=== PATIENT | female | born 1965 | race Caucasian/White ===

== ENCOUNTER 2020-06-08 14:53 | Inpatient (IN) | payer OTHER, SELFPAY ==
[2020-06-08 15:34] VITALS: PULSE 112; RESP 20; TEMP 36.3; O2SAT 99; BMI 19.3
--- NOTE | 2020-06-08 17:48 | ED_ITS ---
HPI - General Adult General Chief complaint: General Medical Stated complaint: fluid build up stomach Time Seen by Provider: 06/08/20 17:30 Source: patient Mode of arrival: ambulatory Limitations: no limitations History of Present Illness HPI narrative: Patient comes to the emergency room complaining of increased ab dominal size. Patient states earlier today she went to [facility], she was sent here for further evaluation and treatment. Patient states over the last week her abdomen has been growing. Patient states she drinks beer every day, started more than 20 years ago. Patient states she has never been told that she has cirrhosis , she is aware that her platelets are low from drinking. Otherwise she has never had any alcohol related issues. Patient denies fever chills. Patient states she has mild right upper quadrant pain, no vomiting or diarrhea. MD complaint: Abdominal distension Related Data Home Medications Medication Instructions Recorded Confirmed No Known Home Meds 06/08/20 06/08/20 Allergies Allergy/AdvReac Type Severity Reaction Status Date / Time Penicillins [PENICILLINS] Allergy Mild YEAST Verified 06/09/20 01:34 INFECTION penicillin V AdvReac Unknown yeast Verified 06/09/20 01:34 infection Review of Systems Review of Systems: Constitutional : No Weight loss, No Fever, No Chills, No Night Sweats, No Fatigue, No Malaise ENT/Mouth : No Hearing loss, No Ear Pain, No Nasal Congestion, No Sinus Pain, No Hoarseness, No sore throat, No Rhinorrhea, No Swallowing Difficulty Eyes: No Eye Pain, No Swelling, No Redness, No Foreign Body, No Discharge, No V ision Changes Cardiovascular : No Chest Pain, No SOB, No Dyspnea on Exertion, No Orthopnea, No Edema, No Palpitations Respiratory : No Cough, No Sputum, No Wheezing, No Smoke Exposure, No Dyspnea Gastrointestinal : No Nausea, No Vomiting, No Diarrhea, No Constipation, complaining of mild right upper quadrant pain and increased abdominal distention for the last week. No Hematochezia, No Melena Genitourinary : no irregular bleeding, No Dysuria, No Urinary Frequency, No Hematuria, No Urinary Incontinence, No Urgency, No Flank Pain, No Urinary Flow Changes, No Hesitancy Musculoskeletal : No joint pain, No Myalgias, No Joint Swelling Skin : No Skin Lesions, No rash Neuro : No Weakness, No Numbness, No Paresthesias, No Loss of Consciousness, No Dizziness, No Headache Psych : No Anxiety/Panic, No Depression, No SI/HI/AH/VH, No Social Issues, Heme/Lymph: No Bruising, No Bleeding,No Lymphadenopathy Endocrine : No Polyuria, No Polydipsia, No Temperature Intolerance [facility] Past Medical History Medical History (Updated 06/08/20 @ 23:02 by Aaliyah Sheikh MD) Alcohol abuse No known health problems Social History Social History Alcohol intake: current Alcohol intake frequency: 0-2 drinks per day Smoking Status: Current every day smoker Use of substances other than those prescribed or required for medical reasons: No Advance Directives: No Advance Directives Information Provided: No Physical Exam Vital Signs: Vital Signs: Last Vital Signs Temp 98.5 F 06/09/20 02:00 Pulse 120 H 06/09/20 02:00 Resp 19 06/09/20 02:00 BP 124/59 L 06/09/20 02:00 Pulse Ox 97 06/09/20 02:00 Body Mass Index 19.3 Appearance: Alert. Oriented X3. No acute distress. Eyes: Pupils equal, round and reactive to light. Icteric sclera ENT: Pharynx normal. Neck: Normal inspection. Neck supple. No lymph nodes noted. No crepitus CVS: Normal heart rate and rhythm. Pulses normal. Normal S1 and S2 Respiratory: No respiratory distress. Breath sounds normal. No Wheezing. No rales Abdomen: Soft and nontender. Grossly distended, bedside ultrasound shows bilateral lower quadrant fluid pockets, more pronounced in the left lower quadrant Skin: Skin warm and dry. Normal skin color. Normal skin turgor. Extremities: No lower extremity edema. No lower extremity edema. No Lacerations. No Rash Neuro: Oriented X 3. No motor deficit. No sensory deficit. Moving all extermities. No slurred speech. Course Course Course Narrative: Patient had a paracentesis done in the emergency room, 4300 mL were drained. I discussed the labs with the patient, this is the 1st time that patient is aware that she has any kind of liver or kidney injury. 2:20am: I was informed by the patient's nurse that the patient has epistaxis, intranasal Afrin was tried, patient continued having nasal bleed, topical intranasal TXA was attempted, seems that the bleeding stopped. Patient is already admitted. sign out given to Dr. Gonsalez, aware of the above mentioned, patient boarding Procedures Paracentesis Time Out Performed: Yes Local Anesthetic: lidocaine 2% Amount of anesthesia used (mL): 10 Fluid: clear and sent to lab for analysis Post Procedure Exam: awake, alert, normal BP, normal HR and normal SpO2 Patient Tolerated Procedure: well and no complications Complications: none Medical Decision Making Lab Data Result diagrams: 06/08/20 18:04 06/08/20 18:04 Labs: Lab Results 06/08/20 06/08/20 06/08/20 Range/Units 18:04 18:04 18:04 WBC 9.8 (4.8-10.8) X10*3/uL RBC 2.46 L (4.20-5.50) X10*6/uL Hgb 8.8 L (12.0-16.0) g/dl Hct 25.3 L (37-47) % MCV 102.8 H (80-98) fL MCH 35.8 H (27.0-33.0) pg MCHC 34.8 (31.0-35.0) g/dl RDW 18.8 H (11.0-16.0) % Plt Count 68 L (160-400) X10*3/uL MPV 11.8 (9.4-12.3) fL Immature Gran % (Auto) 0.5 H (0.0-0.4) % Neut % (Auto) 77.4 H (45-73) % Lymph % (Auto) 9.3 L (20-40) % Merrick % (Auto) 12.6 H (2-11) % Eos % (Auto) 0.0 (0-4) % Baso % (Auto) 0.2 (0-2) % Lymph # (Auto) 0.9 L (1.2-4.9) X10*3/uL Merrick # (Auto) 1.2 (0.1-1.2) X10*3/uL Eos # (Auto) 0.0 (0.0-0.4) X10*3/uL Baso # (Auto) 0.0 (0.0-0.2) X10*3/uL Abs Immat Gran (auto) 0.05 H (0.00-0.03) X10*3/uL Absolute Neuts (auto) 7.5 (2.0-8.3) X10*3/uL Absolute Nucleated RBC 0.000 (0.0-0.012) X10*3/uL Nucleated RBC % (auto) 0.0 (0.0-0.2) /100WBC PT 31.4 H (10.8-13.0) SEC INR 2.6 H (0.9-1.1) Sodium 131 L (135-145) mmol/L Potassium 3.9 (3.3-5.1) mmol/l Chloride 99 (96-108) mmol/L Carbon Dioxide 13 L (22-29) mmol/L Anion Gap 23 H (12-20) BUN 10 (9-16) mg/dL Creatinine 1.75 H (0.5-1.4) mg/dL Estim Creat Clear Calc 30.8 Estimated GFR 30 POC Glucose (60-115) mg/dL Random Glucose 57 L* (60-115) mg/dL Calcium 7.0 L (8.4-10.2) mg/dL Total Bilirubin 6.9 H (0.0-1.0) mg/dL Direct Bilirubin 4.6 H (0.0-0.5) mg/dL AST 284 H (5-31) U/L ALT 59 H (0-31) U/L Alkaline Phosphatase 102 (39-117) U/L Ammonia (13-55) umol/L Total Protein 7.9 (6.5-8.0) g/dL Albumin 1.9 L (3.5-5.0) g/dL Amylase (28-100) U/L Lipase (8-78) U/L Peritoneal WBC X10*3/uL Peritoneal RBC X10*6/uL Periton Neutrophils % Periton Lymphocytes % Peritoneal Monocytes % Peritoneal Eosinophils % Peritoneal Basophils % Peritoneal Other Cells % Ethyl Alcohol mg/dL COVID-19 ([facility]) (Negative) COVID-19 Clin Com Blood Type Antibody Screen 06/08/20 06/08/20 06/08/20 Range/Units 18:04 18:04 22:39 WBC (4.8-10.8) X10*3/uL RBC (4.20-5.50) X10*6/uL Hgb (12.0-16.0) g/dl Hct (37-47) % MCV (80-98) fL MCH (27.0-33.0) pg MCHC (31.0-35.0) g/dl RDW (11.0-16.0) % Plt Count (160-400) X10*3/uL MPV (9.4-12.3) fL Immature Gran % (Auto) (0.0-0.4) % Neut % (Auto) (45-73) % Lymph % (Auto) (20-40) % Merrick % (Auto) (2-11) % Eos % (Auto) (0-4) % Baso % (Auto) (0-2) % Lymph # (Auto) (1.2-4.9) X10*3/uL Merrick # (Auto) (0.1-1.2) X10*3/uL Eos # (Auto) (0.0-0.4) X10*3/uL Baso # (Auto) (0.0-0.2) X10*3/uL Abs Immat Gran (auto) (0.00-0.03) X10*3/uL Absolute Neuts (auto) (2.0-8.3) X10*3/uL Absolute Nucleated RBC (0.0-0.012) X10*3/uL Nucleated RBC % (auto) (0.0-0.2) /100WBC PT (10.8-13.0) SEC INR (0.9-1.1) Sodium (135-145) mmol/L Potassium (3.3-5.1) mmol/l Chloride (96-108) mmol/L Carbon Dioxide (22-29) mmol/L Anion Gap (12-20) BUN (9-16) mg/dL Creatinine (0.5-1.4) mg/dL Estim Creat Clear Calc Estimated GFR POC Glucose (60-115) mg/dL Random Glucose (60-115) mg/dL Calcium (8.4-10.2) mg/dL Total Bilirubin (0.0-1.0) mg/dL Direct Bilirubin (0.0-0.5) mg/dL AST (5-31) U/L ALT (0-31) U/L Alkaline Phosphatase (39-117) U/L Ammonia 56 H (13-55) umol/L Total Protein (6.5-8.0) g/dL Albumin (3.5-5.0) g/dL Amylase (28-100) U/L Lipase 42 (8-78) U/L Peritoneal WBC X10*3/uL Peritoneal RBC X10*6/uL Periton Neutrophils % Periton Lymphocytes % Peritoneal Monocytes % Peritoneal Eosinophils % Peritoneal Basophils % Peritoneal Other Cells % Ethyl Alcohol 101 mg/dL COVID-19 ([facility]) (Negative) COVID-19 Clin Com Blood Type Antibody Screen 06/08/20 06/08/20 06/08/20 Range/Units 22:39 22:39 22:46 WBC (4.8-10.8) X10*3/uL RBC (4.20-5.50) X10*6/uL Hgb (12.0-16.0) g/dl Hct (37-47) % MCV (80-98) fL MCH (27.0-33.0) pg MCHC (31.0-35.0) g/dl RDW (11.0-16.0) % Plt Count (160-400) X10*3/uL MPV (9.4-12.3) fL Immature Gran % (Auto) (0.0-0.4) % Neut % (Auto) (45-73) % Lymph % (Auto) (20-40) % Merrick % (Auto) (2-11) % Eos % (Auto) (0-4) % Baso % (Auto) (0-2) % Lymph # (Auto) (1.2-4.9) X10*3/uL Merrick # (Auto) (0.1-1.2) X10*3/uL Eos # (Auto) (0.0-0.4) X10*3/uL Baso # (Auto) (0.0-0.2) X10*3/uL Abs Immat Gran (auto) (0.00-0.03) X10*3/uL Absolute Neuts (auto) (2.0-8.3) X10*3/uL Absolute Nucleated RBC (0.0-0.012) X10*3/uL Nucleated RBC % (auto) (0.0-0.2) /100WBC PT (10.8-13.0) SEC INR (0.9-1.1) Sodium (135-145) mmol/L Potassium (3.3-5.1) mmol/l Chloride (96-108) mmol/L Carbon Dioxide (22-29) mmol/L Anion Gap (12-20) BUN (9-16) mg/dL Creatinine (0.5-1.4) mg/dL Estim Creat Clear Calc Estimated GFR POC Glucose (60-115) mg/dL Random Glucose (60-115) mg/dL Calcium (8.4-10.2) mg/dL Total Bilirubin (0.0-1.0) mg/dL Direct Bilirubin (0.0-0.5) mg/dL AST (5-31) U/L ALT (0-31) U/L Alkaline Phosphatase (39-117) U/L Ammonia (13-55) umol/L Total Protein (6.5-8.0) g/dL Albumin (3.5-5.0) g/dL Amylase 143 H (28-100) U/L Lipase 40 (8-78) U/L Peritoneal WBC 2.123 X10*3/uL Peritoneal RBC < 0.002 X10*6/uL Periton Neutrophils 47 % Periton Lymphocytes 2 % Peritoneal Monocytes 49 % Peritoneal Eosinophils 0 % Peritoneal Basophils 0 % Peritoneal Other Cells 2 % Ethyl Alcohol mg/dL COVID-19 ([facility]) (Negative) COVID-19 Clin Com Blood Type O Positive Antibody Screen NEGATIVE 06/08/20 06/09/20 Range/Units 22:48 01:41 WBC (4.8-10.8) X10*3/uL RBC (4.20-5.50) X10*6/uL Hgb (12.0-16.0) g/dl Hct (37-47) % MCV (80-98) fL MCH (27.0-33.0) pg MCHC (31.0-35.0) g/dl RDW (11.0-16.0) % Plt Count (160-400) X10*3/uL MPV (9.4-12.3) fL Immature Gran % (Auto) (0.0-0.4) % Neut % (Auto) (45-73) % Lymph % (Auto) (20-40) % Merrick % (Auto) (2-11) % Eos % (Auto) (0-4) % Baso % (Auto) (0-2) % Lymph # (Auto) (1.2-4.9) X10*3/uL Merrick # (Auto) (0.1-1.2) X10*3/uL Eos # (Auto) (0.0-0.4) X10*3/uL Baso # (Auto) (0.0-0.2) X10*3/uL Abs Immat Gran (auto) (0.00-0.03) X10*3/uL Absolute Neuts (auto) (2.0-8.3) X10*3/uL Absolute Nucleated RBC (0.0-0.012) X10*3/uL Nucleated RBC % (auto) (0.0-0.2) /100WBC PT (10.8-13.0) SEC INR (0.9-1.1) Sodium (135-145) mmol/L Potassium (3.3-5.1) mmol/l Chloride (96-108) mmol/L Carbon Dioxide (22-29) mmol/L Anion Gap (12-20) BUN (9-16) mg/dL Creatinine (0.5-1.4) mg/dL Estim Creat Clear Calc Estimated GFR POC Glucose 54 L* (60-115) mg/dL Random Glucose (60-115) mg/dL Calcium (8.4-10.2) mg/dL Total Bilirubin (0.0-1.0) mg/dL Direct Bilirubin (0.0-0.5) mg/dL AST (5-31) U/L ALT (0-31) U/L Alkaline Phosphatase (39-117) U/L Ammonia (13-55) umol/L Total Protein (6.5-8.0) g/dL Albumin (3.5-5.0) g/dL Amylase (28-100) U/L Lipase (8-78) U/L Peritoneal WBC X10*3/uL Peritoneal RBC X10*6/uL Periton Neutrophils % Periton Lymphocytes % Peritoneal Monocytes % Peritoneal Eosinophils % Peritoneal Basophils % Peritoneal Other Cells % Ethyl Alcohol mg/dL COVID-19 ([facility]) Negative (Negative) COVID-19 Clin Com See Note Blood Type Antibody Screen Imaging Data CT scan - abdomen: Radiologist's impression: LUNG BASES: Moderate volume left pleural effusion with compressive atelectasis at left lung base. Small volume right pleural effusion. LIVER, GALLBLADDER, AND BILIARY TREE: Liver parenchyma is low in density. No focal liver lesion or intrahepatic bile duct dilatation. Right lobe of liver measures 14 cm superior inferior. The gallbladder is distended. No calcified gallstone. No dilatation of the CBD which measures about 5 mm. PANCREAS: Unremarkable. SPLEEN: Unremarkable. Spleen measures 11 cm superior inferior. Small splenule at the inferior splenic margin ADRENAL GLANDS: Unremarkable. KIDNEYS AND URETERS: The kidneys are normal in size, shape, and attenuation. No hydronephrosis, hydroureter, or calculi seen. No perinephric stranding. BLADDER: Unremarkable. GASTROINTESTINAL TRACT: There is mild diffuse thickening of the left colon and sigmoid bowel wall there is also diffuse thickening of the bowel wall of the cecum and ascending colon. This finding however is of uncertain significance in the presence of the abdominal ascites. There are a few diverticula of the left colon. Small volume of scattered stool in colon. There is no bowel obstruction. No abnormally dilated bowel loop. MESENTERY: There is a large volume of abdominal ascites. There is no free air. There is no mesenteric mass. ABDOMINAL WALL: No significant hernia is appreciated. LYMPH NODES: Normal. VASCULAR: Scattered vascular calcifications of the wall of aorta. There is no aneurysm. PELVIC VISCERA: Unremarkable. OSSEOUS STRUCTURES: Unremarkable. CT/CT abdomen pelvis wo con IMPRESSION: 1. Large volume of abdominal ascites. 2. Low-attenuation of liver parenchyma consistent with nonspecific hepatobiliary disease. 3. Nonspecific colonic bowel wall thickening in the sigmoid and descending colon and the cecum and ascending colon. No abnormal bowel dilatation. 4. Bilateral pleural effusions. Left is larger in volume than the right. Discharge Plan Discharge Clinical Impression: Elevated LFTs, Acute kidney injury Ascites Qualifiers: Ascites type: due to alcoholic cirrhosis Qualified Code(s): K70.31 - Alcoholic cirrhosis of liver with ascites Patient Disposition: Admitted As Inpatient
[2020-06-08 18:14] LABS: Basophils Percent Auto 0.2 % (0-2); Hematocrit 25.3 % (37-47); Hemoglobin 8.8 g/dl (12.0-16.0); Imm Gran Abs Auto 0.05 X10*3/uL (0.00-0.03); Imm Gran Pct Auto 0.5 % (0.0-0.4); Lymphocytes Absolute Auto 0.9 X10*3/uL (1.2-4.9); Lymphocytes Percent Auto 9.3 % (20-40); MANUAL DIFF FLAG NO; Mean Corpuscular HGB Conc 34.8 g/dl (31.0-35.0); Mean Corpuscular Hemoglobin 35.8 pg (27.0-33.0); Mean Corpuscular Volume 102.8 fL (80-98); Mean Platelet Volume 11.8 fL (9.4-12.3); Monocytes Absolute Auto 1.2 X10*3/uL (0.1-1.2); Monocytes Percent Auto 12.6 % (2-11); Neutrophils Absolute Auto 7.5 X10*3/uL (2.0-8.3); Neutrophils Percent Auto 77.4 % (45-73); Red Blood Count 2.46 X10*6/uL (4.20-5.50); Red Cell Distribution Width 18.8 % (11.0-16.0); White Blood Count 9.8 X10*3/uL (4.8-10.8)
[2020-06-08 18:15] VITALS: PULSE 105; RESP 18; TEMP 36.8; O2SAT 97
[2020-06-08 18:15] LABS: Platelet Count 68 X10*3/uL (160-400)
[2020-06-08 18:23] LABS: INTERNATIONAL NORM RATIO 2.6 (0.9-1.1); Prothrombin Time 31.4 SEC (10.8-13.0)
[2020-06-08 18:33] LABS: Ethanol 101 mg/dL
[2020-06-08 18:35] LABS: Lipase 42 U/L (8-78)
[2020-06-08 18:44] LABS: Alanine Aminotransferase 59 U/L (0-31); Albumin Level 1.9 g/dL (3.5-5.0); Alkaline Phosphatase 102 U/L (39-117); Anion Gap 23 (12-20); Aspartate Amino Transferase 284 U/L (5-31); Bilirubin Direct 4.6 mg/dL (0.0-0.5); Bilirubin Total 6.9 mg/dL (0.0-1.0); Blood Urea Nitrogen 10 mg/dL (9-16); Carbon Dioxide 13 mmol/L (22-29); Chloride 99 mmol/L (96-108); Creatinine Clr Calc Pharmacy 30.8; Estimated Glomerular Filt Rate 30; Glucose Random 57 mg/dL (60-115); Potassium 3.9 mmol/l (3.3-5.1); Sodium 131 mmol/L (135-145); Total Protein 7.9 g/dL (6.5-8.0)
--- NOTE | 2020-06-08 19:55 | CT_ITS ---
EXAMINATION: CT ABDOMEN AND PELVIS WITHOUT CONTRAST CLINICAL INFORMATION: Left upper quadrant pain. Ascites. COMPARISON: Ultrasound of abdomen 07/31/2018 TECHNIQUE: Multidetector volumetric imaging was performed from the superior aspect of the liver through the pubic symphysis. Sagittal and coronal reformatted images were obtained on the technologist's workstation. This CT examination was performed using dose optimization techniques as appropriate, variously including the following: *Automated exposure control *Adjustment of mA and/or kV according to patient size (this includes techniques or standardized protocols for targeted exams where dose is matched to indication/reason for exam; i.e. extremities or head) *Use of iterative reconstruction technique DLP: 481 mGy-cm FINDINGS: LUNG BASES: Moderate volume left pleural effusion with compressive atelectasis at left lung base. Small volume right pleural effusion. LIVER, GALLBLADDER, AND BILIARY TREE: Liver parenchyma is low in density. No focal liver lesion or intrahepatic bile duct dilatation. Right lobe of liver measures 14 cm superior inferior. The gallbladder is distended. No calcified gallstone. No dilatation of the CBD which measures about 5 mm. PANCREAS: Unremarkable. SPLEEN: Unremarkable. Spleen measures 11 cm superior inferior. Small splenule at the inferior splenic margin ADRENAL GLANDS: Unremarkable. KIDNEYS AND URETERS: The kidneys are normal in size, shape, and attenuation. No hydronephrosis, hydroureter, or calculi seen. No perinephric stranding. BLADDER: Unremarkable. GASTROINTESTINAL TRACT: There is mild diffuse thickening of the left colon and sigmoid bowel wall there is also diffuse thickening of the bowel wall of the cecum and ascending colon. This finding however is of uncertain significance in the presence of the abdominal ascites. There are a few diverticula of the left colon. Small volume of scattered stool in colon. There is no bowel obstruction. No abnormally dilated bowel loop. MESENTERY: There is a large volume of abdominal ascites. There is no free air. There is no mesenteric mass. ABDOMINAL WALL: No significant hernia is appreciated. LYMPH NODES: Normal. VASCULAR: Scattered vascular calcifications of the wall of aorta. There is no aneurysm. PELVIC VISCERA: Unremarkable. OSSEOUS STRUCTURES: Unremarkable. CT/CT abdomen pelvis wo con IMPRESSION: 1. Large volume of abdominal ascites. 2. Low-attenuation of liver parenchyma consistent with nonspecific hepatobiliary disease. 3. Nonspecific colonic bowel wall thickening in the sigmoid and descending colon and the cecum and ascending colon. No abnormal bowel dilatation. 4. Bilateral pleural effusions. Left is larger in volume than the right.
[2020-06-08 22:00] VITALS: PULSE 102; RESP 20; O2SAT 100
[2020-06-08] MEDS: Lidocaine HCl 2 % MPF 5 ML VIAL 10 ML INFILTRATI (22:34)
--- NOTE | 2020-06-08 22:44 | P.HPHOSP_ITS ---
History of Present Illness Date of Service: 06/08/20 Chief Complaint: Abdominal distension 54-year-old female with no significant past medical history who presents to hospital with complaints of abdominal distension x1 week. Patient reports that she started noticing her abdominal swelling about a week ago contributed to constipation has some pain specially when she is trying to get up or have a lot of movement, has low appetite but drinks sufficient water, denies having any nausea or vomiting PI denies noticing any changes in the color of her skin or eyes, denies having any right quadrant abdominal pain, denies using any IV drug use or history of hepatitis, she is a alcohol drinker drinks 1 beer daily for a very long time per patient, she uses Tylenol regularly for hip, denies using any type of NSAIDs. Patient also noticed swelling in her legs. She otherwise denies having any headache, change in vision, no chest pain, no shortness of breath, no urinary symptoms. No weakness numbness or tingling. On arrival to the ED hemodynamically stable with a heart rate of 112, respiratory rate of 20, satting 99% on room air, blood pressure 1 7/54. Temperature of 97.3? Labs are significant for 9.8, hemoglobin of 8.8 (13 on 12/13/2018) hematocrit 25.3, MCV of 102, RDW of 18.8, [place] [address], PT of 31.4 INR of 2.6 (patient not on any anticoagulation), sodium of 131, potassium of 3.9, BUN of 1 0, creatinine of 1.75 baseline around 0.69 from 12/13/2018, hypoglycemic with a glucose of 57, 6.9, direct bili of 4.6, AST of 284, ALT of 59, ammonia 56, albumin of 1.9, amylase of 143, lipase of 40, Patient is undergoing diagnostic and therapeutic paracentesis COVID-19 negative, hepatitis panel negative Abdominal CT demonstrating large volume of abdominal ascites, low attenuation of liver parenchyma consistent with nonspecific hepatic biliary disease, nonspecific colonic bowel wall thickening in the sigmoid and descending colon and the cecum and ascending colon. Bilateral pleural effusion left as large in volume than the right Review of Systems Review of Systems: Yes all other systems are reviewed and are negative [facility] Medical History Alcohol abuse No known health problems Social History Alcohol intake: current Alcohol intake frequency: 0-2 drinks per day Smoking Status: Current every day smoker Use of substances other than those prescribed or required for medical reasons: No Advance Directives: No Advance Directives Information Provided: No Meds Allergies Allergy/AdvReac Type Severity Reaction Status Date / Time Penicillins [PENICILLINS] Allergy Mild YEAST Verified 06/09/20 01:34 INFECTION penicillin V AdvReac Unknown yeast Verified 06/09/20 01:34 infection Home Medications Medication Instructions Recorded Confirmed Type No Known Home Meds 06/08/20 06/08/20 History Physical Exam Vital Signs and Narrative: Vital Signs: Last Vital Signs Temp 97.3 F 06/08/20 15:34 Pulse 112 H 06/08/20 15:34 Resp 20 06/08/20 15:34 Pulse Ox 99 06/08/20 15:34 Body Mass Index 19.3 Const: General: cooperative and no acute distress Orientation/conscio usness: patient oriented x3 Eyes: General: appearance normal, both eyes and all related structures Sclerae: scleral abnormal (Sclera icterus) bilateral Resp: Effort & Inspection: normal respiratory effort, able to speak in complete sentences and abnormal respiratory pattern Auscultation: clear to auscultation bilaterally Cardio: Rate: regular rate Rhythm: regular rhythm GI: Other: Abdominal distension, no rebound no guarding, tender to deep palpation Palpation (GI): Soft to palpation Auscultation: normal bowel sounds Skin: General skin exam: no rashes or lesions noted Neuro: General: patient oriented x3 Cognition (Neuro): normal cognition Extrem: Other: 1+ pedal edema General: Yes normal to inspection Results Labs CBC and Chem 7: 06/08/20 18:04 06/08/20 18:04 Labs: Laboratory Results - last 24 hr 06/08/20 06/08/20 06/08/20 18:04 18:04 18:04 MCV 102.8 H MCH 35.8 H MCHC 34.8 RDW 18.8 H Plt Count 68 L MPV 11.8 Immature Gran % (Auto) 0.5 H Neut % (Auto) 77.4 H Lymph % (Auto) 9.3 L Dare % (Auto) 12.6 H Eos % (Auto) 0.0 Baso % (Auto) 0.2 Lymph # (Auto) 0.9 L Dare # (Auto) 1.2 Eos # (Auto) 0.0 Baso # (Auto) 0.0 Abs Immat Gran (auto) 0.05 H Absolute Neuts (auto) 7.5 Absolute Nucleated RBC 0.000 Nucleated RBC % (auto) 0.0 PT 31.4 H INR 2.6 H Anion Gap 23 H Estim Creat Clear Calc 30.8 Estimated GFR 30 Random Glucose 57 L* Calcium 7.0 L Total Bilirubin 6.9 H Direct Bilirubin 4.6 H AST 284 H ALT 59 H Alkaline Phosphatase 102 Total Protein 7.9 Albumin 1.9 L Lipase Ethyl Alcohol 06/08/20 06/08/20 18:04 18:04 MCV MCH MCHC RDW Plt Count MPV Immature Gran % (Auto) Neut % (Auto) Lymph % (Auto) Dare % (Auto) Eos % (Auto) Baso % (Auto) Lymph # (Auto) Dare # (Auto) Eos # (Auto) Baso # (Auto) Abs Immat Gran (auto) Absolute Neuts (auto) Absolute Nucleated RBC Nucleated RBC % (auto) PT INR Anion Gap Estim Creat Clear Calc Estimated GFR Random Glucose Calcium Total Bilirubin Direct Bilirubin AST ALT Alkaline Phosphatase Total Protein Albumin Lipase 42 Ethyl Alcohol 101 Imaging Radiologist's Impressions: Impressions Abdomen/Pelvis CT 06/08/20 19:55 IMPRESSION: 1. Large volume of abdominal ascites. 2. Low-attenuation of liver parenchyma consistent with nonspecific hepatobiliary disease. 3. Nonspecific colonic bowel wall thickening in the sigmoid and descending colon and the cecum and ascending colon. No abnormal bowel dilatation. 4. Bilateral pleural effusions. Left is larger in volume than the right. Assessment and Plan (1) Liver failure: Qualifiers: Liver failure chronicity: acute Hepatic coma status: without hepatic coma Qualified Code(s): K72.00 - Acute and subacute hepatic failure without com a Status: Acute (2) Elevated INR: Status: Acute (3) Elevated LFTs: Status: Acute (4) Acute kidney injury: Status: Acute (5) Ascites: Qualifiers: Ascites type: due to alcoholic cirrhosis Qualified Code(s): K70.31 - A lcoholic cirrhosis of liver with ascites Status: Acute (6) Hyperammonemia: Status: Acute (7) Hypoglycemia: Status: Acute This is a 54-year-old female with past medical history of alcohol abuse who presents to the hospital with ascites of the abdomen # acute liver failure - most likely secondary to alcohol abuse, hepatitis panel negative - reports using Tylenol but not in excessive doses, and LFTs are not indicative of toxicity secondary to Tylenol use - has scleral icterus, ammonia elevated, LFT is indicative of alcohol use, total bili of 6.9, albumin of 1.9, and has coagulopathy - MELD score of 32 placing her at a 52.6 % estimated 3 month mortality - CILD HUTCHISON class C - underwent diagnostic as well as therapeutic paracentesis in the ED, lipase normal, amylase slightly elevated Plan: - will obtain ROBBY, anti smooth muscle antibody, liver kidney microsomal antibodies - GI consult - given her pleural effusions on the CT scan, as well as lower extremity edema, will give her 1 dose of Lasix 40 mg - start lactulose - Tylenol level - discussed extensively the importance of discontinuing alcohol, patient demonstrates understanding # coagulopathy - secondary to liver failure - has elevated INR, as well as thrombocytopenia Plan: - monitor for bleed - use SCDs for DVT prophylaxis # hyperammonemia - no acute hepatic coma and no encephalopathy at this time - will start her on lactulose t.i.d. with a goal of 3-4 BMs daily # AUGUSTINA - prerenal versus hepatorenal - will hold off on starting IV fluids given the significant volume overload - may need to start steroids - consult Nephrology - follow BMP # Hypoglycemia - possibly due to low oral intake as well as liver failure - will give D50 and follow glucose q.2 hours DVT prophylaxis: SCDs
[2020-06-08 22:55] LABS: MN% 48.2 %; PMN% 51.8 %; WBC Peritoneal Fluid 2.123 X10*3/uL
[2020-06-08 22:57] LABS: RBC Peritoneal Fluid < 0.002 X10*6/uL
--- NOTE | 2020-06-08 23:05 | PC.NURSE ---
output of 4300ml from pericentisis
[2020-06-08 23:24] LABS: COVID-19 Test Negative (Negative); IDNOW Serial# 9DD0AD1C
[2020-06-08 23:40] LABS: BF Shift QC OK YES; Basophils Peritoneal Fl 0 %; Eosinophils Peritoneal Fl 0 %; Lymphocyte Peritoneal Fl 2 %; Man Diluent Bkgrd OK YES; Monocytes Peritoneal Fl 49 %; Neutrophils Peritoneal Fluid 47 %; Other Peritioneal Fl 2 %
[2020-06-09] VITALS (14 sets, daily range): BP systolic 107–159; BP diastolic 54–84; PULSE 81–120; RESP 16–20; TEMP 36.7–37.6; O2SAT 94–98
[2020-06-09 00:04] LABS: Ammonia 56 umol/L (13-55)
[2020-06-09 00:28] LABS: Amylase 143 U/L (28-100); Lipase 40 U/L (8-78)
--- NOTE | 2020-06-09 00:49 | PC.NURSE ---
Patient care notes: 1814: pt arrived ambuatory from waiting room. Pt reports abd pain and distention x 1 week. Pt reports chronic etoh use, patient skin appears to be jaundice. vss. HR 100, rr 18, Lung sounds clear. patient potitioned for comfort. Pt denies needs. 2030: pt awaiting results of ct. daughter bryant called. patient gave permission for communication to occur. [phone]. Pt reports that she is tolerating discomfort. patient calm and compliant with treatment. hr 102 rr20 spo2 97. 2200: Pericentisis equipment brought to bedside. patient had no questions regarding procedure. MD and ERTs at bedside to monitor. VSS remain stable.
[2020-06-09] MEDS: 0.9 % Sodium Chloride 1,000 ML 999 ML IVCONT (01:35)
[2020-06-09] MEDS: Oxymetazoline HCl 0.05 % Nasal 15 ML SPRAY 2 SPRAY NOSTRIL-B (01:35)
[2020-06-09 01:47] LABS: Glucose, Whole Blood 54 mg/dL (60-115)
[2020-06-09] MEDS: Tranexamic Acid 1,000 MG in 0.9 % Sodium Chloride 50 ML 360 MG IV (02:24)
--- NOTE | 2020-06-09 02:25 | PC.NURSE ---
TXA ADMINISTERED BY MD BY ATOMIZER IN LEFT NOSTRIL.
--- NOTE | 2020-06-09 02:30 | PC.NURSE ---
PT GIVEN JELLO, PUDDING AND NAIMA PRIMITIVO FOR HER POC OF 54. PT AWAKE AND ALERT, NO CONFUSION. PT ARRIVED TO ER WITH POC OF 56.
--- NOTE | 2020-06-09 03:06 | PC.NURSE ---
PT HAS SLIGHT BILATERAL HAND TREMOR, ASKED WHEN HER LAST ALCOHOLIC DRINK WAS. PT RESPONDED NEW YEARS DAY. ETOH BLOOD LEVEL CAME BACK 101. ASKED PT IF SHE HAS EVER HAD A WITHDRAWL SEIZURE, PT RESPONDED NO.
[2020-06-09 04:15] LABS: HBc Num1 0.41 S/CO (0.00-0.79); Hepatitis B Core Antibody Nonreactive (Nonreactive); ~HepC Num1 0.31 S/CO (0.00-0.79); ~Hepatitis B Surface Antibody NONREACTIVE (Nonreactive); ~Hepatitis C Antibody Nonreactive (Nonreactive)
[2020-06-09 04:21] LABS: Vitamin B12 1905 pg/mL (200-900)
[2020-06-09 04:27] LABS: HBsAGNum1 0.27 S/CO (0.00-0.99); Hepatitis A Antibody IgM 0.19 Index (0-0.79); Hepatitis B Surface Antigen Negative (Negative); ~Hepatitis A Antibody IgM Nonreactive (Nonreactive)
--- NOTE | 2020-06-09 05:43 | PC.NURSE ---
PT HAS BEEN SLEEPING FOR PAST FEW HOURS, NOSE BLEED HAS STOPPED.
[2020-06-09 05:49] LABS: Glucose, Whole Blood 147 mg/dL (60-115)
--- NOTE | 2020-06-09 05:57 | PC.NURSE ---
PT HAS NOT VOIDED SINCE BEFORE ARRIVAL AT THE ER. PT HAS SLIGHT URGE TO GO, WILL TRY AND OBTAIN URINE SAMPLE.
[2020-06-09] MEDS: Furosemide 40 MG/4 ML VIAL IVPUSH (06:00)
[2020-06-09 06:07] LABS: Acetaminophen LAB 12 mcg/mL (<30)
[2020-06-09 06:55] LABS: Glucose Urine UA NEG (NEG); Leukocyte Esterase Urine NEG (NEG); PH 5.5 (5.0-8.0); Specific Gravity - Urine >= 1.030 (1.005-1.025); Urine Blood NEG (NEG); Urine Protein TRACE MG/DL (NEG-TRACE)
[2020-06-09 07:12] LABS: Appearance Urine HAZY; Color Urine ORANGE
[2020-06-09 07:13] LABS: Hyaline Casts Urine 0-2 /LPF; RBC Urine 0-2 /HPF (0); Squamous Epithelial Cell Urine 4+ /LPF; WBC Urine 0 /HPF (0-4)
--- NOTE | 2020-06-09 08:00 | PC.NURSE ---
pt is sitting in bed she is jaundice petite body structure with a distended abd. she has a paracentesis last shift for 4300ml she has mild confusion and is having difficulty with some tasks. she was able to ambulate to the bathroom with supervision for gait safety
[2020-06-09] MEDS: Albumin Human 25 % 100 ML IV ×3 (08:30→12:23)
[2020-06-09 08:46] LABS: Glucose, Whole Blood 168 mg/dL (60-115)
[2020-06-09 09:06] LABS: Albumin Peritoneal Fluid 0.2; Amylase Peritoneal Fluid 24; Glucose Peritoneal Fluid 61; LDH Peritoneal Fluid 113; Total Protein Peritoneal Fluid 0.7
[2020-06-09 09:08] LABS: pH Peritoneal Fluid 7.46
[2020-06-09 09:16] LABS: Glucose, Whole Blood 168 mg/dL (60-115)
[2020-06-09] MEDS: cefTRIAXone sodium 1 GM in 0.9 % Sodium Chloride 50 ML IV (10:13)
[2020-06-09] MEDS: Thiamine HCL 100 MG TABLET PO (10:14)
[2020-06-09] MEDS: Lactulose 20 GM/30 ML SOLUTION 30 GM PO ×3 (10:14→20:47)
[2020-06-09] MEDS: Folic Acid 1 MG TABLET PO (10:14)
--- NOTE | 2020-06-09 10:18 | MHC.CM.PN ---
PATIENT LIVES WITH HER DAUGHTER/NEW HCP COPY IN CHART SHE HAS A CANE AND WALKER, BUT RARELY USES THEM. DAUGHTER HELPS WITH TRANSPORT AND SOME ADLS WHERE NEEDED. PLAN IS FOR PATIENT TO REMAIN AT LEAST THREE DAYS, ACCORDING TO HOSPITALIST CONVERSATION WITH PATIENT. CASE MANAGEMENT FOLLOWING FOR ANY DISCHARGE NEEDS.
[2020-06-09 10:37] LABS: MANUAL DIFF FLAG NO
[2020-06-09 10:51] LABS: Basophils Percent Auto 0.4 % (0-2); Eosinophils Percent Auto 0.3 % (0-4); Hematocrit 22.2 % (37-47); Hemoglobin 7.7 g/dl (12.0-16.0); Imm Gran Abs Auto 0.03 X10*3/uL (0.00-0.03); Imm Gran Pct Auto 0.4 % (0.0-0.4); Lymphocytes Absolute Auto 1.6 X10*3/uL (1.2-4.9); Lymphocytes Percent Auto 20.4 % (20-40); Mean Corpuscular HGB Conc 34.7 g/dl (31.0-35.0); Mean Corpuscular Hemoglobin 35.5 pg (27.0-33.0); Mean Corpuscular Volume 102.3 fL (80-98); Mean Platelet Volume 12.3 fL (9.4-12.3); Monocytes Absolute Auto 1.3 X10*3/uL (0.1-1.2); Monocytes Percent Auto 17.1 % (2-11); Neutrophils Absolute Auto 4.8 X10*3/uL (2.0-8.3); Neutrophils Percent Auto 61.4 % (45-73); Red Blood Count 2.17 X10*6/uL (4.20-5.50); Red Cell Distribution Width 18.7 % (11.0-16.0); White Blood Count 7.8 X10*3/uL (4.8-10.8)
[2020-06-09 11:04] LABS: Platelet Count 63 X10*3/uL (160-400)
[2020-06-09 11:12] LABS: Anion Gap 15 (12-20); Blood Urea Nitrogen 14 mg/dL (9-16); Carbon Dioxide 19 mmol/L (22-29); Chloride 101 mmol/L (96-108); Creatinine Clr Calc Pharmacy 31.9; Estimated Glomerular Filt Rate 31; Glucose Random 148 mg/dL (60-115); Potassium 3.4 mmol/l (3.3-5.1); Sodium 132 mmol/L (135-145)
--- NOTE | 2020-06-09 15:06 | P.PNIM_ITS ---
Subjective Subjective Date of Service: 06/09/20 Interval History: drinks EtOH daily denies abd pain/melena/hematochezia no signs of withdrawal Physical Exam Vital Signs: Vital Signs: Last Vital Signs Temp 98.9 F 06/09/20 12:00 Pulse 101 H 06/09/20 12:00 Resp 16 06/09/20 12:00 BP 135/76 06/09/20 12:00 Pulse Ox 97 06/09/20 12:00 Body Mass Index 19.3 Gen: chronically ill-appearing HEENT: sclera icteric, moist mucus membranes Neck: supple Lungs: clear to auscultation bilaterally Heart: regular rate and rhythm, no murmurs Abd: distended, non-tender, bulging flanks, no bleeding from paracentesis site Ext: no edema Skin: jaundiced Neuro: alert and oriented x3, no focal findings, no asterixis Psych: appropriate affect Objective Data Current Medications Generic Name Dose Route Start Last Admin Trade Name Freq PRN Reason Stop Dose Admin Docusate Sodium 100 mg 06/09/20 09:48 Docusate Sodium 100 Mg Capsule PO DAILY PRN Constipation Folic Acid 1 mg 06/09/20 09:00 06/09/20 10:14 Folic Acid 1 Mg Tablet PO 1 mg DAILY RANDOLPH Administration Ceftriaxone Sodium 1 gm/ 50 mls @ 100 mls/hr 06/09/20 09:00 06/09/20 10:45 Sodium Chloride IV Infused Q24H RANDOLPH Infusion Sodium Chloride 1,000 mls @ 100 mls/hr 06/09/20 09:48 06/09/20 10:45 Ns IVCONT Not Given .Q10H RANDOLPH Lactulose 30 gm 06/09/20 09:00 06/09/20 10:14 Lactulose 20 Gm/30 Ml Solution PO 30 gm TID RANDOLPH Administration Ondansetron HCl 4 mg 06/09/20 09:48 Ondansetron Hcl 4 Mg/2 Ml Vial IVPUSH Q8H PRN Nausea and Vomiting Sodium Chloride 3 ml 06/09/20 09:48 06/09/20 10:45 0.9 % Sodium Chloride Flush 3 Ml Syringe IVFLUSH Not Given QSHIFT RANDOLPH Thiamine HCl 100 mg 06/09/20 09:00 06/09/20 10:14 Thiamine Hcl 100 Mg Tablet PO 100 mg DAILY RANDOLPH Administration Labs CBC & Chem 7: 06/09/20 10:31 06/09/20 10:31 Labs: Laboratory Results - last 24 hr 06/08/20 06/08/20 06/08/20 18:04 18:04 18:04 WBC 9.8 RBC 2.46 L Hgb 8.8 L Hct 25.3 L MCV 102.8 H MCH 35.8 H MCHC 34.8 RDW 18.8 H Plt Count 68 L MPV 11.8 Immature Gran % (Auto) 0.5 H Neut % (Auto) 77.4 H Lymph % (Auto) 9.3 L [place] % (Auto) 12.6 H Eos % (Auto) 0.0 Baso % (Auto) 0.2 Lymph # (Auto) 0.9 L [place] # (Auto) 1.2 Eos # (Auto) 0.0 Baso # (Auto) 0.0 Abs Immat Gran (auto) 0.05 H Absolute Neuts (auto) 7.5 Absolute Nucleated RBC 0.000 Nucleated RBC % (auto) 0.0 PT 31.4 H INR 2.6 H Sodium 131 L Potassium 3.9 Chloride 99 Carbon Dioxide 13 L Anion Gap 23 H BUN 10 Creatinine 1.75 H Estim Creat Clear Calc 30.8 Estimated GFR 30 POC Glucose Random Glucose 57 L* Calcium 7.0 L Total Bilirubin 6.9 H Direct Bilirubin 4.6 H AST 284 H ALT 59 H Alkaline Phosphatase 102 Ammonia Total Protein 7.9 Albumin 1.9 L Amylase Lipase Vitamin B12 Folate Urine Color Urine Appearance Urine pH Ur Specific Gerald Urine Protein Urine Glucose (UA) Urine Ketones Urine Blood Urine Nitrite Ur Leukocyte Esterase Urine RBC Urine WBC Ur Squamous Epith Cells Urine Bacteria Hyaline Casts Peritoneal pH Peritoneal WBC Peritoneal RBC Periton Neutrophils Periton Lymphocytes Peritoneal Monocytes Peritoneal Eosinophils Peritoneal Basophils Peritoneal Other Cells Peritoneal Tot Protein Peritoneal Albumin Peritoneal LDH Peritoneal Glucose Peritoneal Amylase Acetaminophen Ethyl Alcohol COVID-19 (CLAUDY) COVID-19 Clin Com Hepatitis A IgM Ab Hep Bs Antigen Hep Bs Antibody Hep B Core Total Ab Hepatitis C Ab (EIA) Blood Type Antibody Screen 06/08/20 06/08/20 06/08/20 18:04 18:04 22:39 WBC RBC Hgb Hct MCV MCH MCHC RDW Plt Count MPV Immature Gran % (Auto) Neut % (Auto) Lymph % (Auto) [place] % (Auto) Eos % (Auto) Baso % (Auto) Lymph # (Auto) [place] # (Auto) Eos # (Auto) Baso # (Auto) Abs Immat Gran (auto) Absolute Neuts (auto) Absolute Nucleated RBC Nucleated RBC % (auto) PT INR Sodium Potassium Chloride Carbon Dioxide Anion Gap BUN Creatinine Estim Creat Clear Calc Estimated GFR POC Glucose Random Glucose Calcium Total Bilirubin Direct Bilirubin AST ALT Alkaline Phosphatase Ammonia 56 H Total Protein Albumin Amylase Lipase 42 Vitamin B12 Folate Urine Color Urine Appearance Urine pH Ur Specific Gerald Urine Protein Urine Glucose (UA) Urine Ketones Urine Blood Urine Nitrite Ur Leukocyte Esterase Urine RBC Urine WBC Ur Squamous Epith Cells Urine Bacteria Hyaline Casts Peritoneal pH Peritoneal WBC Peritoneal RBC Periton Neutrophils Periton Lymphocytes Peritoneal Monocytes Peritoneal Eosinophils Peritoneal Basophils Peritoneal Other Cells Peritoneal Tot Protein Peritoneal Albumin Peritoneal LDH Peritoneal Glucose Peritoneal Amylase Acetaminophen Ethyl Alcohol 101 COVID-19 (CLAUDY) COVID-19 Clin Com Hepatitis A IgM Ab Hep Bs Antigen Hep Bs Antibody Hep B Core Total Ab Hepatitis C Ab (EIA) Blood Type Antibody Screen 06/08/20 06/08/20 06/08/20 22:39 22:39 22:39 WBC RBC Hgb Hct MCV MCH MCHC RDW Plt Count MPV Immature Gran % (Auto) Neut % (Auto) Lymph % (Auto) [place] % (Auto) Eos % (Auto) Baso % (Auto) Lymph # (Auto) [place] # (Auto) Eos # (Auto) Baso # (Auto) Abs Immat Gran (auto) Absolute Neuts (auto) Absolute Nucleated RBC Nucleated RBC % (auto) PT INR Sodium Potassium Chloride Carbon Dioxide Anion Gap BUN Creatinine Estim Creat Clear Calc Estimated GFR POC Glucose Random Glucose Calcium Total Bilirubin Direct Bilirubin AST ALT Alkaline Phosphatase Ammonia Total Protein Albumin Amylase 143 H Lipase 40 Vitamin B12 1905 H Folate 6.0 Urine Color Urine Appearance Urine pH Ur Specific Gerald Urine Protein Urine Glucose (UA) Urine Ketones Urine Blood Urine Nitrite Ur Leukocyte Esterase Urine RBC Urine WBC Ur Squamous Epith Cells Urine Bacteria Hyaline Casts Peritoneal pH Peritoneal WBC 2.123 Peritoneal RBC < 0.002 Periton Neutrophils 47 Periton Lymphocytes 2 Peritoneal Monocytes 49 Peritoneal Eosinophils 0 Peritoneal Basophils 0 Peritoneal Other Cells 2 Peritoneal Tot Protein Peritoneal Albumin Peritoneal LDH Peritoneal Glucose Peritoneal Amylase Acetaminophen Ethyl Alcohol COVID-19 (CLAUDY) COVID-19 Clin Com Hepatitis A IgM Ab Hep Bs Antigen Hep Bs Antibody Hep B Core Total Ab Hepatitis C Ab (EIA) Blood Type Antibody Screen 06/08/20 06/08/20 06/08/20 22:39 22:39 22:39 WBC RBC Hgb Hct MCV MCH MCHC RDW Plt Count MPV Immature Gran % (Auto) Neut % (Auto) Lymph % (Auto) [place] % (Auto) Eos % (Auto) Baso % (Auto) Lymph # (Auto) [place] # (Auto) Eos # (Auto) Baso # (Auto) Abs Immat Gran (auto) Absolute Neuts (auto) Absolute Nucleated RBC Nucleated RBC % (auto) PT INR Sodium Potassium Chloride Carbon Dioxide Anion Gap BUN Creatinine Estim Creat Clear Calc Estimated GFR POC Glucose Random Glucose Calcium Total Bilirubin Direct Bilirubin AST ALT Alkaline Phosphatase Ammonia Total Protein Albumin Amylase Lipase Vitamin B12 Folate Urine Color Urine Appearance Urine pH Ur Specific Gerald Urine Protein Urine Glucose (UA) Urine Ketones Urine Blood Urine Nitrite Ur Leukocyte Esterase Urine RBC Urine WBC Ur Squamous Epith Cells Urine Bacteria Hyaline Casts Peritoneal pH 7.46 Peritoneal WBC Peritoneal RBC Periton Neutrophils Periton Lymphocytes Peritoneal Monocytes Peritoneal Eosinophils Peritoneal Basophils Peritoneal Other Cells Peritoneal Tot Protein 0.7 Peritoneal Albumin 0.2 Peritoneal LDH 113 Peritoneal Glucose 61 Peritoneal Amylase 24 Acetaminophen Ethyl Alcohol COVID-19 (CLAUDY) COVID-19 Clin Com Hepatitis A IgM Ab Cancelled Hep Bs Antigen Cancelled Hep Bs Antibody Cancelled Hep B Core Total Ab Cancelled Hepatitis C Ab (EIA) Cancelled Blood Type Antibody Screen 06/08/20 06/08/20 06/08/20 22:39 22:46 22:48 WBC RBC Hgb Hct MCV MCH MCHC RDW Plt Count MPV Immature Gran % (Auto) Neut % (Auto) Lymph % (Auto) [place] % (Auto) Eos % (Auto) Baso % (Auto) Lymph # (Auto) [place] # (Auto) Eos # (Auto) Baso # (Auto) Abs Immat Gran (auto) Absolute Neuts (auto) Absolute Nucleated RBC Nucleated RBC % (auto) PT INR Sodium Potassium Chloride Carbon Dioxide Anion Gap BUN Creatinine Estim Creat Clear Calc Estimated GFR POC Glucose Random Glucose Calcium Total Bilirubin Direct Bilirubin AST ALT Alkaline Phosphatase Ammonia Total Protein Albumin Amylase Lipase Vitamin B12 Folate Urine Color Urine Appearance Urine pH Ur Specific Gerald Urine Protein Urine Glucose (UA) Urine Ketones Urine Blood Urine Nitrite Ur Leukocyte Esterase Urine RBC Urine WBC Ur Squamous Epith Cells Urine Bacteria Hyaline Casts Peritoneal pH Peritoneal WBC Peritoneal RBC Periton Neutrophils Periton Lymphocytes Peritoneal Monocytes Peritoneal Eosinophils Peritoneal Basophils Peritoneal Other Cells Peritoneal Tot Protein Peritoneal Albumin Peritoneal LDH Peritoneal Glucose Peritoneal Amylase Acetaminophen 12 Ethyl Alcohol COVID-19 (CLAUDY) Negative COVID-19 Clin Com See Note Hepatitis A IgM Ab Hep Bs Antigen Hep Bs Antibody Hep B Core Total Ab Hepatitis C Ab (EIA) Blood Type O Positive Antibody Screen NEGATIVE 06/08/20 06/09/20 06/09/20 23:31 01:41 05:43 WBC RBC Hgb Hct MCV MCH MCHC RDW Plt Count MPV Immature Gran % (Auto) Neut % (Auto) Lymph % (Auto) [place] % (Auto) Eos % (Auto) Baso % (Auto) Lymph # (Auto) [place] # (Auto) Eos # (Auto) Baso # (Auto) Abs Immat Gran (auto) Absolute Neuts (auto) Absolute Nucleated RBC Nucleated RBC % (auto) PT INR Sodium Potassium Chloride Carbon Dioxide Anion Gap BUN Creatinine Estim Creat Clear Calc Estimated GFR POC Glucose 54 L* 147 H Random Glucose Calcium Total Bilirubin Direct Bilirubin AST ALT Alkaline Phosphatase Ammonia Total Protein Albumin Amylase Lipase Vitamin B12 Folate Urine Color Urine Appearance Urine pH Ur Specific Gerald Urine Protein Urine Glucose (UA) Urine Ketones Urine Blood Urine Nitrite Ur Leukocyte Esterase Urine RBC Urine WBC Ur Squamous Epith Cells Urine Bacteria Hyaline Casts Peritoneal pH Peritoneal WBC Peritoneal RBC Periton Neutrophils Periton Lymphocytes Peritoneal Monocytes Peritoneal Eosinophils Peritoneal Basophils Peritoneal Other Cells Peritoneal Tot Protein Peritoneal Albumin Peritoneal LDH Peritoneal Glucose Peritoneal Amylase Acetaminophen Ethyl Alcohol COVID-19 (CLAUDY) COVID-19 Clin Com Hepatitis A IgM Ab Nonreactive Hep Bs Antigen Negative Hep Bs Antibody NONREACTIVE Hep B Core Total Ab Nonreactive Hepatitis C Ab (EIA) Nonreactive Blood Type Antibody Screen 06/09/20 06/09/20 06/09/20 06:44 08:42 09:09 WBC RBC Hgb Hct MCV MCH MCHC RDW Plt Count MPV Immature Gran % (Auto) Neut % (Auto) Lymph % (Auto) [place] % (Auto) Eos % (Auto) Baso % (Auto) Lymph # (Auto) [place] # (Auto) Eos # (Auto) Baso # (Auto) Abs Immat Gran (auto) Absolute Neuts (auto) Absolute Nucleated RBC Nucleated RBC % (auto) PT INR Sodium Potassium Chloride Carbon Dioxide Anion Gap BUN Creatinine Estim Creat Clear Calc Estimated GFR POC Glucose 168 H 168 H Random Glucose Calcium Total Bilirubin Direct Bilirubin AST ALT Alkaline Phosphatase Ammonia Total Protein Albumin Amylase Lipase Vitamin B12 Folate Urine Color ORANGE Urine Appearance HAZY Urine pH 5.5 Ur Specific Gerald >= 1.030 H Urine Protein TRACE Urine Glucose (UA) NEG Urine Ketones SEE NOTE Urine Blood NEG Urine Nitrite SEE NOTE Ur Leukocyte Esterase NEG Urine RBC 0-2 Urine WBC 0 Ur Squamous Epith Cells 4+ Urine Bacteria NONE Hyaline Casts 0-2 Peritoneal pH Peritoneal WBC Peritoneal RBC Periton Neutrophils Periton Lymphocytes Peritoneal Monocytes Peritoneal Eosinophils Peritoneal Basophils Peritoneal Other Cells Peritoneal Tot Protein Peritoneal Albumin Peritoneal LDH Peritoneal Glucose Peritoneal Amylase Acetaminophen Ethyl Alcohol COVID-19 (CLAUDY) COVID-19 Clin Com Hepatitis A IgM Ab Hep Bs Antigen Hep Bs Antibody Hep B Core Total Ab Hepatitis C Ab (EIA) Blood Type Antibody Screen 06/09/20 06/09/20 10:31 10:31 WBC 7.8 RBC 2.17 L Hgb 7.7 L Hct 22.2 L MCV 102.3 H MCH 35.5 H MCHC 34.7 RDW 18.7 H Plt Count 63 L MPV 12.3 Immature Gran % (Auto) 0.4 Neut % (Auto) 61.4 Lymph % (Auto) 20.4 [place] % (Auto) 17.1 H Eos % (Auto) 0.3 Baso % (Auto) 0.4 Lymph # (Auto) 1.6 [place] # (Auto) 1.3 H Eos # (Auto) 0.0 Baso # (Auto) 0.0 Abs Immat Gran (auto) 0.03 Absolute Neuts (auto) 4.8 Absolute Nucleated RBC 0.000 Nucleated RBC % (auto) 0.0 PT INR Sodium 132 L Potassium 3.4 Chloride 101 Carbon Dioxide 19 L Anion Gap 15 BUN 14 Creatinine 1.69 H Estim Creat Clear Calc 31.9 Estimated GFR 31 POC Glucose Random Glucose 148 H D Calcium 7.0 L Total Bilirubin Direct Bilirubin AST ALT Alkaline Phosphatase Ammonia Total Protein Albumin Amylase Lipase Vitamin B12 Folate Urine Color Urine Appearance Urine pH Ur Specific Gerald Urine Protein Urine Glucose (UA) Urine Ketones Urine Blood Urine Nitrite Ur Leukocyte Esterase Urine RBC Urine WBC Ur Squamous Epith Cells Urine Bacteria Hyaline Casts Peritoneal pH Peritoneal WBC Peritoneal RBC Periton Neutrophils Periton Lymphocytes Peritoneal Monocytes Peritoneal Eosinophils Peritoneal Basophils Peritoneal Other Cells Peritoneal Tot Protein Peritoneal Albumin Peritoneal LDH Peritoneal Glucose Peritoneal Amylase Acetaminophen Ethyl Alcohol COVID-19 (CLAUDY) COVID-19 Clin Com Hepatitis A IgM Ab Hep Bs Antigen Hep Bs Antibody Hep B Core Total Ab Hepatitis C Ab (EIA) Blood Type Antibody Screen Microbiology Microbiology Results: Microbiology 06/08/20 22:39 Abdomen Routine Culture - Preliminary No growth to date. 06/08/20 22:39 Abdomen Anaerobic Culture - Preliminary Culture in progress. Assessment and Plan (1) Alcoholic hepatitis: Status: Acute (2) Cirrhosis: Status: Acute Assessment and Plan: hospital d#2 54yo F with hx EtOH abuse presenting with new-onset cirrhosis with ascites # SBP - s/p paracentesis 06/08/20 in ED - ascites PMN count >250, will start ceftriaxone d#1, and give albumin 1.5 g/kg today and 1 g/kg on d#3, follow ascites Cx # AUGUSTINA - concern for hepatorenal. giving albumin. to consider octreotide and midodrine? Nephrology consult. # cirrhosis # EtOH hepatitis # hyperammonemia - GI consult. MELD 32, Maddrey discriminant function 91. - started on lactulose - viral workup negative, ROBBY + ASMA and LKM pending # macrocytic anemia # thrombocytopenia # coagulopathy - avoid heparin, monitor for bleeding # pleural effusions - likely due to ascites/hepatic hydrothorax. not hypoxic. got 1-time dose of furosemide in ED. # EtOH abuse - thiamine - monitor for withdrawals - sobriety counseled # hyperammonemia - no acute hepatic coma and no encephalopathy at this time - will start her on lactulose t.i.d. with a goal of 3-4 BMs daily # hypoglycemia - resolved, likely due to liver failure # VTE ppx - SCDs
[2020-06-09] MEDS: 0.9 % Sodium Chloride Flush 3 ML SYRINGE IVFLUSH ×2 (15:25→20:48)
[2020-06-09 16:31] LABS: Glucose, Whole Blood 124 mg/dL (60-115)
[2020-06-09 18:30] LABS: OBS Int Ctl Valid YES; OBS1 POS (NEG)
[2020-06-09] MEDS: Phytonadione (Vit K1) 10 MG in 0.9 % Sodium Chloride 50 ML 51 MG IV (19:02)
--- NOTE | 2020-06-09 20:45 | CONS_ITS ---
DATE OF SERVICE: 06/09/2020 REFERRING PHYSICIAN: Freddie Jackman REASON FOR CONSULTATION: Alcoholic hepatitis with ascites HISTORY OF PRESENT ILLNESS: The patient is a 54-year-old woman with a history of alcohol abuse who was admitted to the hospital after presenting to the emergency room yesterday with complaints of abdominal distention. Symptoms have been present for about a week and over the past 2 days prior to admission, she noticed lower extremity edema. She has a history of alcohol abuse, but states she only drinks 1 drink daily and states her last drink was New Year's Marcela. She denied currently drinking even after was pointed out to her that her blood alcohol level on admission at 4 p.m. yesterday was 101. She was evaluated in the emergency department and noted to have elevated liver function tests in a pattern consistent with alcohol. INR was also elevated at 2.6 in the absence of any use of anticoagulants. She has in the past been told she has had low platelet counts due to alcohol use. Imaging studies were obtained including CT scanning of the abdomen and pelvis which was reviewed. This is interpreted as showing a large volume of abdominal ascites with low attenuation of the liver parenchyma and nonspecific bowel wall thickening in the sigmoid and descending colon. She underwent paracentesis of 4.3 L of ascites fluid, and cell count on the fluid showed white blood cell count of 2123 with 47% neutrophils consistent with spontaneous bacterial peritonitis. She was started on ceftriaxone. Serum to ascites albumin gradient was 1.7, consistent with portal hypertension. The patient denies any prior history of ascites. She has not had any variceal bleeding and denies jaundice. PAST MEDICAL HISTORY: 1. Alcohol abuse. 2. Thrombocytopenia. CURRENT MEDICATIONS: Her current medication list is reviewed in the chart. ALLERGIES: PENICILLIN. FAMILY HISTORY: This is reviewed with the patient. It is noncontributory. SOCIAL HISTORY: She denies tobacco use, alcohol use is as noted above. REVIEW OF SYSTEMS: SKIN: No pruritus. HEENT: Negative. CARDIOPULMONARY: She denies shortness of breath or chest pain. She has had some early satiety from the ascites fluid and notes a poor appetite over the past several weeks. GENITOURINARY: Negative. NEUROPSYCHIATRIC: Negative. PHYSICAL EXAMINATION: GENERAL: Shows a cachectic female in no acute distress. VITAL SIGNS: Reviewed in the electronic medical record and are stable. SKIN: Icteric. HEENT: Shows scleral icterus. NECK: Without lymphadenopathy or thyromegaly. LUNGS: Clear. Chest wall shows spider angiomata. HEART: Shows regular rate and rhythm. S1, S2. No murmur. ABDOMEN: Soft without focal masses or tenderness. Bowel sounds are present. There does appear to be recurrence of her ascites. There is some distention. EXTREMITIES: Show mild edema. LABORATORY DATA: Reviewed. IMPRESSION: Alcoholic hepatitis with ascites. We discussed the need for complete cessation of alcohol today. She appears to understand this, but is obviously denying the amount she drinks. She is being seen in consultation by Nephrology because of her elevated BUN and creatinine and may benefit from diuretics if her renal function allows this. I agree with treating her with antibiotics for spontaneous bacterial peritonitis. I would give her supplementation with IV vitamin K because she likely has some nutritional deficit as she has had been eating rather poorly lately. Her elevated INR and elevated total bilirubin suggest a possible benefit from steroids, although I would hold off on these now given that she has SBP. Thanks for asking me to see her. I will follow her in the hospital with you. MD ZAIN Montoya/GEOVANNA / [id number] MTDD
[2020-06-10 03:28] VITALS: BP 121/70; PULSE 99; RESP 19; TEMP 36.4; O2SAT 92
--- NOTE | 2020-06-10 05:52 | PC.NURSE ---
Nurse attempted to have patient urinate in a specimen cup 3x. Each time the pt had diarrhea, which made the sample uncollectable. Nurse asked for an order to straight cath. Received order. Straight cath was done. No urine was produced. Patient was taken to bathroom by W[employer] CONTROL TECHNICIAN minutes before.
[2020-06-10 06:44] LABS: MANUAL DIFF FLAG NO
[2020-06-10 06:56] LABS: Basophils Percent Auto 0.3 % (0-2); Eosinophils Absolute Auto 0.1 X10*3/uL (0.0-0.4); Hematocrit 22.5 % (37-47); Imm Gran Abs Auto 0.04 X10*3/uL (0.00-0.03); Imm Gran Pct Auto 0.6 % (0.0-0.4); Lymphocytes Absolute Auto 1.5 X10*3/uL (1.2-4.9); Lymphocytes Percent Auto 24.2 % (20-40); Mean Corpuscular HGB Conc 35.6 g/dl (31.0-35.0); Mean Corpuscular Hemoglobin 36.2 pg (27.0-33.0); Mean Corpuscular Volume 101.8 fL (80-98); Mean Platelet Volume 12.3 fL (9.4-12.3); Monocytes Percent Auto 16.9 % (2-11); Neutrophils Absolute Auto 3.5 X10*3/uL (2.0-8.3); Red Blood Count 2.21 X10*6/uL (4.20-5.50); Red Cell Distribution Width 18.7 % (11.0-16.0); White Blood Count 6.2 X10*3/uL (4.8-10.8)
[2020-06-10 06:59] LABS: INTERNATIONAL NORM RATIO 2.6 (0.9-1.1); Prothrombin Time 31.5 SEC (10.8-13.0)
[2020-06-10 07:16] LABS: Platelet Count 57 X10*3/uL (160-400)
[2020-06-10 07:40] LABS: Alanine Aminotransferase 39 U/L (0-31); Albumin Level 2.3 g/dL (3.5-5.0); Alkaline Phosphatase 79 U/L (39-117); Anion Gap 13 (12-20); Aspartate Amino Transferase 167 U/L (5-31); Bilirubin Total 7.5 mg/dL (0.0-1.0); Blood Urea Nitrogen 15 mg/dL (9-16); Calcium 7.1 mg/dL (8.4-10.2); Carbon Dioxide 20 mmol/L (22-29); Chloride 104 mmol/L (96-108); Creatinine Clr Calc Pharmacy 41.1; Estimated Glomerular Filt Rate 42; Glucose Random 87 mg/dL (60-115); Magnesium 1.6 mg/dL (1.6-2.6); Potassium 3.1 mmol/l (3.3-5.1); Sodium 134 mmol/L (135-145); Total Protein 6.9 g/dL (6.5-8.0)
[2020-06-10] MEDS: Folic Acid 1 MG TABLET PO (07:57)
[2020-06-10] MEDS: Thiamine HCL 100 MG TABLET PO (07:57)
[2020-06-10] MEDS: Lactulose 20 GM/30 ML SOLUTION 30 GM PO (07:57)
[2020-06-10 08:00] VITALS: BP 148/75; PULSE 91; RESP 20; TEMP 37.1; O2SAT 97
[2020-06-10] MEDS: cefTRIAXone sodium 1 GM in 0.9 % Sodium Chloride 50 ML IV (08:00)
[2020-06-10 08:22] LABS: Creatinine Urine 268.39 mg/dL; Sodium Urine Random < 20.0 mmol/L
[2020-06-10 09:37] LABS: INTERNATIONAL NORM RATIO 2.6 (0.9-1.1); Prothrombin Time 31.3 SEC (10.8-13.0)
[2020-06-10] MEDS: Potassium Chloride ER 20 MEQ TAB.ER.PRT PO (09:52)
--- NOTE | 2020-06-10 10:25 | P.CDIC_ITS ---
[facility] Concurrent Query Service Date: 06/10/20 Documentation Clarification: Please clarify if you are treating a proba ble/suspected/likely or confirmed: Malnutrition, mild, moderate or severe Please specify if known or other Provider Response: Malnutrition PLEASE DO NOT DELETE/MODIFY EXISTING CONTENT Additional information is needed in order to code to the highest accuracy and appropriate Severity of Illness (SOI). Please clarify the information noted below in your progress notes and discharge summary. Risk Factors/Clinical Indicators/Treatments BMI 19.4 Albumin 2.3 L GI note - supplementation with IV vitamin K likely has nutritional deficit. Alcoholic hepatitis w ascites. SBP CDS: Saundra Slater CCS, [facility] Contact Number: [phone] Please Review the information above and exercise your independent professional judgment in responding to the query. If you concur, pleas document in the PROGRESS NOTES and DISCHARGE SUMMARY. If you do not agree with the query, please document in the query above. THIS QUERY IS PART OF THE PERMANENT MEDICAL RECORD
--- NOTE | 2020-06-10 11:09 | P.CONNP_ITS ---
History of Present Illness Reason for Consult Consult date: 06/10/20 Reason for consult: AUGUSTINA Chief Complaint Chief complaint: Liver failure AUGUSTINA Anemia History of Present Illness Narrative: 54-year-old female with no significant past medical history who presents to hospital with complaints of abdominal distension x1 week. Patient reports that she started noticing her abdominal swelling about a week ago contributed to constipation has some pain specially when she is trying to get up or have a lot of movement, has low appetite but drinks sufficient water, denies having any nausea or vomiting. She denies using any IV drug use or history of hepatitis. she is a alcohol drinker drinks 1 beer daily for a very long time per patient. Patient also noticed swelling in her legs. At presentation, labs are significant for 9.8, hemoglobin of 8.8 (13 on 12/13/2018) hematocrit 25.3, MCV of 102, RDW of 18.8, [place] [address], PT of 31.4 INR of 2.6 (patient not on any anticoagulation), sodium of 131, potassium of 3.9, BUN of 10, creatinine of 1.75 baseline around 0.69 from 12/13/2018, hypoglycemic with a glucose of 57, 6.9, direct bili of 4.6, AST of 284, ALT of 59, ammonia 56, albumin of 1.9, amylase of 143, lipase of 40, Patient is undergoing diagnostic and therapeutic paracentesis COVID-19 negative, hepatitis panel negative Abdominal CT demonstrating large volume of abdominal ascites, low attenuation of liver parenchyma consistent with nonspecific hepatic biliary disease, nonspecific colonic bowel wall thickening in the sigmoid and descending colon and the cecum and ascending colon. Bilateral pleural effusion left as large in volume than the right Nephrology was consulted to assist in her clinical care during her current hospital stay Review of Systems Review of Systems Yes all other systems are reviewed and are negative PMFSH Past Medical History Medical History Alcohol abuse No known health problems Social History Social History Household Members: Children Housing: Apartment Do you presently have visiting nurse or other home services: No Alcohol intake: current Alcohol intake frequency: 0-2 drinks per day Smoking Status: Former smoker Smoked in Last 30 Days: No Patient Interested in Nicotine Replacement: No Use of substances other than those prescribed or required for medical reasons: No Currently Displaying Signs/Symptoms of Drug Intoxication Withdrawal: No Have you been hit, kicked, punched, or otherwise hurt by someone within the past year? If so, by whom?: No Do you feel safe in your current relationship?: No Current Relationship Is there a partner from a previous relationship who is making you feel unsafe now?: No Are you made to feel afraid or neglected: No Advance Directives: No Advance Directives Information Provided: No Do you have thoughts of harming others: None Do you have a plan to hurt others: No Plan Recently lost weight without trying: Unsure service: No Current occupational status: unemployed Meds Allergies Allergy/AdvReac Type Severity Reaction Status Date / Time Penicillins [PENICILLINS] Allergy Mild YEAST Verified 06/09/20 01:34 INFECTION penicillin V AdvReac Unknown yeast Verified 06/09/20 01:34 infection Home Medications Medication Instructions Recorded Confirmed Type No Known Home Meds 06/08/20 06/08/20 History Physical Exam Vital Signs: Last Vital Signs Temp 98.8 F 06/10/20 08:00 Pulse 91 06/10/20 08:00 Resp 20 06/10/20 08:00 BP 148/75 H 06/10/20 08:00 Pulse Ox 97 06/10/20 08:00 Body Mass Index 19.3 Const General: alert and awake Orientation/consciousness: patient oriented x3 Neck Neck: Yes supple Resp Auscultation: diminished lung sounds Cardio Heart sounds: no rubs GI Inspection: Yes distended Palpation (GI): Soft to palpation Auscultation: normal bowel sounds Neuro General: patient oriented x3 and moves all extremities Results Lab Results Result Diagrams: 06/10/20 06:27 06/10/20 06:27 Lab results: Chemistry 06/08/20 06/09/20 06/10/20 18:04 10:31 06:27 Sodium 131 L 132 L 134 L Potassium 3.9 3.4 3.1 L Carbon Dioxide 13 L 19 L 20 L BUN 10 14 15 Creatinine 1.75 H 1.69 H 1.31 Calcium 7.0 L 7.0 L 7.1 L Hematology 06/08/20 06/09/20 06/10/20 18:04 10:31 06:27 WBC 9.8 7.8 6.2 Hgb 8.8 L 7.7 L 8.0 L Plt Count 68 L 63 L 57 L Urinalysis 06/09/20 06:44 Urine Color ORANGE Urine Appearance HAZY Urine pH 5.5 Ur Specific [place] >= 1.030 H Urine Protein TRACE Urine Glucose (UA) NEG Urine Ketones SEE NOTE Urine Blood NEG Urine Nitrite SEE NOTE Ur Leukocyte Esterase NEG Urine RBC 0-2 Urine WBC 0 Ur Squamous Epith Cells 4+ Hyaline Casts 0-2 Urine Studies 06/10/20 07:31 Urine Creatinine 268.39 Assessment and Plan (1) Acute kidney injury: Problem details: AUGUSTINA due to compromise in renal perfusion Urine sodium < 20; Renal functions improving with IV Albumin Will hold off on Midodrine/Octreotide; Could reduce lactulose Should be able to start low dose Spironolactone tomorrow Lab AM; Shall follow along closely Status: Acute
[2020-06-10 11:21] VITALS: BP 131/70; PULSE 95; RESP 20; TEMP 36.4; O2SAT 98
[2020-06-10 14:07] LABS: Anti Nuclear Antibody Screen NEGATIVE (NEGATIVE)
[2020-06-10] MEDS: 0.9 % Sodium Chloride Flush 3 ML SYRINGE IVFLUSH ×2 (15:55→23:22)
[2020-06-10 16:00] VITALS: BP 118/79; PULSE 97; RESP 16; TEMP 36.6; O2SAT 97
--- NOTE | 2020-06-10 16:33 | P.PNIM_ITS ---
Subjective Subjective Date of Service: 06/10/20 Interval History: abd still quite distended denies melena or hematochezia endorses excess diarrhea Physical Exam Vital Signs: Vital Signs: Last Vital Signs Temp 97.8 F 06/10/20 16:00 Pulse 97 06/10/20 16:00 Resp 16 06/10/20 16:00 BP 118/79 06/10/20 16:00 Pulse Ox 97 06/10/20 16:00 Body Mass Index 19.3 Gen: chronically ill-appearing HEENT: sclera icteric, moist mucus membranes Neck: supple Lungs: clear to auscultation bilaterally Heart: regular rate and rhythm, no murmurs Abd: distended, non-tender, bulging flanks, no bleeding from paracentesis site Ext: no edema Skin: jaundiced Neuro: alert and oriented x3, no focal findings, no asterixis Psych: appropriate affect Objective Data Current Medications Generic Name Dose Route Start Last Admin Trade Name Freq PRN Reason Stop Dose Admin Docusate Sodium 100 mg 06/09/20 09:48 Docusate Sodium 100 Mg Capsule PO DAILY PRN Constipation Folic Acid 1 mg 06/09/20 09:00 06/10/20 07:57 Folic Acid 1 Mg Tablet PO 1 mg DAILY COUNT INCLUDES THE [facility] Administration Ceftriaxone Sodium 1 gm/ 50 mls @ 100 mls/hr 06/09/20 09:00 06/10/20 08:45 Sodium Chloride IV Infused Q24H COUNT INCLUDES THE [facility] Infusion Albumin Human 100 mls @ 100 mls/hr 06/11/20 09:00 Kedbumin 25 % IV 06/11/20 10:59 Q1H COUNT INCLUDES THE [facility] Lactulose 30 gm 06/09/20 09:00 06/10/20 12:36 Lactulose 20 Gm/30 Ml Solution PO Not Given TID COUNT INCLUDES THE [facility] Ondansetron HCl 4 mg 06/09/20 09:48 Ondansetron Hcl 4 Mg/2 Ml Vial IVPUSH Q8H PRN Nausea and Vomiting Sodium Chloride 3 ml 06/09/20 09:48 06/10/20 15:55 0.9 % Sodium Chloride Flush 3 Ml Syringe IVFLUSH 3 ml QSHIFT COUNT INCLUDES THE [facility] Administration Spironolactone 25 mg 06/10/20 16:30 Spironolactone 25 Mg Tablet PO DAILY COUNT INCLUDES THE [facility] Protocol Thiamine HCl 100 mg 06/09/20 09:00 06/10/20 07:57 Thiamine Hcl 100 Mg Tablet PO 100 mg DAILY RANDOLPH Administration Labs CBC & Chem 7: 06/10/20 06:27 06/10/20 06:27 Labs: Laboratory Results - last 24 hr 06/08/20 06/09/20 06/10/20 22:39 18:00 06:27 WBC 6.2 RBC 2.21 L Hgb 8.0 L Hct 22.5 L MCV 101.8 H MCH 36.2 H MCHC 35.6 H RDW 18.7 H Plt Count 57 L MPV 12.3 Immature Gran % (Auto) 0.6 H Neut % (Auto) 57.0 Lymph % (Auto) 24.2 [place] % (Auto) 16.9 H Eos % (Auto) 1.0 Baso % (Auto) 0.3 Lymph # (Auto) 1.5 [place] # (Auto) 1.0 Eos # (Auto) 0.1 Baso # (Auto) 0.0 Abs Immat Gran (auto) 0.04 H Absolute Neuts (auto) 3.5 Absolute Nucleated RBC 0.000 Nucleated RBC % (auto) 0.0 PT INR Sodium Potassium Chloride Carbon Dioxide Anion Gap BUN Creatinine Estim Creat Clear Calc Estimated GFR Random Glucose Calcium Magnesium Total Bilirubin AST ALT Alkaline Phosphatase Total Protein Albumin Ur Random Sodium Urine Creatinine Stool Occult Blood POS ROBBY Screen NEGATIVE ROBBY Titer TNP ROBBY Titer 2 TNP ROBBY Titer 3 TNP ROBBY Pattern TNP ROBBY Pattern 2 TNP ROBBY Pattern 3 TNP 06/10/20 06/10/20 06/10/20 06:27 06:27 07:31 WBC RBC Hgb Hct MCV MCH MCHC RDW Plt Count MPV Immature Gran % (Auto) Neut % (Auto) Lymph % (Auto) [place] % (Auto) Eos % (Auto) Baso % (Auto) Lymph # (Auto) [place] # (Auto) Eos # (Auto) Baso # (Auto) Abs Immat Gran (auto) Absolute Neuts (auto) Absolute Nucleated RBC Nucleated RBC % (auto) PT 31.5 H INR 2.6 H Sodium 134 L Potassium 3.1 L Chloride 104 Carbon Dioxide 20 L Anion Gap 13 BUN 15 Creatinine 1.31 Estim Creat Clear Calc 41.1 Estimated GFR 42 Random Glucose 87 D Calcium 7.1 L Magnesium 1.6 Total Bilirubin 7.5 H AST 167 H ALT 39 H Alkaline Phosphatase 79 D Total Protein 6.9 Albumin 2.3 L D Ur Random Sodium < 20.0 Urine Creatinine 268.39 Stool Occult Blood ROBBY Screen ROBBY Titer ROBBY Titer 2 ROBBY Titer 3 ROBBY Pattern ROBBY Pattern 2 ROBBY Pattern 3 06/10/20 09:14 WBC RBC Hgb Hct MCV MCH MCHC RDW Plt Count MPV Immature Gran % (Auto) Neut % (Auto) Lymph % (Auto) [place] % (Auto) Eos % (Auto) Baso % (Auto) Lymph # (Auto) [place] # (Auto) Eos # (Auto) Baso # (Auto) Abs Immat Gran (auto) Absolute Neuts (auto) Absolute Nucleated RBC Nucleated RBC % (auto) PT 31.3 H INR 2.6 H Sodium Potassium Chloride Carbon Dioxide Anion Gap BUN Creatinine Estim Creat Clear Calc Estimated GFR Random Glucose Calcium Magnesium Total Bilirubin AST ALT Alkaline Phosphatase Total Protein Albumin Ur Random Sodium Urine Creatinine Stool Occult Blood ROBBY Screen ROBBY Titer ROBBY Titer 2 ROBBY Titer 3 ROBBY Pattern ROBBY Pattern 2 ROBBY Pattern 3 Microbiology Microbiology Results: Microbiology 06/08/20 22:39 Abdomen Gram Stain - Final 06/08/20 22:39 Abdomen Routine Culture - Preliminary No growth to date. 06/08/20 22:39 Abdomen Anaerobic Culture - Preliminary Culture in progress. Assessment and Plan (1) Alcoholic hepatitis: Status: Acute (2) Cirrhosis: Status: Acute Assessment and Plan: hospital d#3 54yo F with hx EtOH abuse presenting with new-onset cirrhosis with ascites # SBP - s/p paracentesis 06/08/20 in ED and PMN count >250, on ceftriaxone d#2, gave albumin 1.5 g/kg on d#1 and will give 1 g/kg on d#3, follow ascites Cx # AUGUSTINA - responding to colloid replacement. Nephrology following. trend Cr. # ascites - per Nephrology start spironolactone. sodium restriction. # cirrhosis # EtOH hepatitis - GI consult. MELD 32, Maddrey discriminant function 91. no steroids given SBP. - viral workup negative, ROBBY negative - EtOH cessation # macrocytic anemia # thrombocytopenia # coagulopathy - avoid heparin, monitor for bleeding - vit K given, monitor INR # pleural effusions - likely due to ascites/hepatic hydrothorax. not hypoxic. got 1-time dose of furosemide in ED. spironolactone started. # EtOH abuse - thiamine - monitor for withdrawals - sobriety counseled # hypoglycemia - resolved, likely due to liver failure # VTE ppx - SCDs. heparin contraindciated # dispo - PT eval
[2020-06-10] MEDS: Spironolactone 25 MG TABLET PO (16:51)
[2020-06-10 19:28] VITALS: BP 146/79; PULSE 98; RESP 18; TEMP 37; O2SAT 99
[2020-06-11] VITALS (8 sets, daily range): BP systolic 124–141; BP diastolic 69–77; PULSE 76–110; RESP 16–18; TEMP 35.9–37.3; O2SAT 94–98
[2020-06-11 06:56] LABS: Basophils Percent Auto 0.5 % (0-2); Eosinophils Absolute Auto 0.1 X10*3/uL (0.0-0.4); Eosinophils Percent Auto 1.6 % (0-4); Hematocrit 22.3 % (37-47); Hemoglobin 7.7 g/dl (12.0-16.0); Imm Gran Abs Auto 0.02 X10*3/uL (0.00-0.03); Imm Gran Pct Auto 0.4 % (0.0-0.4); Lymphocytes Absolute Auto 1.7 X10*3/uL (1.2-4.9); Lymphocytes Percent Auto 29.9 % (20-40); MANUAL DIFF FLAG SCAN; Mean Corpuscular HGB Conc 34.5 g/dl (31.0-35.0); Mean Corpuscular Hemoglobin 35.3 pg (27.0-33.0); Mean Corpuscular Volume 102.3 fL (80-98); Mean Platelet Volume 12.3 fL (9.4-12.3); Monocytes Absolute Auto 1.1 X10*3/uL (0.1-1.2); Monocytes Percent Auto 20.7 % (2-11); Neutrophils Absolute Auto 2.6 X10*3/uL (2.0-8.3); Neutrophils Percent Auto 46.9 % (45-73); Red Blood Count 2.18 X10*6/uL (4.20-5.50); Red Cell Distribution Width 18.4 % (11.0-16.0); SCAN SMEAR FLAG 1; White Blood Count 5.5 X10*3/uL (4.8-10.8)
[2020-06-11 06:59] LABS: INTERNATIONAL NORM RATIO 2.7 (0.9-1.1); Prothrombin Time 32.5 SEC (10.8-13.0)
[2020-06-11 07:07] LABS: Alanine Aminotransferase 32 U/L (0-31); Alkaline Phosphatase 82 U/L (39-117); Anion Gap 13 (12-20); Aspartate Amino Transferase 127 U/L (5-31); Bilirubin Total 6.3 mg/dL (0.0-1.0); Blood Urea Nitrogen 14 mg/dL (9-16); Carbon Dioxide 19 mmol/L (22-29); Chloride 104 mmol/L (96-108); Creatinine Clr Calc Pharmacy 51.9; Estimated Glomerular Filt Rate 55; Glucose Random 79 mg/dL (60-115); Magnesium 1.5 mg/dL (1.6-2.6); Potassium 3.1 mmol/l (3.3-5.1); Sodium 133 mmol/L (135-145); Total Protein 6.5 g/dL (6.5-8.0)
[2020-06-11 07:28] LABS: Calcium 6.5 mg/dL (8.4-10.2)
[2020-06-11 07:46] LABS: Platelet Count 53 X10*3/uL (160-400)
[2020-06-11 07:48] LABS: SLIDE REVIEW VERIFIED
[2020-06-11] MEDS: Magnesium Sulfate/H2O 2 GM/50 ML PIGGYBACK IV (08:22)
[2020-06-11] MEDS: 0.9 % Sodium Chloride Flush 3 ML SYRINGE IVFLUSH ×3 (08:23→21:12)
--- NOTE | 2020-06-11 10:53 | MHC.RECOVRN ---
54 year old Serbian speaking female presented to [facility] [place] [place] ED as a walk in sent from [facility] on 06/08/19 due abdominal swelling x 1 week and alcohol use. Pt admitted to [place] [id number] due to liver failure, AUGUSTINA, and anemia. T/w, along with Recovery District Manager In Training, met with pt to discuss alcohol use. Pt currently denies any cravings or withdrawal symptoms. Pt states drinking beer ?every day? x ?years, since I was in my teens.? Pt denies ever seeking treatment for alcohol use. Pt did report attending AA for a short time without improvement in AUD. Pt reports living with daughter who drinks socially. Medication for AUD were discussed with patient. Pt expressed interest ?if it is going to help with cravings.? Pt is interested in receiving Vivitrol, pt educated regarding naltrexone. Patient referred for medication consult with Stacey Paredes. In addition, patient was provided with resources for therapy and AA. Case discussed with patients RN and Stacey Paredes. T/w available as needed.
[2020-06-11] MEDS: Phytonadione (Vit K1) 10 MG in 0.9 % Sodium Chloride 50 ML 51 MG IV (11:06)
[2020-06-11] MEDS: cefTRIAXone sodium 1 GM in 0.9 % Sodium Chloride 50 ML IV (11:23)
[2020-06-11] MEDS: Thiamine HCL 100 MG TABLET PO (11:32)
[2020-06-11] MEDS: Spironolactone 25 MG TABLET PO (11:32)
[2020-06-11] MEDS: Folic Acid 1 MG TABLET PO (11:33)
[2020-06-11] MEDS: Albumin Human 25 % 100 ML IV ×2 (12:42→14:10)
[2020-06-11] MEDS: Potassium Chloride/H20 10 MEQ/100 ML PIGGYBACK 100 MEQ IV ×2 (12:45→14:59)
--- NOTE | 2020-06-11 13:48 | PM.PNNEP ---
Subjective Subjective Date of Service: 06/11/20 Interval history: Events noted; All recent data reviewed. D/W Hospitalist Physical Exam Vital Signs: Vital Signs: Last Vital Signs Temp 96.6 F L 06/11/20 11:01 Pulse 94 06/11/20 12:14 Resp 18 06/11/20 11:01 BP 134/77 06/11/20 12:14 Pulse Ox 98 06/11/20 12:14 Body Mass Index 19.3 Const: General: no acute distress Neck: Neck: Yes supple Resp: Auscultation: diminished lung sounds Cardio: Rate: regular rate GI: Inspection: Yes distended Palpation (GI): Soft to palpation Neuro: General: moves all extremities Objective Data Labs CBC & Chem 7: 06/11/20 06:20 06/11/20 06:20 Labs: Laboratory Results - last 24 hr 06/08/20 06/11/20 06/11/20 22:39 06:20 06:20 WBC 5.5 RBC 2.18 L Hgb 7.7 L Hct 22.3 L MCV 102.3 H MCH 35.3 H MCHC 34.5 RDW 18.4 H Plt Count 53 L MPV 12.3 Immature Gran % (Auto) 0.4 Neut % (Auto) 46.9 Lymph % (Auto) 29.9 [place] % (Auto) 20.7 H Eos % (Auto) 1.6 Baso % (Auto) 0.5 Lymph # (Auto) 1.7 [place] # (Auto) 1.1 Eos # (Auto) 0.1 Baso # (Auto) 0.0 Abs Immat Gran (auto) 0.02 Absolute Neuts (auto) 2.6 Absolute Nucleated RBC 0.000 Nucleated RBC % (auto) 0.0 Smear Tech's Comments VERIFIED PT 32.5 H INR 2.7 H Sodium Potassium Chloride Carbon Dioxide Anion Gap BUN Creatinine Estim Creat Clear Calc Estimated GFR Random Glucose Calcium Magnesium Total Bilirubin AST ALT Alkaline Phosphatase Total Protein Albumin ROBBY Screen NEGATIVE ROBBY Titer TNP ROBBY Titer 2 TNP ROBBY Titer 3 TNP ROBBY Pattern TNP ROBBY Pattern 2 TNP ROBBY Pattern 3 TNP 06/11/20 06:20 WBC RBC Hgb Hct MCV MCH MCHC RDW Plt Count MPV Immature Gran % (Auto) Neut % (Auto) Lymph % (Auto) [place] % (Auto) Eos % (Auto) Baso % (Auto) Lymph # (Auto) [place] # (Auto) Eos # (Auto) Baso # (Auto) Abs Immat Gran (auto) Absolute Neuts (auto) Absolute Nucleated RBC Nucleated RBC % (auto) Smear Tech's Comments PT INR Sodium 133 L Potassium 3.1 L Chloride 104 Carbon Dioxide 19 L Anion Gap 13 BUN 14 Creatinine 1.04 Estim Creat Clear Calc 51.9 Estimated GFR 55 Random Glucose 79 Calcium 6.5 L D Magnesium 1.5 L Total Bilirubin 6.3 H AST 127 H ALT 32 H Alkaline Phosphatase 82 Total Protein 6.5 Albumin 2.0 L ROBBY Screen ROBBY Titer ROBBY Titer 2 ROBBY Titer 3 ROBBY Pattern ROBBY Pattern 2 ROBBY Pattern 3 Microbiology Microbiology Results: Microbiology 06/08/20 22:39 Abdomen Gram Stain - Final 06/08/20 22:39 Abdomen Routine Culture - Final No growth after 2 days 06/08/20 22:39 Abdomen Anaerobic Culture - Preliminary No growth to date. Assessment & Plan Assessment and plan (1) Acute kidney injury: Problem details: AUGUSTINA due to compromise in renal perfusion Urine sodium < 20; Renal functions improved with IV Albumin Will hold off on Midodrine/Octreotide started low dose Spironolactone ; Dose could be increased to 50 mg daily Lab AM; Shall follow along closely Status: Acute Time Spent With Patient Time: Total time spent is greater than 50% in coordination of care (as documented) at patient's floor/unit and/or counseling patient:
--- NOTE | 2020-06-11 14:28 | P.PNIM_ITS ---
Subjective Subjective Date of Service: 06/11/20 Interval History: denies GI bleeding still c/o abd distension no fever Physical Exam Vital Signs: Vital Signs: Last Vital Signs Temp 96.6 F L 06/11/20 11:01 Pulse 94 06/11/20 12:14 Resp 18 06/11/20 11:01 BP 134/77 06/11/20 12:14 Pulse Ox 98 06/11/20 12:14 Body Mass Index 19.3 Gen: chronically ill-appearing HEENT: sclera icteric, moist mucus membranes Neck: supple Lungs: clear to auscultation bilaterally Heart: regular rate and rhythm, no murmurs Abd: distended, non-tender, bulging flanks, no bleeding from paracentesis site Ext: no edema Skin: jaundiced Neuro: alert and oriented x3, no focal findings, no asterixis Psych: appropriate affect Objective Data Current Medications Generic Name Dose Route Start Last Admin Trade Name Freq PRN Reason Stop Dose Admin Docusate Sodium 100 mg 06/09/20 09:48 Docusate Sodium 100 Mg Capsule PO DAILY PRN Constipation Folic Acid 1 mg 06/09/20 09:00 06/11/20 11:33 Folic Acid 1 Mg Tablet PO 1 mg DAILY RANDOLPH Administration Ceftriaxone Sodium 1 gm/ 50 mls @ 100 mls/hr 06/09/20 09:00 06/11/20 12:32 Sodium Chloride IV Infused Q24H RANDOLPH Infusion Ondansetron HCl 4 mg 06/09/20 09:48 Ondansetron Hcl 4 Mg/2 Ml Vial IVPUSH Q8H PRN Nausea and Vomiting Sodium Chloride 3 ml 06/09/20 09:48 06/11/20 08:23 0.9 % Sodium Chloride Flush 3 Ml Syringe IVFLUSH 3 ml QSHIFT RANDOLPH Administration Spironolactone 25 mg 06/10/20 16:30 06/11/20 11:32 Spironolactone 25 Mg Tablet PO 25 mg DAILY RANDOLPH Administration Protocol Thiamine HCl 100 mg 06/09/20 09:00 06/11/20 11:32 Thiamine Hcl 100 Mg Tablet PO 100 mg DAILY RANDOLPH Administration Labs CBC & Chem 7: 06/11/20 06:20 06/11/20 06:20 Labs: Laboratory Results - last 24 hr 06/11/20 06/11/20 06/11/20 06:20 06:20 06:20 WBC 5.5 RBC 2.18 L Hgb 7.7 L Hct 22.3 L MCV 102.3 H MCH 35.3 H MCHC 34.5 RDW 18.4 H Plt Count 53 L MPV 12.3 Immature Gran % (Auto) 0.4 Neut % (Auto) 46.9 Lymph % (Auto) 29.9 [place] % (Auto) 20.7 H Eos % (Auto) 1.6 Baso % (Auto) 0.5 Lymph # (Auto) 1.7 [place] # (Auto) 1.1 Eos # (Auto) 0.1 Baso # (Auto) 0.0 Abs Immat Gran (auto) 0.02 Absolute Neuts (auto) 2.6 Absolute Nucleated RBC 0.000 Nucleated RBC % (auto) 0.0 Smear Tech's Comments VERIFIED PT 32.5 H INR 2.7 H Sodium 133 L Potassium 3.1 L Chloride 104 Carbon Dioxide 19 L Anion Gap 13 BUN 14 Creatinine 1.04 Estim Creat Clear Calc 51.9 Estimated GFR 55 Random Glucose 79 Calcium 6.5 L D Magnesium 1.5 L Total Bilirubin 6.3 H AST 127 H ALT 32 H Alkaline Phosphatase 82 Total Protein 6.5 Albumin 2.0 L Microbiology Microbiology Results: Microbiology 06/08/20 22:39 Abdomen Gram Stain - Final 06/08/20 22:39 Abdomen Routine Culture - Final No growth after 2 days 06/08/20 22:39 Abdomen Anaerobic Culture - Preliminary No growth to date. Assessment and Plan (1) Alcoholic hepatitis: Status: Acute (2) Cirrhosis: Status: Acute Assessment and Plan: hospital d#4 54yo F with hx EtOH abuse presenting with new-onset cirrhosis with ascites # SBP vs. CNNA - on d#3/5 of ceftriaxone, aerobic Cx neg, anaerobic Cx + AFB Cx pending, will request cytology, got albumin 1.5 g/kg on d#1 and 1 g/kg on d#3 # AUGUSTINA - responding to colloid replacement. Nephrology following. trend Cr. # ascites - per Nephrology started spironolactone. sodium restriction. t/c furosemide after further renal recovery # cirrhosis # EtOH hepatitis - GI consult. MELD 32, Maddrey discriminant function 91. no steroids given SBP. - viral workup negative, ROBBY negative, ASMA + LKM pending - EtOH cessation counseled # macrocytic anemia # thrombocytopenia # coagulopathy - avoid heparin, monitor for bleeding. will need outpt EGD (FOBT+) - vit K given- will give another dose- monitor INR # pleural effusions - likely due to ascites/hepatic hydrothorax. not hypoxic. got 1-time dose of furosemide in ED. spironolactone started. # EtOH abuse - thiamine - monitor for withdrawals - sobriety counseled # hypoglycemia - resolved, likely due to liver failure # VTE ppx - SCDs. heparin contraindciated # dispo - home after 5d of IV ceftriaxone
--- NOTE | 2020-06-11 18:08 | P.EN_ITS ---
Event Note Date of Service: 06/11/20 Event Note: Addiction consult: Patient seen briefly by this promotion writer to discuss medications for alcohol use disorder Patient reporting drinking 1 beer daily though later acknowledges drinking up to 6 beers daily Reports she has never been on medications for her alcohol use and is interested in something for the alcohol cravings. Discussed options including naltrexone and Campral, though neither are appropriate start at this time based on her current labs. As patient is scheduled to possibly discharge over the weekend encouraged to present to the [facility] to potentially start MA T for alcohol use disorder and connect to additional recovery resources.
[2020-06-12] MEDS: ondansetron HCL 4 MG/2 ML VIAL IVPUSH (03:57)
[2020-06-12 06:58] LABS: Basophils Percent Auto 0.5 % (0-2); Eosinophils Absolute Auto 0.1 X10*3/uL (0.0-0.4); Eosinophils Percent Auto 1.3 % (0-4); Hematocrit 21.3 % (37-47); Hemoglobin 7.4 g/dl (12.0-16.0); Imm Gran Abs Auto 0.02 X10*3/uL (0.00-0.03); Imm Gran Pct Auto 0.3 % (0.0-0.4); Lymphocytes Absolute Auto 1.4 X10*3/uL (1.2-4.9); Lymphocytes Percent Auto 23.6 % (20-40); MANUAL DIFF FLAG SCAN; Mean Corpuscular HGB Conc 34.7 g/dl (31.0-35.0); Mean Corpuscular Hemoglobin 35.9 pg (27.0-33.0); Mean Corpuscular Volume 103.4 fL (80-98); Mean Platelet Volume 12.4 fL (9.4-12.3); Monocytes Absolute Auto 1.5 X10*3/uL (0.1-1.2); Monocytes Percent Auto 25.2 % (2-11); Neutrophils Percent Auto 49.1 % (45-73); Red Blood Count 2.06 X10*6/uL (4.20-5.50); Red Cell Distribution Width 18.8 % (11.0-16.0); SCAN SMEAR FLAG 1; White Blood Count 6.1 X10*3/uL (4.8-10.8)
[2020-06-12 07:18] LABS: INTERNATIONAL NORM RATIO 2.4 (0.9-1.1); Prothrombin Time 28.9 SEC (10.8-13.0)
[2020-06-12 07:23] LABS: Platelet Count 53 X10*3/uL (160-400)
[2020-06-12 07:31] LABS: Alanine Aminotransferase 26 U/L (0-31); Albumin Level 2.6 g/dL (3.5-5.0); Alkaline Phosphatase 82 U/L (39-117); Anion Gap 13 (12-20); Aspartate Amino Transferase 97 U/L (5-31); Bilirubin Total 5.9 mg/dL (0.0-1.0); Blood Urea Nitrogen 13 mg/dL (9-16); Calcium 7.1 mg/dL (8.4-10.2); Carbon Dioxide 22 mmol/L (22-29); Chloride 103 mmol/L (96-108); Creatinine Clr Calc Pharmacy 60.6; Estimated Glomerular Filt Rate > 60; Glucose Random 115 mg/dL (60-115); Potassium 3.3 mmol/l (3.3-5.1); Sodium 135 mmol/L (135-145); Total Protein 6.7 g/dL (6.5-8.0)
[2020-06-12 07:56] VITALS: BP 140/81; PULSE 96; RESP 16; TEMP 37.1; O2SAT 96
[2020-06-12 08:46] VITALS: BP 140/81; PULSE 96
[2020-06-12] MEDS: 0.9 % Sodium Chloride Flush 3 ML SYRINGE IVFLUSH ×2 (08:46→15:29)
[2020-06-12] MEDS: cefTRIAXone sodium 1 GM in 0.9 % Sodium Chloride 50 ML IV (08:46)
[2020-06-12] MEDS: Thiamine HCL 100 MG TABLET PO (08:46)
[2020-06-12] MEDS: Folic Acid 1 MG TABLET PO (08:46)
[2020-06-12] MEDS: Spironolactone 25 MG TABLET PO (08:46)
[2020-06-12 08:50] LABS: SLIDE REVIEW VERIFIED
[2020-06-12] MEDS: Furosemide 40 MG TABLET PO (09:35)
[2020-06-12] MEDS: Omeprazole 20 MG CAPSULE.DR PO (09:36)
--- NOTE | 2020-06-12 09:40 | MHC.CM.PN ---
PER CONVERSATION WITH PATIENT, SHE WILL BE DISCHARGING HOME Sunday06/13/20. DAUGHTER WILL PROVIDE TRANSPORT. CASE MANAGEMENT FOLLOWING.
[2020-06-12 11:26] VITALS: BP 130/74; PULSE 91; RESP 16; TEMP 36.7; O2SAT 99
[2020-06-12 16:00] VITALS: BP 143/79; PULSE 90; RESP 19; TEMP 37.3; O2SAT 96
--- NOTE | 2020-06-12 16:14 | HO.PM.IMPN ---
Subjective Subjective Date of Service: 06/12/20 Interval History: abd distended diarrhea resolved no fever Physical Exam Vital Signs: Vital Signs: Last Vital Signs Temp 98.0 F 06/12/20 11:26 Pulse 91 06/12/20 11:26 Resp 16 06/12/20 11:26 BP 130/74 06/12/20 11:26 Pulse Ox 99 06/12/20 11:26 Body Mass Index 19.3 Gen: chronically ill-appearing HEENT: sclera icteric, moist mucus membranes Neck: supple Lungs: clear to auscultation bilaterally Heart: regular rate and rhythm, no murmurs Abd: distended, non-tender, bulging flanks, no bleeding from paracentesis site Ext: no edema Skin: jaundiced Neuro: alert and oriented x3, no focal findings, no asterixis Psych: appropriate affect Objective Data Current Medications Generic Name Dose Route Start Last Admin Trade Name Freq PRN Reason Stop Dose Admin Docusate Sodium 100 mg 06/09/20 09:48 Docusate Sodium 100 Mg Capsule PO DAILY PRN Constipation Folic Acid 1 mg 06/09/20 09:00 06/12/20 08:46 Folic Acid 1 Mg Tablet PO 1 mg DAILY RANDOLPH Administration Furosemide 40 mg 06/12/20 09:00 06/12/20 09:35 Furosemide 40 Mg Tablet PO 40 mg DAILY RANDOLPH Administration Protocol Ceftriaxone Sodium 1 gm/ 50 mls @ 100 mls/hr 06/09/20 09:00 06/12/20 10:25 Sodium Chloride IV Infused Q24H RANDOLPH Infusion Omeprazole 20 mg 06/12/20 09:00 06/12/20 09:36 Omeprazole 20 Mg Capsule.Dr PO 20 mg DAILY@0630 RANDOLPH Administration Ondansetron HCl 4 mg 06/09/20 09:48 06/12/20 03:57 Ondansetron Hcl 4 Mg/2 Ml Vial IVPUSH 4 mg Q8H PRN Administration Nausea and Vomiting Sodium Chloride 3 ml 06/09/20 09:48 06/12/20 15:29 0.9 % Sodium Chloride Flush 3 Ml Syringe IVFLUSH 3 ml QSHIFT RANDOLPH Administration Spironolactone 25 mg 06/10/20 16:30 06/12/20 08:46 Spironolactone 25 Mg Tablet PO 25 mg DAILY RANDOLPH Administration Protocol Thiamine HCl 100 mg 06/09/20 09:00 06/12/20 08:46 Thiamine Hcl 100 Mg Tablet PO 100 mg DAILY RANDOLPH Administration Labs CBC & Chem 7: 06/12/20 06:25 06/12/20 06:25 Labs: Laboratory Results - last 24 hr 06/12/20 06/12/20 06/12/20 06:25 06:25 06:25 WBC 6.1 RBC 2.06 L Hgb 7.4 L Hct 21.3 L MCV 103.4 H MCH 35.9 H MCHC 34.7 RDW 18.8 H Plt Count 53 L MPV 12.4 H Immature Gran % (Auto) 0.3 Neut % (Auto) 49.1 Lymph % (Auto) 23.6 [place] % (Auto) 25.2 H Eos % (Auto) 1.3 Baso % (Auto) 0.5 Lymph # (Auto) 1.4 [place] # (Auto) 1.5 H Eos # (Auto) 0.1 Baso # (Auto) 0.0 Abs Immat Gran (auto) 0.02 Absolute Neuts (auto) 3.0 Absolute Nucleated RBC 0.000 Nucleated RBC % (auto) 0.0 Smear Tech's Comments VERIFIED PT 28.9 H INR 2.4 H Sodium 135 Potassium 3.3 Chloride 103 Carbon Dioxide 22 Anion Gap 13 BUN 13 Creatinine 0.89 Estim Creat Clear Calc 60.6 Estimated GFR > 60 Random Glucose 115 D Calcium 7.1 L D Magnesium 2.0 Total Bilirubin 5.9 H AST 97 H ALT 26 Alkaline Phosphatase 82 Total Protein 6.7 Albumin 2.6 L D Microbiology Microbiology Results: Microbiology 06/08/20 22:39 Abdomen Gram Stain - Final 06/08/20 22:39 Abdomen Routine Culture - Final No growth after 2 days 06/08/20 22:39 Abdomen Anaerobic Culture - Preliminary No growth to date. Assessment and Plan (1) Alcoholic hepatitis: Status: Acute (2) Cirrhosis: Status: Acute Assessment and Plan: hospital d#4 54yo F with hx EtOH abuse presenting with new-onset cirrhosis with ascites # SBP vs. CNNA - on d#4/5 of ceftriaxone, aerobic Cx neg, anaerobic Cx + AFB Cx + cytology, got albumin 1.5 g/kg on d#1 and 1 g/kg on d#3 # AUGUSTINA - resolved p colloid replacement # ascites - add furosemide to spironolactone. sodium restriction. may need repeat therapeutic paracentesis for comfort. # cirrhosis # EtOH hepatitis - GI consult. MELD 32, Maddrey discriminant function 91. no steroids given SBP. - viral workup negative, ROBBY negative, ASMA + LKM pending - EtOH cessation counseled # macrocytic anemia # thrombocytopenia # coagulopathy - avoid heparin, monitor for bleeding. will need outpt EGD (FOBT+), f/u with GI. continue to monitor Hb, T+S, transfuse if Hb <7 - vit K given x 2 doses- monitor INR # pleural effusions - likely due to ascites/hepatic hydrothorax. not hypoxic. got 1-time dose of furosemide in ED. diuretic started # EtOH abuse - thiamine - monitor for withdrawals - sobriety counseled - f/u with [facility] after discharge # hypoglycemia - resolved, likely due to liver failure # moderate protein/calorie malnutrition - supplements # VTE ppx - SCDs. heparin contraindicated # dispo - home after 5d of IV ceftriaxone
--- NOTE | 2020-06-12 16:24 | W.MHC.F2F ---
Service Date Service Date: 06/12/20 Encounter Date of encounter: 06/12/20 Reasons for Services Reason for retirement: monitoring of PT/INR, medication management, medication treatment and teach disease management Reason for physical therapy: home safety and mobility, therapeutic exercises, gait/transfer training, assess need for DME, ADL training and energy conservation Overseeing Care: Zeinab Hess Homebound: Leaving the home is medically contraindicated at this time without the asist of a device and/or another person due th the listed conditions above and below. Reason homebound: immunosuppression / infection risk and weakness related to hospital stay Homebound supporting statement: the patient [place] [facility] [place] for newly diagnosed cirrhosis with ascites and acute kidney injury she will be started on diuretics and will need periodic laboratory monitoring as well as home PT Certification: Based on the above findings, I certify that this patient is confined to the home and needs intermittent retirement care, physical therapy and/or speech therapy, or continues to need occupational therapy. The patient is under my care, and I have initiated the establishment of the plan of care. The patient will be followed by a physician who will periodically review the plan of care.
[2020-06-12 20:00] VITALS: BP 139/70; PULSE 78; RESP 19; TEMP 36.6; O2SAT 96
[2020-06-13] VITALS (8 sets, daily range): BP systolic 108–140; BP diastolic 57–76; PULSE 87–97; RESP 14–20; TEMP 36.5–37.5; O2SAT 94–98
--- NOTE | 2020-06-13 | XR_ITS ---
EXAMINATION: XR CHEST CLINICAL INFORMATION: Cough COMPARISON: June 17, 2015 TECHNIQUE: 2 views of the chest were obtained. FINDINGS: Patient has developed a moderate to large left pleural effusion. No pneumothorax. Heart normal size. No evidence of pulmonary edema. XR/XR chest 2V IMPRESSION: Moderate to large left pleural effusion.
[2020-06-13] MEDS: 0.9 % Sodium Chloride Flush 3 ML SYRINGE IVFLUSH ×4 (00:15→23:43)
[2020-06-13] MEDS: Omeprazole 20 MG CAPSULE.DR PO (05:03)
[2020-06-13 07:13] LABS: Basophils Percent Auto 0.4 % (0-2); Eosinophils Absolute Auto 0.2 X10*3/uL (0.0-0.4); Eosinophils Percent Auto 2.1 % (0-4); Hematocrit 21.6 % (37-47); Hemoglobin 7.5 g/dl (12.0-16.0); Imm Gran Abs Auto 0.05 X10*3/uL (0.00-0.03); Imm Gran Pct Auto 0.7 % (0.0-0.4); Lymphocytes Percent Auto 27.7 % (20-40); MANUAL DIFF FLAG SCAN; Mean Corpuscular HGB Conc 34.7 g/dl (31.0-35.0); Mean Corpuscular Hemoglobin 36.2 pg (27.0-33.0); Mean Corpuscular Volume 104.3 fL (80-98); Monocytes Absolute Auto 1.5 X10*3/uL (0.1-1.2); Monocytes Percent Auto 20.2 % (2-11); Neutrophils Absolute Auto 3.5 X10*3/uL (2.0-8.3); Neutrophils Percent Auto 48.9 % (45-73); Red Blood Count 2.07 X10*6/uL (4.20-5.50); Red Cell Distribution Width 19.3 % (11.0-16.0); SCAN SMEAR FLAG 1; White Blood Count 7.2 X10*3/uL (4.8-10.8)
[2020-06-13 07:21] LABS: INTERNATIONAL NORM RATIO 2.2 (0.9-1.1); Prothrombin Time 26.8 SEC (10.8-13.0)
[2020-06-13 07:25] LABS: Platelet Count 52 X10*3/uL (160-400)
[2020-06-13 07:46] LABS: Alanine Aminotransferase 25 U/L (0-31); Albumin Level 2.4 g/dL (3.5-5.0); Alkaline Phosphatase 70 U/L (39-117); Anion Gap 12 (12-20); Aspartate Amino Transferase 89 U/L (5-31); Bilirubin Total 5.7 mg/dL (0.0-1.0); Blood Urea Nitrogen 13 mg/dL (9-16); Calcium 7.2 mg/dL (8.4-10.2); Carbon Dioxide 22 mmol/L (22-29); Chloride 104 mmol/L (96-108); Creatinine Clr Calc Pharmacy 57.4; Estimated Glomerular Filt Rate > 60; Glucose Random 80 mg/dL (60-115); Magnesium 1.8 mg/dL (1.6-2.6); Potassium 3.3 mmol/l (3.3-5.1); Sodium 135 mmol/L (135-145); Total Protein 6.6 g/dL (6.5-8.0)
[2020-06-13 08:56] LABS: SLIDE REVIEW VERIFIED
[2020-06-13] MEDS: Thiamine HCL 100 MG TABLET PO (09:44)
[2020-06-13] MEDS: Folic Acid 1 MG TABLET PO (09:44)
[2020-06-13] MEDS: Spironolactone 25 MG TABLET PO (09:44)
[2020-06-13] MEDS: Furosemide 40 MG TABLET PO (09:44)
[2020-06-13] MEDS: cefTRIAXone sodium 1 GM in 0.9 % Sodium Chloride 50 ML IV (09:45)
[2020-06-13 10:27] LABS: COVID-19 Test Negative (Negative)
[2020-06-13 11:53] LABS: Liver Kidney Microsomal Ab <=20.0 U (<=20.0)
--- NOTE | 2020-06-13 15:01 | P.PNIM_ITS ---
Subjective Subjective Date of Service: 06/13/20 Interval History: c/o abd distension no fever no hematochezia or melena does note a cough for the past 2 days CXR shows large L pleural effusion, likely hepatic hydrothorax Physical Exam Vital Signs: Vital Signs: Last Vital Signs Temp 98.6 F 06/13/20 11:58 Pulse 87 06/13/20 11:58 Resp 18 06/13/20 11:58 BP 120/63 06/13/20 11:58 Pulse Ox 98 06/13/20 11:58 Body Mass Index 19.3 Gen: chronically ill-appearing HEENT: sclera icteric, moist mucus membranes Neck: supple Lungs: decreased air entry at the L base Heart: regular rate and rhythm, no murmurs Abd: distended, non-tender, bulging flanks, no bleeding from paracentesis site Ext: no edema Skin: jaundiced Neuro: alert and oriented x3, no focal findings, no asterixis Psych: appropriate affect Objective Data Current Medications Generic Name Dose Route Start Last Admin Trade Name Freq PRN Reason Stop Dose Admin Docusate Sodium 100 mg 06/09/20 09:48 Docusate Sodium 100 Mg Capsule PO DAILY PRN Constipation Folic Acid 1 mg 06/09/20 09:00 06/13/20 09:44 Folic Acid 1 Mg Tablet PO 1 mg DAILY RANDOLPH Administration Furosemide 40 mg 06/12/20 09:00 06/13/20 09:44 Furosemide 40 Mg Tablet PO 40 mg DAILY RANDOLPH Administration Protocol Ceftriaxone Sodium 1 gm/ 50 mls @ 100 mls/hr 06/09/20 09:00 06/13/20 10:29 Sodium Chloride IV Infused Q24H RANDOLPH Infusion Omeprazole 20 mg 06/12/20 09:00 06/13/20 05:03 Omeprazole 20 Mg Capsule. PO 20 mg DAILY@0630 RANDOLPH Administration Ondansetron HCl 4 mg 06/09/20 09:48 06/12/20 03:57 Ondansetron Hcl 4 Mg/2 Ml Vial IVPUSH 4 mg Q8H PRN Administration Nausea and Vomiting Sodium Chloride 3 ml 06/09/20 09:48 06/13/20 09:44 0.9 % Sodium Chloride Flush 3 Ml Syringe IVFLUSH 3 ml QSHIFT RANDOLPH Administration Spironolactone 25 mg 06/10/20 16:30 06/13/20 09:44 Spironolactone 25 Mg Tablet PO 25 mg DAILY RANDOLPH Administration Protocol Thiamine HCl 100 mg 06/09/20 09:00 06/13/20 09:44 Thiamine Hcl 100 Mg Tablet PO 100 mg DAILY RANDOLPH Administration Labs CBC & Chem 7: 06/13/20 06:29 06/13/20 06:29 Labs: Laboratory Results - last 24 hr 06/08/20 06/13/20 06/13/20 22:39 06:29 06:29 WBC 7.2 RBC 2.07 L Hgb 7.5 L Hct 21.6 L MCV 104.3 H MCH 36.2 H MCHC 34.7 RDW 19.3 H Plt Count 52 L MPV 12.0 Immature Gran % (Auto) 0.7 H Neut % (Auto) 48.9 Lymph % (Auto) 27.7 [place] % (Auto) 20.2 H Eos % (Auto) 2.1 Baso % (Auto) 0.4 Lymph # (Auto) 2.0 [place] # (Auto) 1.5 H Eos # (Auto) 0.2 Baso # (Auto) 0.0 Abs Immat Gran (auto) 0.05 H Absolute Neuts (auto) 3.5 Absolute Nucleated RBC 0.000 Nucleated RBC % (auto) 0.0 Smear Tech's Comments VERIFIED PT INR Sodium Potassium Chloride Carbon Dioxide Anion Gap BUN Creatinine Estim Creat Clear Calc Estimated GFR Random Glucose Calcium Magnesium Total Bilirubin AST ALT Alkaline Phosphatase Total Protein Albumin Janna/Kid Microsom Ab Int <=20.0 COVID-19 (CLAUDY) COVID-19 Clin Com Blood Type O Positive Antibody Screen NEGATIVE 06/13/20 06/13/20 06/13/20 06:29 06:29 09:52 WBC RBC Hgb Hct MCV MCH MCHC RDW Plt Count MPV Immature Gran % (Auto) Neut % (Auto) Lymph % (Auto) [place] % (Auto) Eos % (Auto) Baso % (Auto) Lymph # (Auto) [place] # (Auto) Eos # (Auto) Baso # (Auto) Abs Immat Gran (auto) Absolute Neuts (auto) Absolute Nucleated RBC Nucleated RBC % (auto) Smear Tech's Comments PT 26.8 H INR 2.2 H Sodium 135 Potassium 3.3 Chloride 104 Carbon Dioxide 22 Anion Gap 12 BUN 13 Creatinine 0.94 Estim Creat Clear Calc 57.4 Estimated GFR > 60 Random Glucose 80 Calcium 7.2 L Magnesium 1.8 Total Bilirubin 5.7 H AST 89 H ALT 25 Alkaline Phosphatase 70 Total Protein 6.6 Albumin 2.4 L Janna/Kid Microsom Ab Int COVID-19 (CLAUDY) Negative COVID-19 Clin Com See Note Blood Type Antibody Screen Microbiology Microbiology Results: Microbiology 06/08/20 22:39 Abdomen Gram Stain - Final 06/08/20 22:39 Abdomen Routine Culture - Final No growth after 2 days 06/08/20 22:39 Abdomen Anaerobic Culture - Final NO GROWTH AFTER 5 DAYS Assessment and Plan (1) Alcoholic hepatitis: Status: Acute (2) Cirrhosis: Status: Acute Assessment and Plan: hospital d#5 54yo F with hx EtOH abuse presenting with new-onset cirrhosis with ascites + hepatic hydrothorax # culture-negative neutrocytic ascites - treated with 5d of ceftriaxone; aerobic + anaerobic Cx ended up negative; AFB Cx pending - got albumin 1.5 g/kg on d#1 and 1 g/kg on d#3 - pt still markedly distended; will order therapeutic paracentesis for tomorrow but also send fluid for cytology [not done with original paracentesis on 06/08/20]- will give another dose of albumin with it # AUGUSTINA - resolved p colloid replacement # ascites # hepatic hydrothorax - added furosemide to spironolactone- will try increasing doses. sodium restriction. # cirrhosis # EtOH hepatitis - GI consult. MELD 32, Maddrey discriminant function 91. no steroids given SBP. - viral workup negative, ROBBY negative, ASMA + LKM pending - EtOH cessation counseled # macrocytic anemia # thrombocytopenia # coagulopathy - avoid heparin, monitor for bleeding. will need outpt EGD (FOBT+), f/u with GI. continue to monitor Hb, T+S, transfuse if Hb <7 - vit K given x 2 doses- monitor INR # EtOH abuse - thiamine - monitor for withdrawal - sobriety counseled - f/u with [facility] after discharge per [employer] Stacey Paredes # hypoglycemia - resolved, likely due to liver failure # moderate protein/calorie malnutrition - supplements # VTE ppx - SCDs. heparin contraindicated # dispo - home with [facility] after paracentesis
--- NOTE | 2020-06-14 | US_ITS ---
EXAMINATION: ULTRASOUND PARACENTESIS CLINICAL INFORMATION: Ascites COMPARISON: Ultrasound abdomen 07/31/2018 TECHNIQUE: Following explaining ultrasound-guided paracentesis procedure, benefits and risk, a written consent was obtained. Patient was placed supine on ultrasound stretcher and in the ultrasound imaging was obtained through the abdomen. An optimal site was selected on the right lower quadrant and marked. The marked site was cleaned and draped in usual sterile manner. 1% lidocaine was injected puncture site. Through a small skin incision a 5 [facility] [employer] catheter was advanced into the peritoneal space. After observing fluid return, stylet was withdrawn and catheter connected to vacuum bottle via connecting cannula. After obtaining all fluid and observing no more fluid return, catheter was withdrawn and complete hemostasis achieved. Sterile dressing applied postprocedure. Patient tolerated procedure extremely well. FINDINGS: On preliminary ultrasound imaging there is moderate fluid seen in the abdomen. Approximately 3.1 L of clear yellowish fluid was taken from the right lower quadrant for diagnostic and therapeutic purposes. Fluid collected was sent to lab as requested by the referring physician. US/US paracentesis abd w/image IMPRESSION: Successful ultrasound guided diagnostic and therapeutic paracentesis performed without immediate complications.
[2020-06-14 03:31] VITALS: BP 127/63; PULSE 88; RESP 18; TEMP 37.3; O2SAT 96
[2020-06-14] MEDS: Omeprazole 20 MG CAPSULE.DR PO (06:15)
[2020-06-14 07:53] VITALS: BP 122/70; PULSE 90; RESP 18; TEMP 36.4; O2SAT 94
[2020-06-14] MEDS: Albumin Human 25 % 100 ML IV ×2 (08:15→09:43)
[2020-06-14] MEDS: Folic Acid 1 MG TABLET PO (08:16)
[2020-06-14] MEDS: Furosemide 40 MG TABLET PO (08:16)
[2020-06-14] MEDS: Thiamine HCL 100 MG TABLET PO (08:16)
[2020-06-14] MEDS: Spironolactone 25 MG TABLET 50 MG PO (08:16)
[2020-06-14] MEDS: 0.9 % Sodium Chloride Flush 3 ML SYRINGE IVFLUSH ×2 (08:17→16:12)
[2020-06-14] MEDS: Lidocaine HCl 1 % MPF 5 ML VIAL SUBCUT (11:11)
[2020-06-14 11:30] VITALS: BP 134/72; PULSE 91
[2020-06-14 11:55] VITALS: BP 142/74; PULSE 86; RESP 18; TEMP 36.5; O2SAT 98
[2020-06-14 12:28] LABS: Smooth Muscle Antibody <20 U (<20)
[2020-06-14 12:51] LABS: Alpha Fetoprotein 4.6 ng/mL
[2020-06-14 13:25] VITALS: BP 140/72; PULSE 97; RESP 18; TEMP 36.4; O2SAT 96
--- NOTE | 2020-06-14 14:02 | MHC.CM.PN ---
CASE MANAGEMENT FOLLOWING FOR ANY DISCHARGE NEEDS. PATIENT WILL HAVE A NEW VISITING NURSING REFERRAL TO [facility] PER REQUEST.
--- NOTE | 2020-06-14 15:23 | MHC.CM.PN ---
PATIENT IS DISCHARGED HOME WITH [facility]. SHE HAS A 06/17/2020 APPT WITH [facility]. INSTRUCTIONS WRITTEN ON DISCHARGE PAPERS. THIS COMMUNITY MARKETING COORDINATOR ALSO DISCUSSED WITH PATIENT, WHO VERBALIZES COMPREHENSION. RN AWARE OF PLAN.
[2020-06-14 15:54] VITALS: BP 123/68; PULSE 93; RESP 20; TEMP 36.8; O2SAT 98
--- NOTE | 2020-06-14 15:57 | P.DS_ITS ---
DS: Providers Provider Date of Service: 06/14/20 Date of admission: 06/08/20 22:34 Primary care physician: Zeinab Hess MD Consults: 06/08/20 22:34 Consult to Gastroenterology Routine Consulting Provider: Ad Cheema Reason for consultation: Liver failure Has provider been notified: No 06/09/20 05:49 Consult to Nephrology Routine Consulting Provider: [facility] Reason for consultation: [place] in the setting of acute liver failure Has provider been notified: No 06/10/20 16:37 Consult to Care Team Routine Comment: Reason for consultation: EtOh cirrhosis DS: Diagnosis Discharge Diagnosis (1) Alcoholic hepatitis: Status: Acute (2) SBP (spontaneous bacterial peritonitis): Status: Acute (3) Acute kidney injury: Status: Acute (4) Cirrhosis: Status: Acute (5) Ascites: Status: Acute (6) Moderate protein-calorie malnutrition: Status: Acute (7) Hypoglycemia: Status: Acute DS: Medications Discharge Medications Home Medications: Previous Rx's Medication Instructions Recorded furosemide 40 mg PO DAILY #30 tab 06/14/20 spironolactone 50 mg PO DAILY #30 tab 06/14/20 DS: Summary Hospital Course Hospital Course: HPI: 54-year-old female with no significant past medical history who presents to hospital with complaints of abdominal distension x1 week. Patient reports that she started noticing her abdominal swelling about a week ago contributed to constipation has some pain specially when she is trying to get up or have a lot of movement, has low appetite but drinks sufficient water, denies having any nausea or vomiting PI denies noticing any changes in the color of her skin or ey es, denies having any right quadrant abdominal pain, denies using any IV drug use or history of hepatitis, she is a alcohol drinker drinks 1 beer daily for a very long time per patient, she uses Tylenol regularly for hip, denies using any type of NSAIDs. Patient also noticed swelling in her legs. She otherwise denies having any headache, change in vision, no chest pain, no shortness of breath, no urinary symptoms. No weakness numbness or tingling. On arrival to the ED hemodynamically stable with a heart rate of 112, respiratory rate of 20, satting 99% on room air, blood pressure 1 7/54. Te mperature of 97.3? Labs are significant for 9.8, hemoglobin of 8.8 (13 on 12/13/2018) hematocrit 25.3, MCV of 102, RDW [place] 18[place], [place] [address], PT of 31.4 INR of 2.6 (patient not on any anticoagulation), sodium of 131, potassium of 3.9, BUN of 10, creatinine of 1.75 baseline around 0.69 from 12/13/2018, hypoglycemic with a glucose of 57, 6.9, direct bili of 4.6, AST of 284, ALT of 59, ammonia 56, albumin of 1.9, amylase of 143, lipase of 40, Patient is undergoing diagnostic and therapeutic paracentesis COVID-19 negative, hepatitis panel negative Abdominal CT demonstrating large volume of abdominal ascites, low attenuation of liver parenchyma consistent with nonspecific hepatic biliary disease, nonspecific colonic bowel wall thickening in the sigmoid and descending colon and the cecum and ascending colon. Bilateral pleural effusion left as large in volume than the right Hospital Course: Patient was admitted for a multitude of problems relating to her chronic alcohol abuse and dependence. She had clear ascites which was tapped twice. Her cultures from the initial fluid analysis were negative, however she was treated as culture negative SBP with a course of IV ceftriaxone which she has completed in the hospital. Repeat paracentesis was done for therapeutic purposes, however since a cytology was not sent during the 06 04 it was during this. She was also initiated on Aldactone and Lasix in the hospital. These can be up titrated slowly as her renal function and blood pressure allows. She was evaluated by both Nephrology and Gastroenterology and should follow up with the each. She was also evaluated by Addiction Medicine for medication assessment treatment for her chronic alcoholism and will be following up with them in the outpatient setting. She will have [facility] services for both disease management as well as disease Education. She can have repeat blood work completed about 1 week from discharge. Time Spent with Patient Time attestation: Total time spent providing and/or coordinating discharge services: Discharge coordination time: Greater than 30 minutes Physical Exam Vital Signs: Vital Signs: Last Vital Signs Temp 98.3 F 06/14/20 15:54 Pulse 93 06/14/20 15:54 Resp 20 06/14/20 15:54 BP 123/68 06/14/20 15:54 Pulse Ox 98 06/14/20 15:54 Body Mass Index 19.3 Const: Other: General - no acute distress, appears comfortable Cardiovascular - regular rate and rhythm, S1-S2 Lungs - normal respiratory effort, clear to auscultation bilaterally, no wheezing Abdomen - mildly distneded abdomen without rebound or guarding Extremities - no edema bilaterally Neuro - awake and alert, no focal deficits DS: Data Data Completed and Pending Pending studies at discharge: Pending at discharge 06/11/20 14:33 Cytology [PTH] Urgent 06/14/20 10:35 Cytology [PTH] Routine Labs on day of discharge: Laboratory Tests 06/08/20 06/08/20 06/08/20 18:04 18:04 18:04 WBC 9.8 RBC 2.46 L Hgb 8.8 L Hct 25.3 L MCV 102.8 H MCH 35.8 H MCHC 34.8 RDW 18.8 H Plt Count 68 L MPV 11.8 Immature Gran % (Auto) 0.5 H Neut % (Auto) 77.4 H Lymph % (Auto) 9.3 L [place] % (Auto) 12.6 H Eos % (Auto) 0.0 Baso % (Auto) 0.2 Lymph # (Auto) 0.9 L [place] # (Auto) 1.2 Eos # (Auto) 0.0 Baso # (Auto) 0.0 Abs Immat Gran (auto) 0.05 H Absolute Neuts (auto) 7.5 Absolute Nucleated RBC 0.000 Nucleated RBC % (auto) 0.0 Smear Tech's Comments PT 31.4 H INR 2.6 H Sodium 131 L Potassium 3.9 Chloride 99 Carbon Dioxide 13 L Anion Gap 23 H BUN 10 Creatinine 1.75 H Estim Creat Clear Calc 30.8 Estimated GFR 30 POC Glucose Random Glucose 57 L* Calcium 7.0 L Magnesium Total Bilirubin 6.9 H Direct Bilirubin 4.6 H AST 284 H ALT 59 H Alkaline Phosphatase 102 Ammonia Total Protein 7.9 Albumin 1.9 L Amylase Lipase Alpha Fetoprotein Vitamin B12 Folate Urine Color Urine Appearance Urine pH Ur Specific [place] Urine Protein Urine Glucose (UA) Urine Ketones Urine Blood Urine Nitrite Ur Leukocyte Esterase Urine RBC Urine WBC Ur Squamous Epith Cells Urine Bacteria Hyaline Casts Ur Random Sodium Urine Creatinine Peritoneal pH Peritoneal WBC Peritoneal RBC Periton Neutrophils Periton Lymphocytes Peritoneal Monocytes Peritoneal Eosinophils Peritoneal Basophils Peritoneal Other Cells Peritoneal Tot Protein Peritoneal Albumin Peritoneal LDH Peritoneal Glucose Peritoneal Amylase Stool Occult Blood Acetaminophen Ethyl Alcohol ROBBY Screen ROBBY Titer ROBBY Titer 2 ROBBY Titer 3 ROBBY Pattern ROBBY Pattern 2 ROBBY Pattern 3 Anti-Smooth Muscle Ab Janna/Kid Microsom Ab Int COVID-19 (CLAUDY) COVID-19 Clin Com Hepatitis A IgM Ab Hep Bs Antigen Hep Bs Antibody Hep B Core Total Ab Hepatitis C Ab (EIA) Blood Type Antibody Screen 06/08/20 06/08/20 06/08/20 18:04 18:04 22:39 WBC RBC Hgb Hct MCV MCH MCHC RDW Plt Count MPV Immature Gran % (Auto) Neut % (Auto) Lymph % (Auto) [place] % (Auto) Eos % (Auto) Baso % (Auto) Lymph # (Auto) [place] # (Auto) Eos # (Auto) Baso # (Auto) Abs Immat Gran (auto) Absolute Neuts (auto) Absolute Nucleated RBC Nucleated RBC % (auto) Smear Tech's Comments PT INR Sodium Potassium Chloride Carbon Dioxide Anion Gap BUN Creatinine Estim Creat Clear Calc Estimated GFR POC Glucose Random Glucose Calcium Magnesium Total Bilirubin Direct Bilirubin AST ALT Alkaline Phosphatase Ammonia 56 H Total Protein Albumin Amylase Lipase 42 Alpha Fetoprotein Vitamin B12 Folate Urine Color Urine Appearance Urine pH Ur Specific [place] Urine Protein Urine Glucose (UA) Urine Ketones Urine Blood Urine Nitrite Ur Leukocyte Esterase Urine RBC Urine WBC Ur Squamous Epith Cells Urine Bacteria Hyaline Casts Ur Random Sodium Urine Creatinine Peritoneal pH Peritoneal WBC Peritoneal RBC Periton Neutrophils Periton Lymphocytes Peritoneal Monocytes Peritoneal Eosinophils Peritoneal Basophils Peritoneal Other Cells Peritoneal Tot Protein Peritoneal Albumin Peritoneal LDH Peritoneal Glucose Peritoneal Amylase Stool Occult Blood Acetaminophen Ethyl Alcohol 101 ROBBY Screen ROBBY Titer ROBBY Titer 2 ROBBY Titer 3 ROBBY Pattern ROBBY Pattern 2 ROBBY Pattern 3 Anti-Smooth Muscle Ab Janna/Kid Microsom Ab Int COVID-19 (CLAUDY) COVID-19 Clin Com Hepatitis A IgM Ab Hep Bs Antigen Hep Bs Antibody Hep B Core Total Ab Hepatitis C Ab (EIA) Blood Type Antibody Screen 06/08/20 06/08/20 06/08/20 22:39 22:39 22:39 WBC RBC Hgb Hct MCV MCH MCHC RDW Plt Count MPV Immature Gran % (Auto) Neut % (Auto) Lymph % (Auto) [place] % (Auto) Eos % (Auto) Baso % (Auto) Lymph # (Auto) [place] # (Auto) Eos # (Auto) Baso # (Auto) Abs Immat Gran (auto) Absolute Neuts (auto) Absolute Nucleated RBC Nucleated RBC % (auto) Smear Tech's Comments PT INR Sodium Potassium Chloride Carbon Dioxide Anion Gap BUN Creatinine Estim Creat Clear Calc Estimated GFR POC Glucose Random Glucose Calcium Magnesium Total Bilirubin Direct Bilirubin AST ALT Alkaline Phosphatase Ammonia Total Protein Albumin Amylase 143 H Lipase 40 Alpha Fetoprotein Vitamin B12 1905 H Folate 6.0 Urine Color Urine Appearance Urine pH Ur Specific [place] Urine Protein Urine Glucose (UA) Urine Ketones Urine Blood Urine Nitrite Ur Leukocyte Esterase Urine RBC Urine WBC Ur Squamous Epith Cells Urine Bacteria Hyaline Casts Ur Random Sodium Urine Creatinine Peritoneal pH Peritoneal WBC Peritoneal RBC Periton Neutrophils Periton Lymphocytes Peritoneal Monocytes Peritoneal Eosinophils Peritoneal Basophils Peritoneal Other Cells Peritoneal Tot Protein Peritoneal Albumin Peritoneal LDH Peritoneal Glucose Peritoneal Amylase Stool Occult Blood Acetaminophen Ethyl Alcohol ROBBY Screen NEGATIVE ROBBY Titer TNP ROBBY Titer 2 TNP ROBBY Titer 3 TNP ROBBY Pattern TNP ROBBY Pattern 2 TNP ROBBY Pattern 3 TNP Anti-Smooth Muscle Ab Janna/Kid Microsom Ab Int COVID-19 (CLAUDY) COVID-19 Clin Com Hepatitis A IgM Ab Hep Bs Antigen Hep Bs Antibody Hep B Core Total Ab Hepatitis C Ab (EIA) Blood Type Antibody Screen 06/08/20 06/08/20 06/08/20 22:39 22:39 22:39 WBC RBC Hgb Hct MCV MCH MCHC RDW Plt Count MPV Immature Gran % (Auto) Neut % (Auto) Lymph % (Auto) [place] % (Auto) Eos % (Auto) Baso % (Auto) Lymph # (Auto) [place] # (Auto) Eos # (Auto) Baso # (Auto) Abs Immat Gran (auto) Absolute Neuts (auto) Absolute Nucleated RBC Nucleated RBC % (auto) Smear Tech's Comments PT INR Sodium Potassium Chloride Carbon Dioxide Anion Gap BUN Creatinine Estim Creat Clear Calc Estimated GFR POC Glucose Random Glucose Calcium Magnesium Total Bilirubin Direct Bilirubin AST ALT Alkaline Phosphatase Ammonia Total Protein Albumin Amylase Lipase Alpha Fetoprotein Vitamin B12 Folate Urine Color Urine Appearance Urine pH Ur Specific [place] Urine Protein Urine Glucose (UA) Urine Ketones Urine Blood Urine Nitrite Ur Leukocyte Esterase Urine RBC Urine WBC Ur Squamous Epith Cells Urine Bacteria Hyaline Casts Ur Random Sodium Urine Creatinine Peritoneal pH Peritoneal WBC 2.123 Peritoneal RBC < 0.002 Periton Neutrophils 47 Periton Lymphocytes 2 Peritoneal Monocytes 49 Peritoneal Eosinophils 0 Peritoneal Basophils 0 Peritoneal Other Cells 2 Peritoneal Tot Protein 0.7 Peritoneal Albumin 0.2 Peritoneal LDH 113 Peritoneal Glucose 61 Peritoneal Amylase 24 Stool Occult Blood Acetaminophen Ethyl Alcohol ROBBY Screen ROBBY Titer ROBBY Titer 2 ROBBY Titer 3 ROBBY Pattern ROBBY Pattern 2 ROBBY Pattern 3 Anti-Smooth Muscle Ab <20 Janna/Kid Microsom Ab Int <=20.0 COVID-19 (CLAUDY) COVID-19 Clin Com Hepatitis A IgM Ab Hep Bs Antigen Hep Bs Antibody Hep B Core Total Ab Hepatitis C Ab (EIA) Blood Type Antibody Screen 06/08/20 06/08/20 06/08/20 22:39 22:39 22:39 WBC RBC Hgb Hct MCV MCH MCHC RDW Plt Count MPV Immature Gran % (Auto) Neut % (Auto) Lymph % (Auto) [place] % (Auto) Eos % (Auto) Baso % (Auto) Lymph # (Auto) [place] # (Auto) Eos # (Auto) Baso # (Auto) Abs Immat Gran (auto) Absolute Neuts (auto) Absolute Nucleated RBC Nucleated RBC % (auto) Smear Tech's Comments PT INR Sodium Potassium Chloride Carbon Dioxide Anion Gap BUN Creatinine Estim Creat Clear Calc Estimated GFR POC Glucose Random Glucose Calcium Magnesium Total Bilirubin Direct Bilirubin AST ALT Alkaline Phosphatase Ammonia Total Protein Albumin Amylase Lipase Alpha Fetoprotein Vitamin B12 Folate Urine Color Urine Appearance Urine pH Ur Specific [place] Urine Protein Urine Glucose (UA) Urine Ketones Urine Blood Urine Nitrite Ur Leukocyte Esterase Urine RBC Urine WBC Ur Squamous Epith Cells Urine Bacteria Hyaline Casts Ur Random Sodium Urine Creatinine Peritoneal pH 7.46 Peritoneal WBC Peritoneal RBC Periton Neutrophils Periton Lymphocytes Peritoneal Monocytes Peritoneal Eosinophils Peritoneal Basophils Peritoneal Other Cells Peritoneal Tot Protein Peritoneal Albumin Peritoneal LDH Peritoneal Glucose Peritoneal Amylase Stool Occult Blood Acetaminophen 12 Ethyl Alcohol ROBBY Screen ROBBY Titer ROBBY Titer 2 ROBBY Titer 3 ROBBY Pattern ROBBY Pattern 2 ROBBY Pattern 3 Anti-Smooth Muscle Ab Janna/Kid Microsom Ab Int COVID-19 (CLAUDY) COVID-19 Clin Com Hepatitis A IgM Ab Cancelled Hep Bs Antigen Cancelled Hep Bs Antibody Cancelled Hep B Core Total Ab Cancelled Hepatitis C Ab (EIA) Cancelled Blood Type Antibody Screen 06/08/20 06/08/20 06/08/20 22:46 22:48 23:31 WBC RBC Hgb Hct MCV MCH MCHC RDW Plt Count MPV Immature Gran % (Auto) Neut % (Auto) Lymph % (Auto) [place] % (Auto) Eos % (Auto) Baso % (Auto) Lymph # (Auto) [place] # (Auto) Eos # (Auto) Baso # (Auto) Abs Immat Gran (auto) Absolute Neuts (auto) Absolute Nucleated RBC Nucleated RBC % (auto) Smear Tech's Comments PT INR Sodium Potassium Chloride Carbon Dioxide Anion Gap BUN Creatinine Estim Creat Clear Calc Estimated GFR POC Glucose Random Glucose Calcium Magnesium Total Bilirubin Direct Bilirubin AST ALT Alkaline Phosphatase Ammonia Total Protein Albumin Amylase Lipase Alpha Fetoprotein Vitamin B12 Folate Urine Color Urine Appearance Urine pH Ur Specific [place] Urine Protein Urine Glucose (UA) Urine Ketones Urine Blood Urine Nitrite Ur Leukocyte Esterase Urine RBC Urine WBC Ur Squamous Epith Cells Urine Bacteria Hyaline Casts Ur Random Sodium Urine Creatinine Peritoneal pH Peritoneal WBC Peritoneal RBC Periton Neutrophils Periton Lymphocytes Peritoneal Monocytes Peritoneal Eosinophils Peritoneal Basophils Peritoneal Other Cells Peritoneal Tot Protein Peritoneal Albumin Peritoneal LDH Peritoneal Glucose Peritoneal Amylase Stool Occult Blood Acetaminophen Ethyl Alcohol ROBBY Screen ROBBY Titer ROBBY Titer 2 ROBBY Titer 3 ROBBY Pattern ROBBY Pattern 2 ROBBY Pattern 3 Anti-Smooth Muscle Ab Janna/Kid Microsom Ab Int COVID-19 (CLAUDY) Negative COVID-19 Clin Com See Note Hepatitis A IgM Ab Nonreactive Hep Bs Antigen Negative Hep Bs Antibody NONREACTIVE Hep B Core Total Ab Nonreactive Hepatitis C Ab (EIA) Nonreactive Blood Type O Positive Antibody Screen NEGATIVE 06/09/20 06/09/20 06/09/20 01:41 05:43 06:44 WBC RBC Hgb Hct MCV MCH MCHC RDW Plt Count MPV Immature Gran % (Auto) Neut % (Auto) Lymph % (Auto) [place] % (Auto) Eos % (Auto) Baso % (Auto) Lymph # (Auto) [place] # (Auto) Eos # (Auto) Baso # (Auto) Abs Immat Gran (auto) Absolute Neuts (auto) Absolute Nucleated RBC Nucleated RBC % (auto) Smear Tech's Comments PT INR Sodium Potassium Chloride Carbon Dioxide Anion Gap BUN Creatinine Estim Creat Clear Calc Estimated GFR POC Glucose 54 L* 147 H Random Glucose Calcium Magnesium Total Bilirubin Direct Bilirubin AST ALT Alkaline Phosphatase Ammonia Total Protein Albumin Amylase Lipase Alpha Fetoprotein Vitamin B12 Folate Urine Color ORANGE Urine Appearance HAZY Urine pH 5.5 Ur Specific [place] >= 1.030 H Urine Protein TRACE Urine Glucose (UA) NEG Urine Ketones SEE NOTE Urine Blood NEG Urine Nitrite SEE NOTE Ur Leukocyte Esterase NEG Urine RBC 0-2 Urine WBC 0 Ur Squamous Epith Cells 4+ Urine Bacteria NONE Hyaline Casts 0-2 Ur Random Sodium Urine Creatinine Peritoneal pH Peritoneal WBC Peritoneal RBC Periton Neutrophils Periton Lymphocytes Peritoneal Monocytes Peritoneal Eosinophils Peritoneal Basophils Peritoneal Other Cells Peritoneal Tot Protein Peritoneal Albumin Peritoneal LDH Peritoneal Glucose Peritoneal Amylase Stool Occult Blood Acetaminophen Ethyl Alcohol ROBBY Screen ROBBY Titer ROBBY Titer 2 ROBBY Titer 3 ROBBY Pattern ROBBY Pattern 2 ROBBY Pattern 3 Anti-Smooth Muscle Ab Janna/Kid Microsom Ab Int COVID-19 (CLAUDY) COVID-19 Clin Com Hepatitis A IgM Ab Hep Bs Antigen Hep Bs Antibody Hep B Core Total Ab Hepatitis C Ab (EIA) Blood Type Antibody Screen 06/09/20 06/09/20 06/09/20 08:42 09:09 10:31 WBC 7.8 RBC 2.17 L Hgb 7.7 L Hct 22.2 L MCV 102.3 H MCH 35.5 H MCHC 34.7 RDW 18.7 H Plt Count 63 L MPV 12.3 Immature Gran % (Auto) 0.4 Neut % (Auto) 61.4 Lymph % (Auto) 20.4 [place] % (Auto) 17.1 H Eos % (Auto) 0.3 Baso % (Auto) 0.4 Lymph # (Auto) 1.6 [place] # (Auto) 1.3 H Eos # (Auto) 0.0 Baso # (Auto) 0.0 Abs Immat Gran (auto) 0.03 Absolute Neuts (auto) 4.8 Absolute Nucleated RBC 0.000 Nucleated RBC % (auto) 0.0 Smear Tech's Comments PT INR Sodium Potassium Chloride Carbon Dioxide Anion Gap BUN Creatinine Estim Creat Clear Calc Estimated GFR POC Glucose 168 H 168 H Random Glucose Calcium Magnesium Total Bilirubin Direct Bilirubin AST ALT Alkaline Phosphatase Ammonia Total Protein Albumin Amylase Lipase Alpha Fetoprotein Vitamin B12 Folate Urine Color Urine Appearance Urine pH Ur Specific [place] Urine Protein Urine Glucose (UA) Urine Ketones Urine Blood Urine Nitrite Ur Leukocyte Esterase Urine RBC Urine WBC Ur Squamous Epith Cells Urine Bacteria Hyaline Casts Ur Random Sodium Urine Creatinine Peritoneal pH Peritoneal WBC Peritoneal RBC Periton Neutrophils Periton Lymphocytes Peritoneal Monocytes Peritoneal Eosinophils Peritoneal Basophils Peritoneal Other Cells Peritoneal Tot Protein Peritoneal Albumin Peritoneal LDH Peritoneal Glucose Peritoneal Amylase Stool Occult Blood Acetaminophen Ethyl Alcohol ROBBY Screen ROBBY Titer ROBBY Titer 2 ROBBY Titer 3 ROBBY Pattern ROBBY Pattern 2 ROBBY Pattern 3 Anti-Smooth Muscle Ab Janna/Kid Microsom Ab Int COVID-19 (CLAUDY) COVID-19 Clin Com Hepatitis A IgM Ab Hep Bs Antigen Hep Bs Antibody Hep B Core Total Ab Hepatitis C Ab (EIA) Blood Type Antibody Screen 06/09/20 06/09/20 06/09/20 10:31 16:26 18:00 WBC RBC Hgb Hct MCV MCH MCHC RDW Plt Count MPV Immature Gran % (Auto) Neut % (Auto) Lymph % (Auto) [place] % (Auto) Eos % (Auto) Baso % (Auto) Lymph # (Auto) [place] # (Auto) Eos # (Auto) Baso # (Auto) Abs Immat Gran (auto) Absolute Neuts (auto) Absolute Nucleated RBC Nucleated RBC % (auto) Smear Tech's Comments PT INR Sodium 132 L Potassium 3.4 Chloride 101 Carbon Dioxide 19 L Anion Gap 15 BUN 14 Creatinine 1.69 H Estim Creat Clear Calc 31.9 Estimated GFR 31 POC Glucose 124 H Random Glucose 148 H D Calcium 7.0 L Magnesium Total Bilirubin Direct Bilirubin AST ALT Alkaline Phosphatase Ammonia Total Protein Albumin Amylase Lipase Alpha Fetoprotein Vitamin B12 Folate Urine Color Urine Appearance Urine pH Ur Specific [place] Urine Protein Urine Glucose (UA) Urine Ketones Urine Blood Urine Nitrite Ur Leukocyte Esterase Urine RBC Urine WBC Ur Squamous Epith Cells Urine Bacteria Hyaline Casts Ur Random Sodium Urine Creatinine Peritoneal pH Peritoneal WBC Peritoneal RBC Periton Neutrophils Periton Lymphocytes Peritoneal Monocytes Peritoneal Eosinophils Peritoneal Basophils Peritoneal Other Cells Peritoneal Tot Protein Peritoneal Albumin Peritoneal LDH Peritoneal Glucose Peritoneal Amylase Stool Occult Blood POS Acetaminophen Ethyl Alcohol ROBBY Screen ROBBY Titer ROBBY Titer 2 ROBBY Titer 3 ROBBY Pattern ROBBY Pattern 2 ROBBY Pattern 3 Anti-Smooth Muscle Ab Janna/Kid Microsom Ab Int COVID-19 (CLAUDY) COVID-19 Clin Com Hepatitis A IgM Ab Hep Bs Antigen Hep Bs Antibody Hep B Core Total Ab Hepatitis C Ab (EIA) Blood Type Antibody Screen 06/10/20 06/10/20 06/10/20 06:27 06:27 06:27 WBC 6.2 RBC 2.21 L Hgb 8.0 L Hct 22.5 L MCV 101.8 H MCH 36.2 H MCHC 35.6 H RDW 18.7 H Plt Count 57 L MPV 12.3 Immature Gran % (Auto) 0.6 H Neut % (Auto) 57.0 Lymph % (Auto) 24.2 [place] % (Auto) 16.9 H Eos % (Auto) 1.0 Baso % (Auto) 0.3 Lymph # (Auto) 1.5 [place] # (Auto) 1.0 Eos # (Auto) 0.1 Baso # (Auto) 0.0 Abs Immat Gran (auto) 0.04 H Absolute Neuts (auto) 3.5 Absolute Nucleated RBC 0.000 Nucleated RBC % (auto) 0.0 Smear Tech's Comments PT 31.5 H INR 2.6 H Sodium 134 L Potassium 3.1 L Chloride 104 Carbon Dioxide 20 L Anion Gap 13 BUN 15 Creatinine 1.31 Estim Creat Clear Calc 41.1 Estimated GFR 42 POC Glucose Random Glucose 87 D Calcium 7.1 L Magnesium 1.6 Total Bilirubin 7.5 H Direct Bilirubin AST 167 H ALT 39 H Alkaline Phosphatase 79 D Ammonia Total Protein 6.9 Albumin 2.3 L D Amylase Lipase Alpha Fetoprotein Vitamin B12 Folate Urine Color Urine Appearance Urine pH Ur Specific [place] Urine Protein Urine Glucose (UA) Urine Ketones Urine Blood Urine Nitrite Ur Leukocyte Esterase Urine RBC Urine WBC Ur Squamous Epith Cells Urine Bacteria Hyaline Casts Ur Random Sodium Urine Creatinine Peritoneal pH Peritoneal WBC Peritoneal RBC Periton Neutrophils Periton Lymphocytes Peritoneal Monocytes Peritoneal Eosinophils Peritoneal Basophils Peritoneal Other Cells Peritoneal Tot Protein Peritoneal Albumin Peritoneal LDH Peritoneal Glucose Peritoneal Amylase Stool Occult Blood Acetaminophen Ethyl Alcohol ROBBY Screen ROBBY Titer ROBBY Titer 2 ROBBY Titer 3 ROBBY Pattern ROBBY Pattern 2 ROBBY Pattern 3 Anti-Smooth Muscle Ab Janna/Kid Microsom Ab Int COVID-19 (CLAUDY) COVID-19 Clin Com Hepatitis A IgM Ab Hep Bs Antigen Hep Bs Antibody Hep B Core Total Ab Hepatitis C Ab (EIA) Blood Type Antibody Screen 06/10/20 06/10/20 06/11/20 07:31 09:14 06:20 WBC 5.5 RBC 2.18 L Hgb 7.7 L Hct 22.3 L MCV 102.3 H MCH 35.3 H MCHC 34.5 RDW 18.4 H Plt Count 53 L MPV 12.3 Immature Gran % (Auto) 0.4 Neut % (Auto) 46.9 Lymph % (Auto) 29.9 [place] % (Auto) 20.7 H Eos % (Auto) 1.6 Baso % (Auto) 0.5 Lymph # (Auto) 1.7 [place] # (Auto) 1.1 Eos # (Auto) 0.1 Baso # (Auto) 0.0 Abs Immat Gran (auto) 0.02 Absolute Neuts (auto) 2.6 Absolute Nucleated RBC 0.000 Nucleated RBC % (auto) 0.0 Smear Tech's Comments VERIFIED PT 31.3 H INR 2.6 H Sodium Potassium Chloride Carbon Dioxide Anion Gap BUN Creatinine Estim Creat Clear Calc Estimated GFR POC Glucose Random Glucose Calcium Magnesium Total Bilirubin Direct Bilirubin AST ALT Alkaline Phosphatase Ammonia Total Protein Albumin Amylase Lipase Alpha Fetoprotein Vitamin B12 Folate Urine Color Urine Appearance Urine pH Ur Specific [place] Urine Protein Urine Glucose (UA) Urine Ketones Urine Blood Urine Nitrite Ur Leukocyte Esterase Urine RBC Urine WBC Ur Squamous Epith Cells Urine Bacteria Hyaline Casts Ur Random Sodium < 20.0 Urine Creatinine 268.39 Peritoneal pH Peritoneal WBC Peritoneal RBC Periton Neutrophils Periton Lymphocytes Peritoneal Monocytes Peritoneal Eosinophils Peritoneal Basophils Peritoneal Other Cells Peritoneal Tot Protein Peritoneal Albumin Peritoneal LDH Peritoneal Glucose Peritoneal Amylase Stool Occult Blood Acetaminophen Ethyl Alcohol ROBBY Screen ROBBY Titer ROBBY Titer 2 ROBBY Titer 3 ROBBY Pattern ROBBY Pattern 2 ROBBY Pattern 3 Anti-Smooth Muscle Ab Janna/Kid Microsom Ab Int COVID-19 (CLAUDY) COVID-19 Clin Com Hepatitis A IgM Ab Hep Bs Antigen Hep Bs Antibody Hep B Core Total Ab Hepatitis C Ab (EIA) Blood Type Antibody Screen 06/11/20 06/11/20 06/12/20 06:20 06:20 06:25 WBC RBC Hgb Hct MCV MCH MCHC RDW Plt Count MPV Immature Gran % (Auto) Neut % (Auto) Lymph % (Auto) [place] % (Auto) Eos % (Auto) Baso % (Auto) Lymph # (Auto) [place] # (Auto) Eos # (Auto) Baso # (Auto) Abs Immat Gran (auto) Absolute Neuts (auto) Absolute Nucleated RBC Nucleated RBC % (auto) Smear Tech's Comments PT 32.5 H INR 2.7 H Sodium 133 L Potassium 3.1 L Chloride 104 Carbon Dioxide 19 L Anion Gap 13 BUN 14 Creatinine 1.04 Estim Creat Clear Calc 51.9 Estimated GFR 55 POC Glucose Random Glucose 79 Calcium 6.5 L D Magnesium 1.5 L Total Bilirubin 6.3 H Direct Bilirubin AST 127 H ALT 32 H Alkaline Phosphatase 82 Ammonia Total Protein 6.5 Albumin 2.0 L Amylase Lipase Alpha Fetoprotein 4.6 Vitamin B12 Folate Urine Color Urine Appearance Urine pH Ur Specific [place] Urine Protein Urine Glucose (UA) Urine Ketones Urine Blood Urine Nitrite Ur Leukocyte Esterase Urine RBC Urine WBC Ur Squamous Epith Cells Urine Bacteria Hyaline Casts Ur Random Sodium Urine Creatinine Peritoneal pH Peritoneal WBC Peritoneal RBC Periton Neutrophils Periton Lymphocytes Peritoneal Monocytes Peritoneal Eosinophils Peritoneal Basophils Peritoneal Other Cells Peritoneal Tot Protein Peritoneal Albumin Peritoneal LDH Peritoneal Glucose Peritoneal Amylase Stool Occult Blood Acetaminophen Ethyl Alcohol ROBBY Screen ROBBY Titer ROBBY Titer 2 ROBBY Titer 3 RBOBY Pattern ROBBY Pattern 2 ROBBY Pattern 3 Anti-Smooth Muscle Ab Janna/Kid Microsom Ab Int COVID-19 (CLAUDY) COVID-19 Clin Com Hepatitis A IgM Ab Hep Bs Antigen Hep Bs Antibody Hep B Core Total Ab Hepatitis C Ab (EIA) Blood Type Antibody Screen 06/12/20 06/12/20 06/12/20 06:25 06:25 06:25 WBC 6.1 RBC 2.06 L Hgb 7.4 L Hct 21.3 L MCV 103.4 H MCH 35.9 H MCHC 34.7 RDW 18.8 H Plt Count 53 L MPV 12.4 H Immature Gran % (Auto) 0.3 Neut % (Auto) 49.1 Lymph % (Auto) 23.6 [place] % (Auto) 25.2 H Eos % (Auto) 1.3 Baso % (Auto) 0.5 Lymph # (Auto) 1.4 [place] # (Auto) 1.5 H Eos # (Auto) 0.1 Baso # (Auto) 0.0 Abs Immat Gran (auto) 0.02 Absolute Neuts (auto) 3.0 Absolute Nucleated RBC 0.000 Nucleated RBC % (auto) 0.0 Smear Tech's Comments VERIFIED PT 28.9 H INR 2.4 H Sodium 135 Potassium 3.3 Chloride 103 Carbon Dioxide 22 Anion Gap 13 BUN 13 Creatinine 0.89 Estim Creat Clear Calc 60.6 Estimated GFR > 60 POC Glucose Random Glucose 115 D Calcium 7.1 L D Magnesium 2.0 Total Bilirubin 5.9 H Direct Bilirubin AST 97 H ALT 26 Alkaline Phosphatase 82 Ammonia Total Protein 6.7 Albumin 2.6 L D Amylase Lipase Alpha Fetoprotein Vitamin B12 Folate Urine Color Urine Appearance Urine pH Ur Specific [place] Urine Protein Urine Glucose (UA) Urine Ketones Urine Blood Urine Nitrite Ur Leukocyte Esterase Urine RBC Urine WBC Ur Squamous Epith Cells Urine Bacteria Hyaline Casts Ur Random Sodium Urine Creatinine Peritoneal pH Peritoneal WBC Peritoneal RBC Periton Neutrophils Periton Lymphocytes Peritoneal Monocytes Peritoneal Eosinophils Peritoneal Basophils Peritoneal Other Cells Peritoneal Tot Protein Peritoneal Albumin Peritoneal LDH Peritoneal Glucose Peritoneal Amylase Stool Occult Blood Acetaminophen Ethyl Alcohol ROBBY Screen ROBBY Titer ROBBY Titer 2 ROBBY Titer 3 ROBBY Pattern ROBBY Pattern 2 ROBBY Pattern 3 Anti-Smooth Muscle Ab Janna/Kid Microsom Ab Int COVID-19 (CLAUDY) COVID-19 Clin Com Hepatitis A IgM Ab Hep Bs Antigen Hep Bs Antibody Hep B Core Total Ab Hepatitis C Ab (EIA) Blood Type Antibody Screen 06/13/20 06/13/20 06/13/20 06:29 06:29 06:29 WBC 7.2 RBC 2.07 L Hgb 7.5 L Hct 21.6 L MCV 104.3 H MCH 36.2 H MCHC 34.7 RDW 19.3 H Plt Count 52 L MPV 12.0 Immature Gran % (Auto) 0.7 H Neut % (Auto) 48.9 Lymph % (Auto) 27.7 [place] % (Auto) 20.2 H Eos % (Auto) 2.1 Baso % (Auto) 0.4 Lymph # (Auto) 2.0 [place] # (Auto) 1.5 H Eos # (Auto) 0.2 Baso # (Auto) 0.0 Abs Immat Gran (auto) 0.05 H Absolute Neuts (auto) 3.5 Absolute Nucleated RBC 0.000 Nucleated RBC % (auto) 0.0 Smear Tech's Comments VERIFIED PT 26.8 H INR 2.2 H Sodium Potassium Chloride Carbon Dioxide Anion Gap BUN Creatinine Estim Creat Clear Calc Estimated GFR POC Glucose Random Glucose Calcium Magnesium Total Bilirubin Direct Bilirubin AST ALT Alkaline Phosphatase Ammonia Total Protein Albumin Amylase Lipase Alpha Fetoprotein Vitamin B12 Folate Urine Color Urine Appearance Urine pH Ur Specific [place] Urine Protein Urine Glucose (UA) Urine Ketones Urine Blood Urine Nitrite Ur Leukocyte Esterase Urine RBC Urine WBC Ur Squamous Epith Cells Urine Bacteria Hyaline Casts Ur Random Sodium Urine Creatinine Peritoneal pH Peritoneal WBC Peritoneal RBC Periton Neutrophils Periton Lymphocytes Peritoneal Monocytes Peritoneal Eosinophils Peritoneal Basophils Peritoneal Other Cells Peritoneal Tot Protein Peritoneal Albumin Peritoneal LDH Peritoneal Glucose Peritoneal Amylase Stool Occult Blood Acetaminophen Ethyl Alcohol ROBBY Screen ROBBY Titer ROBBY Titer 2 ROBBY Titer 3 ROBBY Pattern ROBBY Pattern 2 ROBBY Pattern 3 Anti-Smooth Muscle Ab Janna/Kid Microsom Ab Int COVID-19 (CLAUDY) COVID-19 Clin Com Hepatitis A IgM Ab Hep Bs Antigen Hep Bs Antibody Hep B Core Total Ab Hepatitis C Ab (EIA) Blood Type O Positive Antibody Screen NEGATIVE 06/13/20 06/13/20 06/13/20 06:29 09:52 17:34 WBC RBC Hgb Hct MCV MCH MCHC RDW Plt Count MPV Immature Gran % (Auto) Neut % (Auto) Lymph % (Auto) [place] % (Auto) Eos % (Auto) Baso % (Auto) Lymph # (Auto) [place] # (Auto) Eos # (Auto) Baso # (Auto) Abs Immat Gran (auto) Absolute Neuts (auto) Absolute Nucleated RBC Nucleated RBC % (auto) Smear Tech's Comments PT INR Sodium 135 Potassium 3.3 Chloride 104 Carbon Dioxide 22 Anion Gap 12 BUN 13 Creatinine 0.94 Estim Creat Clear Calc 57.4 Estimated GFR > 60 POC Glucose Random Glucose 80 Calcium 7.2 L Magnesium 1.8 Total Bilirubin 5.7 H Direct Bilirubin AST 89 H ALT 25 Alkaline Phosphatase 70 Ammonia Total Protein 6.6 Albumin 2.4 L Amylase Lipase Alpha Fetoprotein Vitamin B12 Folate Urine Color Urine Appearance Urine pH Ur Specific [place] Urine Protein Urine Glucose (UA) Urine Ketones Urine Blood Urine Nitrite Ur Leukocyte Esterase Urine RBC Urine WBC Ur Squamous Epith Cells Urine Bacteria Hyaline Casts Ur Random Sodium Urine Creatinine Peritoneal pH Peritoneal WBC Peritoneal RBC Periton Neutrophils Periton Lymphocytes Peritoneal Monocytes Peritoneal Eosinophils Peritoneal Basophils Peritoneal Other Cells Peritoneal Tot Protein Peritoneal Albumin Peritoneal LDH Peritoneal Glucose Peritoneal Amylase Stool Occult Blood Acetaminophen Ethyl Alcohol ROBBY Screen ROBBY Titer ROBBY Titer 2 ROBBY Titer 3 ROBBY Pattern ROBBY Pattern 2 ROBBY Pattern 3 Anti-Smooth Muscle Ab Janna/Kid Microsom Ab Int COVID-19 (CLAUDY) Negative COVID-19 Clin Com See Note Hepatitis A IgM Ab Hep Bs Antigen Hep Bs Antibody Hep B Core Total Ab Hepatitis C Ab (EIA) Blood Type O Positive Antibody Screen NEGATIVE Discharge Plan Discharge Patient Disposition: Home Health Service Referrals: [facility] [Outside] (PATIENT IS RETURNING HOME WITH [facility]. AGENCY WILL CALL YOU THIS WEEK BY SUNDAY. ALSO, ON Sunday06/17/2020, YOU HAVE AN APPOINTMENT WITH [facility] SCHEDULED FOR 1:45 PM. THEY ARE LOCATED ON FLOOR FOUR ROOM 404. PLEASE FEEL FREE TO CALL THE CLINIC WITH ANY QUESTIONS OR CONCERNS @ [phone].) Zeinab Hess MD [Primary Care Provider] - Ad Cheema [Physician] - Kartik Martinez MD [Physician] - Discharge Medications: New furosemide 40 mg Tablet 40 mg PO DAILY Qty: 30 RF: 0 spironolactone 25 mg Tablet 50 mg PO DAILY Qty: 30 RF: 0 Discharge Orders: Discharge Order (Routine); Ordered 06/14/20 Ordered By: Chucho Dinero Diet: advance to usual diet and low salt diet Activity on Discharge: As tolerated Patient Instructions: Cirrhosis (DC), Abuse of Alcohol (DC), Ascites (DC) Other Ambulatory Orders: Complete Blood Count Auto Diff (Routine) Timeframe: 1 Week Facility: [facility] - Location: Laboratory Ordered By: Grazyna Quan Comprehensive Met. Panel (Routine) Timeframe: 1 Week Facility: [facility] - Location: Laboratory Ordered By: Grazyna Quan Prothrombin Time INR (Routine) Timeframe: 1 Week Facility: [facility] - Location: Laboratory Ordered By: Grazyna Quan Visit Report Forms: Patient Portal Discharge page Care Plan Goals: To stay healthy and out of the hospital. Health Concerns: Alcohol Abuse and dependence Ascites Plan of Treatment: Alcohol Abuse and dependence - follow up with [facility] - take water pills, eat low salt diet. f/u [facility] doctors.
== END 2020-06-14 16:45 | disposition home health service (06) | DRG 248 ==
LOC: HO.ED 23:02 → HO.S3 06-09 07:23
PROVIDERS: Family Medicine; Internal Medicine Gastroenterology; Radiology Diagnostic Radiology; Admitting Provider Internal Medicine; Emergency Provider Emergency Medicine; PCP Internal Medicine; Visit Provider Family Medicine
PROC: 0W9G3ZZ Drainage of Peritoneal Cavity, Percutaneous Approach (ICD-10-PCS; principal; 2020-06-14 10:30)
DX: K65.2 Spontaneous bacterial peritonitis (principal); K72.00 Acute and subacute hepatic failure without coma; E44.0 Moderate protein-calorie malnutrition; N17.9 Acute kidney failure, unspecified; K70.31 Alcoholic cirrhosis of liver with ascites; K70.11 Alcoholic hepatitis with ascites; D68.9 Coagulation defect, unspecified; F17.210 Nicotine dependence, cigarettes, uncomplicated; Z68.1 Body mass index [BMI] 19.9 or less, adult; E16.2 Hypoglycemia, unspecified; F10.20 Alcohol dependence, uncomplicated; F10.10 Alcohol abuse, uncomplicated; Z20.828 Contact with and (suspected) exposure to other viral communicable diseases; Z71.6 Tobacco abuse counseling; Z88.0 Allergy status to penicillin; Z79.899 Other long term (current) drug therapy
CPT/HCPCS: 36415; 49083; 71046; 74176; 80048; 80053; 80076; 80320; 81001; 82042; 82105; 82140; 82150; 82272; 82607; 82746; 82945; 82947; 83615; 83690; 83735; 83986; 84157; 84300; 85025; 85610; 86038; 86039; 86255; 86376; 86704; 86706; 86709; 86803; 86850; 86900; 86901; 87071; 87073; 87116; 87205; 87340; 87635; 88112; 89051; 96361; 96374; 97161; 99232; 99284; 99285; G0480; J0696; J1940; J2405; J3430; J3475; P9047

== ENCOUNTER → 2020-06-17 13:49 | Outpatient (BNVA) | payer OTHER, SELFPAY | PROVIDERS: PCP Internal Medicine; Visit Provider Nurse Practitioner Psychiatric/Mental Health | DX: Z72.89 Other problems related to lifestyle (principal) | CPT/HCPCS: 80305; 99212 ==

== ENCOUNTER 2020-06-24 15:58 | Outpatient (REF) | payer OTHER, SELFPAY ==
[2020-06-24 16:22] LABS: MANUAL DIFF FLAG NO
[2020-06-24 16:32] LABS: Basophils Percent Auto 0.7 % (0-2); Eosinophils Absolute Auto 0.1 X10*3/uL (0.0-0.4); Eosinophils Percent Auto 1.7 % (0-4); Hematocrit 24.5 % (37-47); Hemoglobin 8.4 g/dl (12.0-16.0); Imm Gran Abs Auto 0.01 X10*3/uL (0.00-0.03); Imm Gran Pct Auto 0.2 % (0.0-0.4); Lymphocytes Absolute Auto 1.6 X10*3/uL (1.2-4.9); Lymphocytes Percent Auto 27.7 % (20-40); Mean Corpuscular HGB Conc 34.3 g/dl (31.0-35.0); Mean Corpuscular Hemoglobin 36.1 pg (27.0-33.0); Mean Corpuscular Volume 105.2 fL (80-98); Mean Platelet Volume 11.5 fL (9.4-12.3); Neutrophils Absolute Auto 3.1 X10*3/uL (2.0-8.3); Neutrophils Percent Auto 52.7 % (45-73); Platelet Count 101 X10*3/uL (160-400); Red Blood Count 2.33 X10*6/uL (4.20-5.50); Red Cell Distribution Width 16.9 % (11.0-16.0); White Blood Count 5.8 X10*3/uL (4.8-10.8)
[2020-06-24 16:46] LABS: INTERNATIONAL NORM RATIO 1.6 (0.9-1.1); Prothrombin Time 18.7 SEC (10.8-13.0)
[2020-06-24 16:57] LABS: Alanine Aminotransferase 39 U/L (0-31); Albumin Level 3.4 g/dL (3.5-5.0); Alkaline Phosphatase 84 U/L (39-117); Anion Gap 16 (12-20); Aspartate Amino Transferase 104 U/L (5-31); Bilirubin Total 4.2 mg/dL (0.0-1.0); Blood Urea Nitrogen 11 mg/dL (9-16); Calcium 8.6 mg/dL (8.4-10.2); Carbon Dioxide 25 mmol/L (22-29); Chloride 98 mmol/L (96-108); Estimated Glomerular Filt Rate > 60; Glucose Random 91 mg/dL (60-115); Iron 129 mcg/dL (30-160); Percent Iron Saturation 79 % (15-50); Potassium 2.7 mmol/l (3.3-5.1); Sodium 136 mmol/L (135-145); Total Iron Binding Capacity 163 mcg/dL (228-428); Total Protein 9.2 g/dL (6.5-8.0); Unsaturated Iron Binding 34 ug/dL
[2020-06-24 17:10] LABS: Ferritin 1333 ng/mL (10-250); Free T4 (Free Thyroxine) 1.04 ng/dL (0.71-1.85)
[2020-06-24 17:14] LABS: Thyroid Stimulating Hormone 2.41 uIU/mL (0.32-4.0)
[2020-06-24 17:36] LABS: Folate > 20.0 ng/mL (> or = 4.0); Vitamin B12 1833 pg/mL (200-900)
[2020-06-24 19:10] LABS: Ammonia 31 umol/L (13-55)
== END 2020-06-24 15:59 | disposition home or self-care (01) ==
LOC: HO.LAB 15:58
PROVIDERS: Family Medicine; PCP Internal Medicine; Visit Provider Internal Medicine
DX: F33.1 Major depressive disorder, recurrent, moderate (principal); K74.60 Unspecified cirrhosis of liver
CPT/HCPCS: 36415; 80053; 82140; 82607; 82728; 82746; 83540; 84439; 84443; 85025; 85610

== ENCOUNTER 2020-06-25 14:10 | Outpatient (REF) | payer OTHER, SELFPAY ==
[2020-06-25 14:32] LABS: Eosinophils Absolute Auto 0.1 X10*3/uL (0.0-0.4); Eosinophils Percent Auto 1.9 % (0-4); Hemoglobin 8.2 g/dl (12.0-16.0); Imm Gran Abs Auto 0.01 X10*3/uL (0.00-0.03); Imm Gran Pct Auto 0.2 % (0.0-0.4); MANUAL DIFF FLAG SCAN; PLT CLUMP 1; SCAN SMEAR FLAG 1
[2020-06-25 14:34] LABS: Basophils Percent Auto 0.4 % (0-2); Hematocrit 23.5 % (37-47); Lymphocytes Absolute Auto 1.6 X10*3/uL (1.2-4.9); Lymphocytes Percent Auto 33.7 % (20-40); Mean Corpuscular HGB Conc 34.9 g/dl (31.0-35.0); Mean Corpuscular Hemoglobin 37.1 pg (27.0-33.0); Mean Corpuscular Volume 106.3 fL (80-98); Mean Platelet Volume 11.3 fL (9.4-12.3); Monocytes Absolute Auto 0.5 X10*3/uL (0.1-1.2); Monocytes Percent Auto 10.7 % (2-11); Neutrophils Absolute Auto 2.5 X10*3/uL (2.0-8.3); Neutrophils Percent Auto 53.1 % (45-73); Red Blood Count 2.21 X10*6/uL (4.20-5.50); Red Cell Distribution Width 16.7 % (11.0-16.0); White Blood Count 4.8 X10*3/uL (4.8-10.8)
[2020-06-25 14:36] LABS: Platelet Count 91 X10*3/uL (160-400)
[2020-06-25 14:41] LABS: INTERNATIONAL NORM RATIO 1.6 (0.9-1.1); Prothrombin Time 18.5 SEC (10.8-13.0)
[2020-06-25 15:00] LABS: Alanine Aminotransferase 38 U/L (0-31); Albumin Level 3.2 g/dL (3.5-5.0); Alkaline Phosphatase 72 U/L (39-117); Anion Gap 15 (12-20); Aspartate Amino Transferase 101 U/L (5-31); Bilirubin Total 3.9 mg/dL (0.0-1.0); Blood Urea Nitrogen 10 mg/dL (9-16); Calcium 8.4 mg/dL (8.4-10.2); Carbon Dioxide 22 mmol/L (22-29); Chloride 95 mmol/L (96-108); Estimated Glomerular Filt Rate > 60; Glucose Random 145 mg/dL (60-115); Potassium 3.2 mmol/l (3.3-5.1); Sodium 129 mmol/L (135-145); Total Protein 8.7 g/dL (6.5-8.0)
[2020-06-25 15:11] LABS: SLIDE REVIEW VERIFIED
== END 2020-06-25 14:11 | disposition home or self-care (01) ==
LOC: HO.LNP 14:10
PROVIDERS: Visit Provider Internal Medicine
DX: K70.40 Alcoholic hepatic failure without coma (principal); E44.0 Moderate protein-calorie malnutrition; K76.3 Infarction of liver; D53.9 Nutritional anemia, unspecified; D69.6 Thrombocytopenia, unspecified
CPT/HCPCS: 80053; 85025; 85610

== ENCOUNTER 2020-06-29 16:28 | Emergency (ER) | payer OTHER, SELFPAY ==
[2020-06-29 16:41] VITALS: BP 119/69; BP 138/76; PULSE 80; PULSE 90; RESP 18; TEMP 36.2; O2SAT 100; BMI 16.7
--- NOTE | 2020-06-29 16:48 | ECG_ITS ---
Test Reason : GENERAL MEDICAL Blood Pressure : / mmHG Vent. Rate : 085 BPM Atrial Rate : 085 BPM P-R Int : 162 ms QRS Dur : 080 ms QT Int : 422 ms P-R-T Axes : 059 067 066 degrees QTc Int : 502 ms Normal sinus rhythm Prolonged QT Abnormal ECG No previous ECGs available Referred By: Jordan Montoya Electronically Signed By:Jesús Perez
--- NOTE | 2020-06-29 16:50 | XR_ITS ---
EXAMINATIONS: CHEST 1 VIEW AND LEFT RIBS CLINICAL INFORMATION: Left rib pain. COMPARISON: None. TECHNIQUE: A PA radiograph of the chest was obtained in addition to several views of the left ribs. FINDINGS: The cardiac silhouette is not enlarged. The mediastinal and hilar contours are unremarkable. There are neither pleural effusions nor pneumothoraces. There are no consolidations. The osseous structures are unremarkable. Specifically, no rib fractures are identified. XR/XR ribs LT 2V IMPRESSION: No evidence for acute disease. Specifically, no rib fractures identified.
--- NOTE | 2020-06-29 16:50 | XR_ITS ---
EXAMINATIONS: THORACIC SPINE 2 VIEWS AND LUMBOSACRAL SPINE 3 VIEWS CLINICAL INFORMATION: Pain. COMPARISON: None. TECHNIQUE: AP and lateral radiographs of the thoracic spine were obtained. AP, lateral and spot radiographs of the lumbar spine were obtained. FINDINGS: There are no fractures. The thoracic and lumbar vertebrae are in normal alignment. Disc heights and vertebral body heights are well-preserved. XR/XR thoracic spine 3V IMPRESSION: Unremarkable thoracic and lumbar spine series.
--- NOTE | 2020-06-29 16:50 | XR_ITS ---
EXAMINATION: XR CHEST CLINICAL INFORMATION: Posterior left rib pain COMPARISON: 06/13/2020 TECHNIQUE: 2 views of the chest were obtained. FINDINGS: There has been complete resolution of the moderate size left pleural effusion as well as a probable small right-sided since the prior study. At this point in time the radiograph is normal. The heart and pulmonary vessels appear normal no infiltrates, effusions or lung masses are seen. The bony thorax appears normal. XR/XR chest 2V IMPRESSION: Completely resolved pleural effusions. The exam is now normal.
--- NOTE | 2020-06-29 16:55 | XR_ITS ---
EXAMINATIONS: THORACIC SPINE 2 VIEWS AND LUMBOSACRAL SPINE 3 VIEWS CLINICAL INFORMATION: Pain. COMPARISON: None. TECHNIQUE: AP and lateral radiographs of the thoracic spine were obtained. AP, lateral and spot radiographs of the lumbar spine were obtained. FINDINGS: There are no fractures. The thoracic and lumbar vertebrae are in normal alignment. Disc heights and vertebral body heights are well-preserved. XR/XR lumbar spine 2-3V IMPRESSION: Unremarkable thoracic and lumbar spine series.
--- NOTE | 2020-06-29 17:12 | ED_ITS ---
HPI - General Adult General Chief complaint: Back Pain/Injury Stated complaint: BACK PAIN Time Seen by Provider: 06/29/20 16:44 Source: patient Mode of arrival: ambulatory Limitations: no limitations History of Present Illness HPI narrative: Patient presents to ED for left upper posterior rib upper back pain radiating down lower back for the past 4 days. Patient denies any coughing, fever, chills, or any recent trauma to chest, abdomen, or back area. Patient denies any swelling of lower extremities, calf pain, coughing up blood, recent long travel, recent surgery, estrogen use, or any history of blood clots. Patient denies ever having chest pain. Patient denies any history of IV drug use. Patient denies any urinary/bowel incontinence Onset (ago): minute(s) Related Data Home Medications Medication Instructions Recorded Confirmed furosemide 40 mg tablet 40 mg PO DAILY tab 06/24/20 Previous Rx's Medication Instructions Recorded potassium chloride 20 mEq 20 meq PO BID #14 tab 06/24/20 tablet,extended release(part/cryst) spironolactone 25 mg tablet 50 mg PO DAILY #60 tab 06/28/20 cyclobenzaprine 10 mg PO TID PRN #15 tab 06/29/20 naproxen 500 mg PO BID PRN #20 tab 06/29/20 Allergies Allergy/AdvReac Type Severity Reaction Status Date / Time Penicillins [PENICILLINS] Allergy Mild YEAST Verified 06/24/20 15:08 INFECTION Review of Systems Constitutional: Constitutional: Reports as per HPI and Reports no additional constitutional complaints Eyes: Eyes: Reports as per HPI and Reports no additional eye complaints ENT: Reports system reviewed and no additional complaints, except as documented and Reports as per HPI Cardiovascular: Cardiovascular: Reports as per HPI and Reports no additional cardiovascular complaints Respiratory: Respiratory: Reports as per HPI and Reports no additional respiratory complaints Gastrointestinal: Gastrointestinal: Reports as per HPI and Reports no add itional gastrointestinal complaints Genitourinary: Genitourinary: Reports no additional female genitourinary complaints and Reports as per HPI Musculoskeletal: Musculoskeletal: Reports no additional musculoskeletal compl aints, Reports as per HPI and Reports back pain (Upper and lower back pain. Left posterior rib pain) Comments: Lumbar and thoracic back pain Neurologic: Reports system reviewed and no additional complaints, except as documented and Reports as per HPI Psychiatric: Psychiatric: Reports no additional psychiatric complaints and Reports as per HPI [facility] Past Medical History Medical History Alcohol abuse Hypercholesterolemia Hypoglycemia Hypokalemia Leukopenia Family History Family History (Updated 06/24/20 @ 15:11 by Saloni Rose MD) Father Throat cancer Mother Lung cancer Social History Social History Household Members: Children Housing: Apartment Alcohol intake: current Alcohol intake frequency: former alcohol drinker Smoking Status: Former smoker Smoked in Last 30 Days: No Use of substances other than those prescribed or required for medical reasons: No Advance Directives: No Advance Directives Information Provided: No service: No Current occupational status: unemployed Physical Exam Vital Signs: Vital Signs: Last Vital Signs Temp 96.4 F L 06/29/20 20:00 Pulse 88 06/29/20 20:00 Resp 18 06/29/20 20:00 BP 111/72 06/29/20 20:00 Pulse Ox 100 06/29/20 20:00 Body Mass Index 16.7 Const: General: cooperative, healthy appearing, comfortable, no acute distress, well developed, alert, awake and Physically active Orientation/consciousness: patient oriented x3 HENMT: Head: Yes normal to inspection, Yes No palpable skull fracture present, Yes normocephalic, Yes atraumatic and No abrasion Eyes: General: appearance normal, both eyes and all related structures Neck: Neck: Yes normal visual inspection, Yes full ROM, Yes no lymphadenopathy, Yes no meningeal signs, Yes trachea midline, Yes supple and No tender Chest: Other: Positive for left posterior rib tenderness on palpation Chest palpation & inspection: normal inspection of the chest and normal palpation of entire chest wall Resp: Effort & Inspection: normal respiratory effort and able to speak in complete sentences Auscultation: clear to auscultation bilaterally Cardio: Jugular venous distension: no JVD Heart sounds: S1 normal heart sound present and S2 normal heart sound present GI: Inspection: Yes normal to inspection and No abdominal wall ecchymosis Palpation (GI): Soft to palpation, not firm, nontender, no guarding and not rigid : General: No CVA tenderness and Yes no CVA tenderness Back/Spine/Pelvis: Other: Negative for any spine tenderness. Positive for lumbar/thoracic muscular pain Back: no CVA tenderness, No CVA tenderness and back tenderness (Left upper thoracic and left lumbar tenderness) Skin: General skin exam: no rashes or lesions noted and elasticity normal Neuro: General: patient oriented x3, no meningeal signs and CN's II-XI intact bilaterally Cranial nerves: Yes CN's II-XII intact bilaterally Extrem: General: Yes normal to inspection and Yes full ROM Psych: Appearance: grossly normal, well kempt and not disheveled Course Course Course Narrative: Due to atypical presentation of back and chest pain. Patient will have cardiac evaluation and D-dimer will be sent to rule out PE. UA will be sent also make sure there is no UTI or chance of kidney stone. Reevaluation(s) Reevaluation #1: Patient troponin EKG and rest of labs came back normal or at baseline. UA negative for UTI. UA negative for blood to indicate kidney stones. Due to elevated D-dimer patient was set to rule out PE. Chest CT came back negative for PE. Patient will be discharged with pain medication and muscle relaxer. X-rays of spine negative for any fracture or arthritis. Time: 20:43 Medical Decision Making [facility] Narrative Medical decision making narrative: upper back pain. Lab Data Result diagrams: 06/29/20 17:20 06/29/20 18:02 Labs: Lab Results 06/29/20 06/29/20 06/29/20 Range/Units 17:20 17:20 18:02 WBC 5.4 (4.8-10.8) X10*3/uL RBC 2.22 L (4.20-5.50) X10*6/uL Hgb 8.1 L (12.0-16.0) g/dl Hct 23.3 L (37-47) % MCV 105.0 H (80-98) fL MCH 36.5 H (27.0-33.0) pg MCHC 34.8 (31.0-35.0) g/dl RDW 15.5 (11.0-16.0) % Plt Count 79 L (160-400) X10*3/uL MPV 11.5 (9.4-12.3) fL Immature Gran % (Auto) 0.2 (0.0-0.4) % Neut % (Auto) 51.8 (45-73) % Lymph % (Auto) 28.4 (20-40) % [place] % (Auto) 16.4 H (2-11) % Eos % (Auto) 2.6 (0-4) % Baso % (Auto) 0.6 (0-2) % Lymph # (Auto) 1.5 (1.2-4.9) X10*3/uL [place] # (Auto) 0.9 (0.1-1.2) X10*3/uL Eos # (Auto) 0.1 (0.0-0.4) X10*3/uL Baso # (Auto) 0.0 (0.0-0.2) X10*3/uL Abs Immat Gran (auto) 0.01 (0.00-0.03) X10*3/uL Absolute Neuts (auto) 2.8 (2.0-8.3) X10*3/uL Absolute Nucleated RBC 0.000 (0.0-0.012) X10*3/uL Nucleated RBC % (auto) 0.0 (0.0-0.2) /100WBC Smear Tech's Comments VERIFIED PT 16.8 H (10.8-13.0) SEC INR 1.4 H (0.9-1.1) APTT 35.9 (24.1-38.0) SEC D-Dimer 1207 NG/ML Sodium (135-145) mmol/L Potassium (3.3-5.1) mmol/l Chloride (96-108) mmol/L Carbon Dioxide (22-29) mmol/L Anion Gap (12-20) BUN (9-16) mg/dL Creatinine (0.5-1.4) mg/dL Estim Creat Clear Calc Estimated GFR Random Glucose (60-115) mg/dL Calcium (8.4-10.2) mg/dL Total Bilirubin (0.0-1.0) mg/dL AST (5-31) U/L ALT (0-31) U/L Alkaline Phosphatase (39-117) U/L Troponin I High Sens < 3.5 (<3.5-17.0) ng/L Total Protein (6.5-8.0) g/dL Albumin (3.5-5.0) g/dL Urine Color Urine Appearance Urine pH (5.0-8.0) Ur Specific [place] (1.005-1.025) Urine Protein (NEG-TRACE) MG/DL Urine Glucose (UA) (NEG) MG/DL Urine Ketones (NEG) MG/DL Urine Blood (NEG) Urine Nitrite (NEG) Ur Leukocyte Esterase (NEG) 06/29/20 06/29/20 Range/Units 18:02 18:02 WBC (4.8-10.8) X10*3/uL RBC (4.20-5.50) X10*6/uL Hgb (12.0-16.0) g/dl Hct (37-47) % MCV (80-98) fL MCH (27.0-33.0) pg MCHC (31.0-35.0) g/dl RDW (11.0-16.0) % Plt Count (160-400) X10*3/uL MPV (9.4-12.3) fL Immature Gran % (Auto) (0.0-0.4) % Neut % (Auto) (45-73) % Lymph % (Auto) (20-40) % [place] % (Auto) (2-11) % Eos % (Auto) (0-4) % Baso % (Auto) (0-2) % Lymph # (Auto) (1.2-4.9) X10*3/uL [place] # (Auto) (0.1-1.2) X10*3/uL Eos # (Auto) (0.0-0.4) X10*3/uL Baso # (Auto) (0.0-0.2) X10*3/uL Abs Immat Gran (auto) (0.00-0.03) X10*3/uL Absolute Neuts (auto) (2.0-8.3) X10*3/uL Absolute Nucleated RBC (0.0-0.012) X10*3/uL Nucleated RBC % (auto) (0.0-0.2) /100WBC Smear Tech's Comments PT (10.8-13.0) SEC INR (0.9-1.1) APTT (24.1-38.0) SEC D-Dimer NG/ML Sodium 137 (135-145) mmol/L Potassium 3.1 L (3.3-5.1) mmol/l Chloride 101 (96-108) mmol/L Carbon Dioxide 24 (22-29) mmol/L Anion Gap 15 (12-20) BUN 10 (9-16) mg/dL Creatinine 0.88 (0.5-1.4) mg/dL Estim Creat Clear Calc 53.1 Estimated GFR > 60 Random Glucose 75 D (60-115) mg/dL Calcium 8.8 (8.4-10.2) mg/dL Total Bilirubin 3.8 H (0.0-1.0) mg/dL AST 102 H (5-31) U/L ALT 45 H (0-31) U/L Alkaline Phosphatase 94 D (39-117) U/L Troponin I High Sens (<3.5-17.0) ng/L Total Protein 9.2 H (6.5-8.0) g/dL Albumin 3.3 L (3.5-5.0) g/dL Urine Color YELLOW Urine Appearance CLEAR Urine pH 5.5 (5.0-8.0) Ur Specific [place] 1.015 (1.005-1.025) Urine Protein NEG (NEG-TRACE) MG/DL Urine Glucose (UA) NEG (NEG) MG/DL Urine Ketones NEG (NEG) MG/DL Urine Blood NEG (NEG) Urine Nitrite NEG (NEG) Ur Leukocyte Esterase NEG (NEG) ECG Data Interpretation: Normal sinus rhythm. Prolonged QT. negative STEMI. Regular rate 85. AK interval 162. QRS duration 80. QTC 502. Discharge Plan Discharge Clinical Impression: Back pain Patient Disposition: Home, Self-Care Instructions: Back Pain (ED) Additional Instructions: Return to ED for any urinary/bowel incontinence, shortness of breath, coughing up blood, fever, chills, painful urination, blood in urine, blood in stool, abdominal pain, paralysis/weakness of lower extremities, or any other concerning symptoms. Beware of drowsiness as a side effect of cyclobenzaprine. Prescriptions: New naproxen 500 mg tablet 500 mg PO BID PRN (Reason: pain) Qty: 20 RF: 0 cyclobenzaprine 10 mg tablet 10 mg PO TID PRN (Reason: back pain) Qty: 15 RF: 0 No Action potassium chloride [Klor-Con M20] 20 mEq tablet,ER particles/crystals 20 meq PO BID Qty: 14 RF: 1 spironolactone 25 mg tablet 50 mg PO DAILY Qty: 60 RF: 1 furosemide 40 mg tablet 40 mg PO DAILY RF: 0 Referrals: Po,Saloni Jackson MD [Primary Care Provider] - 2 days (Left upper back pain. EKG normal. Troponin was negative. Thoracic and lumbar spine negative for any arthritis or fractures. Chest CT negative for PE or pneumonia. UA negative for UTI.) Print Language: Telugu
[2020-06-29 17:41] LABS: Basophils Percent Auto 0.6 % (0-2); Imm Gran Abs Auto 0.01 X10*3/uL (0.00-0.03); Imm Gran Pct Auto 0.2 % (0.0-0.4); MANUAL DIFF FLAG SCAN; Monocytes Absolute Auto 0.9 X10*3/uL (0.1-1.2); PLT CLUMP 1; SCAN SMEAR FLAG 1
[2020-06-29 17:42] LABS: Eosinophils Absolute Auto 0.1 X10*3/uL (0.0-0.4); Eosinophils Percent Auto 2.6 % (0-4); Hematocrit 23.3 % (37-47); Hemoglobin 8.1 g/dl (12.0-16.0); Lymphocytes Absolute Auto 1.5 X10*3/uL (1.2-4.9); Lymphocytes Percent Auto 28.4 % (20-40); Mean Corpuscular HGB Conc 34.8 g/dl (31.0-35.0); Mean Corpuscular Hemoglobin 36.5 pg (27.0-33.0); Mean Platelet Volume 11.5 fL (9.4-12.3); Monocytes Percent Auto 16.4 % (2-11); Neutrophils Absolute Auto 2.8 X10*3/uL (2.0-8.3); Neutrophils Percent Auto 51.8 % (45-73); Red Blood Count 2.22 X10*6/uL (4.20-5.50); Red Cell Distribution Width 15.5 % (11.0-16.0); White Blood Count 5.4 X10*3/uL (4.8-10.8)
[2020-06-29 18:08] LABS: Appearance Urine CLEAR; Color Urine YELLOW; Glucose Urine UA NEG (NEG); Leukocyte Esterase Urine NEG (NEG); Nitrite Urine NEG (NEG); PH 5.5 (5.0-8.0); Specific Gravity - Urine 1.015 (1.005-1.025); Urine Blood NEG (NEG); Urine Ketones NEG (NEG); Urine Protein NEG (NEG-TRACE)
[2020-06-29] MEDS: oxyCODONE HCl Immed Release 5 MG TABLET PO (18:09)
[2020-06-29 18:10] LABS: Troponin-I High Sensitivity < 3.5 ng/L (<3.5-17.0)
[2020-06-29] MEDS: 0.9 % Sodium Chloride 1,000 ML 999 ML IV (18:10)
[2020-06-29 18:11] LABS: Platelet Count 79 X10*3/uL (160-400)
[2020-06-29 18:12] LABS: SLIDE REVIEW VERIFIED
[2020-06-29 18:33] LABS: INTERNATIONAL NORM RATIO 1.4 (0.9-1.1); Prothrombin Time 16.8 SEC (10.8-13.0)
[2020-06-29 18:36] LABS: Partial Thromboplastin Time 35.9 SEC (24.1-38.0)
[2020-06-29 18:53] LABS: D Dimer 1207 NG/ML
[2020-06-29 18:55] LABS: Alanine Aminotransferase 45 U/L (0-31); Albumin Level 3.3 g/dL (3.5-5.0); Alkaline Phosphatase 94 U/L (39-117); Anion Gap 15 (12-20); Aspartate Amino Transferase 102 U/L (5-31); Bilirubin Total 3.8 mg/dL (0.0-1.0); Blood Urea Nitrogen 10 mg/dL (9-16); Calcium 8.8 mg/dL (8.4-10.2); Carbon Dioxide 24 mmol/L (22-29); Chloride 101 mmol/L (96-108); Creatinine Clr Calc Pharmacy 53.1; Estimated Glomerular Filt Rate > 60; Glucose Random 75 mg/dL (60-115); Potassium 3.1 mmol/l (3.3-5.1); Sodium 137 mmol/L (135-145); Total Protein 9.2 g/dL (6.5-8.0)
--- NOTE | 2020-06-29 19:02 | CT_ITS ---
EXAMINATION: CT ANGIOGRAM OF THE CHEST WITH AND WITHOUT CONTRAST (CT PULMONARY ANGIOGRAM FOR PE) CLINICAL INFORMATION: Reason for Exam elevated D-dimer. PE? COMPARISON: Chest x-ray 06/29/2020 TECHNIQUE: Prior to contrast administration, noncontrast localization images were obtained. Subsequently, multidetector volumetric imaging was performed from the thoracic inlet to below the diaphragms following the administration of 58 mL Omnipaque 350 intravenous contrast. No contrast reaction reported Sagittal, coronal, and MIP oblique sagittal reformatted images were obtained on the CT workstation, uploaded to PACS, and reviewed. This CT examination was performed using dose optimization techniques as appropriate, variously including the following: *Automated exposure control *Adjustment of mA and/or kV according to patient size (this includes techniques or standardized protocols for targeted exams where dose is matched to indication/reason for exam; i.e. extremities or head) *Use of iterative reconstruction technique Total exam dose-length product 173 mGy-cm FINDINGS: QUALITY OF STUDY/CONTRAST BOLUS: Satisfactory. PULMONARY ARTERIES: No central or segmental pulmonary emboli. THORACIC AORTA: No aneurysm or dissection. LUNG: No focal consolidation, nodules or masses. PLEURA: No pleural effusion or pneumothorax. There are pleural calcifications in the right lung apex. Bilateral pleural-parenchymal scarring and pleural thickening at both lung apices. MEDIASTINUM: Normal heart size. No pericardial effusion. No hilar or mediastinal lymphadenopathy. No evidence of septal bowing or right heart strain. CHEST WALL/AXILLA: No axillary or internal mammary lymphadenopathy. OSSEOUS STRUCTURES: No acute or suspicious osseous abnormality. UPPER ABDOMEN: Unremarkable. No reflux of contrast into the hepatic veins to suggest elevated right heart pressures. CT/CT angio chest PE protocol IMPRESSION: Normal CT of chest. No evidence of pulmonary embolism. VTE: negative
[2020-06-29] MEDS: iohexoL 350 MG/ML 100 ML INFUS..BTL IV (19:59)
[2020-06-29 20:00] VITALS: BP 111/72; PULSE 88; RESP 18; TEMP 35.8; O2SAT 100
[2020-06-29] MEDS: Potassium Chloride Packet 20 MEQ PACKET 40 MEQ PO (21:16)
[2020-06-29] MEDS: Cyclobenzaprine HCl 5 MG TABLET PO (21:27)
== END 2020-06-29 21:31 | disposition home or self-care (01) ==
PROVIDERS: Physician Assistant; Emergency Provider Emergency Medicine Emergency Medical Services; PCP Internal Medicine
DX: M54.9 Dorsalgia, unspecified (principal); F10.10 Alcohol abuse, uncomplicated
CPT/HCPCS: 36415; 71046; 71100; 71275; 72072; 72100; 80053; 81003; 84484; 85025; 85379; 85610; 85730; 93005; 96360; 99284; Q9967

== ENCOUNTER 2020-07-06 10:23 | Inpatient (IN) | payer OTHER, SELFPAY ==
[2020-07-06 10:44] VITALS: BP 144/77; PULSE 102; RESP 14; TEMP 36.2; O2SAT 100; BMI 16.7
[2020-07-06 11:46] LABS: MANUAL DIFF FLAG NO
[2020-07-06 11:52] LABS: Basophils Percent Auto 0.6 % (0-2); Eosinophils Absolute Auto 0.1 X10*3/uL (0.0-0.4); Eosinophils Percent Auto 1.2 % (0-4); Hematocrit 26.5 % (37-47); Imm Gran Abs Auto 0.01 X10*3/uL (0.00-0.03); Imm Gran Pct Auto 0.2 % (0.0-0.4); Lymphocytes Absolute Auto 1.6 X10*3/uL (1.2-4.9); Lymphocytes Percent Auto 31.8 % (20-40); Mean Corpuscular Hemoglobin 35.3 pg (27.0-33.0); Mean Corpuscular Volume 103.9 fL (80-98); Mean Platelet Volume 11.6 fL (9.4-12.3); Monocytes Absolute Auto 0.9 X10*3/uL (0.1-1.2); Monocytes Percent Auto 16.7 % (2-11); Neutrophils Absolute Auto 2.6 X10*3/uL (2.0-8.3); Neutrophils Percent Auto 49.5 % (45-73); Red Blood Count 2.55 X10*6/uL (4.20-5.50); Red Cell Distribution Width 15.1 % (11.0-16.0); White Blood Count 5.2 X10*3/uL (4.8-10.8)
[2020-07-06 11:53] LABS: Platelet Count 89 X10*3/uL (160-400)
[2020-07-06 11:57] LABS: INTERNATIONAL NORM RATIO 1.4 (0.9-1.1); Prothrombin Time 16.2 SEC (10.8-13.0)
[2020-07-06 12:17] LABS: Anion Gap 17 (12-20); Blood Urea Nitrogen 22 mg/dL (9-16); Calcium 8.9 mg/dL (8.4-10.2); Carbon Dioxide 13 mmol/L (22-29); Chloride 113 mmol/L (96-108); Creatinine Clr Calc Pharmacy 38.7; Estimated Glomerular Filt Rate 46; Glucose Random 110 mg/dL (60-115); Sodium 139 mmol/L (135-145)
[2020-07-06 12:19] LABS: Ammonia 80 umol/L (13-55)
[2020-07-06 16:03] VITALS: BP 173/93; PULSE 91; RESP 18; O2SAT 100
--- NOTE | 2020-07-06 16:04 | PC.NURSE ---
TO BED 16 AFTER EXTENDED WEIGHT IN WR. LABS DRAWN IN WR AND RESULTED. VITALS UPDATED
--- NOTE | 2020-07-06 16:11 | PC.NURSE ---
Addendum entered by Bola Gardner 07/06/20 16:11: IV EST 20 G R HAND Original Note: IV ESTM 20
--- NOTE | 2020-07-06 16:37 | ED_ITS ---
HPI - Altered Mental Status General Chief Complaint: Altered Mental Status Stated Complaint: CONFUSION,WEAK Time Seen by Provider: 07/06/20 16:23 Source: patient Mode of arrival: wheelchair Limitations: altered mental status History of Present Illness HPI narrative: Patient is brought to the emergency room by her [id number]. Per triage nurse, patient was dropped off at the entrance, they told the triage nurse that the patient has been more confused than usual, then left and patient has been waiting by herself in the waiting room. Patient is alert and awake, but is confused, states that she does not know why she is here. Patient unable to answer questions, patient only answers yes/no, seems confused. Per patient's nurse, patient was brought by family, she was found in the state in the waiting room, no one was with her. MD complaint: altered mental status Related Data Home Medications Medication Instructions Recorded Confirmed furosemide 40 mg tablet 40 mg PO DAILY tab 06/24/20 06/30/20 Previous Rx's Medication Instructions Recorded spironolactone 25 mg tablet 50 mg PO DAILY #60 tab 06/28/20 cyclobenzaprine 10 mg PO TID PRN #15 tab 06/29/20 naproxen 500 mg PO BID PRN #20 tab 06/29/20 potassium chloride 20 mEq 20 meq PO BID #60 tab 06/30/20 tablet,extended release(part/cryst) Allergies Allergy/AdvReac Type Severity Reaction Status Date / Time Penicillins [PENICILLINS] Allergy Mild YEAST Verified 06/24/20 15:08 INFECTION Review of Systems Review of Systems: Yes Unobtainable due to mental condition PMFSH Past Medical History Medical History Alcohol abuse Hypercholesterolemia Hypoglycemia Hypokalemia Leukopenia Family History Family History (Updated 06/24/20 @ 15:11 by Saloni Rose MD) Father Throat cancer Mother Lung cancer Social History Social History Household Members: Children Housing: Apartment Alcohol intake: current Alcohol intake frequency: former alcohol drinker Smoking Status: Former smoker Advance Directives: No Advance Directives Information Provided: Yes service: No Current occupational status: unemployed Physical Exam Vital Signs: Vital Signs: Last Vital Signs Temp 97.2 F 07/06/20 10:44 Pulse 98 07/06/20 17:56 Resp 18 07/06/20 16:03 BP 167/87 H 07/06/20 17:56 Pulse Ox 100 07/06/20 16:03 Body Mass Index 16.7 Appearance: Alert. Oriented x1, no acute distress, seems confused Eyes: Pupils equal, round and reactive to light. ENT: Pharynx normal. Neck: Normal inspection. Neck supple. No lymph nodes noted. No crepitus CVS: Normal heart rate and rhythm. Pulses normal. Normal S1 and S2 Respiratory: No respiratory distress. Breath sounds normal. No Wheezing. No rales Abdomen: Soft and nontender. No rigidity. No distention. good BS x4 Skin: Skin warm and dry. Pale Extremities: No lower extremity edema. Neuro: Oriented X 1. Cranial nerves 2-12 grossly intact. Patient staring off into space, unable to speak hold direct eye contact, patient does follow directions Course Course Course Narrative: I spoke with the patient's family, according to the family the new medication is potassium which was started 1/2 weeks ago. According to the patient's daughter, the patient is alert and oriented x3 at baseline, patient li ves with her daughter. Patient started becoming more confused and altered since yesterday. According to the patient's daughter, the last time that she used alcohol to her knowledge was at the end of May of 2020. Patient denies drinking alcohol. I reviewed the head CT, no acute bleeding. Radiology official read is still pending. I discussed the patient with the hospitalist, patient being admitted for encephalopathy. Patient's lactic acid 2.4, likely secondary to chronic hepatic pathology. Sepsis is not suspected. MDM - Altered Mental Status Lab Data Result diagrams: 07/06/20 11:38 07/06/20 11:38 Labs: Lab Results 07/06/20 07/06/20 07/06/20 Range/Units 11:38 11:38 11:38 WBC 5.2 (4.8-10.8) X10*3/uL RBC 2.55 L (4.20-5.50) X10*6/uL Hgb 9.0 L (12.0-16.0) g/dl Hct 26.5 L (37-47) % MCV 103.9 H (80-98) fL MCH 35.3 H (27.0-33.0) pg MCHC 34.0 (31.0-35.0) g/dl RDW 15.1 (11.0-16.0) % Plt Count 89 L (160-400) X10*3/uL MPV 11.6 (9.4-12.3) fL Immature Gran % (Auto) 0.2 (0.0-0.4) % Neut % (Auto) 49.5 (45-73) % Lymph % (Auto) 31.8 (20-40) % Overton % (Auto) 16.7 H (2-11) % Eos % (Auto) 1.2 (0-4) % Baso % (Auto) 0.6 (0-2) % Lymph # (Auto) 1.6 (1.2-4.9) X10*3/uL Overton # (Auto) 0.9 (0.1-1.2) X10*3/uL Eos # (Auto) 0.1 (0.0-0.4) X10*3/uL Baso # (Auto) 0.0 (0.0-0.2) X10*3/uL Abs Immat Gran (auto) 0.01 (0.00-0.03) X10*3/uL Absolute Neuts (auto) 2.6 (2.0-8.3) X10*3/uL Absolute Nucleated RBC 0.000 (0.0-0.012) X10*3/uL Nucleated RBC % (auto) 0.0 (0.0-0.2) /100WBC PT (10.8-13.0) SEC INR (0.9-1.1) Sodium 139 (135-145) mmol/L Potassium 4.0 (3.3-5.1) mmol/L Chloride 113 H (96-108) mmol/L Carbon Dioxide 13 L (22-29) mmol/L Anion Gap 17 (12-20) BUN 22 H D (9-16) mg/dL Creatinine 1.21 (0.5-1.4) mg/dL Estim Creat Clear Calc 38.7 Estimated GFR 46 Random Glucose 110 D (60-115) mg/dL Lactic Acid (0.5-2.0) mmol/L Calcium 8.9 (8.4-10.2) mg/dL Total Bilirubin (0.0-1.0) mg/dL Direct Bilirubin (0.0-0.5) mg/dL AST (5-31) U/L ALT (0-31) U/L Alkaline Phosphatase (39-117) U/L Ammonia 80 H (13-55) umol/L Total Protein (6.5-8.0) g/dL Albumin (3.5-5.0) g/dL Urine Opiates Screen (Not Detect) Ur Barbiturates Screen (Not Detect) Ur Phencyclidine Scrn (Not Detect) Ur Amphetamines Screen (Not Detect) U Benzodiazepines Scrn (Not Detect) Urine Cocaine Screen (Not Detect) U Marijuana (THC) Screen (Not Detect) Ethyl Alcohol mg/dL COVID-19 (CLAUDY) (Negative) COVID-19 Clin Com 07/06/20 07/06/20 07/06/20 Range/Units 11:38 17:00 17:00 WBC (4.8-10.8) X10*3/uL RBC (4.20-5.50) X10*6/uL Hgb (12.0-16.0) g/dl Hct (37-47) % MCV (80-98) fL MCH (27.0-33.0) pg MCHC (31.0-35.0) g/dl RDW (11.0-16.0) % Plt Count (160-400) X10*3/uL MPV (9.4-12.3) fL Immature Gran % (Auto) (0.0-0.4) % Neut % (Auto) (45-73) % Lymph % (Auto) (20-40) % Overton % (Auto) (2-11) % Eos % (Auto) (0-4) % Baso % (Auto) (0-2) % Lymph # (Auto) (1.2-4.9) X10*3/uL Overton # (Auto) (0.1-1.2) X10*3/uL Eos # (Auto) (0.0-0.4) X10*3/uL Baso # (Auto) (0.0-0.2) X10*3/uL Abs Immat Gran (auto) (0.00-0.03) X10*3/uL Absolute Neuts (auto) (2.0-8.3) X10*3/uL Absolute Nucleated RBC (0.0-0.012) X10*3/uL Nucleated RBC % (auto) (0.0-0.2) /100WBC PT 16.2 H (10.8-13.0) SEC INR 1.4 H (0.9-1.1) Sodium (135-145) mmol/L Potassium (3.3-5.1) mmol/L Chloride (96-108) mmol/L Carbon Dioxide (22-29) mmol/L Anion Gap (12-20) BUN (9-16) mg/dL Creatinine (0.5-1.4) mg/dL Estim Creat Clear Calc Estimated GFR Random Glucose (60-115) mg/dL Lactic Acid (0.5-2.0) mmol/L Calcium (8.4-10.2) mg/dL Total Bilirubin 3.7 H (0.0-1.0) mg/dL Direct Bilirubin 2.3 H (0.0-0.5) mg/dL AST 72 H (5-31) U/L ALT 37 H (0-31) U/L Alkaline Phosphatase 86 (39-117) U/L Ammonia (13-55) umol/L Total Protein 8.6 H (6.5-8.0) g/dL Albumin 3.1 L (3.5-5.0) g/dL Urine Opiates Screen (Not Detect) Ur Barbiturates Screen (Not Detect) Ur Phencyclidine Scrn (Not Detect) Ur Amphetamines Screen (Not Detect) U Benzodiazepines Scrn (Not Detect) Urine Cocaine Screen (Not Detect) U Marijuana (THC) Screen (Not Detect) Ethyl Alcohol < 10 mg/dL COVID-19 (CLAUDY) (Negative) COVID-19 Clin Com 07/06/20 07/06/20 07/06/20 Range/Units 17:01 17:01 17:03 WBC (4.8-10.8) X10*3/uL RBC (4.20-5.50) X10*6/uL Hgb (12.0-16.0) g/dl Hct (37-47) % MCV (80-98) fL MCH (27.0-33.0) pg MCHC (31.0-35.0) g/dl RDW (11.0-16.0) % Plt Count (160-400) X10*3/uL MPV (9.4-12.3) fL Immature Gran % (Auto) (0.0-0.4) % Neut % (Auto) (45-73) % Lymph % (Auto) (20-40) % Overton % (Auto) (2-11) % Eos % (Auto) (0-4) % Baso % (Auto) (0-2) % Lymph # (Auto) (1.2-4.9) X10*3/uL Overton # (Auto) (0.1-1.2) X10*3/uL Eos # (Auto) (0.0-0.4) X10*3/uL Baso # (Auto) (0.0-0.2) X10*3/uL Abs Immat Gran (auto) (0.00-0.03) X10*3/uL Absolute Neuts (auto) (2.0-8.3) X10*3/uL Absolute Nucleated RBC (0.0-0.012) X10*3/uL Nucleated RBC % (auto) (0.0-0.2) /100WBC PT (10.8-13.0) SEC INR (0.9-1.1) Sodium (135-145) mmol/L Potassium (3.3-5.1) mmol/L Chloride (96-108) mmol/L Carbon Dioxide (22-29) mmol/L Anion Gap (12-20) BUN (9-16) mg/dL Creatinine (0.5-1.4) mg/dL Estim Creat Clear Calc Estimated GFR Random Glucose (60-115) mg/dL Lactic Acid 2.4 H* (0.5-2.0) mmol/L Calcium (8.4-10.2) mg/dL Total Bilirubin (0.0-1.0) mg/dL Direct Bilirubin (0.0-0.5) mg/dL AST (5-31) U/L ALT (0-31) U/L Alkaline Phosphatase (39-117) U/L Ammonia (13-55) umol/L Total Protein (6.5-8.0) g/dL Albumin (3.5-5.0) g/dL Urine Opiates Screen Not Detected (Not Detect) Ur Barbiturates Screen Not Detected (Not Detect) Ur Phencyclidine Scrn Not Detected (Not Detect) Ur Amphetamines Screen Not Detected (Not Detect) U Benzodiazepines Scrn Not Detected (Not Detect) Urine Cocaine Screen Not Detected (Not Detect) U Marijuana (THC) Screen Not Detected (Not Detect) Ethyl Alcohol mg/dL COVID-19 (CLAUDY) Negative (Negative) COVID-19 Clin Com See Note Discharge Plan Discharge Clinical Impression: Encephalopathy acute Patient Disposition: Admitted As Inpatient
--- NOTE | 2020-07-06 17:08 | CT_ITS ---
EXAMINATION: CT HEAD WITHOUT CONTRAST CLINICAL INFORMATION: New onset of altered mental status COMPARISON: None TECHNIQUE: Contiguous axial imaging was performed from the skull base to vertex without intravenous administration of contrast. Coronal and sagittal reformatted images are performed at the CT scanner. [This CT examination was performed using dose optimization techniques as appropriate, variously including the following: *Automated exposure control *Adjustment of mA and/or kV according to patient size (this includes techniques or standardized protocols for targeted exams where dose is matched to indication/reason for exam; i.e. extremities or head) *Use of iterative reconstruction technique] DLP: 664 mGy-cm. FINDINGS: There is no evidence of acute intracranial hemorrhage or territorial infarction. No abnormal mass-effect or midline shift is seen. Hazel to white matter differentiation is well preserved. No extra-axial fluid collections are identified. The ventricles are normal in size. There is no abnormal attenuation within the brain parenchyma. There is no osseous abnormality. The mastoid air cells and visualized portions of the paranasal sinuses are well-aerated. CT/CT head/brain wo con IMPRESSION: No acute intracranial pathology.
[2020-07-06 17:25] LABS: Amphetamine Screen Urine Not Detected (Not Detect); Barbiturates, Urine Not Detected (Not Detect); Benzodiazepines Screen Urine Not Detected (Not Detect); Cannabinoid Screen Urine Not Detected (Not Detect); Cocaine Screen Urine Not Detected (Not Detect); Opiate Screen Urine Not Detected (Not Detect); Phencyclidine Screen Urine Not Detected (Not Detect)
[2020-07-06 17:38] LABS: Ethanol < 10 mg/dL
[2020-07-06 17:41] LABS: Alanine Aminotransferase 37 U/L (0-31); Albumin Level 3.1 g/dL (3.5-5.0); Alkaline Phosphatase 86 U/L (39-117); Aspartate Amino Transferase 72 U/L (5-31); Bilirubin Direct 2.3 mg/dL (0.0-0.5); Bilirubin Total 3.7 mg/dL (0.0-1.0); Total Protein 8.6 g/dL (6.5-8.0)
[2020-07-06 17:43] LABS: Lactic Acid 2.4 mmol/L (0.5-2.0)
[2020-07-06 17:56] VITALS: BP 167/87; PULSE 98
--- NOTE | 2020-07-06 17:56 | PC.NURSE ---
SEEN BY DR DOMINGUEZ. ALL LABS DRAWN AND URINE TO LAB. SWABBED FOR COVID
[2020-07-06 17:57] LABS: COVID-19 Test Negative (Negative)
--- NOTE | 2020-07-06 18:17 | PM.IMHP ---
History of Present Illness Date of Service: 07/06/20 Chief Complaint: Confusion 54yo F with history of alcoholic liver cirrhosis with ascietes, s/p recent treatment for SBP, chronic anemia, here with confusion. Family dropped her off in waiting and left and reported that she has bee increasing more confused. Patient is definately confused and not able to provede any meaningful story. She does tell me that she is at [facility] but doesn't know why she is here. Review of Systems Review of Systems: Yes Unobtainable due to mental condition [facility] Medical History Alcohol abuse Hypercholesterolemia Hypoglycemia Hypokalemia Leukopenia Family History Father Throat cancer Mother Lung cancer Social History Household Members: Children Housing: Apartment Alcohol intake: unknown Smoking Status: Unknown if ever smoked Use of substances other than those prescribed or required for medical reasons: Unable to respond Advance Directives: No Advance Directives Information Provided: Yes service: No Current occupational status: unemployed Meds Allergies Allergy/AdvReac Type Severity Reaction Status Date / Time Penicillins [PENICILLINS] Allergy Mild YEAST Verified 06/24/20 15:08 INFECTION Home Medications Medication Instructions Recorded Confirmed Type furosemide 40 mg tablet 40 mg PO DAILY tab 06/24/20 06/30/20 History Physical Exam Vital Signs and Narrative: Vital Signs: Last Vital Signs Temp 97.2 F 07/06/20 10:44 Pulse 98 07/06/20 17:56 Resp 18 07/06/20 16:03 BP 167/87 H 07/06/20 17:56 Pulse Ox 100 07/06/20 16:03 Body Mass Index 16.7 Constitutional Awake and Alert, No apparent distress HEENT: no sclera icteris Neck Supple, No lymphadenopathy Cardiovascular RRR, No M/R/G, S1 S2, No S3 S4, No pedal edema Respiratory Lungs clear, No respiratory distress Gastrointestinal Non tender, Non-distended Skin No rash Neurological Alert & oriented x1 Psychological Appropriate affect Results Labs CBC and Chem 7: 07/06/20 11:38 07/06/20 11:38 Labs: Laboratory Results - last 24 hr 0207/06/20 07/06/20 11:38 11:38 11:38 MCV 103.9 H MCH 35.3 H MCHC 34.0 RDW 15.1 Plt Count 89 L MPV 11.6 Immature Gran % (Auto) 0.2 Neut % (Auto) 49.5 Lymph % (Auto) 31.8 Boyle % (Auto) 16.7 H Eos % (Auto) 1.2 Baso % (Auto) 0.6 Lymph # (Auto) 1.6 Boyle # (Auto) 0.9 Eos # (Auto) 0.1 Baso # (Auto) 0.0 Abs Immat Gran (auto) 0.01 Absolute Neuts (auto) 2.6 Absolute Nucleated RBC 0.000 Nucleated RBC % (auto) 0.0 PT INR Anion Gap 17 Estim Creat Clear Calc 38.7 Estimated GFR 46 Random Glucose 110 D Lactic Acid Calcium 8.9 Total Bilirubin Direct Bilirubin AST ALT Alkaline Phosphatase Ammonia 80 H Total Protein Albumin Urine Opiates Screen Ur Barbiturates Screen Ur Phencyclidine Scrn Ur Amphetamines Screen U Benzodiazepines Scrn Urine Cocaine Screen U Marijuana (THC) Screen Ethyl Alcohol COVID-19 (CLAUDY) [employer] 07/06/20 07/06/20 07/06/20 11:38 17:00 17:00 MCV MCH MCHC RDW Plt Count MPV Immature Gran % (Auto) Neut % (Auto) Lymph % (Auto) Boyle % (Auto) Eos % (Auto) Baso % (Auto) Lymph # (Auto) Boyle # (Auto) Eos # (Auto) Baso # (Auto) Abs Immat Gran (auto) Absolute Neuts (auto) Absolute Nucleated RBC Nucleated RBC % (auto) PT 16.2 H INR 1.4 H Anion Gap Estim Creat Clear Calc Estimated GFR Random Glucose Lactic Acid Calcium Total Bilirubin 3.7 H Direct Bilirubin 2.3 H AST 72 H ALT 37 H Alkaline Phosphatase 86 Ammonia Total Protein 8.6 H Albumin 3.1 L Urine Opiates Screen Ur Barbiturates Screen Ur Phencyclidine Scrn Ur Amphetamines Screen U Benzodiazepines Scrn Urine Cocaine Screen U Marijuana (THC) Screen Ethyl Alcohol < 10 COVID-19 (CLAUDY) [employer] 07/06/20 07/06/20 07/06/20 17:01 17:01 17:03 MCV MCH MCHC RDW Plt Count MPV Immature Gran % (Auto) Neut % (Auto) Lymph % (Auto) Boyle % (Auto) Eos % (Auto) Baso % (Auto) Lymph # (Auto) Boyle # (Auto) Eos # (Auto) Baso # (Auto) Abs Immat Gran (auto) Absolute Neuts (auto) Absolute Nucleated RBC Nucleated RBC % (auto) PT INR Anion Gap Estim Creat Clear Calc Estimated GFR Random Glucose Lactic Acid 2.4 H* Calcium Total Bilirubin Direct Bilirubin AST ALT Alkaline Phosphatase Ammonia Total Protein Albumin Urine Opiates Screen Not Detected Ur Barbiturates Screen Not Detected Ur Phencyclidine Scrn Not Detected Ur Amphetamines Screen Not Detected U Benzodiazepines Scrn Not Detected Urine Cocaine Screen Not Detected U Marijuana (THC) Screen Not Detected Ethyl Alcohol COVID-19 (CLAUDY) Negative COVID-19 Clin Com See Note Imaging Radiologist's Impressions: Impressions Head CT 07/06/20 17:08 IMPRESSION: No acute intracranial pathology. Assessment and Plan (1) Hyperammonemia: Status: Acute (2) Anemia: Qualifiers: Anemia type: unspecified type Qualified Code(s): D64.9 - Anemia, unspecified Status: Acute (3) Encephalopathy acute: Status: Acute (4) Alcoholic cirrhosis: Qualifiers: Ascites presence: with ascites Qualified Code(s): K70.31 - Alcoholic cirrhosis of liver with ascites Status: Acute 54yo F with hx EtOH, cirrhosis with ascietes with recent treatment for SBP here with confusion, hyperammonemia and I am certain has hepatic encephalopathy # Hepatic Encephalopathy-treat with lactulose, consider Rifaximin # macrocytic anemia # thrombocytopenia # coagulopathy INR 1.4 - avoid heparin, monitor for bleeding # EtOH abuse--family says she hasn't been drinking -monitor for sings of withdrawal - thiamine, folate - monitor for withdrawals - sobriety counseled # history of SBP--no signs of infection, abdomen bening. Should be on suppresive Abx (add ceftin) # cirrhosis/chronic liver disease--Medical therapy with Lasix, aldacton, alcohol abstinence #High lactic acid not due to sepsis Awaiting med rec # VTE ppx - SCDs
[2020-07-06 18:36] VITALS: BP 152/87; PULSE 100; O2SAT 100
[2020-07-06] MEDS: Lactulose 20 GM/30 ML SOLUTION PO (18:37)
[2020-07-06 19:08] LABS: Reflex Lactate? Lactic Acid Added
[2020-07-06] MEDS: Sodium Chloride 0.45 % 1,000 ML 100 ML IVCONT (19:17)
[2020-07-06 21:27] LABS: Reflex Lactate? 2 Y
[2020-07-06 22:22] VITALS: BP 142/78; PULSE 86; RESP 16; TEMP 36.7; O2SAT 100
--- NOTE | 2020-07-06 22:27 | PC.NURSE ---
Pt is almost nonverbal. At times attempts to answers but is unintelligible. Is Jaundice, most visable in sclera. No abd distention. Pt is frail. LS cta. Skin integrity is good. Awaits bed assignment on the floor. NSR on monitor.
[2020-07-06 22:30] LABS: ~Lactic Acid-LAB USE ONLY 1.9 mmol/L (0.5-2.0)
[2020-07-06 23:42] VITALS: BP 159/83; PULSE 75; RESP 18; TEMP 36.8; O2SAT 100
[2020-07-07] MEDS: 0.9 % Sodium Chloride Flush 3 ML SYRINGE IVFLUSH ×2 (00:44→13:59)
--- NOTE | 2020-07-07 00:44 | PC.NURSE ---
REPORT TAKEN FROM MONET ANDRES. FIRST CONTACT WITH PT. RESTING IN BED,EYES CLOSED, SKIN SLIGHLTY YELLOW, WARM AND DRY. VSS. AWAITING BED ASSIGNMENT FOR ADMISSION. IVF CONTINUE TO INFUSE AT 100ML/HR. WILL CONTINUE TO MONITOR.
[2020-07-07] MEDS: Sodium Chloride 0.45 % 1,000 ML 100 ML IVCONT ×3 (07:15→23:08)
[2020-07-07 07:16] VITALS: BP 151/78; PULSE 70; RESP 12; TEMP 36.4; O2SAT 100
--- NOTE | 2020-07-07 07:20 | PC.NURSE ---
REPORT TAKEN FROM ROD ANDRES. PT RESTING ON STRETCHER. SLOW TO FOLLOW COMMANDS. ALERT TO PERON BUT NOT PLACE OR TIME. IV FLUIDS RUNNING. VITALS UPDATED. PT WAITING ROOM ASSIGNMENT AT THIS TIME.
--- NOTE | 2020-07-07 07:25 | PC.NURSE ---
called to s3 to give report. rn to call back from floor to receive report.
[2020-07-07 08:00] VITALS: BP 156/86; PULSE 74; RESP 16; TEMP 35.8; O2SAT 100
[2020-07-07 08:44] LABS: Ammonia 59 umol/L (13-55)
--- NOTE | 2020-07-07 09:15 | HO.PM.IMPN ---
Subjective Subjective Date of Service: 07/07/20 Interval History: Follow-up for hepatic encephalopathy. She remained confused this morning albeit a little bit better than yesterday. Review of Systems Confused. Review of Systems: Yes Unobtainable due to mental condition Physical Exam Vital Signs: Vital Signs: Last Vital Signs Temp 96.5 F L 07/07/20 08:00 Pulse 74 07/07/20 08:00 Resp 16 07/07/20 08:00 BP 156/86 H 07/07/20 08:00 Pulse Ox 100 07/07/20 08:00 Body Mass Index 16.7 Const: General: cooperative Orientation/consciousness: oriented to person, No oriented to place and No oriented to time Resp: Effort & Inspection: normal respiratory effort Auscultation: clear to auscultation bilaterally Cardio: Rate: regular rate Heart sounds: S1 normal heart sound present and S2 normal heart sound present GI: Palpation (GI): nontender Auscultation: normal bowel sounds Skin: General skin exam: no rashes or lesions noted Neuro: General: oriented to person, No oriented to place and No oriented to time Motor exam (neuro): 5/5 motor strength present throughout Psych: Affect: Blunted affect present Judgement: Limited judgement present (Psych) Objective Data Current Medications Generic Name Dose Route Start Last Admin Trade Name Freq PRN Reason Stop Dose Admin Sodium Chloride 1,000 mls @ 100 mls/hr 07/06/20 18:45 07/07/20 07:15 IVCONT 100 mls/hr .Q10H RANDOLPH Administration Lactulose 20 gm 07/07/20 09:00 Lactulose 20 Gm/30 Ml Solution PO BID RANDOLPH Sodium Chloride 3 ml 07/07/20 00:00 07/07/20 07:15 0.9 % Sodium Chloride Flush 3 Ml Syringe IVFLUSH Not Given QSHIFT [facility] Labs CBC & Chem 7: 07/06/20 11:38 07/06/20 11:38 Assessment and Plan (1) Hyperammonemia: Status: Acute (2) Anemia: Status: Acute (3) Encephalopathy acute: Status: Acute (4) Alcoholic cirrhosis: Status: Acute Assessment and Plan: 54yo F with hx EtOH, cirrhosis with ascietes with recent treatment for SBP here with confusion, hyperammonemia and I am certain has hepatic encephalopathy # Hepatic Encephalopathy-still confused -lactulose 20 bid, consider Rifaximin -check ammonia # macrocytic anemia--chronic due to alcoholic liver disease # thrombocytopenia # coagulopathy INR 1.4 - avoid heparin, monitor for bleeding # EtOH abuse--family says she hasn't been drinking -monitor for sings of withdrawal -CIWA - thiamine, folate - monitor for withdrawals - sobriety counseled # history of SBP--no signs of infection, abdomen bening. Should be on suppresive Abx (add ceftin) # cirrhosis/chronic liver disease--Medical therapy with Lasix, aldacton, alcohol abstinence #High lactic acid not due to sepsis Awaiting med rec # VTE ppx - SCDs
[2020-07-07] MEDS: Thiamine HCL 100 MG TABLET PO (09:35)
[2020-07-07] MEDS: Lactulose 20 GM/30 ML SOLUTION PO ×2 (09:35→20:30)
[2020-07-07] MEDS: Folic Acid 1 MG TABLET PO (09:36)
--- NOTE | 2020-07-07 11:04 | MHC.CM.PN ---
pt lives c daughter in their apt. pt is independent in her care, daughter can assist if patient needs help. this will include a ride home at dc. dc plan is home no svcs. cm to cont. to follow.
[2020-07-07 11:43] VITALS: BP 148/86; PULSE 78; RESP 16; TEMP 36.3; O2SAT 100
[2020-07-07 12:21] VITALS: BMI 16.7
--- NOTE | 2020-07-07 12:23 | MHC.CLN ---
PT IS MODERATELY MALNOURISHED RECOMMEND ADDING ENSURE BID TO INCREASE KCALS SEE ALSO CLINICAL NUTRITION ASSESSMENT
[2020-07-07 15:28] VITALS: BP 139/78; PULSE 76; RESP 18; TEMP 35.9; O2SAT 100
[2020-07-07 19:11] VITALS: BP 140/78; PULSE 106; RESP 18; TEMP 36.5; O2SAT 100
[2020-07-07 23:33] VITALS: BP 132/80; PULSE 80; RESP 19; TEMP 35.7; O2SAT 100
[2020-07-08 03:30] VITALS: BP 118/63; PULSE 93; RESP 18; TEMP 36.6; O2SAT 100
[2020-07-08 08:00] VITALS: BP 130/78; PULSE 87; RESP 17; TEMP 36.9; O2SAT 97
[2020-07-08 08:15] LABS: Ammonia 56 umol/L (13-55)
--- NOTE | 2020-07-08 09:00 | MHC.CDI.CONC ---
CDI Concurrent Query Service Date: 07/08/20 Documentation Clarification: Please clarify if you are treating a probable/suspected/likely or confirmed: Mild protein calorie malnutrition Moderate protein calorie malnutrition Severe protein calorie malnutrition Please specify if known Provider Response: Mild Protein-Calorie Malnutrition PLEASE DO NOT DELETE/MODIFY EXISTING CONTENT Additional information is needed in order to code to the highest accuracy and appropriate Severity of Illness (SOI). Please clarify the information noted below in your progress notes and discharge summary. Risk Factors/Clinical Indicators/Treatments BMI 16.8 Nutrition assessment noted patient is moderately malnourished. Adding Ensure BID to increase Kcals. CDS: Saundra Slater [facility], CDIS Contact Number: [phone] Please Review the information above and exercise your independent professional judgment in responding to the query. If you concur, pleas document in the PROGRESS NOTES and DISCHARGE SUMMARY. If you do not agree with the query, please document in the query above. THIS QUERY IS PART OF THE PERMANENT MEDICAL RECORD
[2020-07-08] MEDS: Lactulose 20 GM/30 ML SOLUTION PO ×2 (09:03→20:38)
[2020-07-08] MEDS: Thiamine HCL 100 MG TABLET PO (09:04)
[2020-07-08] MEDS: Folic Acid 1 MG TABLET PO (09:04)
--- NOTE | 2020-07-08 10:10 | HO.PM.IMPN ---
Subjective Subjective Date of Service: 07/08/20 Interval History: Follow-up for hepatic encephalopathy. She is more lucid today Review of Systems No fever Less confused Physical Exam Vital Signs: Vital Signs: Last Vital Signs Temp 98.5 F 07/08/20 08:00 Pulse 87 07/08/20 08:00 Resp 17 07/08/20 08:00 BP 130/78 07/08/20 08:00 Pulse Ox 97 07/08/20 08:00 Body Mass Index 16.7 Const: General: cooperative Orientation/consciousness: oriented to person, oriented to place and oriented to time Resp: Effort & Inspection: normal respiratory effort Auscultation: clear to auscultation bilaterally Cardio: Rate: regular rate Heart sounds: S1 normal heart sound present and S2 normal heart sound present GI: Palpation (GI): nontender Auscultation: normal bowel sounds Skin: General skin exam: no rashes or lesions noted Neuro: General: oriented to person, oriented to place and oriented to time Motor exam (neuro): 5/5 motor strength present throughout Psych: Affect: Blunted affect present Judgement: Limited judgement present (Psych) Objective Data Current Medications Generic Name Dose Route Start Last Admin Trade Name Freq PRN Reason Stop Dose Admin Cefuroxime Axetil 250 mg 07/07/20 09:30 07/08/20 09:03 Cefuroxime Axetil 250 Mg Tablet PO 250 mg Q24H RANDOLPH Administration Folic Acid 1 mg 07/07/20 09:30 07/08/20 09:04 Folic Acid 1 Mg Tablet PO 07/09/20 09:01 1 mg DAILY RANDOLPH Administration Sodium Chloride 1,000 mls @ 100 mls/hr 07/06/20 18:45 07/08/20 09:09 IVCONT Infused .Q10H RANDOLPH Infusion Lactulose 20 gm 07/07/20 09:00 07/08/20 09:03 Lactulose 20 Gm/30 Ml Solution PO 20 gm BID RANDOLPH Administration Sodium Chloride 3 ml 07/07/20 00:00 07/08/20 09:05 0.9 % Sodium Chloride Flush 3 Ml Syringe IVFLUSH Not Given QSHIFT RANDOLPH Thiamine HCl 100 mg 07/07/20 09:30 07/08/20 09:04 Thiamine Hcl 100 Mg Tablet PO 07/09/20 09:01 100 mg DAILY RANDOLPH Administration Labs CBC & Chem 7: 07/06/20 11:38 02/02/21 11:38 Microbiology Microbiology Results: Microbiology 07/06/20 17:00 Blood - Venous Blood Culture - Preliminary No growth after 24 hours. 07/06/20 17:01 Blood - Venous Blood Culture - Preliminary No growth after 24 hours. Assessment and Plan (1) Hyperammonemia: Status: Acute (2) Anemia: Status: Acute (3) Encephalopathy acute: Status: Acute (4) Alcoholic cirrhosis: Status: Acute Assessment and Plan: 54yo F with hx EtOH, cirrhosis with ascietes with recent treatment for SBP here with confusion, hyperammonemia and I am certain has hepatic encephalopathy # Hepatic Encephalopathy.less confused, ammonia trending down -lactulose 30 bid, consider Rifaximin at discharge - # macrocytic anemia--chronic due to alcoholic liver disease # thrombocytopenia # coagulopathy INR 1.4 - avoid heparin, monitor for bleeding # EtOH abuse--family says she hasn't been drinking -monitor for sings of withdrawal -CIWA - thiamine, folate - monitor for withdrawals - sobriety counseled # history of SBP--no signs of infection, abdomen bening. Should be on suppresive Abx (add ceftin) # cirrhosis/chronic liver disease--Medical therapy with Lasix, aldacton, alcohol abstinence #High lactic acid not due to sepsis Awaiting med rec # VTE ppx - SCDs
[2020-07-08 12:00] VITALS: BP 138/77; PULSE 92; RESP 17; TEMP 36.2; O2SAT 100
--- NOTE | 2020-07-08 14:32 | MHC.CM.PN ---
PER PHYSICIAN ROUNDS, PLAN IS HOME WITH NO SERVICES ONCE HOSPITALIST HAS CONVERSATION WITH FAMILY.
[2020-07-08 15:48] VITALS: BP 143/77; PULSE 99; RESP 18; TEMP 36.3; O2SAT 100
[2020-07-08 19:19] VITALS: BP 140/77; PULSE 91; RESP 18; TEMP 36.2; O2SAT 100
[2020-07-08] MEDS: 0.9 % Sodium Chloride Flush 3 ML SYRINGE IVFLUSH (20:38)
[2020-07-08] MEDS: Sodium Chloride 0.45 % 1,000 ML 100 ML IVCONT (20:38)
[2020-07-08 23:25] VITALS: BP 141/77; PULSE 93; RESP 16; TEMP 36.8; O2SAT 100
[2020-07-09 03:49] VITALS: BP 116/66; PULSE 106; RESP 16; TEMP 36.3; O2SAT 100
[2020-07-09] MEDS: Sodium Chloride 0.45 % 1,000 ML 100 ML IVCONT (05:53)
[2020-07-09 07:48] VITALS: BP 135/77; PULSE 93; RESP 18; TEMP 36.8; O2SAT 100
[2020-07-09] MEDS: 0.9 % Sodium Chloride Flush 3 ML SYRINGE IVFLUSH (08:43)
[2020-07-09 08:44] LABS: Ammonia 55 umol/L (13-55)
[2020-07-09] MEDS: Folic Acid 1 MG TABLET PO (08:44)
[2020-07-09] MEDS: Thiamine HCL 100 MG TABLET PO (08:44)
[2020-07-09] MEDS: Lactulose 20 GM/30 ML SOLUTION PO (08:44)
[2020-07-09 10:52] VITALS: BP 146/76; PULSE 91; RESP 18; TEMP 36.6; O2SAT 100
--- NOTE | 2020-07-09 11:43 | P.DS_ITS ---
DS: Providers Provider Date of Service: 10/02/20 Date of admission: 07/06/20 18:40 Primary care physician: Saloni Rose MD DS: Diagnosis Discharge Diagnosis (1) Hyperammonemia: Status: Resolved (2) Anemia: Status: Resolved (3) Encephalopathy acute: Status: Resolved (4) Alcoholic cirrhosis: Status: Resolved DS: Medications Discharge Medications Home Medications: Home Medications Medication Instructions Recorded Confirmed furosemide 40 mg tablet 40 mg PO DAILY tab 06/24/20 06/30/20 Previous Rx's Medication Instructions Recorded spironolactone 25 mg tablet 50 mg PO DAILY #60 tab 06/28/20 cyclobenzaprine 10 mg PO TID PRN #15 tab 06/29/20 naproxen 500 mg PO BID PRN #20 tab 06/29/20 potassium chloride 20 mEq 20 meq PO BID #60 tab 06/30/20 tablet,extended release(part/cryst) DS: Summary Hospital Course Hospital Course: Chief Complaint: Confusion 54yo F with history of alcoholic liver cirrhosis with ascietes, s/p recent treatment for SBP, chronic anemia, here with confusion. Family dropped her off in waiting and left and reported that she has bee increasing more confused. Patient is definately confused and not able to provede any meaningful story. She does tell me that she is at [facility] but doesn't know why she is here. Hospital course: Patient was admitted for hepatic encephalopathy and was treated with lactulose and is now lucid. There was no evidence of infection. She was recently treated for SBP. Will discharge with lactulose, ceftin to prevent SBP and to follow up with GI and PCP and advise abstinence from alcohol. Time Spent with Patient Time attestation: Total time spent providing and/or coordinating discharge services: Discharge coordination time: Greater than 30 minutes Physical Exam Vital Signs: Vital Signs: Last Vital Signs Temp 97.9 F 07/09/20 10:52 Pulse 91 07/09/20 10:52 Resp 18 07/09/20 10:52 BP 146/76 H 07/09/20 10:52 Pulse Ox 100 07/09/20 10:52 Body Mass Index 16.7 General: AO X 3, no acute distress Resp: CTA bilateral CVS: S1,S2,RRR GI: +BS, NT, no distention Skin: No rash Neuro: motor grossly intact Psych: appropriate affect DS: Data Data Completed and Pending Completed studies during hospitalization [Text1]: Procedures Drainage of Peritoneal Cavity, Percutaneous Approach (06/08/20) Labs on day of discharge: Laboratory Tests 07/06/20 07/06/20 07/06/20 11:38 11:38 11:38 WBC 5.2 RBC 2.55 L Hgb 9.0 L Hct 26.5 L MCV 103.9 H MCH 35.3 H MCHC 34.0 RDW 15.1 Plt Count 89 L MPV 11.6 Immature Gran % (Auto) 0.2 Neut % (Auto) 49.5 Lymph % (Auto) 31.8 Armstrong % (Auto) 16.7 H Eos % (Auto) 1.2 Baso % (Auto) 0.6 Lymph # (Auto) 1.6 Armstrong # (Auto) 0.9 Eos # (Auto) 0.1 Baso # (Auto) 0.0 Abs Immat Gran (auto) 0.01 Absolute Neuts (auto) 2.6 Absolute Nucleated RBC 0.000 Nucleated RBC % (auto) 0.0 PT INR Sodium 139 Potassium 4.0 Chloride 113 H Carbon Dioxide 13 L Anion Gap 17 BUN 22 H D Creatinine 1.21 Estim Creat Clear Calc 38.7 Estimated GFR 46 Random Glucose 110 D Lactic Acid Lactic Acid Fup @ 2Hr Lactic Acid Fup @ 4Hr Calcium 8.9 Total Bilirubin Direct Bilirubin AST ALT Alkaline Phosphatase Ammonia 80 H Total Protein Albumin Urine Opiates Screen Ur Barbiturates Screen Ur Phencyclidine Scrn Ur Amphetamines Screen U Benzodiazepines Scrn Urine Cocaine Screen U Marijuana (THC) Screen Ethyl Alcohol COVID-19 (CLAUDY) COVID-19 Clin Com 07/06/20 07/06/20 07/06/20 11:38 17:00 17:00 WBC RBC Hgb Hct MCV MCH MCHC RDW Plt Count MPV Immature Gran % (Auto) Neut % (Auto) Lymph % (Auto) Armstrong % (Auto) Eos % (Auto) Baso % (Auto) Lymph # (Auto) Armstrong # (Auto) Eos # (Auto) Baso # (Auto) Abs Immat Gran (auto) Absolute Neuts (auto) Absolute Nucleated RBC Nucleated RBC % (auto) PT 16.2 H INR 1.4 H Sodium Potassium Chloride Carbon Dioxide Anion Gap BUN Creatinine Estim Creat Clear Calc Estimated GFR Random Glucose Lactic Acid Lactic Acid Fup @ 2Hr Lactic Acid Fup @ 4Hr Calcium Total Bilirubin 3.7 H Direct Bilirubin 2.3 H AST 72 H ALT 37 H Alkaline Phosphatase 86 Ammonia Total Protein 8.6 H Albumin 3.1 L Urine Opiates Screen Ur Barbiturates Screen Ur Phencyclidine Scrn Ur Amphetamines Screen U Benzodiazepines Scrn Urine Cocaine Screen U Marijuana (THC) Screen Ethyl Alcohol < 10 COVID-19 (CLAUDY) COVID-19 PA Semi Com 07/06/20 07/06/20 07/06/20 17:01 17:01 17:03 WBC RBC Hgb Hct MCV MCH MCHC RDW Plt Count MPV Immature Gran % (Auto) Neut % (Auto) Lymph % (Auto) Armstrong % (Auto) Eos % (Auto) Baso % (Auto) Lymph # (Auto) Armstrong # (Auto) Eos # (Auto) Baso # (Auto) Abs Immat Gran (auto) Absolute Neuts (auto) Absolute Nucleated RBC Nucleated RBC % (auto) PT INR Sodium Potassium Chloride Carbon Dioxide Anion Gap BUN Creatinine Estim Creat Clear Calc Estimated GFR Random Glucose Lactic Acid 2.4 H* Lactic Acid Fup @ 2Hr Lactic Acid Fup @ 4Hr Calcium Total Bilirubin Direct Bilirubin AST ALT Alkaline Phosphatase Ammonia Total Protein Albumin Urine Opiates Screen Not Detected Ur Barbiturates Screen Not Detected Ur Phencyclidine Scrn Not Detected Ur Amphetamines Screen Not Detected U Benzodiazepines Scrn Not Detected Urine Cocaine Screen Not Detected U Marijuana (THC) Screen Not Detected Ethyl Alcohol COVID-19 (CLAUDY) Negative COVID-19 PA Semi Com See Note 07/06/20 07/06/20 07/07/20 19:24 22:07 07:56 WBC RBC Hgb Hct MCV MCH MCHC RDW Plt Count MPV Immature Gran % (Auto) Neut % (Auto) Lymph % (Auto) Armstrong % (Auto) Eos % (Auto) Baso % (Auto) Lymph # (Auto) Armstrong # (Auto) Eos # (Auto) Baso # (Auto) Abs Immat Gran (auto) Absolute Neuts (auto) Absolute Nucleated RBC Nucleated RBC % (auto) PT INR Sodium Potassium Chloride Carbon Dioxide Anion Gap BUN Creatinine Estim Creat Clear Calc Estimated GFR Random Glucose Lactic Acid Lactic Acid Fup @ 2Hr 2.1 H* Lactic Acid Fup @ 4Hr 1.9 Calcium Total Bilirubin Direct Bilirubin AST ALT Alkaline Phosphatase Ammonia 59 H Total Protein Albumin Urine Opiates Screen Ur Barbiturates Screen Ur Phencyclidine Scrn Ur Amphetamines Screen U Benzodiazepines Scrn Urine Cocaine Screen U Marijuana (THC) Screen Ethyl Alcohol COVID-19 (CLAUDY) [employer] 07/08/20 07/09/20 07:52 08:00 WBC RBC Hgb Hct MCV MCH MCHC RDW Plt Count MPV Immature Gran % (Auto) Neut % (Auto) Lymph % (Auto) Armstrong % (Auto) Eos % (Auto) Baso % (Auto) Lymph # (Auto) Armstrong # (Auto) Eos # (Auto) Baso # (Auto) Abs Immat Gran (auto) Absolute Neuts (auto) Absolute Nucleated RBC Nucleated RBC % (auto) PT INR Sodium Potassium Chloride Carbon Dioxide Anion Gap BUN Creatinine Estim Creat Clear Calc Estimated GFR Random Glucose Lactic Acid Lactic Acid Fup @ 2Hr Lactic Acid Fup @ 4Hr Calcium Total Bilirubin Direct Bilirubin AST ALT Alkaline Phosphatase Ammonia 56 H 55 Total Protein Albumin Urine Opiates Screen Ur Barbiturates Screen Ur Phencyclidine Scrn Ur Amphetamines Screen U Benzodiazepines Scrn Urine Cocaine Screen U Marijuana (THC) Screen Ethyl Alcohol COVID-19 (CLAUDY) COVID-[employer] Preliminary micro results at discharge 07/06/20 17:01 Blood Culture - Preliminary Blood - Venous No growth after 48 hours. 07/06/20 17:00 Blood Culture - Preliminary Blood - Venous No growth after 48 hours. Discharge Plan Discharge Anticipated Discharge Date/Time: 07/09/20 11:22 Patient Disposition: Home, Self-Care Discharge Diagnosis: hepatic encephalopathy Referrals: Po,Saloni Jackson MD [Primary Care Provider] - 1 Week (Devorah Martinez 07/20/2020 11M. Please call and reschedule if you can't keep this appointment.) Discharge Medications: Continued potassium chloride [Klor-Con M20] 20 mEq tablet,ER particles/crystals 20 meq PO BID Qty: 60 RF: 2 No Action folic acid 1 mg tablet 1 mg PO DAILY Qty: 30 RF: 11 thiamine HCl (vitamin B1) 100 mg tablet 100 mg PO DAILY Qty: 90 RF: 3 Xifaxan 550 mg tablet 550 mg PO BID Qty: 60 RF: 1 omeprazole 40 mg capsule,delayed release(DR/EC) 40 mg PO DAILY 84 Days Qty: 84 RF: 0 spironolactone 25 mg tablet 25 mg PO DAILY Qty: 60 RF: 1 lactulose 10 gram/15 mL solution 30 ml PO BID RF: 0 cyclobenzaprine 5 mg tablet 5 mg PO BEDTIME PRN (Reason: muscle spasm) 30 Days Qty: 30 RF: 0 levofloxacin 250 mg tablet 250 mg PO Q24H Qty: 60 RF: 0 tramadol 50 mg tablet 50 mg PO Q8H 90 Days Qty: 180 RF: 0 Discharge Orders: Discharge Order (Routine); Ordered 07/09/20 Ordered By: Carter Chilel Diet: advance to usual diet Activity on Discharge: As tolerated Stand Alone Forms: Patient Portal Discharge page Visit Report Forms: Patient Portal Discharge page Care Plan Goals: prevent rehospitalization Health Concerns: chronic liver disease Plan of Treatment: Take Lactulose as recommended and follow up with your docotor in a week, don't alcohol Assessment: hepatic encephlopathy Discharge Date/Time: 07/09/20 14:53
--- NOTE | 2020-07-09 12:08 | MHC.CM.PN ---
PATIENT IS DISCHARGED HOME - SELF CARE WITH FAMILY. RN AWARE OF PLAN.
[2020-07-12 17:56] LABS: ~Lactic Acid-LAB USE ONLY 2.1 mmol/L (0.5-2.0)
== END 2020-07-09 14:53 | disposition home or self-care (01) | DRG 279 ==
LOC: HO.ED 17:58 → HO.EDOVER 18:50 → HO.S3 07-07 07:17
PROVIDERS: Admitting Provider Internal Medicine; Emergency Provider Emergency Medicine; PCP Internal Medicine; Visit Provider Internal Medicine
DX: K72.90 Hepatic failure, unspecified without coma (principal); D69.6 Thrombocytopenia, unspecified; D68.9 Coagulation defect, unspecified; E72.20 Disorder of urea cycle metabolism, unspecified; E87.2 Acidosis; E44.1 Mild protein-calorie malnutrition; K70.30 Alcoholic cirrhosis of liver without ascites; D64.9 Anemia, unspecified; Z68.1 Body mass index [BMI] 19.9 or less, adult; Z20.822 Contact with and (suspected) exposure to COVID-19; Z88.0 Allergy status to penicillin; Z79.1 Long term (current) use of non-steroidal anti-inflammatories (NSAID); Z79.899 Other long term (current) drug therapy
CPT/HCPCS: 36415; 70450; 80048; 80076; 80307; 80320; 82140; 83605; 85025; 85610; 87040; 87635; 99285

== ENCOUNTER 2020-07-16 18:08 | Inpatient (IN) | payer OTHER, SELFPAY ==
--- NOTE | ~2020-07-16 | US_ITS ---
EXAMINATION: US abdomen complete, US duplex arterial venous comp CLINICAL INFORMATION: Cirrhosis. Evaluate for ascites and portal vein thrombosis.. COMPARISON: Prior studies including the 06/08/2020 CT scan TECHNIQUE: Real-time imaging of the abdominal viscera. FINDINGS: PANCREAS: Complex portions unremarkable ABDOMINAL AORTA: The proximal, mid, and distal segments are normal in caliber. INFERIOR VENA CAVA: Visualized portions are normal. LIVER: Nodular cirrhotic appearing liver with coarsened echotexture but no focal hepatic lesion. There is no intrahepatic biliary duct dilatation seen. GALLBLADDER: Gallstones seen in the midportion of the gallbladder. No gallbladder wall thickening or pericholecystic inflammatory changes seen. COMMON BILE DUCT: Normal in caliber measuring 0.5 cm in diameter. RIGHT KIDNEY: Normal. No hydronephrosis. No renal calculi or focal parenchymal lesions. The kidney measures 10.4 cm in maximum dimension. LEFT KIDNEY: Normal. No hydronephrosis. No renal calculi or focal parenchymal lesions. The kidney measures 11.4 cm in maximum dimension. SPLEEN: Normal. The spleen measures 11.1 cm in maximum dimension. FREE FLUID: No significant ascites. Doppler evaluation demonstrates hepatopedal flow within the portal veins. Hepatic artery is patent. Normal appearance to the hepatic veins. The splenic vein is patent with hepatopedal flow. 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 On CT scan this large inferior mesenteric vein extends into the pelvis likely extending to collateral vessels. US/US abdomen complete IMPRESSION: Nodular cirrhotic appearing liver but no focal hepatic lesions seen by ultrasound. Portal vein is patent. Incidental note is made of a large inferior mesenteric vein which by CT scan extends into the pelvis to the lateral perirectal/hemorrhoidal varices
--- NOTE | ~2020-07-16 | CT_ITS ---
EXAMINATION: CT HEAD WITHOUT CONTRAST CLINICAL INFORMATION: Worsening confusion COMPARISON: CT head from 07/16/2020 TECHNIQUE: Contiguous axial imaging was performed from the skull base to vertex without intravenous administration of contrast. This CT examination was performed using dose optimization techniques as appropriate, variously including the following: *Automated exposure control *Adjustment of mA and/or kV according to patient size (this includes techniques or standardized protocols for targeted exams where dose is matched to indication/reason for exam; i.e. extremities or head) *Use of iterative reconstruction technique DLP: 133.49 mGy-cm FINDINGS: There is no evidence of acute intracranial hemorrhage or territorial infarction. No abnormal mass effect or midline shift is seen. Hazel to white matter differentiation is well preserved. No extra-axial fluid collections are identified. The ventricles are normal in size. There is no abnormal attenuation within the brain parenchyma. The osseous structures and soft tissues are normal. The mastoid air cells and visualized portions of the paranasal sinuses are well aerated. CT/CT head/brain wo con IMPRESSION: No acute intracranial pathology.
--- NOTE | ~2020-07-16 | US_ITS ---
EXAMINATION: US abdomen complete, US duplex arterial venous comp CLINICAL INFORMATION: Cirrhosis. Evaluate for ascites and portal vein thrombosis.. COMPARISON: Prior studies including the 06/08/2020 CT scan TECHNIQUE: Real-time imaging of the abdominal viscera. FINDINGS: PANCREAS: Complex portions unremarkable ABDOMINAL AORTA: The proximal, mid, and distal segments are normal in caliber. INFERIOR VENA CAVA: Visualized portions are normal. LIVER: Nodular cirrhotic appearing liver with coarsened echotexture but no focal hepatic lesion. There is no intrahepatic biliary duct dilatation seen. GALLBLADDER: Gallstones seen in the midportion of the gallbladder. No gallbladder wall thickening or pericholecystic inflammatory changes seen. COMMON BILE DUCT: Normal in caliber measuring 0.5 cm in diameter. RIGHT KIDNEY: Normal. No hydronephrosis. No renal calculi or focal parenchymal lesions. The kidney measures 10.4 cm in maximum dimension. LEFT KIDNEY: Normal. No hydronephrosis. No renal calculi or focal parenchymal lesions. The kidney measures 11.4 cm in maximum dimension. SPLEEN: Normal. The spleen measures 11.1 cm in maximum dimension. FREE FLUID: No significant ascites. Doppler evaluation demonstrates hepatopedal flow within the portal veins. Hepatic artery is patent. Normal appearance to the hepatic veins. The splenic vein is patent with hepatopedal flow. 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 On CT scan this large inferior mesenteric vein extends into the pelvis likely extending to collateral vessels. US/US duplex arterial venous comp IMPRESSION: Nodular cirrhotic appearing liver but no focal hepatic lesions seen by ultrasound. Portal vein is patent. Incidental note is made of a large inferior mesenteric vein which by CT scan extends into the pelvis to the lateral perirectal/hemorrhoidal varices
--- NOTE | ~2020-07-16 | CT_ITS ---
EXAMINATION: CT HEAD WITHOUT CONTRAST CLINICAL INFORMATION: 07/06/2020 COMPARISON: 07/06/2020 TECHNIQUE: Contiguous axial imaging was performed from the skull base to vertex without intravenous administration of contrast. This CT examination was performed using dose optimization techniques as appropriate, variously including the following: *Automated exposure control *Adjustment of mA and/or kV according to patient size (this includes techniques or standardized protocols for targeted exams where dose is matched to indication/reason for exam; i.e. extremities or head) *Use of iterative reconstruction technique DLP: 636 mGy-cm FINDINGS: There is no evidence of acute intracranial hemorrhage or territorial infarction. No abnormal mass effect or midline shift is seen. Hazel to white matter differentiation is well preserved. No extra-axial fluid collections are identified. The ventricles are normal in size. There is no abnormal attenuation within the brain parenchyma. The osseous structures and soft tissues are normal. The mastoid air cells and visualized portions of the paranasal sinuses are well aerated. CT/CT head/brain wo con IMPRESSION: No acute intracranial pathology.
--- NOTE | ~2020-07-16 | XR_ITS ---
EXAMINATION: PORTABLE CHEST 1 VIEW CLINICAL INFORMATION: ams . COMPARISON: 06/29/2020. TECHNIQUE: Portable frontal view of the chest was obtained. FINDINGS: The lungs are well expanded. No focal infiltrate, effusion, edema, or pneumothorax. Cardiac and mediastinal silhouettes are within normal limits for technique. No acute bony abnormality seen. XR/XR chest 1V IMPRESSION: No evidence of acute disease.
--- NOTE | 2020-07-16 18:14 | ED_ITS ---
HPI - Altered Mental Status General Chief Complaint: Altered Mental Status Stated Complaint: ams Time Seen by Provider: 07/16/20 20:43 Source: patient and EMS Mode of arrival: EMS Limitations: altered mental status History of Present Illness HPI narrative: 54-year-old female with past medical history of [place], alcoholic cirrhosis, ascites, alcoholic hepatitis, history of SBP, anemia, hypoglycemia, major depressive disorder, hypercholesterolemia presents with an episode of altered mental status. It was reported the patient was found wandering about her home, unable to answer simple questions. Patient was seen last week for similar presentation. Patient does not report any physical complaints at this time. MD complaint: altered mental status Onset (ago): unknown Timing confirmed by: family member Severity: moderate Consistency of symptoms: unknown Context: history of similar presentation Associated symptoms: denies other symptoms Related Data Home Medications Medication Instructions Recorded Confirmed furosemide 40 mg tablet 40 mg PO DAILY tab 06/24/20 07/17/20 naltrexone 1 tab PO DAILY 07/17/20 07/17/20 Previous Rx's Medication Instructions Recorded spironolactone 25 mg tablet 50 mg PO DAILY #60 tab 06/28/20 potassium chloride 20 mEq 20 meq PO BID #60 tab 06/30/20 tablet,extended release(part/cryst) cefuroxime axetil 250 mg PO Q24H #60 tab 07/09/20 lactulose 20 g PO BID #3000 ml 07/09/20 Allergies Allergy/AdvReac Type Severity Reaction Status Date / Time Penicillins [PENICILLINS] Allergy Mild YEAST Verified 06/24/20 15:08 INFECTION Review of Systems Review of Systems: Constitutional: No Fever, No Chills ENT/Mouth: No Ear Pain, No Hoarseness, No sore throat Eyes: No Eye Pain, No Swelling, No Redness, No Foreign Body Cardiovascular: No Chest Pain, No SOB Respiratory: No Cough, No Dyspnea Gastrointestinal: No Nausea, No Vomiting, No Diarrhea, No abdominal Pain Genitourinary: No Dysuria, No Hematuria Musculoskeletal: No joint pain, No Myalgias, No Joint Swelling Skin: No Skin lacerations, No rash Neuro: No Weakness, No Numbness, No Paresthesias, No Loss of Consciousness, No Dizziness, No Headache Psych: No Anxiety/Panic, No Depression Heme/Lymph: no easy bruising, no Lymphadenopathy Endocrine: No Polyuria, No Polydipsia Yes all other systems are reviewed and are negative [facility] Past Medical History Attestation statement: The following information was validated with the patient. Source: old records reviewed Medical History Alcohol abuse Hypercholesterolemia Hypoglycemia Hypokalemia Leukopenia Liver disease Family History Family History Father Throat cancer Mother Lung cancer Social History Social History Household Members: Children Housing: House Alcohol intake: unknown Smoking Status: Unknown if ever smoked Advance Directives: No Advance Directives Information Provided: Yes service: No Current occupational status: unemployed Physical Exam Vital Signs: Vital Signs: Last Vital Signs Temp 97.8 F 07/16/20 20:32 Pulse 100 07/17/20 02:00 Resp 16 07/17/20 02:00 BP 142/72 H 07/17/20 02:00 Pulse Ox 100 07/17/20 02:00 Body Mass Index 17.5 Appearance: Alert. Oriented X3. No acute distress. Eyes: Pupils equal, round and reactive to light. ENT: Pharynx normal. Neck: Normal inspection. Neck supple. CVS: Normal heart rate and rhythm. Pulses normal. Respiratory: No respiratory distress. Breath sounds normal. Abdomen: Soft and nontender. Skin: Skin warm and dry. Normal skin color. Normal skin turgor. Extremities: No lower extremity edema. Neuro: No motor deficit. No sensory deficit. Course Course Course Narrative: 54-year-old female presents via EMS from home for altered mental status. Patient was seen on 07/06/[address] scan of head, ammonia, CBC, Chem 7, urinalysis. Patient is able to answer questions appropriately, has a flat affect. Able to follow commands. Physical exam is otherwise normal. Lab values are abnormal however consistent with her prior values, H&H 8.5/24.3 which have been consistent since June of 2020, with no lab values from 2019. Platelets 103 which is consistent and better than prior lab values dating back to 2019. BUN 23 , will resuscitate with 1 L of fluid. Bilirubin 2.9 which is improved from prior lab values, AST and ALT mildly elevated, lipase 105, ETOH negative. CT scan of head is negative for acute findings requiring emergent intervention, urinalysis is negative. This altered mental status could be her baseline. Multiple call out to family, no response from multiple numbers. Patient states that family may not want her home. Order for case management outreach and education social worker and PT eval. Sign-out to Dr. Gonsalez. MDM - Altered Mental Status Differential Diagnosis Differential diagnosis: Likely alcoholic intoxication, altered mental status, delirium, encephalopathy, hypoglycemia, hyponatremia, subarachnoid hemorrhage and sepsis Medical Records Attestation: I reviewed the patient's medical records. Lab Data Attestation: I reviewed the patient's lab results. Result diagrams: 07/16/20 18:45 07/16/20 18:45 Labs: Lab Results 07/16/20 07/16/20 07/16/20 Range/Units 18:38 18:45 18:45 WBC 8.2 (4.8-10.8) X10*3/uL RBC 2.40 L (4.20-5.50) X10*6/uL Hgb 8.5 L (12.0-16.0) g/dl Hct 24.3 L (37-47) % MCV 101.3 H (80-98) fL MCH 35.4 H (27.0-33.0) pg MCHC 35.0 (31.0-35.0) g/dl RDW 14.5 (11.0-16.0) % Plt Count 103 L (160-400) X10*3/uL MPV 10.2 (9.4-12.3) fL Immature Gran % (Auto) 0.4 (0.0-0.4) % Neut % (Auto) 66.0 (45-73) % Lymph % (Auto) 18.3 L (20-40) % [place] % (Auto) 13.2 H (2-11) % Eos % (Auto) 1.6 (0-4) % Baso % (Auto) 0.5 (0-2) % Lymph # (Auto) 1.5 (1.2-4.9) X10*3/uL [place] # (Auto) 1.1 (0.1-1.2) X10*3/uL Eos # (Auto) 0.1 (0.0-0.4) X10*3/uL Baso # (Auto) 0.0 (0.0-0.2) X10*3/uL Abs Immat Gran (auto) 0.03 (0.00-0.03) X10*3/uL Absolute Neuts (auto) 5.4 (2.0-8.3) X10*3/uL Absolute Nucleated RBC 0.000 (0.0-0.012) X10*3/uL Nucleated RBC % (auto) 0.0 (0.0-0.2) /100WBC PT 16.4 H (10.8-13.0) SEC INR 1.4 H (0.9-1.1) APTT 36.9 (24.1-38.0) SEC Sodium (135-145) mmol/L Potassium (3.3-5.1) mmol/L Chloride (96-108) mmol/L Carbon Dioxide (22-29) mmol/L Anion Gap (12-20) BUN (9-16) mg/dL Creatinine (0.5-1.4) mg/dL Estim Creat Clear Calc Estimated GFR POC Glucose 91 (60-115) mg/dL Random Glucose (60-115) mg/dL Calcium (8.4-10.2) mg/dL Magnesium (1.6-2.6) mg/dL Total Bilirubin (0.0-1.0) mg/dL Direct Bilirubin (0.0-0.5) mg/dL AST (5-31) U/L ALT (0-31) U/L Alkaline Phosphatase (39-117) U/L Ammonia (13-55) umol/L Troponin I High Sens (<3.5-17.0) ng/L Total Protein (6.5-8.0) g/dL Albumin (3.5-5.0) g/dL Lipase (8-78) U/L Urine Color Urine Appearance Urine pH (5.0-8.0) Ur Specific [place] (1.005-1.025) Urine Protein (NEG-TRACE) MG/DL Urine Glucose (UA) (NEG) MG/DL Urine Ketones (NEG) MG/DL Urine Blood (NEG) Urine Nitrite (NEG) Ur Leukocyte Esterase (NEG) Ethyl Alcohol mg/dL 07/16/20 07/16/20 07/16/20 Range/Units 18:45 18:45 18:45 WBC (4.8-10.8) X10*3/uL RBC (4.20-5.50) X10*6/uL Hgb (12.0-16.0) g/dl Hct (37-47) % MCV (80-98) fL MCH (27.0-33.0) pg MCHC (31.0-35.0) g/dl RDW (11.0-16.0) % Plt Count (160-400) X10*3/uL MPV (9.4-12.3) fL Immature Gran % (Auto) (0.0-0.4) % Neut % (Auto) (45-73) % Lymph % (Auto) (20-40) % [place] % (Auto) (2-11) % Eos % (Auto) (0-4) % Baso % (Auto) (0-2) % Lymph # (Auto) (1.2-4.9) X10*3/uL [place] # (Auto) (0.1-1.2) X10*3/uL Eos # (Auto) (0.0-0.4) X10*3/uL Baso # (Auto) (0.0-0.2) X10*3/uL Abs Immat Gran (auto) (0.00-0.03) X10*3/uL Absolute Neuts (auto) (2.0-8.3) X10*3/uL Absolute Nucleated RBC (0.0-0.012) X10*3/uL Nucleated RBC % (auto) (0.0-0.2) /100WBC PT (10.8-13.0) SEC INR (0.9-1.1) APTT (24.1-38.0) SEC Sodium 134 L (135-145) mmol/L Potassium 3.9 (3.3-5.1) mmol/L Chloride 105 (96-108) mmol/L Carbon Dioxide 17 L (22-29) mmol/L Anion Gap 16 (12-20) BUN 23 H (9-16) mg/dL Creatinine 1.28 (0.5-1.4) mg/dL Estim Creat Clear Calc 38.2 Estimated GFR 43 POC Glucose (60-115) mg/dL Random Glucose 105 (60-115) mg/dL Calcium 8.6 (8.4-10.2) mg/dL Magnesium 2.1 (1.6-2.6) mg/dL Total Bilirubin 2.9 H (0.0-1.0) mg/dL Direct Bilirubin 1.8 H (0.0-0.5) mg/dL AST 81 H (5-31) U/L ALT 43 H (0-31) U/L Alkaline Phosphatase 86 (39-117) U/L Ammonia 50 (13-55) umol/L Troponin I High Sens 4.6 (<3.5-17.0) ng/L Total Protein 8.5 H (6.5-8.0) g/dL Albumin 3.0 L (3.5-5.0) g/dL Lipase 105 H (8-78) U/L Urine Color Urine Appearance Urine pH (5.0-8.0) Ur Specific [place] (1.005-1.025) Urine Protein (NEG-TRACE) MG/DL Urine Glucose (UA) (NEG) MG/DL Urine Ketones (NEG) MG/DL Urine Blood (NEG) Urine Nitrite (NEG) Ur Leukocyte Esterase (NEG) Ethyl Alcohol mg/dL 07/16/20 07/16/20 Range/Units 18:45 19:51 WBC (4.8-10.8) X10*3/uL RBC (4.20-5.50) X10*6/uL Hgb (12.0-16.0) g/dl Hct (37-47) % MCV (80-98) fL MCH (27.0-33.0) pg MCHC (31.0-35.0) g/dl RDW (11.0-16.0) % Plt Count (160-400) X10*3/uL MPV (9.4-12.3) fL Immature Gran % (Auto) (0.0-0.4) % Neut % (Auto) (45-73) % Lymph % (Auto) (20-40) % [place] % (Auto) (2-11) % Eos % (Auto) (0-4) % Baso % (Auto) (0-2) % Lymph # (Auto) (1.2-4.9) X10*3/uL [place] # (Auto) (0.1-1.2) X10*3/uL Eos # (Auto) (0.0-0.4) X10*3/uL Baso # (Auto) (0.0-0.2) X10*3/uL Abs Immat Gran (auto) (0.00-0.03) X10*3/uL Absolute Neuts (auto) (2.0-8.3) X10*3/uL Absolute Nucleated RBC (0.0-0.012) X10*3/uL Nucleated RBC % (auto) (0.0-0.2) /100WBC PT (10.8-13.0) SEC INR (0.9-1.1) APTT (24.1-38.0) SEC Sodium (135-145) mmol/L Potassium (3.3-5.1) mmol/L Chloride (96-108) mmol/L Carbon Dioxide (22-29) mmol/L Anion Gap (12-20) BUN (9-16) mg/dL Creatinine (0.5-1.4) mg/dL Estim Creat Clear Calc Estimated GFR POC Glucose (60-115) mg/dL Random Glucose (60-115) mg/dL Calcium (8.4-10.2) mg/dL Magnesium (1.6-2.6) mg/dL Total Bilirubin (0.0-1.0) mg/dL Direct Bilirubin (0.0-0.5) mg/dL AST (5-31) U/L ALT (0-31) U/L Alkaline Phosphatase (39-117) U/L Ammonia (13-55) umol/L Troponin I High Sens (<3.5-17.0) ng/L Total Protein (6.5-8.0) g/dL Albumin (3.5-5.0) g/dL Lipase (8-78) U/L Urine Color YELLOW Urine Appearance CLEAR Urine pH 5.5 (5.0-8.0) Ur Specific [place] 1.020 (1.005-1.025) Urine Protein NEG (NEG-TRACE) MG/DL Urine Glucose (UA) NEG (NEG) MG/DL Urine Ketones NEG (NEG) MG/DL Urine Blood NEG (NEG) Urine Nitrite NEG (NEG) Ur Leukocyte Esterase NEG (NEG) Ethyl Alcohol < 10 mg/dL Imaging Data Chest x-ray: Attestation: I personally reviewed and interpreted this imaging study as follows: Radiologist's impression: EXAMINATION: PORTABLE CHEST 1 VIEW CLINICAL INFORMATION: ams . COMPARISON: 06/29/2020. TECHNIQUE: Portable frontal view of the chest was obtained. FINDINGS: The lungs are well expanded. No focal infiltrate, effusion, edema, or pneumothorax. Cardiac and mediastinal silhouettes are within normal limits for technique. No acute bony abnormality seen. XR/XR chest 1V IMPRESSION: No evidence of acute disease. CT scan - head: Attestation: I personally reviewed and interpreted this imaging study as follows: Radiologist's impression: EXAMINATION: CT HEAD WITHOUT CONTRAST CLINICAL INFORMATION: 07/06/2020 COMPARISON: 07/06/2020 TECHNIQUE: Contiguous axial imaging was performed from the skull base to vertex without intravenous administration of contrast. This CT examination was performed using dose optimization techniques as appropriate, variously including the following: *Automated exposure control *Adjustment of mA and/or kV according to patient size (this includes techniques or standardized protocols for targeted exams where dose is matched to indication/reason for exam; i.e. extremities or head) *Use of iterative reconstruction technique DLP: 636 mGy-cm FINDINGS: There is no evidence of acute intracranial hemorrhage or territorial infarction. No abnormal mass effect or midline shift is seen. Hazel to white matter differentiation is well preserved. No extra-axial fluid collections are identified. The ventricles are normal in size. There is no abnormal attenuation within the brain parenchyma. The osseous structures and soft tissues are normal. The mastoid air cells and visualized portions of the paranasal sinuses are well aerated. CT/CT head/brain wo con IMPRESSION: No acute intracranial pathology. Discharge Plan Discharge Prescriptions: No Action spironolactone 25 mg tablet 50 mg PO DAILY Qty: 60 RF: 1 cefuroxime axetil 250 mg Tablet 250 mg PO Q24H Qty: 60 RF: 0 lactulose 20 gram/30 mL Solution 20 g PO BID Qty: 3000 RF: 0 naltrexone 50 mg tablet 1 tab PO DAILY RF: 0 furosemide 40 mg tablet 40 mg PO DAILY RF: 0 potassium chloride [Klor-Con M20] 20 mEq tablet,ER particles/crystals 20 meq PO BID Qty: 60 RF: 2
[2020-07-16 18:18] VITALS: BP 138/88; BP 156/86; PULSE 101; PULSE 108; RESP 16; TEMP 36.5; O2SAT 100; BMI 17.5
--- NOTE | 2020-07-16 18:24 | ECG_ITS ---
Test Reason : AMS Blood Pressure : / mmHG Vent. Rate : 098 BPM Atrial Rate : 098 BPM P-R Int : 174 ms QRS Dur : 086 ms QT Int : 404 ms P-R-T Axes : 057 063 061 degrees QTc Int : 515 ms Normal sinus rhythm Prolonged QT Abnormal ECG When compared with ECG of 29-JUN-2020 18:03, No significant change was found Referred By: Yanni Dominguez Electronically Signed By:ELSA KANG MD
[2020-07-16 18:51] LABS: Glucose, Whole Blood 91 mg/dL (60-115)
[2020-07-16 18:52] LABS: MANUAL DIFF FLAG NO
[2020-07-16 18:54] LABS: Basophils Percent Auto 0.5 % (0-2); Eosinophils Absolute Auto 0.1 X10*3/uL (0.0-0.4); Eosinophils Percent Auto 1.6 % (0-4); Hematocrit 24.3 % (37-47); Hemoglobin 8.5 g/dl (12.0-16.0); Imm Gran Abs Auto 0.03 X10*3/uL (0.00-0.03); Imm Gran Pct Auto 0.4 % (0.0-0.4); Lymphocytes Absolute Auto 1.5 X10*3/uL (1.2-4.9); Lymphocytes Percent Auto 18.3 % (20-40); Mean Corpuscular Hemoglobin 35.4 pg (27.0-33.0); Mean Corpuscular Volume 101.3 fL (80-98); Mean Platelet Volume 10.2 fL (9.4-12.3); Monocytes Absolute Auto 1.1 X10*3/uL (0.1-1.2); Monocytes Percent Auto 13.2 % (2-11); Neutrophils Absolute Auto 5.4 X10*3/uL (2.0-8.3); Platelet Count 103 X10*3/uL (160-400); Red Cell Distribution Width 14.5 % (11.0-16.0); White Blood Count 8.2 X10*3/uL (4.8-10.8)
[2020-07-16 19:00] LABS: INTERNATIONAL NORM RATIO 1.4 (0.9-1.1); Prothrombin Time 16.4 SEC (10.8-13.0)
[2020-07-16 19:02] LABS: Partial Thromboplastin Time 36.9 SEC (24.1-38.0)
[2020-07-16 19:06] LABS: Ammonia 50 umol/L (13-55)
[2020-07-16 19:13] LABS: Ethanol < 10 mg/dL
[2020-07-16 19:20] LABS: Troponin-I High Sensitivity 4.6 ng/L (<3.5-17.0)
[2020-07-16 19:23] LABS: Alanine Aminotransferase 43 U/L (0-31); Alkaline Phosphatase 86 U/L (39-117); Anion Gap 16 (12-20); Aspartate Amino Transferase 81 U/L (5-31); Bilirubin Direct 1.8 mg/dL (0.0-0.5); Bilirubin Total 2.9 mg/dL (0.0-1.0); Blood Urea Nitrogen 23 mg/dL (9-16); Calcium 8.6 mg/dL (8.4-10.2); Carbon Dioxide 17 mmol/L (22-29); Chloride 105 mmol/L (96-108); Creatinine Clr Calc Pharmacy 38.2; Estimated Glomerular Filt Rate 43; Glucose Random 105 mg/dL (60-115); Lipase 105 U/L (8-78); Magnesium 2.1 mg/dL (1.6-2.6); Potassium 3.9 mmol/L (3.3-5.1); Sodium 134 mmol/L (135-145); Total Protein 8.5 g/dL (6.5-8.0)
[2020-07-16 19:58] LABS: Glucose Urine UA NEG (NEG); Leukocyte Esterase Urine NEG (NEG); Nitrite Urine NEG (NEG); PH 5.5 (5.0-8.0); Urine Blood NEG (NEG); Urine Ketones NEG (NEG); Urine Protein NEG (NEG-TRACE)
[2020-07-16 20:04] LABS: Appearance Urine CLEAR; Color Urine YELLOW
[2020-07-16 20:32] VITALS: BP 129/72; PULSE 88; RESP 17; TEMP 36.6; O2SAT 100
--- NOTE | 2020-07-16 21:12 | PC.NURSE ---
hl placed to [facility]. gabi up and running w/o site intact. awaiting further orders.
[2020-07-16] MEDS: 0.9 % Sodium Chloride 1,000 ML 999 ML IVCONT (21:14)
[2020-07-16 23:23] VITALS: BP 120/69; PULSE 103; RESP 16; O2SAT 99
[2020-07-17] VITALS (12 sets, daily range): BP systolic 109–153; BP diastolic 61–92; PULSE 92–106; RESP 12–18; TEMP 36.4–36.8; O2SAT 95–100
--- NOTE | 2020-07-17 01:48 | PC.NURSE ---
MED REC DONE. PT RESTING IN STRETCHER IN NAD. PT EATING A SANDWICH AND DRINKING JUICE. WILL CONTINUE TO MONITOR PT.
--- NOTE | 2020-07-17 02:14 | PC.NURSE ---
PT CONFUSED TO WHY SHE IS STAYING THE NIGHT IN THE ED. PT VERBALIZED UNDERSTANDING. WILL CONTINUE TO MONITOR PT.
--- NOTE | 2020-07-17 02:21 | PC.NURSE ---
RECEIVED PERMISSION TO SPEAK WITH PT'S DAUGHTER ON PHONE FOR UPDATE. WILL CONTINUE CARE OF PT. PT AWAITING FOR CASE MGT AND PT KIRA IN AM.
[2020-07-17] MEDS: Lactulose 20 GM/30 ML SOLUTION PO ×4 (04:42→20:29)
--- NOTE | 2020-07-17 05:18 | PC.NURSE ---
PT MEDICATED PER EMAR. PT UP TO COMMODE WITHOUT DIFFICULTY, PT WITH STEADY EVEN GAIT. PT CALM AND COOPERATIVE IN STRETCHER, DENIES COMPLAINTS JUST WONDERING WHAT'S GOING ON? PT REQUESTING NAIMA PRIMITIVO TO DRINK. AWAITING FOR CASE MGT IN AM. WILL CONTINUE TO MONITOR PT.
[2020-07-17] MEDS: Furosemide 40 MG TABLET PO (08:18)
[2020-07-17] MEDS: Potassium Chloride ER 20 MEQ TAB.ER.PRT PO (08:18)
[2020-07-17] MEDS: Spironolactone 25 MG TABLET 50 MG PO (08:18)
[2020-07-17] MEDS: Naltrexone HCl 50 MG TABLET PO (08:27)
--- NOTE | 2020-07-17 11:36 | MHC.CM.PN ---
CM consult ER. Female 54 dx AMS. PT jeffrey performed this am. The Pt qualifies for STR. Spoke with Marlene Perry via phone. She did not have a preference for STR facilities. Spoke with the Pt in ED. She did not have a STR rehab preference. Referrals have been sent out. There is a HCP on file. CM will follow.
[2020-07-17 12:36] LABS: Ammonia 59 umol/L (13-55)
[2020-07-17] MEDS: Thiamine HCL 500 MG in 0.9 % Sodium Chloride 100 ML 210 MG IV (13:09)
--- NOTE | 2020-07-17 13:48 | PM.EVENT ---
Event Note Date of Service: 07/17/20 Event Note: Patient seen and examined. Case discussed with ARIA Mann. Agree with her history and physical + plan as documented with the following additions and/or changes: In brief, 54-year-old female with a history of alcohol abuse and dependence, cirrhosis, hepatic encephalopathy who presents to the hospital after she is brought in by her family for increasing confusion. Patient is seen examined the emergency room, she is too confused to provide any meaningful history. As such, history is obtained from the ED providers as well as conversation with the patient's daughter/HCP. She reports that her mother was in her usual state of health after being discharged from the hospital earlier this month. She has been compliant with her medications, particularly her lactulose although she does endorse that her mother has not had 3-4 bowel movements and in fact only moves it about once a day. She reports that mother was in her usual state of health until evening, even cooking dinner for the family. At this, Sunday patient became more confused and so she was brought to emergency room. In the ED, her workup was negative and the plan was urgently for placement, however she became increasingly confused insert admission was requested. Assessment and plan 54-year-old being admitted for hepatic encephalopathy Suspect inadequate lactulose dose, will increase her dose to 20 g 4 times a day. Will consult Gastroenterology to see if rifaximin is indicated. Hold off on antibiotics, no clinical evidence of SBP although she does have some mild ascites. Remainder per H&P.
--- NOTE | 2020-07-17 14:04 | P.HPHOSP_ITS ---
History of Present Illness Date of Service: 07/17/20 Chief Complaint: confusion This is a 54-year-old female with a history of alcoholic liver cirrhosis who was brought to the emergency department due to confusion. Initially her workup was unremarkable and she was evaluated by Physical therapy for possible placement. However she was noticed to become increasingly confused and a repeat ammonia level was checked and noted to be increased to 59. Brain CT and the remainder of her lab work showed no other cause for confusion. Urinalysis and CXR were negative. The patient remained afebrile. The patient reports feeling confused but is unable to provide any other significant history. According to her daughter she has been compliant with her medication although is only moving her bowels once a day. She had been in her usual state of health until evening. On Sunday morning she was noted to be more confused. Given increasing confusion, the decision was made to admit her to the hospital for further management of presumed hepatic encephalopathy. Of note there was some consideration for Wernicke's encephalopathy and she was given IV thiamine while in the ED. Review of Systems Review of Systems: Yes all other systems are reviewed and are negative Constitutional: Constitutional: Denies chills and Denies fever(s) Cardiovascular: Cardiovascular: Denies chest pain Respiratory: Respiratory: Denies cough Gastrointestinal: Gastrointestinal: Denies abdominal pain Neurologic: Reports confusion Psychiatric: Psychiatric: Reports confusion [facility] Medical History (Updated 07/17/20 @ 14:10 by ARIA Pinto) Alcohol abuse Alcoholic cirrhosis of liver with ascites Hypercholesterolemia Hypoglycemia Hypokalemia Leukopenia Liver disease Thrombocytopenia Family History Father Throat cancer Mother Lung cancer Social History (Updated 07/17/20 @ 14:11 by ARIA Pinto) Household Members: Children Housing: House Alcohol intake: former Smoking Status: Unknown if ever smoked Advance Directives: No Advance Directives Information Provided: Yes service: No Current occupational status: unemployed Meds Allergies Allergy/AdvReac Type Severity Reaction Status Date / Time Penicillins [PENICILLINS] Allergy Mild YEAST Verified 06/24/20 15:08 INFECTION Active Medications: Current Medications Generic Name Dose Route Start Last Admin Trade Name Freq PRN Reason Stop Dose Admin Lactulose 20 gm 07/17/20 03:00 07/17/20 08:27 Lactulose 20 Gm/30 Ml Solution PO 20 gm BID RANDOLPH Administration Lactulose 20 gm 07/17/20 13:45 07/17/20 13:56 Lactulose 20 Gm/30 Ml Solution PO 20 gm Q6H RANDOLPH Administration Naltrexone HCl 50 mg 07/17/20 09:00 07/17/20 08:27 Naltrexone Hcl 50 Mg Tablet PO 50 mg DAILY RANDOLPH Administration Pharmacy Consult 1 each 07/17/20 00:00 Consult Rx Perform Med Rec MISCELLANE ONCE PRN Consult order Potassium Chloride 20 meq 07/17/20 09:00 07/17/20 08:18 Potassium Chloride Er 20 Meq Tab.Er.Prt PO 20 meq BID RANDOLPH Administration Home Medications Medication Instructions Recorded Confirmed Last Taken Type furosemide 40 mg tablet 40 mg PO DAILY tab 06/24/20 07/17/20 Unknown History naltrexone 1 tab PO DAILY 07/17/20 07/17/20 Unknown History Physical Exam Vital Signs and Narrative: Vital Signs: Last Vital Signs Temp 97.6 F 07/17/20 12:00 Pulse 101 H 07/17/20 13:10 Resp 14 07/17/20 13:10 BP 146/92 H 07/17/20 13:10 Pulse Ox 95 07/17/20 13:10 Body Mass Index 17.5 Const: General: cooperative, no acute distress, alert, awake and confusion Nutritional Appearance: well nourished Orientation/consciousness: confusion HENMT: Head: Yes normocephalic and Yes atraumatic Eyes: Sclerae: sclerae normal Chest: Chest palpation & inspection: normal inspection of the chest Resp: Effort & Inspection: normal respiratory effort and no respiratory distress Auscultation: clear to auscultation bilaterally Cardio: Rate: regular rate Rhythm: regular rhythm GI: Other: softly distended, non-tender; some ascites present Palpation (GI): Soft to palpation and nontender Skin: General skin exam: no rashes or lesions noted Neuro: Other: mild asterixis present General: confusion Cranial nerves: Yes CN's II-XII intact bilaterally and Yes Bilaterally intact EOM present Extrem: General: Yes normal to inspection Results Labs CBC and Chem 7: 07/16/20 18:45 07/16/20 18:45 Labs: Laboratory Results - last 24 hr 07/16/20 07/16/20 07/16/20 18:38 18:45 18:45 MCV 101.3 H MCH 35.4 H MCHC 35.0 RDW 14.5 Plt Count 103 L MPV 10.2 Immature Gran % (Auto) 0.4 Neut % (Auto) 66.0 Lymph % (Auto) 18.3 L [place] % (Auto) 13.2 H Eos % (Auto) 1.6 Baso % (Auto) 0.5 Lymph # (Auto) 1.5 [place] # (Auto) 1.1 Eos # (Auto) 0.1 Baso # (Auto) 0.0 Abs Immat Gran (auto) 0.03 Absolute Neuts (auto) 5.4 Absolute Nucleated RBC 0.000 Nucleated RBC % (auto) 0.0 PT 16.4 H INR 1.4 H APTT 36.9 Anion Gap Estim Creat Clear Calc Estimated GFR POC Glucose 91 Random Glucose Calcium Magnesium Total Bilirubin Direct Bilirubin AST ALT Alkaline Phosphatase Ammonia Troponin I High Sens Total Protein Albumin Lipase Urine Color Urine Appearance Urine pH Ur Specific Aroda Urine Protein Urine Glucose (UA) Urine Ketones Urine Blood Urine Nitrite Ur Leukocyte Esterase Ethyl Alcohol 07/16/20 07/16/20 07/16/20 18:45 18:45 18:45 MCV MCH MCHC RDW Plt Count MPV Immature Gran % (Auto) Neut % (Auto) Lymph % (Auto) [place] % (Auto) Eos % (Auto) Baso % (Auto) Lymph # (Auto) [place] # (Auto) Eos # (Auto) Baso # (Auto) Abs Immat Gran (auto) Absolute Neuts (auto) Absolute Nucleated RBC Nucleated RBC % (auto) PT INR APTT Anion Gap 16 Estim Creat Clear Calc 38.2 Estimated GFR 43 POC Glucose Random Glucose 105 Calcium 8.6 Magnesium 2.1 Total Bilirubin 2.9 H Direct Bilirubin 1.8 H AST 81 H ALT 43 H Alkaline Phosphatase 86 Ammonia 50 Troponin I High Sens 4.6 Total Protein 8.5 H Albumin 3.0 L Lipase 105 H Urine Color Urine Appearance Urine pH Ur Specific A[place]da Urine Protein Urine Glucose (UA) Urine Ketones Urine Blood Urine Nitrite Ur Leukocyte Esterase Ethyl Alcohol 07/16/20 07/16/20 07/17/20 18:45 19:51 12:07 MCV MCH MCHC RDW Plt Count MPV Immature Gran % (Auto) Neut % (Auto) Lymph % (Auto) [place] % (Auto) Eos % (Auto) Baso % (Auto) Lymph # (Auto) [place] # (Auto) Eos # (Auto) Baso # (Auto) Abs Immat Gran (auto) Absolute Neuts (auto) Absolute Nucleated RBC Nucleated RBC % (auto) PT INR APTT Anion Gap Estim Creat Clear Calc Estimated GFR POC Glucose Random Glucose Calcium Magnesium Total Bilirubin Direct Bilirubin AST ALT Alkaline Phosphatase Ammonia 59 H Troponin I High Sens Total Protein Albumin Lipase Urine Color YELLOW Urine Appearance CLEAR Urine pH 5.5 Ur Specific Aroda 1.020 Urine Protein NEG Urine Glucose (UA) NEG Urine Ketones NEG Urine Blood NEG Urine Nitrite NEG Ur Leukocyte Esterase NEG Ethyl Alcohol < 10 Imaging Radiologist's Impressions: Impressions Chest X-Ray 07/16/20 18:23 IMPRESSION: No evidence of acute disease. Head CT 07/16/20 20:44 IMPRESSION: No acute intracranial pathology. Assessment and Plan (1) Acute kidney injury: Status: Acute (2) Ascites: Qualifiers: Ascites type: due to alcoholic cirrhosis Qualified Code(s): K70.31 - Alcoholic cirrhosis of liver with ascites Status: Acute (3) Encephalopathy: Status: Acute This is a 54-year-old female with a history of alcoholic liver cirrhosis with ascites who presents to the emergency department with confusion found to have hepatic encephalopathy Encephalopathy Likely r/t Hepatic encephalopathy. Ammonia 59. Compliant with lactulose but only having 1 bowel movement per day. Was treated with IV thiamine in ED for concerns over Wenicke's encephalopathy, but given more acute onset of confusion, this is less likely -increase lactulose dose -follow ammonia level -GI evaluation Alcoholic liver cirrhosis with ascites Reports sobriety for the past 6 weeks or so. Liver function improved from previous admission. -will hold diuretics due to worsening renal function -some ascites, no abdominal pain or signs of infection, no indication for ant ibiotics or paracentesis at this time -follow liver function anemia Thrombocytopenia r/t liver dz. chronic, at baseline -follow CBC DVT ppx - mechanical devices code status - full code This case was discussed with Dr. Dinero
[2020-07-17 15:05] LABS: MANUAL DIFF FLAG NO
[2020-07-17 15:08] LABS: Basophils Percent Auto 0.5 % (0-2); Eosinophils Absolute Auto 0.2 X10*3/uL (0.0-0.4); Eosinophils Percent Auto 2.9 % (0-4); Hematocrit 21.5 % (37-47); Hemoglobin 7.5 g/dl (12.0-16.0); Imm Gran Abs Auto 0.01 X10*3/uL (0.00-0.03); Imm Gran Pct Auto 0.2 % (0.0-0.4); Lymphocytes Absolute Auto 1.6 X10*3/uL (1.2-4.9); Lymphocytes Percent Auto 24.9 % (20-40); Mean Corpuscular HGB Conc 34.9 g/dl (31.0-35.0); Mean Corpuscular Hemoglobin 35.5 pg (27.0-33.0); Mean Corpuscular Volume 101.9 fL (80-98); Mean Platelet Volume 10.1 fL (9.4-12.3); Monocytes Absolute Auto 1.1 X10*3/uL (0.1-1.2); Neutrophils Absolute Auto 3.4 X10*3/uL (2.0-8.3); Neutrophils Percent Auto 53.5 % (45-73); Platelet Count 104 X10*3/uL (160-400); Red Blood Count 2.11 X10*6/uL (4.20-5.50); Red Cell Distribution Width 14.7 % (11.0-16.0); White Blood Count 6.3 X10*3/uL (4.8-10.8)
[2020-07-17 15:18] LABS: INTERNATIONAL NORM RATIO 1.4 (0.9-1.1); Prothrombin Time 16.3 SEC (10.8-13.0)
--- NOTE | 2020-07-17 15:19 | PC.NURSE ---
Gave report to Payton RN, awaiting COVID results for transfer to floor.
[2020-07-17 15:28] LABS: Acetaminophen LAB < 1 mcg/mL (<30); Alanine Aminotransferase 45 U/L (0-31); Albumin Level 2.7 g/dL (3.5-5.0); Alkaline Phosphatase 79 U/L (39-117); Anion Gap 13 (12-20); Aspartate Amino Transferase 77 U/L (5-31); Bilirubin Direct 1.8 mg/dL (0.0-0.5); Blood Urea Nitrogen 19 mg/dL (9-16); Calcium 8.3 mg/dL (8.4-10.2); Carbon Dioxide 20 mmol/L (22-29); Chloride 108 mmol/L (96-108); Creatinine Clr Calc Pharmacy 43.2; Estimated Glomerular Filt Rate 50; Glucose Random 111 mg/dL (60-115); Magnesium 2.1 mg/dL (1.6-2.6); Potassium 3.8 mmol/L (3.3-5.1); Salicylate < 5.0 mg/dL (15-30); Sodium 137 mmol/L (135-145); Total Protein 7.8 g/dL (6.5-8.0)
[2020-07-17 15:33] LABS: Troponin-I High Sensitivity 5.1 ng/L (<3.5-17.0)
[2020-07-17 15:42] LABS: Lipase 154 U/L (8-78)
[2020-07-17 15:56] LABS: COVID-19 Test Negative (Negative); IDNOW Serial# 9DD0AD1C
[2020-07-17] MEDS: 0.9 % Sodium Chloride Flush 3 ML SYRINGE IVFLUSH (17:29)
[2020-07-18] MEDS: 0.9 % Sodium Chloride Flush 3 ML SYRINGE IVFLUSH ×4 (00:33→23:36)
[2020-07-18 00:40] VITALS: BP 122/74; PULSE 100; RESP 18; TEMP 36.4; O2SAT 100
[2020-07-18] MEDS: Lactulose 20 GM/30 ML SOLUTION PO ×4 (02:02→21:06)
[2020-07-18 06:30] LABS: MANUAL DIFF FLAG NO
[2020-07-18 06:35] LABS: Basophils Percent Auto 0.7 % (0-2); Eosinophils Absolute Auto 0.2 X10*3/uL (0.0-0.4); Eosinophils Percent Auto 2.8 % (0-4); Hematocrit 23.7 % (37-47); Hemoglobin 8.2 g/dl (12.0-16.0); Imm Gran Abs Auto 0.01 X10*3/uL (0.00-0.03); Imm Gran Pct Auto 0.2 % (0.0-0.4); Lymphocytes Absolute Auto 1.5 X10*3/uL (1.2-4.9); Lymphocytes Percent Auto 26.2 % (20-40); Mean Corpuscular HGB Conc 34.6 g/dl (31.0-35.0); Mean Corpuscular Hemoglobin 34.7 pg (27.0-33.0); Mean Corpuscular Volume 100.4 fL (80-98); Mean Platelet Volume 11.1 fL (9.4-12.3); Monocytes Absolute Auto 1.1 X10*3/uL (0.1-1.2); Monocytes Percent Auto 19.8 % (2-11); Neutrophils Absolute Auto 2.8 X10*3/uL (2.0-8.3); Neutrophils Percent Auto 50.3 % (45-73); Platelet Count 104 X10*3/uL (160-400); Red Blood Count 2.36 X10*6/uL (4.20-5.50); Red Cell Distribution Width 14.5 % (11.0-16.0); White Blood Count 5.6 X10*3/uL (4.8-10.8)
[2020-07-18 06:50] LABS: Ammonia 70 umol/L (13-55)
[2020-07-18 06:52] LABS: INTERNATIONAL NORM RATIO 1.4 (0.9-1.1); Prothrombin Time 16.1 SEC (10.8-13.0)
[2020-07-18 07:06] LABS: Alanine Aminotransferase 47 U/L (0-31); Albumin Level 2.7 g/dL (3.5-5.0); Alkaline Phosphatase 80 U/L (39-117); Anion Gap 14 (12-20); Aspartate Amino Transferase 83 U/L (5-31); Bilirubin Direct 1.7 mg/dL (0.0-0.5); Blood Urea Nitrogen 18 mg/dL (9-16); Calcium 8.2 mg/dL (8.4-10.2); Carbon Dioxide 18 mmol/L (22-29); Chloride 108 mmol/L (96-108); Creatinine Clr Calc Pharmacy 42.5; Estimated Glomerular Filt Rate 49; Glucose Random 116 mg/dL (60-115); Sodium 136 mmol/L (135-145)
[2020-07-18 07:28] VITALS: BP 130/80; PULSE 96; RESP 17; TEMP 36.4; O2SAT 100
--- NOTE | 2020-07-18 08:45 | MHC.CM.PN ---
DEANA UNABLE TO OBTAIN AUTH OVER THE WEEKEND ([facility])
[2020-07-18] MEDS: Naltrexone HCl 50 MG TABLET PO (08:52)
[2020-07-18] MEDS: Thiamine HCL 500 MG in 0.9 % Sodium Chloride 100 ML 210 MG IV (09:56)
--- NOTE | 2020-07-18 12:02 | HO.PM.IMPN ---
Subjective Subjective Date of Service: 07/18/20 Interval History: seen and examined this Am aaox3 and when asked why shes here -- states because I'm crazy and losing my mind she does endorse that she has been only moving her bowels daily at home does endorse that she has not drank since all this started (before June). denies abdominal pain, fevers or chills ROS General - no fevers or chills Cardiovascular - no chest pain Respiratory - no shortness of breath or cough Abdominal- no abdominal pain, nausea, vomiting, diarrhea Physical Exam Vital Signs: Vital Signs: Last Vital Signs Temp 97.6 F 07/18/20 07:28 Pulse 96 07/18/20 07:28 Resp 17 07/18/20 07:28 BP 130/80 07/18/20 07:28 Pulse Ox 100 07/18/20 07:28 Body Mass Index 17.5 Const: General: cooperative, no acute distress, alert and awake Nutritional Appearance: well nourished HENMT: Head: Yes normocephalic and Yes atraumatic Eyes: Sclerae: sclerae normal Chest: Chest palpation & inspection: normal inspection of the chest Resp: Effort & Inspection: normal respiratory effort and no respiratory distress Auscultation: clear to auscultation bilaterally Cardio: Rate: regular rate Rhythm: regular rhythm GI: Other: softly distended, non-tender; some ascites present Palpation (GI): Soft to palpation and nontender Skin: General skin exam: no rashes or lesions noted Neuro: Other: mild asterixis present, improved from yesterday Cranial nerves: Yes CN's II-XII intact bilaterally and Yes Bilaterally intact EOM present Extrem: General: Yes normal to inspection Objective Data Current Medications Generic Name Dose Route Start Last Admin Trade Name Freq PRN Reason Stop Dose Admin Docusate Sodium 100 mg 07/17/20 16:47 Docusate Sodium 100 Mg Capsule PO DAILY PRN Constipation Thiamine HCl 500 mg/ Sodium 105 mls @ 210 mls/hr 07/18/20 09:00 07/18/20 10:44 Chloride IV 07/20/20 09:01 Infused DAILY RANDOLPH Infusion Lactulose 20 gm 07/17/20 03:00 07/17/20 08:27 Lactulose 20 Gm/30 Ml Solution PO 20 gm BID RANDOLPH Administration Lactulose 20 gm 07/17/20 13:45 02/14/21 08:52 Lactulose 20 Gm/30 Ml Solution PO 20 gm Q6H RANDOLPH Administration Naltrexone HCl 50 mg 07/17/20 09:00 07/18/20 08:52 Naltrexone Hcl 50 Mg Tablet PO 50 mg DAILY RANDOLPH Administration Pharmacy Consult 1 each 07/17/20 00:00 Consult Rx Perform Med Rec MISCELLANE ONCE PRN Consult order Potassium Chloride 20 meq 07/17/20 09:00 07/17/20 08:18 Potassium Chloride Er 20 Meq Tab.Er.Prt PO 20 meq BID RANDOLPH Administration Sodium Chloride 3 ml 07/17/20 16:47 07/18/20 08:52 0.9 % Sodium Chloride Flush 3 Ml Syringe IVFLUSH 3 ml QSHIFT RANDOLPH Administration Labs CBC & Chem 7: 07/18/20 06:09 07/18/20 06:09 Assessment and Plan (1) Acute kidney injury: Status: Acute (2) Ascites: Status: Acute (3) Encephalopathy: Status: Acute Assessment and Plan: This is a 54-year-old female with a history of alcoholic liver cirrhosis with ascites who presents to the emergency department with confusion found to have hepatic encephalopathy 1. Hepatic Encephalopathy continue lactulose 20gm QID with goal of 3-4 soft BM daily likley will need higher dose/frequency upon d/c (was on 20gm BID) GI consult to see if Rifaximin indicated 2. Alcoholic liver cirrhosis with ascites Reports sobriety for the past 6 weeks or so was on diuretics, but SCr trend has been on the rise, albeit very low -- will give aldactone alone and monitor 3. anemia, Thrombocytopenia due to liver dx chronic, at baseline stable Full Code DVT pptx, mechanical dispo: home next 24-48 hours if stable.
[2020-07-18] MEDS: Spironolactone 25 MG TABLET PO (14:05)
[2020-07-18 15:14] VITALS: BP 135/80; PULSE 95; RESP 18; TEMP 36.4; O2SAT 100
--- NOTE | 2020-07-18 16:26 | PM.EVENT ---
Event Note Date of Service: 07/18/20 Event Note: GI Consult-Full note dictated-Hx via patient and EMR Imp: 54 yo female with EtOH-induced cirrhosis with associated ascites and SBP(06/2020), encephalopathy, mild coagulopathy, and thrombocytopenia, presenting with apparent worsening mental status and slightly elevated ammonia levels. She appears to have been on an outpatient cephalosporin(? for prophylaxis in regard to recent SBP in 06/2020?), diuretics, and Lactulose. She doesn't show any clinical signs of SBP and her abdominal exam is +/- for ascites presently. She has some minimal asterixis now and is A & O x 3, but seems to have trouble focusing and doesn't answer all questions appropriately. There has been no GI bleeding. She seems to still have a definite component of encephalopathy even though her ammonia level isn't particularly high. Rec: I would continue Lactulose, but add Xifaxan for further treatment of the encephalopathy. I would recommend rechecking an U/S to reassess for ascites to determine how aggressively to use diuretics. Resume prophylactic antibiotics such as Cipro re: previous SBP. I don't think a paracentesis is needed unless the U/S shows significant ascites that would be easy to tap. Adjust diuretics but watch renal function closely. I did review with her the need for continue sobriety as she reports abstinence since 06/2020. Thanks
[2020-07-18] MEDS: levoFLOXacin 250 MG TABLET PO (17:52)
[2020-07-18] MEDS: rifAXIMin 550 MG TABLET PO (21:05)
--- NOTE | 2020-07-18 23:27 | CONS_ITS ---
DATE OF SERVICE: 07/18/2020 REASON FOR CONSULTATION: Alcohol-induced cirrhosis with associated ascites and encephalopathy. HISTORY OF PRESENT ILLNESS: The patient is a 54-year-old female with a long-standing history of alcohol abuse, who was readmitted with some change in mental status and confusion. History has been obtained both from the patient and the medical record. The patient has been admitted now for her 3rd time since early June. She appears to have had spontaneous bacterial peritonitis documented with elevated white blood cell count in her ascites in early June. This was treated with antibiotics intravenously and it looks like she was on an outpatient regimen of some cefuroxime. She has been on lactulose twice a day, but has been admitted with increased ammonia levels and some confusion according to the medical record. There has been no signs of GI bleeding. She has been afebrile here in the hospital. In discussion with the patient, she presently feels fairly well. She denies any abdominal pain. She did have an episode of vomiting yesterday by her report but without bleeding. She describes that her appetite is fairly good. She denies any diarrhea. She has not noticed any hematochezia nor melena. The patient reports that she is aware that she is in [facility] and knows the year, but she does seem somewhat confused, and does not answer all questions appropriately. The patient reports that she last used alcohol over 1 month ago. Prior to that, she had been drinking heavily by her report. MEDICATIONS: Her outpatient medication list included cefuroxime, furosemide 40 mg, lactulose twice a day, naltrexone, potassium, and spironolactone. Her medications here currently include Colace p.r.n., folic acid, lactulose, naltrexone, potassium, spironolactone, and thiamine. PAST MEDICAL HISTORY: Cirrhosis in relation to alcohol abuse with complications including ascites, encephalopathy, thrombocytopenia, and coagulopathy. She denies any other medical problems, such as heart disease, diabetes, or stroke. PAST SURGICAL HISTORY: She denies any surgeries. SOCIAL HISTORY: She reports that she lives with her daughter. Alcohol as above. She does not smoke. She does not work. FAMILY HISTORY: Noncontributory. REVIEW OF SYSTEMS: CONSTITUTIONAL: She reports that she has been tired and appetite has been fair. SKIN: Without rash. No pruritus. CARDIAC: No chest pain. PULMONARY: No cough. No hemoptysis. GI: As above. URINARY: No dysuria, no hematuria. PHYSICAL EXAMINATION: GENERAL: The patient is a pleasant, alert, cooperative female. Again, she is oriented to person, place, and year, but does not answer all questions appropriately, and she seems to really not focus very well during the conversation. SKIN: Warm and dry. There are some spider angiomata on her chest wall. Nonjaundiced. Anicteric sclerae. CHEST: Clear. CARDIAC: Normal S1, S2. ABDOMEN: Soft, nondistended, nontender with good bowel sounds. There was no definitive ascites. EXTREMITIES: Without edema. Neuro: + mild asterixis LABORATORY DATA: The white blood cell count is 5.6, hemoglobin 8.2, and platelet count 104,000. Hemoglobin was 9.0 in early July and was 8.4 on June 24. PT was 16.1, INR 1.4. Normal electrolytes. BUN 18, creatinine 1.15. Total bilirubin 3.0, direct bilirubin 1.7, AST 83, ALT 47, alkaline phosphatase 80. Ammonia level today was 70. Ammonia level was 50 on July 16, it had been as high as 80 on July 06 and was 56 on June 08. Her COVID test was negative. Hepatitis serologies were all negative in early June. The last imaging of her liver was an ultrasound and CAT scan in early June, which showed ascites, but no sign of any liver mass, no biliary disease. IMPRESSION: Given the patient's clinical history, it does appear that she has advanced cirrhosis with associated ascites, hepatic encephalopathy, thrombocytopenia, and coagulopathy. She does not show any clinical evidence of accumulating ascites nor spontaneous bacterial peritonitis at the present time. I suspect she clearly has a component of encephalopathy given some mild asterixis on her exam and her mental status at the present time. She has had no evidence of GI bleeding. At this point, I would continue supportive care. Given that she has been on lactulose, I would add a trial of Xifaxan 550 mg b.i.d. In regard to the history of spontaneous bacterial peritonitis, I would put her back on a prophylactic antibiotic and use quinolone for that for prophylaxis given her low albumin of 2.7. I would reassess her ascites with abdominal ultrasound and Doppler studies, so as to know how best to treat her with diuretics. Her exam does not really show much in the way of ascites, but if she does have a significant amount, then we could consider a repeat paracentesis to definitively exclude SBP as a contributing factor to her ongoing encephalopathy. If there is no significant ascites, then obviously we could hold off on paracentesis and then perhaps cut down on her diuretics, so as to avoid any renal dysfunction. I did review with the patient the importance of remaining abstinent from alcohol as she does report being abstinent from alcohol since her admissions earlier in June. MD SEAMUS Huertas/GEOVANNA / [id number] MTDD
[2020-07-19] VITALS: BP 133/75; PULSE 84; RESP 16; TEMP 36.6; O2SAT 100
[2020-07-19] MEDS: Lactulose 20 GM/30 ML SOLUTION PO ×4 (02:25→19:30)
[2020-07-19 06:48] LABS: Ammonia 65 umol/L (13-55)
[2020-07-19 07:10] LABS: Anion Gap 14 (12-20); Blood Urea Nitrogen 16 mg/dL (9-16); Calcium 8.5 mg/dL (8.4-10.2); Carbon Dioxide 18 mmol/L (22-29); Chloride 106 mmol/L (96-108); Creatinine Clr Calc Pharmacy 47.4; Estimated Glomerular Filt Rate 55; Glucose Random 107 mg/dL (60-115); Potassium 3.7 mmol/L (3.3-5.1); Sodium 134 mmol/L (135-145)
[2020-07-19 08:00] VITALS: BP 149/76; PULSE 100; RESP 16; TEMP 36.9; O2SAT 100
[2020-07-19 08:30] VITALS: BP 149/76; PULSE 100
[2020-07-19] MEDS: Naltrexone HCl 50 MG TABLET PO (08:30)
[2020-07-19] MEDS: Spironolactone 25 MG TABLET PO (08:30)
[2020-07-19] MEDS: Thiamine HCL 100 MG TABLET PO (08:30)
[2020-07-19] MEDS: Folic Acid 1 MG TABLET PO (08:30)
[2020-07-19] MEDS: rifAXIMin 550 MG TABLET PO ×2 (08:30→19:30)
[2020-07-19] MEDS: 0.9 % Sodium Chloride Flush 3 ML SYRINGE IVFLUSH ×3 (08:30→23:24)
[2020-07-19 08:45] LABS: Folate 18.8 ng/mL (> or = 4.0); Vitamin B12 1636 pg/mL (200-900)
--- NOTE | 2020-07-19 09:49 | HO.PM.IMPN ---
Subjective Subjective Date of Service: 07/19/20 Interval History: seen and examined this AM no new complaints oriented but still not answering all questions appropriately ROS General - no fevers or chills Cardiovascular - no chest pain Respiratory - no shortness of breath or cough Abdominal- no abdominal pain, nausea, vomiting, diarrhea Physical Exam Vital Signs: Vital Signs: Last Vital Signs Temp 98.5 F 07/19/20 08:00 Pulse 100 07/19/20 08:30 Resp 16 07/19/20 08:00 BP 149/76 H 07/19/20 08:30 Pulse Ox 100 07/19/20 08:00 Body Mass Index 17.5 Const: General: cooperative, no acute distress, alert and awake Nutritional Appearance: well nourished HENMT: Head: Yes normocephalic and Yes atraumatic Eyes: Sclerae: sclerae normal Chest: Chest palpation & inspection: normal inspection of the chest Resp: Effort & Inspection: normal respiratory effort and no respiratory distress Auscultation: clear to auscultation bilaterally Cardio: Rate: regular rate Rhythm: regular rhythm GI: Other: softly distended, non-tender; some ascites present Palpation (GI): Soft to palpation and nontender Skin: General skin exam: no rashes or lesions noted Neuro: Cranial nerves: Yes CN's II-XII intact bilaterally and Yes Bilaterally intact EOM present Extrem: General: Yes normal to inspection Objective Data Current Medications Generic Name Dose Route Start Last Admin Trade Name Freq PRN Reason Stop Dose Admin Docusate Sodium 100 mg 07/17/20 16:47 Docusate Sodium 100 Mg Capsule PO DAILY PRN Constipation Folic Acid 1 mg 07/19/20 09:00 07/19/20 08:30 Folic Acid 1 Mg Tablet PO 1 mg DAILY RANDOLPH Administration Lactulose 20 gm 07/17/20 13:45 07/19/20 08:30 Lactulose 20 Gm/30 Ml Solution PO 20 gm Q6H RANDOLPH Administration Levofloxacin 250 mg 07/18/20 18:00 07/18/20 17:52 Levofloxacin 250 Mg Tablet PO 250 mg Q24H RANDOLPH Administration Naltrexone HCl 50 mg 07/17/20 09:00 07/19/20 08:30 Naltrexone Hcl 50 Mg Tablet PO 50 mg DAILY RANDOLPH Administration Pharmacy Consult 1 each 07/17/20 00:00 Consult Rx Perform Med Rec MISCELLANE ONCE PRN Consult order Potassium Chloride 20 meq 07/17/20 09:00 07/17/20 08:18 Potassium Chloride Er 20 Meq Tab.Er.Prt PO 20 meq BID RANDOLPH Administration Rifaximin 550 mg 07/18/20 21:00 07/19/20 08:30 Rifaximin 550 Mg Tablet PO 550 mg BID RANDOLPH Administration Sodium Chloride 3 ml 07/17/20 16:47 07/19/20 08:30 0.9 % Sodium Chloride Flush 3 Ml Syringe IVFLUSH 3 ml QSHIFT RANDOLPH Administration Spironolactone 25 mg 07/18/20 12:30 07/19/20 08:30 Spironolactone 25 Mg Tablet PO 25 mg DAILY RANDOLPH Administration Protocol Thiamine HCl 100 mg 07/19/20 09:00 07/19/20 08:30 Thiamine Hcl 100 Mg Tablet PO 100 mg DAILY RANDOLPH Administration Labs CBC & Chem 7: 07/18/20 06:09 07/19/20 05:55 Assessment and Plan (1) Acute kidney injury: Status: Acute (2) Ascites: Status: Acute (3) Encephalopathy: Status: Acute Assessment and Plan: This is a 54-year-old female with a history of alcoholic liver cirrhosis with ascites who presents to the emergency department with confusion found to have hepatic encephalopathy 1. Hepatic Encephalopathy AAOx3, but still appears to be slightly encephalopathic continue lactulose 20gm QID with goal of 3-4 soft BM daily, Rifaximin added GI input appreciated 2. Alcoholic liver cirrhosis with ascites clinically minimal asictes, ultrasound ordered and pending previously on cefuroxime for sbp prophylaxis, switched to po Levaquin was on Aldactone / lasix, but SCr trend has been on the rise, albeit very low. Now on aldactone alone, will monitor closely 3. anemia, Thrombocytopenia due to liver dx chronic, at baseline stable Full Code DVT pptx, mechanical dispo: home next 24-48 hours if stable.
[2020-07-19 15:38] VITALS: BMI 17.5
--- NOTE | 2020-07-19 15:41 | MHC.CLN ---
PT IS MILDLY MALNOURISHED WILL START ENSURE BID TO INCREASE KCALS SEE ALSO CLINICAL NUTRITION ASSESSMENT
[2020-07-19 15:59] VITALS: BP 148/79; PULSE 82; RESP 18; TEMP 36.1; O2SAT 100
[2020-07-19] MEDS: levoFLOXacin 250 MG TABLET PO (19:30)
[2020-07-19 23:51] VITALS: BP 125/76; PULSE 95; RESP 18; TEMP 36.5; O2SAT 100
[2020-07-20] MEDS: Lactulose 20 GM/30 ML SOLUTION PO ×3 (02:20→14:26)
[2020-07-20] MEDS: 0.9 % Sodium Chloride Flush 3 ML SYRINGE IVFLUSH (07:32)
[2020-07-20 08:00] VITALS: BP 114/67; PULSE 96; RESP 18; TEMP 36.4; O2SAT 100
[2020-07-20] MEDS: Spironolactone 25 MG TABLET PO (08:44)
[2020-07-20] MEDS: rifAXIMin 550 MG TABLET PO (08:44)
[2020-07-20] MEDS: Naltrexone HCl 50 MG TABLET PO (08:44)
[2020-07-20] MEDS: Folic Acid 1 MG TABLET PO (08:44)
[2020-07-20] MEDS: Thiamine HCL 100 MG TABLET PO (08:44)
--- NOTE | 2020-07-20 08:49 | PM.DS ---
DS: Providers Provider Date of Service: 10/02/20 Date of admission: 07/17/20 13:43 Primary care physician: Saloni Rose MD Consults: 07/17/20 13:43 Consult to Gastroenterology Routine Consulting Provider: Valentín Lemons Reason for consultation: hepatic encephalopathy Has provider been notified: No DS: Diagnosis Discharge Diagnosis (1) Acute kidney injury: Status: Resolved (2) Ascites: Status: Resolved (3) Encephalopathy: Status: Resolved DS: Medications Discharge Medications Home Medications: Home Medications Medication Instructions Recorded Confirmed furosemide 40 mg tablet 40 mg PO DAILY tab 06/24/20 07/17/20 naltrexone 1 tab PO DAILY 07/17/20 07/17/20 Previous Rx's Medication Instructions Recorded spironolactone 25 mg tablet 50 mg PO DAILY #60 tab 06/28/20 potassium chloride 20 mEq 20 meq PO BID #60 tab 06/30/20 tablet,extended release(part/cryst) cefuroxime axetil 250 mg PO Q24H #60 tab 07/09/20 lactulose 20 g PO BID #3000 ml 07/09/20 DS: Summary Hospital Course Hospital Course: Date of admission: 07/17/20 Chief Complaint: confusion This is a 54-year-old female with a history of alcoholic liver cirrhosis who was brought to the emergency department due to confusion. Initially her workup was unremarkable and she was evaluated by Physical therapy for possible placement. However she was noticed to become increasingly confused and a repeat ammonia level was checked and noted to be increased to 59. Brain CT and the remainder of her lab work showed no other cause for confusion. Urinalysis and CXR were negative. The patient remained afebrile. The patient reports feeling confused but is unable to provide any other significant history. According to her daughter she has been compliant with her medication although is only moving her bowels once a day. She had been in her usual state of health until evening. On Sunday morning she was noted to be more confused. Given increasing confusion, the decision was made to admit her to the hospital for further management of presumed hepatic encephalopathy. Of note there was some consideration for Wernicke's encephalopathy and she was given IV thiamine while in the ED. Hospital course: 54-year-old female with a history of alcoholic liver cirrhosis with ascites who presents to the emergency department with confusion found to have hepatic encephalopathy 1. Hepatic Encephalopathy that is recurrent with frequent hospitalization. She presented with Ammonia level of 59 and went up to 70 and obviously confused. She was treated with Lactulose and ammonia has come down. She is completly alert now. She was seen by GI Dr. Lemons and Rifaximin 500 bid added to her regimen. US of abdomen showed cirrhosis but no sifnificant ascieties. Will increase home dose of Lactuse to 30 bid, previously 20 bid and to continue Rifaximin. 2. Alcoholic liver cirrhosis with ascites clinically minimal asictes, ultrasound ordered and pending-- Previously on cefuroxime for sbp prophylaxis, switched to po Levaquin 250 daily by GI. was on Aldactone / lasix, but SCr trend has been on the rise, albeit very low. Now on aldactone alone, 3. anemia, Thrombocytopenia due to liver dx chronic, at baseline stable Dispo: home. Time Spent with Patient Time attestation: Total time spent providing and/or coordinating discharge services: Discharge coordination time: Greater than 30 minutes Physical Exam Vital Signs: Vital Signs: Last Vital Signs Temp 97.7 F 07/19/20 23:51 Pulse 95 07/19/20 23:51 Resp 18 07/19/20 23:51 BP 125/76 07/19/20 23:51 Pulse Ox 100 07/19/20 23:51 Body Mass Index 17.5 Constitutional Awake and Alert, No apparent distress Neck Supple, No lymphadenopathy Cardiovascular RRR, No M/R/G, S1 S2, No S3 S4, No pedal edema Respiratory Lungs clear, No respiratory distress Gastrointestinal Non tender, Non-distended Skin No rash Neurological Alert & oriented x3 Psychological Appropriate affect DS: Data Data Completed and Pending Completed studies during hospitalization [Text1]: Procedures Drainage of Peritoneal Cavity, Percutaneous Approach (06/08/20) Discharge Plan Discharge Anticipated Discharge Date/Time: 07/20/20 08:40 Patient Disposition: Home Health Service Discharge Diagnosis: Hepatic encephalopathy Referrals: [facility] [Outside] Po,Saloni Jackson MD [Primary Care Provider] - 1 Week (Devorah Martinez 08/05/2020 10:15am. Please call and reschedule if you can't keep this appt.) Discharge Medications: Continued potassium chloride [Klor-Con M20] 20 mEq tablet,ER particles/crystals 20 meq PO BID Qty: 60 RF: 2 Changed spironolactone 25 mg tablet 25 mg PO DAILY Qty: 60 RF: 1 Discontinued cefuroxime axetil 250 mg Tablet 250 mg PO Q24H Qty: 60 RF: 0 lactulose 20 gram/30 mL Solution 20 g PO BID Qty: 3000 RF: 0 furosemide 40 mg tablet 40 mg PO DAILY RF: 0 No Action folic acid 1 mg tablet 1 mg PO DAILY Qty: 30 RF: 11 thiamine HCl (vitamin B1) 100 mg tablet 100 mg PO DAILY Qty: 90 RF: 3 Xifaxan 550 mg tablet 550 mg PO BID Qty: 60 RF: 1 omeprazole 40 mg capsule,delayed release(DR/EC) 40 mg PO DAILY 84 Days Qty: 84 RF: 0 lactulose 10 gram/15 mL solution 30 ml PO BID RF: 0 cyclobenzaprine 5 mg tablet 5 mg PO BEDTIME PRN (Reason: muscle spasm) 30 Days Qty: 30 RF: 0 levofloxacin 250 mg tablet 250 mg PO Q24H Qty: 60 RF: 0 tramadol 50 mg tablet 50 mg PO Q8H 90 Days Qty: 180 RF: 0 Discharge Orders: Discharge Order (Routine); Ordered 07/20/20 Ordered By: Carter Chilel Diet: advance to usual diet Activity on Discharge: As tolerated Stand Alone Forms: Patient Portal Discharge page Visit Report Forms: Patient Portal Discharge page Care Plan Goals: Prevent rehospitalization for hepatic encephalopathy Health Concerns: chronic liver disease with cirrhosis and recurrent hospitalization for encephalopathy Plan of Treatment: Take all medication as recommended including lactulose, Rifaximin, lasix, aldacton and Levaquin to prevent abdominal infection and most importantly avoid alcohol and stay sober Assessment: Hepatic encephalopathy Discharge Date/Time: 07/20/20 15:07
--- NOTE | 2020-07-20 12:20 | MHC.CM.PN ---
NURSE FLARE STITCHER NOTE ELECTRONIC MEDICAL RECORD REVIEWED ALONG WITH CASE DISCUSSED ON MULTIPLE DISCIPLINARY ROUNDS, PATIENT WILL BE DISCHARGED HOME TODAY AND IS AWARE DISCHARGE PLAN HOME NO SERVICES PCP DR JESSICA JONES PATIENT TO CALL FOR APPOINTMENT FOR POST HOSPITAL DISCHARGE TRANSPORTATION FAMILY
--- NOTE | 2020-07-20 12:35 | HO.PM.IMPN ---
Subjective Subjective Date of Service: 07/20/20 Interval History: Seen in f/u for hepatic encephalopathy. She is completely lucid Review of Systems Gen: no fever Resp: no sob, no cough CV: no chest, no KARIMI, no leg edema GI: No n/v, no abd pain Neuro: No confusion Physical Exam Vital Signs: Vital Signs: Last Vital Signs Temp 97.6 F 07/20/20 08:00 Pulse 96 07/20/20 08:00 Resp 18 07/20/20 08:00 BP 114/67 07/20/20 08:00 Pulse Ox 100 07/20/20 08:00 Body Mass Index 17.5 Const: General: cooperative, no acute distress, alert and awake Nutritional Appearance: well nourished Orientation/consciousness: patient oriented x3 HENMT: Head: Yes normocephalic and Yes atraumatic Eyes: Sclerae: sclerae normal Chest: Chest palpation & inspection: normal inspection of the chest Resp: Effort & Inspection: normal respiratory effort and no respiratory distress Auscultation: clear to auscultation bilaterally Cardio: Rate: regular rate Rhythm: regular rhythm GI: Palpation (GI): Soft to palpation and nontender Skin: General skin exam: no rashes or lesions noted Neuro: General: patient oriented x3 Extrem: General: Yes normal to inspection Objective Data Current Medications Generic Name Dose Route Start Last Admin Trade Name Freq PRN Reason Stop Dose Admin Docusate Sodium 100 mg 07/17/20 16:47 Docusate Sodium 100 Mg Capsule PO DAILY PRN Constipation Folic Acid 1 mg 07/19/20 09:00 07/20/20 08:44 Folic Acid 1 Mg Tablet PO 1 mg DAILY RANDOLPH Administration Lactulose 20 gm 07/17/20 13:45 07/20/20 07:31 Lactulose 20 Gm/30 Ml Solution PO 20 gm Q6H RANDOLPH Administration Levofloxacin 250 mg 07/18/20 18:00 07/19/20 19:30 Levofloxacin 250 Mg Tablet PO 250 mg Q24H RANDOLPH Administration Naltrexone HCl 50 mg 07/17/20 09:00 07/20/20 08:44 Naltrexone Hcl 50 Mg Tablet PO 50 mg DAILY RANDOLPH Administration Pharmacy Consult 1 each 07/17/20 00:00 Consult Rx Perform Med Rec MISCELLANE ONCE PRN Consult order Potassium Chloride 20 meq 07/17/20 09:00 07/17/20 08:18 Potassium Chloride Er 20 Meq Tab.Er.Prt PO 20 meq BID RANDOLPH Administration Rifaximin 550 mg 07/18/20 21:00 07/20/20 08:44 Rifaximin 550 Mg Tablet PO 550 mg BID RANDOLPH Administration Sodium Chloride 3 ml 07/17/20 16:47 07/20/20 07:32 0.9 % Sodium Chloride Flush 3 Ml Syringe IVFLUSH 3 ml QSHIFT RANDOLPH Administration Spironolactone 25 mg 07/18/20 12:30 07/20/20 08:44 Spironolactone 25 Mg Tablet PO 25 mg DAILY RANDOLPH Administration Protocol Thiamine HCl 100 mg 07/19/20 09:00 07/20/20 08:44 Thiamine Hcl 100 Mg Tablet PO 100 mg DAILY RANDOLPH Administration Labs CBC & Chem 7: 07/18/20 06:09 07/19/20 05:55 Assessment and Plan (1) Acute kidney injury: Status: Acute (2) Ascites: Status: Acute (3) Encephalopathy: Status: Acute Assessment and Plan: 54-year-old female with a history of alcoholic liver cirrhosis with ascites who presents to the emergency department with confusion found to have hepatic encephalopathy 1. Hepatic Encephalopathy--She is completely lucid -continue lactulose q.i.d. and changed to 30 t.i.d. at discharge. Continue rifaximin 2. Alcoholic liver cirrhosis with ascites--mild -continue Aldactone holding Lasix for now. 3. anemia, Thrombocytopenia due to liver dx chronic, at baseline stable Full Code DVT pptx, mechanical Patient does NO^ want to go to rehab. She rather go home with visiting nurse services and this is supported by her son and daughter.
--- NOTE | 2020-07-20 12:49 | MHC.CM.PN ---
NURSE PRODUCT CONSULTANT NOTE ELECTRONIC MEDICAL RECORD REVIEWED ALONG WITH CASE DISCUSSED ON MULTIPLE DISCIPLINARY ROUNDS MET WITH PATIENT INITIALLY PLAN WAS BY PHYSICAL THERAPIST TO GO TO SHORT TERM REHAB AND THEY WERE UNABLE TO OBTAIN INSURANCE AUTH FOR [facility], MET WITH PATIENT , SPOKE WITH HER DTR ELIA [phone] AND SHE REPORTED THST SHE SPOKE WITH THE DOCTOR AND THE PLAN HAD CHANGED TO DISCHARGE HOME WITH THE [facility] FOR NURSING RESUMPTION AND NEW HOME PT. SHE IS ACTIVE WITH THE [facility] NOW DISCHARGE PLAN [facility] PHYSICAL THERAPY IS NEW PCP PATIENT TO CONTACT PCP FOR POST HOSPITAL DISCHARGE FOLLOW UP TRANSPORTATION FAMILY
[2020-07-20 13:15] LABS: Ammonia 47 umol/L (13-55)
[2020-07-20 13:16] VITALS: BP 114/67; PULSE 96; O2SAT 100
[2020-07-24 13:02] LABS: Vitamin B1 >1200 nmol/L (8-30)
== END 2020-07-20 15:07 | disposition home health service (06) | DRG 279 ==
LOC: HO.ED 07-17 13:19 → HO.S3 07-17 13:55
PROVIDERS: Internal Medicine; Nurse Practitioner Family; Physician Assistant Medical; Admitting Provider Family Medicine; Emergency Provider Emergency Medicine; PCP Internal Medicine; Visit Provider Internal Medicine
DX: K72.90 Hepatic failure, unspecified without coma (principal); N17.9 Acute kidney failure, unspecified; D69.6 Thrombocytopenia, unspecified; K70.31 Alcoholic cirrhosis of liver with ascites; D63.8 Anemia in other chronic diseases classified elsewhere; Z20.822 Contact with and (suspected) exposure to COVID-19; Z88.0 Allergy status to penicillin; Z79.899 Other long term (current) drug therapy
CPT/HCPCS: 36415; 70450; 71045; 76700; 80048; 80076; 80143; 80179; 80320; 81003; 82140; 82607; 82746; 82947; 83690; 83735; 84425; 84484; 85025; 85610; 85730; 87635; 93005; 93975; 96361; 96374; 97116; 97163; 99285; J3411

== ENCOUNTER 2020-08-01 13:16 | Emergency (ER) | payer OTHER, SELFPAY ==
--- NOTE | ~2020-08-01 | US_ITS ---
EXAMINATION: US ABDOMEN LIMITED CLINICAL INFORMATION: Abdominal pain and distention, check for ascites. COMPARISON: Abdominal ultrasound 07/19/2020 TECHNIQUE: Real-time imaging of the 4 quadrants of the abdomen. FINDINGS: There is a moderate amount of ascites within the pelvis and trace free fluid in the 4 quadrants of the abdomen. There are normal peristalsing loops of bowel throughout the abdomen. US/US abdomen limited IMPRESSION: Moderate amount of ascites within the pelvis. Trace ascites in the 4 quadrants of the abdomen.
[2020-08-01 13:32] VITALS: BP 111/73; PULSE 77; RESP 18; TEMP 36.5; O2SAT 100; BMI 18.1
--- NOTE | 2020-08-01 16:21 | ED.ABDPAIN ---
HPI - Abdominal Pain General Chief Complaint: Abdominal Pain Stated Complaint: abd pain, liver disease Time Seen by Provider: 08/01/20 15:52 Source: patient Mode of arrival: ambulatory Limitations: no limitations History of Present Illness HPI narrative: 54 y/o female with history of alcoholic cirrhosis w/ ascites, hx SBP in June 2020 on prophylactic antibiotics, history of hepatic encephalopathy who presents with mild diffuse abdominal pain that started today. She has noticed an 8 lb weight gain over the last week or so. She is compliant with her medications including her diuretic and lactulose. She called her visiting nurse who advised her to come to the ER for evaluation. She denies fever or chills, nausea or vomiting. Her stools her loose which is her baseline due to the lactulose. She denies signs and symptoms of bleeding. MD elicited complaint: abdominal pain Pertinent past history: other (hx liver cirrhosis ) Onset (ago): day(s) Pain Consistency: constant Location: diffuse Severity: mild Quality: aching Radiation: none Migration to: no migration Exacerbating factors: movement Relieving factors: rest Context: history of similar episodes Associated symptoms: denies other symptoms Related Data Home Medications Medication Instructions Recorded Confirmed naltrexone 1 tab PO DAILY 07/17/20 07/17/20 Previous Rx's Medication Instructions Recorded potassium chloride 20 mEq 20 meq PO BID #60 tab 06/30/20 tablet,extended release(part/cryst) folic acid 1 mg PO DAILY #30 tab 07/20/20 lactulose 30 g PO BID #3000 ml 07/20/20 levofloxacin 250 mg PO Q24H #60 tab 07/20/20 rifaximin [Xifaxan] 550 mg PO BID #60 tab 07/20/20 spironolactone 25 mg PO DAILY #60 tab 07/20/20 thiamine mononitrate (vit B1) 100 mg PO DAILY #30 tab 07/20/20 cyclobenzaprine 5 mg tablet 5 mg PO BEDTIME PRN 10 Days #10 tab 07/29/20 Allergies Allergy/AdvReac Type Severity Reaction Status Date / Time Unable to Assess Allergy Unverified 08/01/20 16:04 Review of Systems Review of Systems Constitutional: No Fever, No Chills Cardiovascular: No Chest Pain, No SOB, No Orthopnea, No Edema Respiratory: No Cough, No Sputum, No Wheezing, No dyspnea Gastrointestinal: No Nausea, No Vomiting, No Diarrhea, + abdominal Pain Genitourinary: No Dysuria, No Urinary Frequency, No Hematuria Musculoskeletal: No joint pain, No Myalgias Skin: No Skin Lesions, No rash Neuro: No Weakness, No Numbness, No Dizziness, No Headache Psych: No Anxiety/Panic, No Depression Heme/Lymph: No Bruising, No Lymphadenopathy Endocrine: No Polyuria, No Polydipsia Physical Exam Vital Signs: Vital Signs: Last Vital Signs Temp 97.7 F 08/01/20 13:32 Pulse 77 08/01/20 13:32 Resp 18 08/01/20 13:32 BP 111/73 08/01/20 13:32 Pulse Ox 100 08/01/20 13:32 Body Mass Index 18.1 Appearance: Alert. Oriented X3. No acute distress. Eyes: Pupils equal, round and reactive to light. ENT: Pharynx normal. Neck: Normal inspection. Neck supple. CVS: Normal heart rate and rhythm. Pulses normal. Respiratory: No respiratory distress. Breath sounds normal. Abdomen: Softly distended with mild diffuse tenderness, R>L. No rebound or guarding. No fluid wave.+BS x4 Skin: Skin warm and dry. Normal skin color. Normal skin turgor. No rashes. Extremities: No lower extremity edema. Neuro: Oriented X 3. No motor deficit. No sensory deficit. Course Course Course Narrative: 54 y/o female with history of ETOH cirrhosis, hx SBP presenting with abdominal distention and tenderness. Concern for increasing ascites/decompensated cirrhosis. She appears well, abd is NOT tense and she is not OSB. Will do an ultrasound to assess for ascitic fluid, tap if able. Will get blood cultures and workup including CRP and coags. She is afebrile without signs of sepsis. Patient agreeable with plan. Reevaluation(s) Reevaluation #1: Bedside U/S with Dr. Madrid does not reveal a large fluid pocket for safe drainage. Will get formal U/S for evaluation of ascitic fluid. She had a recent complete abdominal U/S w/ dopplers on 07/19 - portal vein patent. Reevaluation #2: H/H low 7.4/22.5 from 8.2/23.7 about 2 weeks ago. Denies any melena or BRBPR. LFTs are better than her baseline. Bicarb persistently low which is chronic. INR 1.5 which is also stable. Abd U/S for ascites assessment is pending. Reevaluation #3: US showing moderate ascites in the pelvis, trace amount in the 4 quadrants of the abdomen. No safe window to tap. She has an appointment with her doctor Sunday. Will have her follow up with him. Instructed to come back to the ER if pain worsens. MDM - Abdominal Pain Lab Data Result diagrams: 08/01/20 16:43 08/01/20 16:43 Labs: Lab Results 08/01/20 08/01/20 08/01/20 Range/Units 16:43 16:43 16:43 WBC 5.1 (4.8-10.8) X10*3/uL RBC 2.13 L (4.20-5.50) X10*6/uL Hgb 7.4 L (12.0-16.0) g/dl Hct 22.5 L (37-47) % MCV 105.6 H (80-98) fL MCH 34.7 H (27.0-33.0) pg MCHC 32.9 (31.0-35.0) g/dl RDW 14.6 (11.0-16.0) % Plt Count 92 L (160-400) X10*3/uL MPV 10.4 (9.4-12.3) fL Immature Gran % (Auto) 0.2 (0.0-0.4) % Neut % (Auto) 53.2 (45-73) % Lymph % (Auto) 27.8 (20-40) % [place] % (Auto) 13.5 H (2-11) % Eos % (Auto) 4.7 H (0-4) % Baso % (Auto) 0.6 (0-2) % Lymph # (Auto) 1.4 (1.2-4.9) X10*3/uL [place] # (Auto) 0.7 (0.1-1.2) X10*3/uL Eos # (Auto) 0.2 (0.0-0.4) X10*3/uL Baso # (Auto) 0.0 (0.0-0.2) X10*3/uL Abs Immat Gran (auto) 0.01 (0.00-0.03) X10*3/uL Absolute Neuts (auto) 2.7 (2.0-8.3) X10*3/uL Absolute Nucleated RBC 0.000 (0.0-0.012) X10*3/uL Nucleated RBC % (auto) 0.0 (0.0-0.2) /100WBC PT 17.3 H (10.8-13.0) SEC INR 1.5 H (0.9-1.1) APTT 36.4 (24.1-38.0) SEC Sodium 135 (135-145) mmol/L Potassium 4.1 (3.3-5.1) mmol/L Chloride 111 H (96-108) mmol/L Carbon Dioxide 16 L (22-29) mmol/L Anion Gap 12 (12-20) BUN 15 (9-16) mg/dL Creatinine 0.78 (0.5-1.4) mg/dL Estim Creat Clear Calc 64.5 Estimated GFR > 60 Random Glucose 93 (60-115) mg/dL Lactic Acid (0.5-2.0) mmol/L Calcium 7.7 L D (8.4-10.2) mg/dL Magnesium 1.8 (1.6-2.6) mg/dL Total Bilirubin 2.3 H (0.0-1.0) mg/dL Direct Bilirubin 1.3 H (0.0-0.5) mg/dL AST 65 H (5-31) U/L ALT 34 H (0-31) U/L Alkaline Phosphatase 82 (39-117) U/L C-Reactive Protein 0.59 H (< or = 0.50) mg/dL B-Natriuretic Peptide (<100) pg/mL Total Protein 7.0 (6.5-8.0) g/dL Albumin 2.6 L (3.5-5.0) g/dL Lipase 108 H (8-78) U/L Urine Color Urine Appearance Urine pH (5.0-8.0) Ur Specific [place] (1.005-1.025) Urine Protein (NEG-TRACE) MG/DL Urine Glucose (UA) (NEG) MG/DL Urine Ketones (NEG) MG/DL Urine Blood (NEG) Urine Nitrite (NEG) Ur Leukocyte Esterase (NEG) 08/01/20 08/01/20 08/01/20 Range/Units 16:43 16:43 16:43 WBC (4.8-10.8) X10*3/uL RBC (4.20-5.50) X10*6/uL Hgb (12.0-16.0) g/dl Hct (37-47) % MCV (80-98) fL MCH (27.0-33.0) pg MCHC (31.0-35.0) g/dl RDW (11.0-16.0) % Plt Count (160-400) X10*3/uL MPV (9.4-12.3) fL Immature Gran % (Auto) (0.0-0.4) % Neut % (Auto) (45-73) % Lymph % (Auto) (20-40) % [place] % (Auto) (2-11) % Eos % (Auto) (0-4) % Baso % (Auto) (0-2) % Lymph # (Auto) (1.2-4.9) X10*3/uL [place] # (Auto) (0.1-1.2) X10*3/uL Eos # (Auto) (0.0-0.4) X10*3/uL Baso # (Auto) (0.0-0.2) X10*3/uL Abs Immat Gran (auto) (0.00-0.03) X10*3/uL Absolute Neuts (auto) (2.0-8.3) X10*3/uL Absolute Nucleated RBC (0.0-0.012) X10*3/uL Nucleated RBC % (auto) (0.0-0.2) /100WBC PT (10.8-13.0) SEC INR (0.9-1.1) APTT (24.1-38.0) SEC Sodium (135-145) mmol/L Potassium (3.3-5.1) mmol/L Chloride (96-108) mmol/L Carbon Dioxide (22-29) mmol/L Anion Gap (12-20) BUN (9-16) mg/dL Creatinine (0.5-1.4) mg/dL Estim Creat Clear Calc Estimated GFR Random Glucose (60-115) mg/dL Lactic Acid 1.2 (0.5-2.0) mmol/L Calcium (8.4-10.2) mg/dL Magnesium (1.6-2.6) mg/dL Total Bilirubin (0.0-1.0) mg/dL Direct Bilirubin (0.0-0.5) mg/dL AST (5-31) U/L ALT (0-31) U/L Alkaline Phosphatase (39-117) U/L C-Reactive Protein (< or = 0.50) mg/dL B-Natriuretic Peptide 128 H (<100) pg/mL Total Protein (6.5-8.0) g/dL Albumin (3.5-5.0) g/dL Lipase (8-78) U/L Urine Color YELLOW Urine Appearance CLEAR Urine pH 5.5 (5.0-8.0) Ur Specific [place] >= 1.030 H (1.005-1.025) Urine Protein NEG (NEG-TRACE) MG/DL Urine Glucose (UA) NEG (NEG) MG/DL Urine Ketones 5 (NEG) MG/DL Urine Blood NEG (NEG) Urine Nitrite NEG (NEG) Ur Leukocyte Esterase NEG (NEG) Discharge Plan Discharge Clinical Impression: Alcoholic cirrhosis of liver with ascites, Anemia, macrocytic Patient Disposition: Home, Self-Care Instructions: Ascites (ED), Anemia (ED) Additional Instructions: Your blood counts showed continued anemia. Recommend close follow up with your doctor. If you start having any signs of symptoms of bleedin, come back to the ER for further evaluation. Recommend daily vitamins found over the counter - Thiamine 100 mg per day and Folic acid 1 mg per day. Take all of your medications as directed. Stick to a low salt diet. This will help with fluid retention. Follow up with your doctor as needed. If you develop worsening pain, abdominal distention, fever or any other concerning symptom come back to the ER for further evaluation. Prescriptions: No Action cyclobenzaprine 5 mg tablet 5 mg PO BEDTIME PRN (Reason: muscle spasm) 10 Days Qty: 10 RF: 0 naltrexone 50 mg tablet 1 tab PO DAILY RF: 0 levofloxacin 250 mg Tablet 250 mg PO Q24H Qty: 60 RF: 0 Xifaxan 550 mg Tablet 550 mg PO BID Qty: 60 RF: 1 folic acid 1 mg Tablet 1 mg PO DAILY Qty: 30 RF: 0 thiamine mononitrate (vit B1) 100 mg Tablet 100 mg PO DAILY Qty: 30 RF: 0 spironolactone 25 mg tablet 25 mg PO DAILY Qty: 60 RF: 1 lactulose 20 gram/30 mL Solution 30 g PO BID Qty: 3000 RF: 0 potassium chloride [Klor-Con M20] 20 mEq tablet,ER particles/crystals 20 meq PO BID Qty: 60 RF: 2 PMFSH Past Medical History Attestation statement: The following information was validated with the patient. Medical History Alcohol abuse Alcoholic cirrhosis of liver with ascites Hypercholesterolemia Hypoglycemia Hypokalemia Leukopenia Liver disease Thrombocytopenia Family History Family History Father Throat cancer Mother Lung cancer Social History Social History (Updated 07/17/20 @ 14:11 by ARIA Pinto) Household Members: Children Housing: House Alcohol intake: unknown Smoking Status: Never smoker Advance Directives: No Advance Directives Information Provided: No service: No Current occupational status: unemployed
[2020-08-01 16:55] LABS: MANUAL DIFF FLAG NO
[2020-08-01 16:56] LABS: Basophils Percent Auto 0.6 % (0-2); Eosinophils Absolute Auto 0.2 X10*3/uL (0.0-0.4); Eosinophils Percent Auto 4.7 % (0-4); Hematocrit 22.5 % (37-47); Hemoglobin 7.4 g/dl (12.0-16.0); Imm Gran Abs Auto 0.01 X10*3/uL (0.00-0.03); Imm Gran Pct Auto 0.2 % (0.0-0.4); Lymphocytes Absolute Auto 1.4 X10*3/uL (1.2-4.9); Lymphocytes Percent Auto 27.8 % (20-40); Mean Corpuscular HGB Conc 32.9 g/dl (31.0-35.0); Mean Corpuscular Hemoglobin 34.7 pg (27.0-33.0); Mean Corpuscular Volume 105.6 fL (80-98); Mean Platelet Volume 10.4 fL (9.4-12.3); Monocytes Absolute Auto 0.7 X10*3/uL (0.1-1.2); Monocytes Percent Auto 13.5 % (2-11); Neutrophils Absolute Auto 2.7 X10*3/uL (2.0-8.3); Neutrophils Percent Auto 53.2 % (45-73); Red Blood Count 2.13 X10*6/uL (4.20-5.50); Red Cell Distribution Width 14.6 % (11.0-16.0); White Blood Count 5.1 X10*3/uL (4.8-10.8)
[2020-08-01 17:05] LABS: Platelet Count 92 X10*3/uL (160-400)
[2020-08-01 17:10] LABS: Glucose Urine UA NEG (NEG); Leukocyte Esterase Urine NEG (NEG); Nitrite Urine NEG (NEG); PH 5.5 (5.0-8.0); Specific Gravity - Urine >= 1.030 (1.005-1.025); Urine Blood NEG (NEG); Urine Ketones 5 MG/DL (NEG); Urine Protein NEG (NEG-TRACE)
[2020-08-01 17:12] LABS: Appearance Urine CLEAR; Color Urine YELLOW
[2020-08-01 17:13] LABS: INTERNATIONAL NORM RATIO 1.5 (0.9-1.1); Prothrombin Time 17.3 SEC (10.8-13.0)
[2020-08-01 17:15] LABS: Lactic Acid 1.2 mmol/L (0.5-2.0); Partial Thromboplastin Time 36.4 SEC (24.1-38.0)
[2020-08-01 17:22] LABS: Alanine Aminotransferase 34 U/L (0-31); Albumin Level 2.6 g/dL (3.5-5.0); Alkaline Phosphatase 82 U/L (39-117); Anion Gap 12 (12-20); Aspartate Amino Transferase 65 U/L (5-31); Bilirubin Direct 1.3 mg/dL (0.0-0.5); Bilirubin Total 2.3 mg/dL (0.0-1.0); Blood Urea Nitrogen 15 mg/dL (9-16); C Reactive Protein 0.59 mg/dL (< or = 0.50); Calcium 7.7 mg/dL (8.4-10.2); Carbon Dioxide 16 mmol/L (22-29); Chloride 111 mmol/L (96-108); Creatinine Clr Calc Pharmacy 64.5; Estimated Glomerular Filt Rate > 60; Glucose Random 93 mg/dL (60-115); Magnesium 1.8 mg/dL (1.6-2.6); Potassium 4.1 mmol/L (3.3-5.1); Sodium 135 mmol/L (135-145)
[2020-08-01 17:25] LABS: B Type Natriuretic Peptide 128 pg/mL (<100)
[2020-08-01 17:37] LABS: Lipase 108 U/L (8-78)
[2020-08-01 18:03] VITALS: BP 133/70; PULSE 76; RESP 18; O2SAT 100
== END 2020-08-01 18:15 | disposition home or self-care (01) ==
PROVIDERS: Physician Assistant; Emergency Provider Internal Medicine; PCP Internal Medicine
DX: K70.31 Alcoholic cirrhosis of liver with ascites (principal); D53.9 Nutritional anemia, unspecified; Z79.899 Other long term (current) drug therapy
CPT/HCPCS: 36415; 76705; 80048; 80076; 81003; 83605; 83690; 83735; 83880; 85025; 85610; 85730; 86140; 87040; 99284

== ENCOUNTER 2020-08-04 08:36 | Outpatient (REF) | payer OTHER, SELFPAY ==
--- NOTE | ~2020-08-04 | US_ITS ---
EXAMINATION: US ABDOMEN LIMITED CLINICAL INFORMATION: Acute and subacute hepatic failure without coma. COMPARISON: Ultrasound abdomen limited 08/01/2020. Ultrasound abdomen complete 07/19/2020. CT abdomen and pelvis 06/08/2020 TECHNIQUE: Real-time imaging of the right upper quadrant abdominal viscera. FINDINGS: PANCREAS: Normal LIVER: The liver is normal in size, shape and contour. Liver is heterogenous with slight nodular appearance. No intrahepatic ductal dilatation seen. There is fluid surrounding the liver. GALLBLADDER: The gallbladder is physiologically distended with multiple echogenic stones and mild wall thickening measuring 0.51 cm. COMMON BILE DUCT: Normal in caliber measuring 0.3 cm in diameter. FREE FLUID: None US/US abdomen limited IMPRESSION: Cholelithiasis with mild wall thickening. No tenderness in the right upper quadrant ultrasound probe. Slightly heterogenous nodular appearing liver with no focal discernible lesion seen. No intrahepatic ductal dilatation. Unremarkable pancreas and common bile duct.
== END 2020-08-04 08:37 | disposition home or self-care (01) ==
LOC: HO.HMGCX 08:36
PROVIDERS: PCP Internal Medicine; Visit Provider Internal Medicine
DX: K72.00 Acute and subacute hepatic failure without coma (principal)
CPT/HCPCS: 76705

== ENCOUNTER 2020-08-08 15:28 | Inpatient (IN) | payer OTHER, SELFPAY ==
--- NOTE | ~2020-08-08 | CT_ITS ---
EXAMINATION: CT ABDOMEN AND PELVIS WITH CONTRAST CLINICAL INFORMATION: Abdomen pain radiating to back. Nausea, vomiting COMPARISON: Portions of a previous CT 06/08/20 TECHNIQUE: Multidetector volumetric images were obtained from the superior aspect of the liver through the pubic symphysis following administration 75 mL of Omnipaque 350 intravenous contrast. Sagittal and coronal reformatted images were obtained on the technologist's workstation. Oral contrast: No This CT examination was performed using dose optimization techniques as appropriate, variously including the following: *Automated exposure control *Adjustment of mA and/or kV according to patient size (this includes techniques or standardized protocols for targeted exams where dose is matched to indication/reason for exam; i.e. extremities or head) *Use of iterative reconstruction technique DLP: 454 mGy-cm FINDINGS: Digital Police Captain: The frontal view is distorted. There are some gas-filled distended small bowel loops. LUNG BASES: There is coronary calcification. There is at least a small left pleural effusion. There is some nodular thickening of the distal esophagus. There is disease not excluded. There are a few scattered lung base opacities which are nonspecific LIVER, GALLBLADDER, AND BILIARY TREE: The liver contour is irregular. The hepatic attenuation is heterogeneous. The right lobe of the liver measures 13.7 cm. No suspicious focal liver lesion. The gallbladder is distended. Recent ultrasound demonstrated multiple gallstones. There is no biliary dilation. PANCREAS: Within normal limits SPLEEN: The spleen measures 11.8 cm. No focal lesion. ADRENAL GLANDS: No suspicious abnormality. KIDNEYS AND URETERS: There is no dilation of the urinary collecting system on either side. The nephrograms are symmetric. No suspicious mass. BLADDER: The bladder is empty. GASTROINTESTINAL TRACT: Gas and fecal residue throughout the colon. No definite CT evidence of appendicitis. There is no significant small bowel dilation. The small bowel wall thickness is at least top normal. There are some areas of high density in the duodenum which may be ingested tablets. The stomach is not distended. Some slightly high density in the gastric body is nonspecific. ABDOMINAL WALL: No significant hernia is appreciated. LYMPH NODES: No measurably enlarged abdominal or pelvic lymph nodes. VASCULAR: There is no abdominal aortic aneurysm. As described there could be some distal esophageal varices. There is recanalization of the umbilical vein. The portal vein enhances. There are very large vascular collaterals in the deep pelvis surrounding the rectum. At least some of these extend to the inferior mesenteric vein. There is a large amount intraperitoneal fluid. PELVIC VISCERA: No suspicious abnormality the uterus or adnexa. OSSEOUS STRUCTURES: No suspicious focal lesions CT/CT abdomen pelvis w con IMPRESSION: No etiology for flank pain. There is evidence of underlying chronic liver disease possibly cirrhosis with portal hypertension including ascites and pelvic varices. There is some left pleural fluid.
[2020-08-08 15:37] VITALS: BP 139/83; PULSE 80; RESP 20; TEMP 36.4; O2SAT 100; BMI 21.2
--- NOTE | 2020-08-08 15:57 | ED.ABDPAIN ---
HPI - Abdominal Pain General Chief Complaint: Abdominal Pain Stated Complaint: back/abd pain Time Seen by Provider: 08/08/20 15:44 Source: patient and EMS Mode of arrival: EMS Limitations: no limitations History of Present Illness HPI narrative: 54 y/o female with history of alcoholic cirrhosis, history of SBP in Jun 2020 on prophylactic antibiotics, history of hepatic encephalopathy, gallstones, HLD, malnutrtion and depression who presents with worsening abdominal pain and distention for the last 2+ weeks. She was seen here on 08/01 for mild discomfort - had U/S showing only small amount of pelvic ascites. She had follow up with GI last week including a complete abodminal ultrasound that showed gallstones w/ mild wall thickening, normal pancreas and CBD, no free fluid noted. She reports since then her abdomen has gotten more distended and the pain now radiates to her back. She took Naproxen this morning with no improvement. She is nauseated but has not vomited. She states the pain is her entire abdomen and radiates to her back. It is 10/10. She denies diarrhea, fever, urinary symptoms. She has had chills due to the pain. MD elicited complaint: abdominal pain Pertinent past history: other (gallstones, cirrhosis, SBP) Onset (ago): week(s) Pain Consistency: constant Location: diffuse Severity: severe Quality: stabbing and aching Radiation: back Migration to: no migration Exacerbating factors: movement Relieving factors: nothing Context: history of similar episodes Associated symptoms: nausea Treatments prior to arrival: NSAIDs Related Data Home Medications Medication Instructions Recorded Confirmed naltrexone 1 tab PO DAILY 07/17/20 07/17/20 cefuroxime axetil 250 mg tablet mg PO 08/05/20 lactulose 10 gram/15 mL oral 30 ml PO BID 08/05/20 solution thiamine HCl (vitamin B1) 100 mg 100 mg PO DAILY 08/05/20 tablet Previous Rx's Medication Instructions Recorded potassium chloride 20 mEq 20 meq PO BID #60 tab 06/30/20 tablet,extended release(part/cryst) folic acid 1 mg PO DAILY #30 tab 07/20/20 lactulose 30 g PO BID #3000 ml 07/20/20 levofloxacin 250 mg PO Q24H #60 tab 07/20/20 rifaximin [Xifaxan] 550 mg PO BID #60 tab 07/20/20 spironolactone 25 mg PO DAILY #60 tab 07/20/20 thiamine mononitrate (vit B1) 100 mg PO DAILY #30 tab 07/20/20 naproxen 250 mg tablet 250 mg PO BID PRN #30 tab 08/02/20 cyclobenzaprine 5 mg tablet 5 mg PO BEDTIME PRN 30 Days #30 tab 08/05/20 lidocaine 5 % topical ointment 1 appl TOPICAL BEDTIME PRN #240 g 08/05/20 Allergies Allergy/AdvReac Type Severity Reaction Status Date / Time Penicillins Allergy Unknown yeast Verified 08/02/20 12:49 infection Review of Systems Review of Systems Constitutional: No Fever, + Chills ENT/Mouth: No sore throat, No Rhinorrhea, No Swallowing Difficulty Eyes: No Eye Pain, No Swelling, No Redness Cardiovascular: No Chest Pain, + SOB, + Orthopnea, No Edema Respiratory: No Cough, No Sputum, No Wheezing, No dyspnea Gastrointestinal: + Nausea, No Vomiting, No Diarrhea, + abdominal Pain, No melena, No BRBPR Genitourinary: No Dysuria, No Urinary Frequency, No Hematuria Musculoskeletal: No joint pain, No Myalgias Skin: No Skin Lesions, No rash Neuro: + Weakness, No Numbness, No Dizziness, No Headache Psych: + Anxiety/Panic, No Depression Heme/Lymph: No Bruising, No Lymphadenopathy Endocrine: No Polyuria, No Polydipsia Physical Exam Vital Signs: Vital Signs: Last Vital Signs Temp 97.5 F 08/08/20 19:16 Pulse 91 08/08/20 19:16 Resp 16 08/08/20 19:16 BP 115/66 08/08/20 19:16 Pulse Ox 100 08/08/20 19:16 Body Mass Index 21.2 Appearance: Alert. Oriented X3. Appears uncomfortable and in pain Eyes: Pupils equal, round and reactive to light. ENT: Pharynx normal. Neck: Normal inspection. Neck supple. CVS: Normal heart rate and rhythm. Pulses normal. Respiratory: No respiratory distress. Breath sounds normal. Abdomen: Distended , somewhat firm with diffuse tenderness throughout, +rebound. +tympanic. +BS x4 Skin: Skin warm and dry. Normal skin color. Normal skin turgor. No rashes. Extremities: No lower extremity edema. Neuro: Oriented X 3. No motor deficit. No sensory deficit. Procedures Paracentesis Time Out Performed: Yes Local Anesthetic: lidocaine 2% Amount of anesthesia used (mL): 2.5 Fluid: clear Post Procedure Exam: awake, alert Patient Tolerated Procedure: well Complications: pain Course Course Course Narrative: 54 y/o female with history of alcoholic cirrhosis, SBP in June 2020 (requiring therapeutic tap of 4.3L on 06/08/20) who presents with increased abdominal pain and distention for the last few weeks. Recent U/S showed no free fluid. She reports 5 lb + weight gain this week. She has diffuse tenderness, mostly in epigastric area and it radiates to back. Will need to r/o pancreatitis, SBO, SBP. Will likely require therapetic paracentesis given abdominal distention and reports of SOB due to this. Will get CT scan for further evaluation. Labs and IV fentanyl ordered now. Dispo pending results and improvement. Reevaluation(s) Reevaluation #1: Patient continues to be in significant pain after IV fentanyl. Labs show slightly improved anemia, mild hyperkalemia with hyperchloremia and low bicarb. She has a history of bicarb in the teens, likely due to GI losses being on lactulose. Will get VBG to assess for metabolic acidosis. She is AAO x3. Her LFTs are at baseline with normal lactic acid. CT scan showing ascites & left pleural effusion. Will perform diagnostic and therapeutic paracentesis at the bedside with Dr. Madrid. Reevaluation #2: Paracentesis yielded 2.2L clear yellow fluid - sent for culture. 25% albumin administered. Patient continues to be in significant pain. Abd less firm but still distended. She may require additional drainage. Will treat with IV rocephin for possible SBP. Will plan for admission for pain control and acute decompensated cirrhsois. Reevaluation #3: Spoke with Dr. Muñoz who will admit the patient. MDM - Abdominal Pain Lab Data Result diagrams: 08/08/20 16:13 08/08/20 16:13 Labs: Lab Results 08/08/20 08/08/20 08/08/20 Range/Units 16:13 16:13 16:13 WBC 6.1 (4.8-10.8) X10*3/uL RBC 2.28 L (4.20-5.50) X10*6/uL Hgb 8.0 L (12.0-16.0) g/dl Hct 24.0 L (37-47) % MCV 105.3 H (80-98) fL MCH 35.1 H (27.0-33.0) pg MCHC 33.3 (31.0-35.0) g/dl RDW 15.1 (11.0-16.0) % Plt Count 93 L (160-400) X10*3/uL MPV 10.4 (9.4-12.3) fL Immature Gran % (Auto) 0.3 (0.0-0.4) % Neut % (Auto) 64.7 (45-73) % Lymph % (Auto) 19.5 L (20-40) % [place] % (Auto) 11.4 H (2-11) % Eos % (Auto) 3.6 (0-4) % Baso % (Auto) 0.5 (0-2) % Lymph # (Auto) 1.2 (1.2-4.9) X10*3/uL [place] # (Auto) 0.7 (0.1-1.2) X10*3/uL Eos # (Auto) 0.2 (0.0-0.4) X10*3/uL Baso # (Auto) 0.0 (0.0-0.2) X10*3/uL Abs Immat Gran (auto) 0.02 (0.00-0.03) X10*3/uL Absolute Neuts (auto) 4.0 (2.0-8.3) X10*3/uL Absolute Nucleated RBC 0.000 (0.0-0.012) X10*3/uL Nucleated RBC % (auto) 0.0 (0.0-0.2) /100WBC ESR 96 H (0-20) MM/HR PT 16.3 H (10.8-13.0) SEC INR 1.4 H (0.9-1.1) APTT 31.5 (24.1-38.0) SEC Sodium (135-145) mmol/L Potassium (3.3-5.1) mmol/L Chloride (96-108) mmol/L Carbon Dioxide (22-29) mmol/L Anion Gap (12-20) BUN (9-16) mg/dL Creatinine (0.5-1.4) mg/dL Estim Creat Clear Calc Estimated GFR Random Glucose (60-115) mg/dL Lactic Acid (0.5-2.0) mmol/L Calcium (8.4-10.2) mg/dL Magnesium (1.6-2.6) mg/dL Total Bilirubin (0.0-1.0) mg/dL Direct Bilirubin (0.0-0.5) mg/dL AST (5-31) U/L ALT (0-31) U/L Alkaline Phosphatase (39-117) U/L C-Reactive Protein (< or = 0.50) mg/dL B-Natriuretic Peptide (<100) pg/mL Total Protein (6.5-8.0) g/dL Albumin (3.5-5.0) g/dL Lipase (8-78) U/L Urine Color Urine Appearance Urine pH (5.0-8.0) Ur Specific [place] (1.005-1.025) Urine Protein (NEG-TRACE) MG/DL Urine Glucose (UA) (NEG) MG/DL Urine Ketones (NEG) MG/DL Urine Blood (NEG) Urine Nitrite (NEG) Ur Leukocyte Esterase (NEG) Peritoneal WBC X10*3/uL Peritoneal RBC X10*6/uL Periton Neutrophils % Periton Lymphocytes % Peritoneal Monocytes % Peritoneal Other Cells % Ethyl Alcohol mg/dL 08/08/20 08/08/20 08/08/20 Range/Units 16:13 16:13 16:13 WBC (4.8-10.8) X10*3/uL RBC (4.20-5.50) X10*6/uL Hgb (12.0-16.0) g/dl Hct (37-47) % MCV (80-98) fL MCH (27.0-33.0) pg MCHC (31.0-35.0) g/dl RDW (11.0-16.0) % Plt Count (160-400) X10*3/uL MPV (9.4-12.3) fL Immature Gran % (Auto) (0.0-0.4) % Neut % (Auto) (45-73) % Lymph % (Auto) (20-40) % [place] % (Auto) (2-11) % Eos % (Auto) (0-4) % Baso % (Auto) (0-2) % Lymph # (Auto) (1.2-4.9) X10*3/uL [place] # (Auto) (0.1-1.2) X10*3/uL Eos # (Auto) (0.0-0.4) X10*3/uL Baso # (Auto) (0.0-0.2) X10*3/uL Abs Immat Gran (auto) (0.00-0.03) X10*3/uL Absolute Neuts (auto) (2.0-8.3) X10*3/uL Absolute Nucleated RBC (0.0-0.012) X10*3/uL Nucleated RBC % (auto) (0.0-0.2) /100WBC ESR (0-20) MM/HR PT (10.8-13.0) SEC INR (0.9-1.1) APTT (24.1-38.0) SEC Sodium 135 (135-145) mmol/L Potassium 5.5 H D (3.3-5.1) mmol/L Chloride 112 H (96-108) mmol/L Carbon Dioxide 15 L (22-29) mmol/L Anion Gap 14 (12-20) BUN 19 H (9-16) mg/dL Creatinine 0.91 (0.5-1.4) mg/dL Estim Creat Clear Calc 64.6 Estimated GFR > 60 Random Glucose 116 H (60-115) mg/dL Lactic Acid 1.7 (0.5-2.0) mmol/L Calcium 8.0 L (8.4-10.2) mg/dL Magnesium 2.0 (1.6-2.6) mg/dL Total Bilirubin 2.0 H (0.0-1.0) mg/dL Direct Bilirubin 1.3 H (0.0-0.5) mg/dL AST 68 H (5-31) U/L ALT 29 (0-31) U/L Alkaline Phosphatase 94 (39-117) U/L C-Reactive Protein 0.76 H (< or = 0.50) mg/dL B-Natriuretic Peptide 124 H (<100) pg/mL Total Protein 7.5 (6.5-8.0) g/dL Albumin 2.7 L (3.5-5.0) g/dL Lipase (8-78) U/L Urine Color Urine Appearance Urine pH (5.0-8.0) Ur Specific [place] (1.005-1.025) Urine Protein (NEG-TRACE) MG/DL Urine Glucose (UA) (NEG) MG/DL Urine Ketones (NEG) MG/DL Urine Blood (NEG) Urine Nitrite (NEG) Ur Leukocyte Esterase (NEG) Peritoneal WBC X10*3/uL Peritoneal RBC X10*6/uL Periton Neutrophils % Periton Lymphocytes % Peritoneal Monocytes % Peritoneal Other Cells % Ethyl Alcohol mg/dL 08/08/20 08/08/20 08/08/20 Range/Units 16:13 16:13 16:29 WBC (4.8-10.8) X10*3/uL RBC (4.20-5.50) X10*6/uL Hgb (12.0-16.0) g/dl Hct (37-47) % MCV (80-98) fL MCH (27.0-33.0) pg MCHC (31.0-35.0) g/dl RDW (11.0-16.0) % Plt Count (160-400) X10*3/uL MPV (9.4-12.3) fL Immature Gran % (Auto) (0.0-0.4) % Neut % (Auto) (45-73) % Lymph % (Auto) (20-40) % [place] % (Auto) (2-11) % Eos % (Auto) (0-4) % Baso % (Auto) (0-2) % Lymph # (Auto) (1.2-4.9) X10*3/uL [place] # (Auto) (0.1-1.2) X10*3/uL Eos # (Auto) (0.0-0.4) X10*3/uL Baso # (Auto) (0.0-0.2) X10*3/uL Abs Immat Gran (auto) (0.00-0.03) X10*3/uL Absolute Neuts (auto) (2.0-8.3) X10*3/uL Absolute Nucleated RBC (0.0-0.012) X10*3/uL Nucleated RBC % (auto) (0.0-0.2) /100WBC ESR (0-20) MM/HR PT (10.8-13.0) SEC INR (0.9-1.1) APTT (24.1-38.0) SEC Sodium (135-145) mmol/L Potassium (3.3-5.1) mmol/L Chloride (96-108) mmol/L Carbon Dioxide (22-29) mmol/L Anion Gap (12-20) BUN (9-16) mg/dL Creatinine (0.5-1.4) mg/dL Estim Creat Clear Calc Estimated GFR Random Glucose (60-115) mg/dL Lactic Acid (0.5-2.0) mmol/L Calcium (8.4-10.2) mg/dL Magnesium (1.6-2.6) mg/dL Total Bilirubin (0.0-1.0) mg/dL Direct Bilirubin (0.0-0.5) mg/dL AST (5-31) U/L ALT (0-31) U/L Alkaline Phosphatase (39-117) U/L C-Reactive Protein (< or = 0.50) mg/dL B-Natriuretic Peptide (<100) pg/mL Total Protein (6.5-8.0) g/dL Albumin (3.5-5.0) g/dL Lipase 81 H (8-78) U/L Urine Color YELLOW Urine Appearance CLEAR Urine pH 5.0 (5.0-8.0) Ur Specific [place] >= 1.030 H (1.005-1.025) Urine Protein NEG (NEG-TRACE) MG/DL Urine Glucose (UA) NEG (NEG) MG/DL Urine Ketones 5 (NEG) MG/DL Urine Blood NEG (NEG) Urine Nitrite NEG (NEG) Ur Leukocyte Esterase NEG (NEG) Peritoneal WBC X10*3/uL Peritoneal RBC X10*6/uL Periton Neutrophils % Periton Lymphocytes % Peritoneal Monocytes % Peritoneal Other Cells % Ethyl Alcohol < 10 mg/dL 08/08/20 Range/Units 18:47 WBC (4.8-10.8) X10*3/uL RBC (4.20-5.50) X10*6/uL Hgb (12.0-16.0) g/dl Hct (37-47) % MCV (80-98) fL MCH (27.0-33.0) pg MCHC (31.0-35.0) g/dl RDW (11.0-16.0) % Plt Count (160-400) X10*3/uL MPV (9.4-12.3) fL Immature Gran % (Auto) (0.0-0.4) % Neut % (Auto) (45-73) % Lymph % (Auto) (20-40) % [place] % (Auto) (2-11) % Eos % (Auto) (0-4) % Baso % (Auto) (0-2) % Lymph # (Auto) (1.2-4.9) X10*3/uL [place] # (Auto) (0.1-1.2) X10*3/uL Eos # (Auto) (0.0-0.4) X10*3/uL Baso # (Auto) (0.0-0.2) X10*3/uL Abs Immat Gran (auto) (0.00-0.03) X10*3/uL Absolute Neuts (auto) (2.0-8.3) X10*3/uL Absolute Nucleated RBC (0.0-0.012) X10*3/uL Nucleated RBC % (auto) (0.0-0.2) /100WBC ESR (0-20) MM/HR PT (10.8-13.0) SEC INR (0.9-1.1) APTT (24.1-38.0) SEC Sodium (135-145) mmol/L Potassium (3.3-5.1) mmol/L Chloride (96-108) mmol/L Carbon Dioxide (22-29) mmol/L Anion Gap (12-20) BUN (9-16) mg/dL Creatinine (0.5-1.4) mg/dL Estim Creat Clear Calc Estimated GFR Random Glucose (60-115) mg/dL Lactic Acid (0.5-2.0) mmol/L Calcium (8.4-10.2) mg/dL Magnesium (1.6-2.6) mg/dL Total Bilirubin (0.0-1.0) mg/dL Direct Bilirubin (0.0-0.5) mg/dL AST (5-31) U/L ALT (0-31) U/L Alkaline Phosphatase (39-117) U/L C-Reactive Protein (< or = 0.50) mg/dL B-Natriuretic Peptide (<100) pg/mL Total Protein (6.5-8.0) g/dL Albumin (3.5-5.0) g/dL Lipase (8-78) U/L Urine Color Urine Appearance Urine pH (5.0-8.0) Ur Specific [place] (1.005-1.025) Urine Protein (NEG-TRACE) MG/DL Urine Glucose (UA) (NEG) MG/DL Urine Ketones (NEG) MG/DL Urine Blood (NEG) Urine Nitrite (NEG) Ur Leukocyte Esterase (NEG) Peritoneal WBC 0.089 X10*3/uL Peritoneal RBC < 0.002 X10*6/uL Periton Neutrophils 9 % Periton Lymphocytes 18 % Peritoneal Monocytes 70 % Peritoneal Other Cells 3 % Ethyl Alcohol mg/dL Discharge Plan Discharge Clinical Impression: Decompensation of cirrhosis of liver, Ascites, Acute hyperkalemia Patient Disposition: Admitted As Inpatient Prescriptions: No Action naproxen 250 mg tablet 250 mg PO BID PRN (Reason: pain) Qty: 30 RF: 0 lidocaine 5 % ointment 1 appl topical BEDTIME PRN (Reason: pain) Qty: 240 RF: 0 naltrexone 50 mg tablet 1 tab PO DAILY RF: 0 levofloxacin 250 mg Tablet 250 mg PO Q24H Qty: 60 RF: 0 Xifaxan 550 mg Tablet 550 mg PO BID Qty: 60 RF: 1 folic acid 1 mg Tablet 1 mg PO DAILY Qty: 30 RF: 0 thiamine mononitrate (vit B1) 100 mg Tablet 100 mg PO DAILY Qty: 30 RF: 0 spironolactone 25 mg tablet 25 mg PO DAILY Qty: 60 RF: 1 lactulose 20 gram/30 mL Solution 30 g PO BID Qty: 3000 RF: 0 cyclobenzaprine 5 mg tablet 5 mg PO BEDTIME PRN (Reason: muscle spasm) 30 Days Qty: 30 RF: 0 potassium chloride [Klor-Con M20] 20 mEq tablet,ER particles/crystals 20 meq PO BID Qty: 60 RF: 2 PMFSH Past Medical History Attestation statement: The following information was validated with the patient. Medical History Alcohol abuse Alcoholic cirrhosis of liver with ascites Hypercholesterolemia Hypoglycemia Hypokalemia Leukopenia Liver disease Thrombocytopenia Surgical History History of colonoscopy S/P dilation and curettage Family History Family History Father Throat cancer Mother Lung cancer Son In good health Daughter In good health Social History Social History Household Members: Children Housing: House Alcohol intake: unknown Smoking Status: Unknown if ever smoked Use of substances other than those prescribed or required for medical reasons: Unknown Advance Directives: No Advance Directives Information Provided: Yes service: No Current occupational status: unemployed
[2020-08-08] MEDS: fentaNYL citrate/PF 100 MCG/2 ML VIAL 50 MCG IVPUSH ×2 (16:09→19:57)
[2020-08-08 16:20] VITALS: BP 128/72; PULSE 82; RESP 14; O2SAT 100
[2020-08-08 16:20] LABS: MANUAL DIFF FLAG NO
[2020-08-08 16:21] LABS: Basophils Percent Auto 0.5 % (0-2); Eosinophils Absolute Auto 0.2 X10*3/uL (0.0-0.4); Eosinophils Percent Auto 3.6 % (0-4); Imm Gran Abs Auto 0.02 X10*3/uL (0.00-0.03); Imm Gran Pct Auto 0.3 % (0.0-0.4); Lymphocytes Absolute Auto 1.2 X10*3/uL (1.2-4.9); Lymphocytes Percent Auto 19.5 % (20-40); Mean Corpuscular HGB Conc 33.3 g/dl (31.0-35.0); Mean Corpuscular Hemoglobin 35.1 pg (27.0-33.0); Mean Corpuscular Volume 105.3 fL (80-98); Mean Platelet Volume 10.4 fL (9.4-12.3); Monocytes Absolute Auto 0.7 X10*3/uL (0.1-1.2); Monocytes Percent Auto 11.4 % (2-11); Neutrophils Percent Auto 64.7 % (45-73); Red Blood Count 2.28 X10*6/uL (4.20-5.50); Red Cell Distribution Width 15.1 % (11.0-16.0); White Blood Count 6.1 X10*3/uL (4.8-10.8)
[2020-08-08 16:25] LABS: INTERNATIONAL NORM RATIO 1.4 (0.9-1.1); Prothrombin Time 16.3 SEC (10.8-13.0)
[2020-08-08 16:28] LABS: Partial Thromboplastin Time 31.5 SEC (24.1-38.0)
[2020-08-08 16:32] LABS: Platelet Count 93 X10*3/uL (160-400)
[2020-08-08 16:38] LABS: Appearance Urine CLEAR; Color Urine YELLOW; Glucose Urine UA NEG (NEG); Leukocyte Esterase Urine NEG (NEG); Nitrite Urine NEG (NEG); Specific Gravity - Urine >= 1.030 (1.005-1.025); Urine Blood NEG (NEG); Urine Ketones 5 MG/DL (NEG); Urine Protein NEG (NEG-TRACE)
[2020-08-08 17:07] LABS: Lactic Acid 1.7 mmol/L (0.5-2.0)
[2020-08-08 17:08] LABS: Ethanol < 10 mg/dL
[2020-08-08 17:10] LABS: Erythrocyte Sedimentation Rate 96 MM/HR (0-20); Lipase 81 U/L (8-78)
[2020-08-08 17:13] LABS: Alanine Aminotransferase 29 U/L (0-31); Albumin Level 2.7 g/dL (3.5-5.0); Alkaline Phosphatase 94 U/L (39-117); Anion Gap 14 (12-20); Aspartate Amino Transferase 68 U/L (5-31); B Type Natriuretic Peptide 124 pg/mL (<100); Bilirubin Direct 1.3 mg/dL (0.0-0.5); Blood Urea Nitrogen 19 mg/dL (9-16); C Reactive Protein 0.76 mg/dL (< or = 0.50); Carbon Dioxide 15 mmol/L (22-29); Chloride 112 mmol/L (96-108); Creatinine Clr Calc Pharmacy 64.6; Estimated Glomerular Filt Rate > 60; Glucose Random 116 mg/dL (60-115); Potassium 5.5 mmol/L (3.3-5.1); Sodium 135 mmol/L (135-145); Total Protein 7.5 g/dL (6.5-8.0)
[2020-08-08] MEDS: iohexoL 350 MG/ML 75 ML INFUS..BTL IV (17:31)
--- NOTE | 2020-08-08 18:27 | PC.NURSE ---
computers down at this time, federico bernard and dr crowder at bedside to attempt paracentecis on pt. 180: pt administered 2% lidocaine prior to yueh needle. 1808: yueh needle placed, yellow drainage. will send spec for labs.
[2020-08-08 19:01] LABS: MN% 94.1 %; PMN% 5.9 %; WBC Peritoneal Fluid 0.089 X10*3/uL
[2020-08-08 19:02] LABS: RBC Peritoneal Fluid < 0.002 X10*6/uL
[2020-08-08 19:16] VITALS: BP 115/66; PULSE 91; RESP 16; TEMP 36.4; O2SAT 100
[2020-08-08 19:40] LABS: Lymphocyte Peritoneal Fl 18 %; Neutrophils Peritoneal Fluid 9 %
[2020-08-08 19:41] LABS: BF Shift QC OK YES; Man Diluent Bkgrd OK YES; Monocytes Peritoneal Fl 70 %; Other Peritioneal Fl 3 %
[2020-08-08 19:43] LABS: COVID-19 Test Negative (Negative); IDNOW Serial# 9DD0AD1C
[2020-08-08] MEDS: cefTRIAXone sodium 1 GM in 0.9 % Sodium Chloride 50 ML IV (19:58)
--- NOTE | 2020-08-08 20:37 | PM.IMHP ---
History of Present Illness Date of Service: 08/08/20 Chief Complaint: Abdominal pain 54-year-old female with a past medical history of alcohol abuse, alcoholic liver cirrhosis, ascites, history of SBP, thrombocytopenia, anemia, depression presented to the hospital with a chief complaint of abdominal pain. Mentions that she has been having this abdominal pain for the past 2 weeks; and has seen Gastroenterology as outpatient and had abdominal ultrasound with minimal ascites and gallstones. Lately her abdominal pain has gotten worse associated with nausea. Denies any vomiting. Denies any blood in the stool. Denies any hematemesis. Denies any fever chills cough. Denies any chest pain palpitations lightheadedness dizziness. Denies any urinary symptoms. Review of all other systems is negative except mentioned above ER course: Per ER team patient noted to be in severe discomfort secondary to the abdominal pain. No guarding or rigidity. CT scan showed ascites. Bedside peritoneal tap was done and removed 2.2 L of fluid; fluid analysis showed minimal WBC. Patient is on SBP prophylaxis as outpatient; given ceftriaxone in the ER empirically. Admitted to the hospital for further management. [facility] Medical History Alcohol abuse Alcoholic cirrhosis of liver with ascites Hypercholesterolemia Hypoglycemia Hypokalemia Leukopenia Liver disease Thrombocytopenia Family History Father Throat cancer Mother Lung cancer Son In good health Daughter In good health Surgical History History of colonoscopy S/P dilation and curettage Social History Household Members: Children Housing: Apartment Do you presently have visiting nurse or other home services: Yes Alcohol intake: unknown Smoking Status: Never smoker Use of substances other than those prescribed or required for medical reasons: No Have you been hit, kicked, punched, or otherwise hurt by someone within the past year? If so, by whom?: No Do you feel safe in your current relationship?: Yes Is there a partner from a previous relationship who is making you feel unsafe now?: No Are you made to feel afraid or neglected: No Advance Directives: No Advance Directives Information Provided: Yes Do you have thoughts of harming others: None Do you have a plan to hurt others: No Plan Recently lost weight without trying: No service: No Current occupational status: unemployed Meds Allergies Allergy/AdvReac Type Severity Reaction Status Date / Time Penicillins Allergy Unknown yeast Verified 08/02/20 12:49 infection Active Medications: Current Medications Generic Name Dose Route Start Last Admin Trade Name Freq PRN Reason Stop Dose Admin Oxycodone HCl 5 mg 08/09/20 00:01 Oxycodone Hcl Immed Release 5 Mg Tablet PO Q6H PRN Pain, Severe (Pain Scale 7-10) Sodium Chloride 3 ml 08/09/20 00:00 0.9 % Sodium Chloride Flush 3 Ml Syringe IVFLUSH [facility]SH[facility]HI [facility] Home Medications Medication Instructions Recorded Confirmed Last Taken Type naltrexone 1 tab PO DAILY 07/17/20 07/17/20 Unknown History cefuroxime axetil 250 mg tablet mg PO 08/05/20 Unknown History lactulose 10 gram/15 mL oral 30 ml PO BID 08/05/20 Unknown History solution thiamine HCl (vitamin B1) 100 mg 100 mg PO DAILY 08/05/20 Unknown History tablet Physical Exam Vital Signs and Narrative: Vital Signs: Last Vital Signs Temp 97.5 F 08/08/20 19:16 Pulse 91 08/08/20 19:16 Resp 16 08/08/20 19:16 BP 115/66 08/08/20 19:16 Pulse Ox 100 08/08/20 19:16 Body Mass Index 21.2 Gen: Appears be in no acute distress; thin built HEENT: NCAT, Moist mucosa. Pulmonary: Vesicular breath sounds, fair air entry CVS: Normal S1-S2 Abdomen: BS+, Soft, distended, diffusely tender, no guarding no rigidity Extremities: Warm well perfused Neuro: Alert and awake. Results Labs CBC and Chem 7: 08/08/20 16:13 08/08/20 16:13 Labs: Laboratory Results - last 24 hr 08/08/20 08/08/20 08/08/20 16:13 16:13 16:13 MCV 105.3 H MCH 35.1 H MCHC 33.3 RDW 15.1 Plt Count 93 L MPV 10.4 Immature Gran % (Auto) 0.3 Neut % (Auto) 64.7 Lymph % (Auto) 19.5 L Elliott % (Auto) 11.4 H Eos % (Auto) 3.6 Baso % (Auto) 0.5 Lymph # (Auto) 1.2 Elliott # (Auto) 0.7 Eos # (Auto) 0.2 Baso # (Auto) 0.0 Abs Immat Gran (auto) 0.02 Absolute Neuts (auto) 4.0 Absolute Nucleated RBC 0.000 Nucleated RBC % (auto) 0.0 ESR 96 H PT 16.3 H INR 1.4 H APTT 31.5 Anion Gap Estim Creat Clear Calc Estimated GFR Random Glucose Lactic Acid Calcium Magnesium Total Bilirubin Direct Bilirubin AST ALT Alkaline Phosphatase C-Reactive Protein B-Natriuretic Peptide Total Protein Albumin Lipase Urine Color Urine Appearance Urine pH Ur Specific [place] Urine Protein Urine Glucose (UA) Urine Ketones Urine Blood Urine Nitrite Ur Leukocyte Esterase Peritoneal WBC Peritoneal RBC Periton Neutrophils Periton Lymphocytes Peritoneal Monocytes Peritoneal Other Cells Ethyl Alcohol COVID-19 (CLAUDY) [employer] 08/08/20 08/08/20 08/08/20 16:13 16:13 16:13 MCV MCH MCHC RDW Plt Count MPV Immature Gran % (Auto) Neut % (Auto) Lymph % (Auto) Elliott % (Auto) Eos % (Auto) Baso % (Auto) Lymph # (Auto) Elliott # (Auto) Eos # (Auto) Baso # (Auto) Abs Immat Gran (auto) Absolute Neuts (auto) Absolute Nucleated RBC Nucleated RBC % (auto) ESR PT INR APTT Anion Gap 14 Estim Creat Clear Calc 64.6 Estimated GFR > 60 Random Glucose 116 H Lactic Acid 1.7 Calcium 8.0 L Magnesium 2.0 Total Bilirubin 2.0 H Direct Bilirubin 1.3 H AST 68 H ALT 29 Alkaline Phosphatase 94 C-Reactive Protein 0.76 H B-Natriuretic Peptide 124 H Total Protein 7.5 Albumin 2.7 L Lipase Urine Color Urine Appearance Urine pH Ur Specific [place] Urine Protein Urine Glucose (UA) Urine Ketones Urine Blood Urine Nitrite Ur Leukocyte Esterase Peritoneal WBC Peritoneal RBC Periton Neutrophils Periton Lymphocytes Peritoneal Monocytes Peritoneal Other Cells Ethyl Alcohol COVID-19 (CLAUDY) [employer] 08/08/20 08/08/20 08/08/20 16:13 16:13 16:29 MCV MCH MCHC RDW Plt Count MPV Immature Gran % (Auto) Neut % (Auto) Lymph % (Auto) Elliott % (Auto) Eos % (Auto) Baso % (Auto) Lymph # (Auto) Elliott # (Auto) Eos # (Auto) Baso # (Auto) Abs Immat Gran (auto) Absolute Neuts (auto) Absolute Nucleated RBC Nucleated RBC % (auto) ESR PT INR APTT Anion Gap Estim Creat Clear Calc Estimated GFR Random Glucose Lactic Acid Calcium Magnesium Total Bilirubin Direct Bilirubin AST ALT Alkaline Phosphatase C-Reactive Protein B-Natriuretic Peptide Total Protein Albumin Lipase 81 H Urine Color YELLOW Urine Appearance CLEAR Urine pH 5.0 Ur Specific [place] >= 1.030 H Urine Protein NEG Urine Glucose (UA) NEG Urine Ketones 5 Urine Blood NEG Urine Nitrite NEG Ur Leukocyte Esterase NEG Peritoneal WBC Peritoneal RBC Periton Neutrophils Periton Lymphocytes Peritoneal Monocytes Peritoneal Other Cells Ethyl Alcohol < 10 COVID-19 ([facility]UDY) COVID-19 Clin Com 08/08/20 08/08/20 18:47 19:17 MCV MCH MCHC RDW Plt Count MPV Immature Gran % (Auto) Neut % (Auto) Lymph % (Auto) Elliott % (Auto) Eos % (Auto) Baso % (Auto) Lymph # (Auto) Elliott # (Auto) Eos # (Auto) Baso # (Auto) Abs Immat Gran (auto) Absolute Neuts (auto) Absolute Nucleated RBC Nucleated RBC % (auto) ESR PT INR APTT Anion Gap Estim Creat Clear Calc Estimated GFR Random Glucose Lactic Acid Calcium Magnesium Total Bilirubin Direct Bilirubin AST ALT Alkaline Phosphatase C-Reactive Protein B-Natriuretic Peptide Total Protein Albumin Lipase Urine Color Urine Appearance Urine pH Ur Specific [place] Urine Protein Urine Glucose (UA) Urine Ketones Urine Blood Urine Nitrite Ur Leukocyte Esterase Peritoneal WBC 0.089 Peritoneal RBC < 0.002 Periton Neutrophils 9 Periton Lymphocytes 18 Peritoneal Monocytes 70 Peritoneal Other Cells 3 Ethyl Alcohol COVID-19 ([facility]UDY) Negative COVID-19 Clin Com See Note Imaging Radiologist's Impressions: Impressions Abdomen/Pelvis CT 08/08/20 15:51 IMPRESSION: No etiology for flank pain. There is evidence of underlying chronic liver disease possibly cirrhosis with portal hypertension including ascites and pelvic varices. There is some left pleural fluid. Assessment and Plan (1) Ascites: Qualifiers: Ascites type: due to alcoholic cirrhosis Qualified Code(s): K70.31 - Alcoholic cirrhosis of liver with ascites Status: Acute 54-year-old female with a past medical history of alcohol abuse, alcoholic liver cirrhosis, ascites, history of SBP, history of hepatic encephalopathy, anemia, depression, thrombocytopenia presented to the hospital with a chief complaint of abdominal pain. Abdominal pain: Likely in the setting of ascites/abdominal distension. Status post paracentesis-removed 2.2 L in the ER. Will consult Gastroenterology for further recommendations. Pain control. NPO for now Will defer to the a.m. team to consider mesenteric duplex based on GI recommendations. Metabolic acidosis: Patient has normal anion gap. Patient does complain of diarrhea. Likely GI losses. Will continue to monitor. History of SBP: Continue empiric ceftriaxone. Anemia/thrombocytopenia: Currently denies any signs of bleeding. History of alcoholic cirrhosis: CT scan also showed pelvic worsens. Gastroenterology consult. History of hepatic encephalopathy: Patient currently mentating well. Moderate protein calorie malnutrition: Will consult Nutrition. DVT prophylaxis: SCD boots Code status: Full code
[2020-08-08 21:15] VITALS: BP 104/57; PULSE 81; RESP 16
[2020-08-08 21:24] VITALS: BP 104/57; PULSE 90; RESP 14; TEMP 36.4; O2SAT 100
--- NOTE | 2020-08-08 21:48 | PC.NURSE ---
[facility] UNABLE TO TAKE REPORT AT THIS TIME. WILL CONTINUE TO MONITOR PT.
[2020-08-08 22:19] LABS: VBG Base Excess -9.2 mmol/L; VBG HCO3 15 mmol/L (22-26); VBG pCO2 26 mmHg; VBG pH 7.35 (7.32-7.43); VBG pO2 50 mmHg
[2020-08-08 22:21] LABS: Venous Blood Gas Refer to POC result
--- NOTE | 2020-08-08 23:03 | PC.NURSE ---
[place] [facility] [place] on [place]cher with monitor at this time. Pt left ED in NAD.
[2020-08-08] MEDS: 0.9 % Sodium Chloride Flush 3 ML SYRINGE IVFLUSH (23:59)
[2020-08-09] VITALS: BP 110/65; PULSE 76; RESP 18; TEMP 36.2; O2SAT 100
[2020-08-09 03:43] VITALS: BP 122/66; PULSE 86; RESP 18; TEMP 36.7; O2SAT 100
[2020-08-09 06:38] LABS: MANUAL DIFF FLAG NO
[2020-08-09 06:56] LABS: Basophils Percent Auto 0.6 % (0-2); Eosinophils Absolute Auto 0.3 X10*3/uL (0.0-0.4); Eosinophils Percent Auto 6.9 % (0-4); Hematocrit 21.4 % (37-47); Hemoglobin 7.1 g/dl (12.0-16.0); Imm Gran Abs Auto 0.02 X10*3/uL (0.00-0.03); Imm Gran Pct Auto 0.4 % (0.0-0.4); Lymphocytes Absolute Auto 1.2 X10*3/uL (1.2-4.9); Mean Corpuscular HGB Conc 33.2 g/dl (31.0-35.0); Mean Corpuscular Hemoglobin 34.6 pg (27.0-33.0); Mean Corpuscular Volume 104.4 fL (80-98); Monocytes Absolute Auto 0.8 X10*3/uL (0.1-1.2); Neutrophils Absolute Auto 2.4 X10*3/uL (2.0-8.3); Neutrophils Percent Auto 51.1 % (45-73); Red Blood Count 2.05 X10*6/uL (4.20-5.50); White Blood Count 4.8 X10*3/uL (4.8-10.8)
[2020-08-09] MEDS: oxyCODONE HCl Immed Release 5 MG TABLET PO ×2 (07:04→17:54)
[2020-08-09] MEDS: 0.9 % Sodium Chloride Flush 3 ML SYRINGE IVFLUSH ×2 (07:05→15:54)
[2020-08-09 07:11] LABS: Anion Gap 11 (12-20); Blood Urea Nitrogen 15 mg/dL (9-16); Calcium 7.7 mg/dL (8.4-10.2); Carbon Dioxide 16 mmol/L (22-29); Chloride 114 mmol/L (96-108); Creatinine Clr Calc Pharmacy 81.6; Estimated Glomerular Filt Rate > 60; Glucose Random 91 mg/dL (60-115); Potassium 4.9 mmol/L (3.3-5.1); Sodium 136 mmol/L (135-145)
[2020-08-09 07:16] LABS: Platelet Count 82 X10*3/uL (160-400)
[2020-08-09 07:33] VITALS: BP 104/58; PULSE 86; RESP 18; TEMP 36.9; O2SAT 99
--- NOTE | 2020-08-09 09:54 | MHC.CM.PN ---
CM MET WITH PT WHO REPORTS SHE LIVES AT HOME WITH HER DAUGHTER AND DAUGHTERS' . SHE REPORTS SHE IS INDEPENDENT WITH CARE AND MOBILITY. SHE DENIES THE USE OF DME AND CONFIRMS SHE IS STILL ACTIVE WITH [facility]. PT REPORTS THE [facility] ONLY BEEN PROVIDING [facility]. CM MESSAGED [facility] TO CLARIFY PTS SERVICES PHYSICAL THERAPY WAS RECOMMENDED UPON PTS DC IN JULY. PT CONFIRMS HER PCP LISTED, ANAMARIA RODRIGUEZ, IS ACCURATE AND SHE HAS A HCP ON FILE. PTS CURRENT DC PLAN IS HOME WITH [facility] FAMILY TO TRANSPORT
--- NOTE | 2020-08-09 10:08 | P.PNIM_ITS ---
Subjective Subjective Date of Service: 08/09/20 Interval History: abd and back pain Cardiovascular Cardiovascular: Reports no additional cardiovascular complaints Respiratory Respiratory: Reports no additional respiratory complaints Physical Exam Vital Signs: Vital Signs: Last Vital Signs Temp 98.5 F 08/09/20 07:33 Pulse 86 08/09/20 07:33 Resp 18 08/09/20 07:33 BP 104/58 L 08/09/20 07:33 Pulse Ox 99 08/09/20 07:33 Body Mass Index 21.2 General: AO X 3, no acute distress Resp: CTA bilateral CVS: S1,S2,RRR GI: soft, non tender, distended but not tight Neuro: motor grossly intact Psych: appropriate affect Objective Data Current Medications Generic Name Dose Route Start Last Admin Trade Name Freq PRN Reason Stop Dose Admin Cyclobenzaprine HCl 5 mg 08/09/20 10:03 Cyclobenzaprine Hcl 5 Mg Tablet PO BEDTIME PRN muscle spasm Folic Acid 1 mg 08/09/20 10:15 Folic Acid 1 Mg Tablet PO DAILY [facility] Levofloxacin 250 mg 08/09/20 10:15 Levofloxacin 250 Mg Tablet PO Q24H [facility] Oxycodone HCl 5 mg 08/09/20 00:01 08/09/20 07:04 Oxycodone Hcl Immed Release 5 Mg Tablet PO 5 mg Q6H PRN Administration Pain, Severe (Pain Scale 7-10) Rifaximin 550 mg 08/09/20 10:15 Rifaximin 550 Mg Tablet PO BID [facility] Sodium Chloride 3 ml 08/09/20 00:00 08/09/20 07:05 0.9 % Sodium Chloride Flush 3 Ml Syringe IVFLUSH 3 ml QSHIFT [facility] Administration Spironolactone 25 mg 08/09/20 10:15 Spironolactone 25 Mg Tablet PO DAILY [facility] Protocol Labs CBC & Chem 7: 08/09/20 06:24 08/09/20 06:24 Microbiology Microbiology Results: Microbiology 08/08/20 18:47 Ascites Fluid Routine Culture - Preliminary No growth to date. 08/08/20 18:47 Ascites Fluid Anaerobic Culture - Preliminary Culture in progress. Assessment and Plan (1) Ascites: Status: Acute Assessment and Plan: 54F presented with back pain and abdominal distension alcoholic liver cirrhosis with sympotatic ascites s/p 2.2L paracentesis, no evidence of SBP, does have hisotyr of sbp, will continue levaquin prophylaxis continue aldactone alcohol dependence reports soberiety since june 2020 back pain probably strain related to increased anterior weight bearing from ascites anemia due to liver disease, possible chronic bleeding was supposed to have screening EGD tomorrow GI to see monitor cbc history of hepatic encephalopathy mentating well continue xifaximin lactulose for 2-3 bm/day moderate protein calorie malnutrition encourage po intake
[2020-08-09] MEDS: Spironolactone 25 MG TABLET PO (10:24)
[2020-08-09] MEDS: rifAXIMin 550 MG TABLET PO ×2 (10:24→20:28)
[2020-08-09] MEDS: Folic Acid 1 MG TABLET PO (10:24)
[2020-08-09] MEDS: levoFLOXacin 250 MG TABLET PO (10:24)
[2020-08-09 11:32] VITALS: BP 109/59; PULSE 92; RESP 18; TEMP 36.9; O2SAT 100
[2020-08-09 11:55] VITALS: BMI 21.2
--- NOTE | 2020-08-09 11:57 | MHC.CLN ---
RE: CONSULT PT IS MALNOURISHED RECOMMEND ENSURE CLEAR TID TO INCREASE CALORIES SEE ALSO CLINICAL NUTRITION ASSESSMENT
--- NOTE | 2020-08-09 13:51 | PM.EVENT ---
Event Note Date of Service: 08/09/20 Event Note: GI consult dictated Alcoholic cirrhosis with ascites. S/p paracentesis, abdominal discomfort improved. EGD 08/10 to further evaluate abdominal pain and r/o varices. pt aware of risks and benefits and agrees to proceed.
--- NOTE | 2020-08-09 13:53 | MHC.SHP ---
Pre-Procedural Eval Section A The patient is an INPATIENT: Yes Changes since office visit: No Cold of Flu in the past 2 weeks, No New Medical Problems, No Changes in Medication and No Patient answered all questions The History & Physical has been completed within 30 days and I have reviewed it.: Yes Section B Chief Complaint: Ascites Allergies: Allergies Allergy/AdvReac Type Severity Reaction Status Date / Time Penicillins Allergy Unknown yeast Verified 08/02/20 12:49 infection Plan I have reviewed the history and physical and performed a pertinent physical examination on my patient. No changes have occurred unless specified.
--- NOTE | 2020-08-09 14:42 | CONS_ITS ---
DATE OF SERVICE: 08/09/2020 REFERRING PHYSICIAN: Bk Muñoz MD REASON FOR CONSULTATION: Abdominal pain, cirrhosis, and ascites. HISTORY OF PRESENT ILLNESS: The patient is a pleasant 54-year-old woman, who has had multiple admissions since the beginning of June with alcohol-related cirrhosis, ascites, SBP, and hepatic encephalopathy. She has been abstinent since her first hospitalization in June and has not had any GI bleeding. She has required paracentesis in the past and was treated for SBP in one earlier admission and is currently on prophylaxis with antibiotics. She was admitted to the hospital yesterday after presenting to the emergency room with complaints of abdominal distention, generalized abdominal pain, and back pain. There was associated nausea, but no vomiting and no melena. She had been seen in the office, scheduled for outpatient endoscopy for further evaluation of similar symptoms and to rule out esophageal varices. She had 2.2 L of fluid removed with no evidence of SBP. Today, she reports she feels somewhat better. She does complain of back pain, which seems unrelated to her ascites as it has not improved since her paracentesis. PAST MEDICAL HISTORY: 1. Alcohol abuse with cirrhosis, ascites, SBP, and encephalopathy, abstinent since beginning of June. 2. Elevated cholesterol. 3. Colonoscopy, 02/17, 10-year followup recommended. 4. History of D and C. CURRENT MEDICATIONS: Her current medication list is reviewed in the chart. ALLERGIES: PENICILLIN. FAMILY HISTORY: This is reviewed with the patient and is noncontributory. SOCIAL HISTORY: There is no current tobacco, alcohol, or substance abuse. She has a history of previously drinking regularly in fairly heavily. REVIEW OF SYSTEMS: SKIN: No pruritus. HEENT: Negative. CARDIOPULMONARY: She denies shortness of breath or chest pain. GASTROINTESTINAL: As above. GENITOURINARY: Negative. NEUROPSYCHIATRIC: Negative. PHYSICAL EXAMINATION: GENERAL: Shows a pleasant female, lying in bed. VITAL SIGNS: Reviewed in the electronic medical record and are stable. SKIN: Pale. HEENT: Shows no scleral icterus. NECK: Without lymphadenopathy or thyromegaly. LUNGS: Clear. HEART: Shows regular rate and rhythm. S1, S2. No murmur. ABDOMEN: Soft without focal masses or tenderness. Bowel sounds are present. No organomegaly is noted. There is some mild abdominal distention. EXTREMITIES: Without edema. LABORATORY DATA: Remarkable for white blood cell count of 4.8, hematocrit 21.4, platelet count 82,000. Prothrombin time 16.3. Chemistries show an AST of 68 with an ALT of 29. IMPRESSION: Alcoholic cirrhosis with abdominal pain and ascites. She has no evidence of SBP on her present fluid analysis and has been continuing on prophylaxis since her last episode. I would recommend this be continued. The back pain she describes appears unlikely to be related to her ascites as it did not improve after tap. I have recommended evaluation with upper endoscopy as previously planned, this will be done tomorrow. She is aware risks and benefits and agrees to proceed. This will allow further evaluation of her abdominal pain and potentially any varices that may be present. I did discuss with her the need to minimize fluid and limit her intake to 1 to 1.5 L per day and avoid sodium, limiting her intake to 1000 mg or less. If her BUN and creatinine permit, her diuretic regimen can be increased, although she did have problems with her creatinine becoming elevated on prior admissions. If necessary, renal consultation can be obtained for further evaluation and assistance. Thanks for asking me to see her. I will follow her in the hospital with you. MD ZAIN Montoya/GEOVANNA / [phone]
[2020-08-09 15:26] VITALS: BP 112/60; PULSE 97; RESP 20; TEMP 36.7; O2SAT 99
[2020-08-09 20:00] VITALS: BP 114/64; PULSE 100; RESP 18; TEMP 36.7; O2SAT 98
[2020-08-10] VITALS (15 sets, daily range): BP systolic 101–143; BP diastolic 55–76; PULSE 73–137; RESP 15–35; TEMP 36.2–37.2; O2SAT 91–100
[2020-08-10] MEDS: 0.9 % Sodium Chloride Flush 3 ML SYRINGE IVFLUSH ×4 (01:19→23:55)
[2020-08-10] MEDS: oxyCODONE HCl Immed Release 5 MG TABLET PO ×3 (03:25→22:53)
[2020-08-10 06:15] LABS: MANUAL DIFF FLAG NO
[2020-08-10 06:44] LABS: Basophils Percent Auto 0.3 % (0-2); Eosinophils Absolute Auto 0.4 X10*3/uL (0.0-0.4); Eosinophils Percent Auto 7.1 % (0-4); Imm Gran Abs Auto 0.02 X10*3/uL (0.00-0.03); Imm Gran Pct Auto 0.3 % (0.0-0.4); Lymphocytes Absolute Auto 1.8 X10*3/uL (1.2-4.9); Lymphocytes Percent Auto 31.5 % (20-40); Mean Corpuscular HGB Conc 33.8 g/dl (31.0-35.0); Mean Corpuscular Hemoglobin 35.1 pg (27.0-33.0); Mean Corpuscular Volume 103.7 fL (80-98); Mean Platelet Volume 11.2 fL (9.4-12.3); Monocytes Percent Auto 17.3 % (2-11); Neutrophils Absolute Auto 2.5 X10*3/uL (2.0-8.3); Neutrophils Percent Auto 43.5 % (45-73); Red Blood Count 1.91 X10*6/uL (4.20-5.50); Red Cell Distribution Width 15.3 % (11.0-16.0); White Blood Count 5.8 X10*3/uL (4.8-10.8)
[2020-08-10 07:12] LABS: Alanine Aminotransferase 21 U/L (0-31); Albumin Level 2.2 g/dL (3.5-5.0); Alkaline Phosphatase 74 U/L (39-117); Anion Gap 11 (12-20); Aspartate Amino Transferase 54 U/L (5-31); Bilirubin Direct 0.9 mg/dL (0.0-0.5); Bilirubin Total 1.2 mg/dL (0.0-1.0); Blood Urea Nitrogen 19 mg/dL (9-16); Calcium 7.1 mg/dL (8.4-10.2); Carbon Dioxide 17 mmol/L (22-29); Chloride 112 mmol/L (96-108); Creatinine Clr Calc Pharmacy 81.6; Estimated Glomerular Filt Rate > 60; Glucose Fasting 93 mg/dL (60-99); Magnesium 1.7 mg/dL (1.6-2.6); Potassium 4.2 mmol/L (3.3-5.1); Sodium 136 mmol/L (135-145); Total Protein 5.5 g/dL (6.5-8.0)
[2020-08-10 07:19] LABS: Platelet Count 83 X10*3/uL (160-400)
[2020-08-10 07:20] LABS: Hemoglobin 6.7 g/dl (12.0-16.0)
[2020-08-10 07:21] LABS: Hematocrit 19.8 % (37-47)
[2020-08-10] MEDS: Folic Acid 1 MG TABLET PO (09:41)
[2020-08-10] MEDS: rifAXIMin 550 MG TABLET PO ×2 (09:41→20:20)
[2020-08-10] MEDS: levoFLOXacin 250 MG TABLET PO (09:41)
[2020-08-10] MEDS: Spironolactone 25 MG TABLET PO (09:41)
--- NOTE | 2020-08-10 11:18 | HO.PM.IMPN ---
Subjective Subjective Date of Service: 08/10/20 Interval History: Seen in f/u for back pain, anemia, asciete. No back pain, H/H is lower today but no active bleed Review of Systems Gen: no fever Resp: no sob, no cough CV: no chest, no KARIMI, no leg edema GI: No n/v, no abd pain Neuro: No confusion Physical Exam Vital Signs: Vital Signs: Last Vital Signs Temp 98.6 F 08/10/20 11:10 Pulse 77 08/10/20 11:10 Resp 16 08/10/20 11:10 BP 111/56 L 08/10/20 11:10 Pulse Ox 98 08/10/20 07:55 Body Mass Index 21.2 General: AO X 3, no acute distress Resp: CTA bilateral CVS: S1,S2,RRR GI: +BS, NT, mild distention, positive fluid wave Skin: No rash Neuro: motor grossly intact Psych: appropriate affect Objective Data Current Medications Generic Name Dose Route Start Last Admin Trade Name Freq PRN Reason Stop Dose Admin Cyclobenzaprine HCl 5 mg 08/09/20 10:03 Cyclobenzaprine Hcl 5 Mg Tablet PO BEDTIME PRN muscle spasm Folic Acid 1 mg 08/09/20 10:15 08/10/20 09:41 Folic Acid 1 Mg Tablet PO 1 mg DAILY [facility] Administration Lactulose 20 gm 08/09/20 10:18 Lactulose 20 Gm/30 Ml Solution PO Q24H PRN 2-3 stools per day Levofloxacin 250 mg 08/09/20 10:15 08/10/20 09:41 Levofloxacin 250 Mg Tablet PO 250 mg Q24H [facility] Administration Oxycodone HCl 5 mg 08/09/20 00:01 08/10/20 03:25 Oxycodone Hcl Immed Release 5 Mg Tablet PO 5 mg Q6H PRN Administration Pain, Severe (Pain Scale 7-10) Rifaximin 550 mg 08/09/20 10:15 08/10/20 09:41 Rifaximin 550 Mg Tablet PO 550 mg BID [facility] Administration Sodium Chloride 3 ml 08/09/20 00:00 08/10/20 08:09 0.9 % Sodium Chloride Flush 3 Ml Syringe IVFLUSH 3 ml QSHIFT [facility] Administration Spironolactone 25 mg 08/09/20 10:15 08/10/20 09:41 Spironolactone 25 Mg Tablet PO 25 mg DAILY [facility] Administration Protocol Labs CBC & Chem 7: 08/10/20 05:25 08/10/20 05:25 Microbiology Microbiology Results: Microbiology 08/08/20 18:47 Ascites Fluid Gram Stain - Final 08/08/20 18:47 Ascites Fluid Routine Culture - Preliminary No growth to date. 08/08/20 18:47 Ascites Fluid Anaerobic Culture - Preliminary No growth to date. 08/08/20 16:19 Blood - Venous Blood Culture - Preliminary No growth after 24 hours. 08/08/20 16:12 Blood - Venous Blood Culture - Preliminary No growth after 24 hours. Assessment and Plan (1) Ascites: Status: Acute Assessment and Plan: 54/F w/ back pain and abdominal distension Anemia with declining H/H, likely acute blood loss on top of chronic anemia, concern for possible UGIB -transfuse 2 RBCs -EGD planeed by GI Alcoholic liver cirrhosis with sympotatic ascites s/p 2.2L paracentesis, no evidence of SBP, does have hisoty of sbp, will continue levaquin prophylaxis continue aldactone alcohol dependence reports soberiety since june 2020 back pain probably strain related to increased anterior weight bearing from ascites c history of hepatic encephalopathy, present totally lucid continue xifaximin lactulose for 2-3 bm/day moderate protein calorie malnutrition encourage po intake
--- NOTE | 2020-08-10 11:22 | P.CONAN_ITS ---
[facility] Active Problems Active Problems: All Active Problems (Updated 08/09/20 @ 10:08 by Jame Menendez MD) Decompensation of cirrhosis of liver (Acute) Ascites (Acute) Acute hyperkalemia (Acute) Cholelithiasis (Acute) SBP (spontaneous bacterial peritonitis) (Acute) Moderate protein-calorie malnutrition (Acute) Alcohol use disorder (Acute) Major depressive disorder, recurrent, moderate (Acute) Muscle spasm (Acute) Hypercholesterolemia (Acute) Past Medical History Medical History (Updated 08/09/20 @ 10:08 by Jame Menendez MD) Alcohol abuse Alcoholic cirrhosis of liver with ascites Anterior epistaxis Hypercholesterolemia Hypoglycemia Hypoglycemia Leukopenia Liver disease Thrombocytopenia Family History Family History Father Throat cancer Mother Lung cancer Son In good health Daughter In good health Surgical History Surgical History History of colonoscopy S/P dilation and curettage Social History Social History (Updated 08/09/20 @ 10:43 by Jame Menendez MD) Household Members: Children Housing: Apartment Do you presently have visiting nurse or other home services: Yes Alcohol intake: former Smoking Status: Never smoker Use of substances other than those prescribed or required for medical reasons: No Currently Displaying Signs/Symptoms of Drug Intoxication Withdrawal: No Have you been hit, kicked, punched, or otherwise hurt by someone within the past year? If so, by whom?: No Do you feel safe in your current relationship?: Yes Is there a partner from a previous relationship who is making you feel unsafe now?: No Are you made to feel afraid or neglected: No Advance Directives: No Advance Directives Information Provided: Yes Do you have thoughts of harming others: None Do you have a plan to hurt others: No Plan Recently lost weight without trying: No service: No Current occupational status: unemployed and disabled Meds Allergies Allergy/AdvReac Type Severity Reaction Status Date / Time Penicillins Allergy Unknown yeast Verified 08/02/20 12:49 infection Active Medications: Current Medications Generic Name Dose Route Start Last Admin Trade Name Freq PRN Reason Stop Dose Admin Cyclobenzaprine HCl 5 mg 08/09/20 10:03 Cyclobenzaprine Hcl 5 Mg Tablet PO BEDTIME PRN muscle spasm Folic Acid 1 mg 08/09/20 10:15 08/10/20 09:41 Folic Acid 1 Mg Tablet PO 1 mg DAILY RANDOLPH Administration Lactulose 20 gm 08/09/20 10:18 Lactulose 20 Gm/30 Ml Solution PO Q24H PRN 2-3 stools per day Levofloxacin 250 mg 08/09/20 10:15 08/10/20 09:41 Levofloxacin 250 Mg Tablet PO 250 mg Q24H RANDOLPH Administration Oxycodone HCl 5 mg 08/09/20 00:01 08/10/20 03:25 Oxycodone Hcl Immed Release 5 Mg Tablet PO 5 mg Q6H PRN Administration Pain, Severe (Pain Scale 7-10) Rifaximin 550 mg 08/09/20 10:15 08/10/20 09:41 Rifaximin 550 Mg Tablet PO 550 mg BID RANDOLPH Administration Sodium Chloride 3 ml 08/09/20 00:00 08/10/20 08:09 0.9 % Sodium Chloride Flush 3 Ml Syringe IVFLUSH 3 ml QSHIFT RANDOLPH Administration Spironolactone 25 mg 08/09/20 10:15 08/10/20 09:41 Spironolactone 25 Mg Tablet PO 25 mg DAILY RANDOLPH Administration Protocol Home Medications Medication Instructions Recorded Confirmed Last Taken Type lactulose 10 gram/15 mL oral 30 ml PO BID 08/05/20 08/09/20 08/08/20 History solution thiamine HCl (vitamin B1) 100 mg 100 mg PO DAILY 08/05/20 08/09/20 08/08/20 History tablet Exam Exam Date and Time: August 10, 2020 112 Height,Weight and Vital Signs: Height 5 ft 6 in Weight 59.5 kg Last Vital Signs Temp 98.6 F 08/10/20 11:10 Pulse 77 08/10/20 11:10 Resp 16 08/10/20 11:10 BP 111/56 L 08/10/20 11:10 Pulse Ox 98 08/10/20 07:55 Pertinent Lab Results Pertinent Lab Results: Laboratory Tests 08/08/20 08/08/20 08/08/20 16:13 16:13 16:13 WBC 6.1 RBC 2.28 L Hgb 8.0 L Hct 24.0 L MCV 105.3 H MCH 35.1 H MCHC 33.3 RDW 15.1 Plt Count 93 L MPV 10.4 Immature Gran % (Auto) 0.3 Neut % (Auto) 64.7 Lymph % (Auto) 19.5 L [place] % (Auto) 11.4 H Eos % (Auto) 3.6 Baso % (Auto) 0.5 Lymph # (Auto) 1.2 [place] # (Auto) 0.7 Eos # (Auto) 0.2 Baso # (Auto) 0.0 Abs Immat Gran (auto) 0.02 Absolute Neuts (auto) 4.0 Absolute Nucleated RBC 0.000 Nucleated RBC % (auto) 0.0 ESR 96 H PT 16.3 H INR 1.4 H APTT 31.5 VBG pH VBG pCO2 VBG pO2 VBG HCO3 VBG O2 Saturation VBG Base Excess Sodium Potassium Chloride Carbon Dioxide Anion Gap BUN Creatinine Estim Creat Clear Calc Estimated GFR Random Glucose Fasting Glucose Lactic Acid Calcium Magnesium Total Bilirubin Direct Bilirubin AST ALT Alkaline Phosphatase C-Reactive Protein B-Natriuretic Peptide Total Protein Albumin Lipase Urine Color Urine Appearance Urine pH Ur Specific [place] Urine Protein Urine Glucose (UA) Urine Ketones Urine Blood Urine Nitrite Ur Leukocyte Esterase Peritoneal WBC Peritoneal RBC Periton Neutrophils Periton Lymphocytes Peritoneal Monocytes Peritoneal Other Cells Ethyl Alcohol COVID-19 ([facility]UD[facility]) COVID-19 Clin Com Blood Type Antibody Screen Crossmatch 08/08/20 08/08/20 08/08/20 16:13 16:13 16:13 WBC RBC Hgb Hct MCV MCH MCHC RDW Plt Count MPV Immature Gran % (Auto) Neut % (Auto) Lymph % (Auto) [place] % (Auto) Eos % (Auto) Baso % (Auto) Lymph # (Auto) [place] # (Auto) Eos # (Auto) Baso # (Auto) Abs Immat Gran (auto) Absolute Neuts (auto) Absolute Nucleated RBC Nucleated RBC % (auto) ESR PT INR APTT VBG pH VBG pCO2 VBG pO2 VBG HCO3 VBG O2 Saturation VBG Base Excess Sodium 135 Potassium 5.5 H D Chloride 112 H Carbon Dioxide 15 L Anion Gap 14 BUN 19 H Creatinine 0.91 Estim Creat Clear Calc 64.6 Estimated GFR > 60 Random Glucose 116 H Fasting Glucose Lactic Acid 1.7 Calcium 8.0 L Magnesium 2.0 Total Bilirubin 2.0 H Direct Bilirubin 1.3 H AST 68 H ALT 29 Alkaline Phosphatase 94 C-Reactive Protein 0.76 H B-Natriuretic Peptide 124 H Total Protein 7.5 Albumin 2.7 L Lipase Urine Color Urine Appearance Urine pH Ur Specific [place] Urine Protein Urine Glucose (UA) Urine Ketones Urine Blood Urine Nitrite Ur Leukocyte Esterase Peritoneal WBC Peritoneal RBC [place]iton Neutrophils [place] Lymphocytes Peritoneal Monocytes Peritoneal Other Cells Ethyl Alcohol COVID-19 ([facility]UDY) COVID-19 [place] Com Blood Type Antibody Screen Crossmatch 08/08/20 08/08/20 08/08/20 16:13 16:13 16:29 WBC RBC Hgb Hct MCV MCH MCHC RDW Plt Count MPV Immature Gran % (Auto) Neut % (Auto) Lymph % (Auto) [place] % (Auto) Eos % (Auto) Baso % (Auto) Lymph # (Auto) [place] # (Auto) Eos # (Auto) Baso # (Auto) Abs Immat Gran (auto) Absolute Neuts (auto) Absolute Nucleated RBC Nucleated RBC % (auto) ESR PT INR APTT VBG pH VBG pCO2 VBG pO2 VBG HCO3 VBG O2 Saturation VBG Base Excess Sodium Potassium Chloride Carbon Dioxide Anion Gap BUN Creatinine Estim Creat Clear Calc Estimated GFR Random Glucose Fasting Glucose Lactic Acid Calcium Magnesium Total Bilirubin Direct Bilirubin AST ALT Alkaline Phosphatase C-Reactive Protein B-Natriuretic Peptide Total Protein Albumin Lipase 81 H Urine Color YELLOW Urine Appearance CLEAR Urine pH 5.0 Ur Specific [place] >= 1.030 H Urine Protein NEG Urine Glucose (UA) NEG Urine Ketones 5 Urine Blood NEG Urine Nitrite NEG Ur Leukocyte Esterase NEG Peritoneal WBC Peritoneal RBC Periton Neutrophils Periton Lymphocytes Peritoneal Monocytes Peritoneal Other Cells Ethyl Alcohol < 10 COVID-19 ([facility]UD[facility]) COVID-19 [place] [facility] Blood Type Antibody Screen Crossmatch 08/08/20 08/08/20 08/08/20 18:47 19:17 22:14 WBC RBC Hgb Hct MCV MCH MCHC RDW Plt Count MPV Immature Gran % (Auto) Neut % (Auto) Lymph % (Auto) [place] % (Auto) Eos % (Auto) Baso % (Auto) Lymph # (Auto) [place] # (Auto) Eos # (Auto) Baso # (Auto) Abs Immat Gran (auto) Absolute Neuts (auto) Absolute Nucleated RBC Nucleated RBC % (auto) ESR PT INR APTT VBG pH 7.35 VBG pCO2 26 VBG pO2 50 VBG HCO3 15 L VBG O2 Saturation 73.0 VBG Base Excess -9.2 Sodium Potassium Chloride Carbon Dioxide Anion Gap BUN Creatinine Estim Creat Clear Calc Estimated GFR Random Glucose Fasting Glucose Lactic Acid Calcium Magnesium Total Bilirubin Direct Bilirubin AST ALT Alkaline Phosphatase C-Reactive Protein B-Natriuretic Peptide Total Protein Albumin Lipase Urine Color Urine Appearance Urine pH Ur Specific [place] Urine Protein Urine Glucose (UA) Urine Ketones Urine Blood Urine Nitrite Ur Leukocyte Esterase Peritoneal WBC 0.089 Peritoneal RBC < 0.002 [place] Neutrophils 9 [place] Lymphocytes 18 Peritoneal Monocytes 70 Peritoneal Other Cells 3 Ethyl Alcohol COVID-19 ([facility]UD[facility]) Negative COVID-19 Clin Com See Note Blood Type Antibody Screen Crossmatch 08/09/20 08/09/20 08/10/20 06:24 06:24 05:25 WBC 4.8 5.8 RBC 2.05 L 1.91 L Hgb 7.1 L 6.7 L* Hct 21.4 L 19.8 L* MCV 104.4 H 103.7 H MCH 34.6 H 35.1 H MCHC 33.2 33.8 RDW 15.0 15.3 Plt Count 82 L 83 L MPV 11.0 11.2 Immature Gran % (Auto) 0.4 0.3 Neut % (Auto) 51.1 43.5 L Lymph % (Auto) 25.0 31.5 [place] % (Auto) 16.0 H 17.3 H Eos % (Auto) 6.9 H 7.1 H Baso % (Auto) 0.6 0.3 Lymph # (Auto) 1.2 1.8 [place] # (Auto) 0.8 1.0 Eos # (Auto) 0.3 0.4 Baso # (Auto) 0.0 0.0 Abs Immat Gran (auto) 0.02 0.02 Absolute Neuts (auto) 2.4 2.5 Absolute Nucleated RBC 0.000 0.000 Nucleated RBC % (auto) 0.0 0.0 ESR PT INR APTT VBG pH VBG pCO2 VBG pO2 VBG HCO3 VBG O2 Saturation VBG Base Excess Sodium 136 Potassium 4.9 Chloride 114 H Carbon Dioxide 16 L Anion Gap 11 L BUN 15 Creatinine 0.72 Estim Creat Clear Calc 81.6 Estimated GFR > 60 Random Glucose 91 Fasting Glucose Lactic Acid Calcium 7.7 L Magnesium Total Bilirubin Direct Bilirubin AST ALT Alkaline Phosphatase C-Reactive Protein B-Natriuretic Peptide Total Protein Albumin Lipase Urine Color Urine Appearance Urine pH Ur Specific [place] Urine Protein Urine Glucose (UA) Urine Ketones Urine Blood Urine Nitrite Ur Leukocyte Esterase Peritoneal WBC Peritoneal RBC Periton Neutrophils Periton Lymphocytes Peritoneal Monocytes Peritoneal Other Cells Ethyl Alcohol COVID-19 ([facility]UDY) COVID-19 Clin Com Blood Type Antibody Screen Crossmatch 08/10/20 08/10/20 05:25 08:28 WBC RBC Hgb Hct MCV MCH MCHC RDW Plt Count MPV Immature Gran % (Auto) Neut % (Auto) Lymph % (Auto) [place] % (Auto) Eos % (Auto) Baso % (Auto) Lymph # (Auto) [place] # (Auto) Eos # (Auto) Baso # (Auto) Abs Immat Gran (auto) Absolute Neuts (auto) Absolute Nucleated RBC Nucleated RBC % (auto) ESR PT INR APTT VBG pH VBG pCO2 VBG pO2 VBG HCO3 VBG O2 Saturation VBG Base Excess Sodium 136 Potassium 4.2 Chloride 112 H Carbon Dioxide 17 L Anion Gap 11 L BUN 19 H Creatinine 0.72 Estim Creat Clear Calc 81.6 Estimated GFR > 60 Random Glucose Fasting Glucose 93 Lactic Acid Calcium 7.1 L D Magnesium 1.7 Total Bilirubin 1.2 H Direct Bilirubin 0.9 H AST 54 H ALT 21 Alkaline Phosphatase 74 D C-Reactive Protein B-Natriuretic Peptide Total Protein 5.5 L D Albumin 2.2 L Lipase Urine Color Urine Appearance Urine pH Ur Specific [place] Urine Protein Urine Glucose (UA) Urine Ketones Urine Blood Urine Nitrite Ur Leukocyte Esterase Peritoneal WBC Peritoneal RBC Periton Neutrophils Periton Lymphocytes Peritoneal Monocytes Peritoneal Other Cells Ethyl Alcohol COVID-19 (CLAUDY) COVID-19 Clin Com Blood Type O Positive Antibody Screen NEGATIVE Crossmatch See Detail Airway Mallampati Class: II TM Dist: >3cm Neck ROM: Full
[2020-08-10] MEDS: Lactated Ringers 1,000 ML 100 ML IVCONT (11:43)
--- NOTE | 2020-08-10 12:04 | PM.OP ---
Brief Operative Note Date of Service: 08/10/20 Pre-op diagnosis: cirrhosis Post-op diagnosis: same (distal esophagitis, portal hypertensive gastropathy) Procedure: egd Surgeon: Ad Cheema Anesthesia: MAC Estimated blood loss (mL): 0 Pathology: none sent Condition: stable Disposition: PACU
--- NOTE | 2020-08-10 12:05 | PM.EVENT ---
Event Note Date of Service: 08/10/20 Event Note: EGD dictated no varices mild distal esophagitis portal hypertensive gastropathy start ppi advance diet.
--- NOTE | 2020-08-10 12:24 | OP_ITS ---
SURGEON: Ad Cheema MD INDICATIONS: Cirrhosis. PREOPERATIVE DIAGNOSIS: POSTOPERATIVE DIAGNOSIS: PROCEDURE PERFORMED: Upper endoscopy. ESTIMATED BLOOD LOSS: COMPLICATIONS: ANESTHESIA: ASSISTANTS: SPECIMENS: MEDICATIONS: Monitored anesthesia care. DESCRIPTION OF PROCEDURE: History and physical performed. The risks and benefits of the procedure were explained to the patient. Informed consent was obtained. The patient was placed in left lateral decubitus position. The Olympus video gastroscope was introduced into the esophagus, stomach, and duodenum. Examination was performed and the scope was removed. She tolerated the procedure well and was taken to recovery area in stable condition. FINDINGS: Esophagus: The esophagus showed a mild distal esophagitis. No varices were present. Stomach: Stomach showed changes of mild portal hypertensive gastropathy. No gastric varices were identified. There was no bleeding. No ulceration was seen. Duodenum: The bulb and second portion showed a mild duodenitis. IMPRESSION: 1. Portal hypertensive gastropathy. 2. Distal esophagitis. RECOMMENDATIONS: 1. Follow up as needed. 2. Advanced diet. 3. Begin proton pump inhibitor. MD ZAIN Montoya/GEOVANNA / [phone] MTDD
[2020-08-10] MEDS: Omeprazole 20 MG CAPSULE.DR PO (13:36)
[2020-08-10] MEDS: Lactulose 20 GM/30 ML SOLUTION PO (20:26)
[2020-08-10] MEDS: Cyclobenzaprine HCl 5 MG TABLET PO (20:26)
[2020-08-11] VITALS: BP 126/53; PULSE 83; RESP 20; TEMP 36.7; O2SAT 96
[2020-08-11 04:00] VITALS: BP 103/59; PULSE 86; RESP 18; TEMP 37; O2SAT 95
[2020-08-11] MEDS: Omeprazole 20 MG CAPSULE.DR PO (05:34)
[2020-08-11 08:00] VITALS: BP 124/71; PULSE 89; RESP 20; TEMP 36.6; O2SAT 99
[2020-08-11] MEDS: levoFLOXacin 250 MG TABLET PO (08:16)
[2020-08-11] MEDS: Spironolactone 25 MG TABLET PO (08:16)
[2020-08-11] MEDS: rifAXIMin 550 MG TABLET PO (08:16)
[2020-08-11] MEDS: 0.9 % Sodium Chloride Flush 3 ML SYRINGE IVFLUSH (08:18)
[2020-08-11] MEDS: Folic Acid 1 MG TABLET PO (08:18)
--- NOTE | 2020-08-11 11:37 | MHC.CM.PN ---
FEMALE 54 DX ASCITES. She is discharged today home with resumption of [facility] services. Her [facility] is providing transport to home.
[2020-08-11 11:46] VITALS: BP 116/67; PULSE 86; RESP 18; TEMP 36.9; O2SAT 100
--- NOTE | 2020-08-11 12:14 | MHC.CLN ---
F/U PT WITH VARIABLE PO INTAKE DIET RX: 2GM NA -APPROPRIATE RECOMMEND ENSURE BID TO INCREASE KCALS FOLLOWING
--- NOTE | 2020-08-11 12:35 | PM.DS ---
DS: Providers Provider Date of Service: 10/02/20 Date of admission: 08/08/20 20:33 Primary care physician: Saloni Rose MD Consults: 08/08/20 20:32 Consult to Gastroenterology Routine Consulting Provider: Valentín Lemons Reason for consultation: Ascites DS: Diagnosis Discharge Diagnosis (1) Ascites: DS: Medications Discharge Medications Home Medications: Home Medications Medication Instructions Recorded Confirmed lactulose 10 gram/15 mL oral 30 ml PO BID 08/05/20 08/09/20 solution thiamine HCl (vitamin B1) 100 mg 100 mg PO DAILY 08/05/20 08/09/20 tablet Previous Rx's Medication Instructions Recorded potassium chloride 20 mEq 20 meq PO BID #60 tab 06/30/20 tablet,extended release(part/cryst) Xifaxan 550 mg PO BID #60 tab 07/20/20 folic acid 1 mg PO DAILY #30 tab 07/20/20 levofloxacin 250 mg PO Q24H #60 tab 07/20/20 spironolactone 25 mg PO DAILY #60 tab 07/20/20 cyclobenzaprine 5 mg tablet 5 mg PO BEDTIME PRN 30 Days #30 tab 08/05/20 lidocaine 5 % topical ointment 1 appl TOPICAL BEDTIME PRN #240 g 08/05/20 omeprazole 40 mg PO DAILY 84 Days #84 cap 08/11/20 tramadol 50 mg PO Q8H PRN #10 tab 08/11/20 DS: Summary Hospital Course Hospital Course: Chief Complaint: Abdominal pain 54-year-old female with a past medical history of alcohol abuse, alcoholic liver cirrhosis, ascites, history of SBP, thrombocytopenia, anemia, depression presented to the hospital with a chief complaint of abdominal pain. Mentions that she has been having this abdominal pain for the past 2 weeks; and has seen Gastroenterology as outpatient and had abdominal ultrasound with minimal ascites and gallstones. Lately her abdominal pain has gotten worse associated with nausea. Denies any vomiting. Denies any blood in the stool. Denies any hematemesis. Denies any fever chills cough. Denies any chest pain palpitations lightheadedness dizziness. Denies any urinary symptoms. Review of all other systems is negative except mentioned above ER course: Per ER team patient noted to be in severe discomfort secondary to the abdominal pain. No guarding or rigidity. CT scan showed ascites. Bedside peritoneal tap was done and removed 2.2 L of fluid; fluid analysis showed minimal WBC. Patient is on SBP prophylaxis as outpatient; given ceftriaxone in the ER empirically. Admitted to the hospital for further management. Patient was admitted with abdominal pain. Had paracentesis showing no evidence of SBP, she was anemic, but no active bleed. H/H trended down and so she was underwent EGD and noted to have Status at Discharge Functional status at discharge: independent ambulation Overall status at discharge: patient is back to baseline Time Spent with Patient Time attestation: Total time spent providing and/or coordinating discharge services: Discharge coordination time: Greater than 30 minutes Physical Exam Vital Signs: Vital Signs: Last Vital Signs Temp 98.5 F 08/11/20 11:46 Pulse 86 08/11/20 11:46 Resp 18 08/11/20 11:46 BP 116/67 08/11/20 11:46 Pulse Ox 100 08/11/20 11:46 Body Mass Index 21.2 General: AO X 3, no acute distress Resp: CTA bilateral CVS: S1,S2,RRR GI: +BS, NT, no distention Skin: No rash Neuro: motor grossly intact Psych: appropriate affect DS: Data Data Completed and Pending Completed studies during hospitalization [Text1]: Procedures Drainage of Peritoneal Cavity, Percutaneous Approach (06/08/20) Labs on day of discharge: Laboratory Results - last 24 hr 08/10/20 08:28 Blood Type O Positive Antibody Screen NEGATIVE Crossmatch See Detail Preliminary micro results at discharge 08/08/20 18:47 Anaerobic Culture - Preliminary Ascites Fluid No growth to date. 08/08/20 16:19 Blood Culture - Preliminary Blood - Venous No growth after 48 hours. 08/08/20 16:12 Blood Culture - Preliminary Blood - Venous No growth after 48 hours. Discharge Plan Discharge Anticipated Discharge Date/Time: 08/11/20 12:18 Patient Disposition: Home, Self-Care Discharge Diagnosis: Hepatic Encephalopathy Referrals: [facility] [Outside] Po,Saloni Jackson MD [Primary Care Provider] - 1 Month (08/18/2020 8:30am) Discharge Medications: New omeprazole 40 mg capsule,delayed release(DR/EC) 40 mg PO DAILY 84 Days Qty: 84 RF: 0 Continued spironolactone 25 mg tablet 25 mg PO DAILY Qty: 60 RF: 1 lactulose 10 gram/15 mL solution 30 ml PO BID RF: 0 potassium chloride [Klor-Con M20] 20 mEq tablet,ER particles/crystals 20 meq PO BID Qty: 60 RF: 2 Discontinued naproxen 250 mg tablet 250 mg PO BID PRN (Reason: pain) Qty: 30 RF: 0 No Action folic acid 1 mg tablet 1 mg PO DAILY Qty: 30 RF: 11 thiamine HCl (vitamin B1) 100 mg tablet 100 mg PO DAILY Qty: 90 RF: 3 Xifaxan 550 mg tablet 550 mg PO BID Qty: 60 RF: 1 cyclobenzaprine 5 mg tablet 5 mg PO BEDTIME PRN (Reason: muscle spasm) 30 Days Qty: 30 RF: 0 levofloxacin 250 mg tablet 250 mg PO Q24H Qty: 60 RF: 0 tramadol 50 mg tablet 50 mg PO Q8H 90 Days Qty: 180 RF: 0 Discharge Orders: Discharge Order (Routine); Ordered 08/11/20 Ordered By: Carter Chilel Diet: advance to usual diet Activity on Discharge: As tolerated Stand Alone Forms: Patient Portal Discharge page Care Plan Goals: prevent rehospitalization, anemia Health Concerns: Anemia, chronic alcohol use Plan of Treatment: avoid alcohol, take Pirolose and follow up with your doctor Assessment: hepatic encephalpathy Discharge Date/Time: 08/11/20 13:35
[2020-08-11] MEDS: oxyCODONE HCl Immed Release 5 MG TABLET PO (12:57)
--- NOTE | 2020-08-11 14:33 | HO.POSTANES ---
Post Anesthesia Evaluation Post Anesthesia Evaluation Vital Signs: Vital Signs Temp Pulse Resp BP Pulse Ox 08/11/20 11:46 98.5 F 86 18 116/67 100 08/11/20 08:00 98 F 89 20 124/71 99 08/11/20 04:00 98.6 F 86 18 103/59 L 95 Anesthesia: Monitored Pain Control: Satisfactory Nausea/Vomiting: None Hydration: Adequate Anesthesia-Related Issues: No Anes. Related Issues
== END 2020-08-11 13:35 | disposition home or self-care (01) | DRG 280 ==
LOC: HO.ED 19:53 → HO.EDOVER 20:41 → HO.IMC 20:50
PROVIDERS: Internal Medicine; Internal Medicine Gastroenterology; Physician Assistant; Admitting Provider Hospitalist; Emergency Provider Emergency Medicine; PCP Internal Medicine; Visit Provider Internal Medicine
PROC: 0DJ08ZZ Inspection of Upper Intestinal Tract, Via Natural or Artificial Opening Endoscopic (ICD-10-PCS; CPT 43235; principal; 2020-08-10 09:50)
DX: K70.31 Alcoholic cirrhosis of liver with ascites (principal); D69.6 Thrombocytopenia, unspecified; E87.2 Acidosis; E44.0 Moderate protein-calorie malnutrition; K76.6 Portal hypertension; D64.9 Anemia, unspecified; K20.90 Esophagitis, unspecified without bleeding; K31.89 Other diseases of stomach and duodenum; F10.21 Alcohol dependence, in remission; Z20.822 Contact with and (suspected) exposure to COVID-19; Z68.21 Body mass index [BMI] 21.0-21.9, adult; Z79.899 Other long term (current) drug therapy
CPT/HCPCS: 36415; 74177; 80048; 80076; 80320; 81003; 83605; 83690; 83735; 83880; 85025; 85610; 85652; 85730; 86140; 86850; 86900; 86923; 87040; 87071; 87073; 87205; 87635; 89051; 96374; 99285; J0696; J3010; P9040; Q9967

== ENCOUNTER 2020-08-18 09:30 | Outpatient (REF) | payer OTHER, SELFPAY ==
--- NOTE | ~2020-08-18 | XR_ITS ---
EXAMINATION: XR LUMBOSACRAL SPINE CLINICAL INFORMATION: Low back pain COMPARISON: Previous x-ray June 2020 TECHNIQUE: Three views of the lumbosacral spine. FINDINGS: The vertebral bodies and posterior elements are normal. The disc spaces are preserved and the vertebral alignment is normal. The paraspinal soft tissues are normal. XR/XR lumbar spine 2-3V IMPRESSION: Unremarkable examination.
[2020-08-18 09:55] LABS: MANUAL DIFF FLAG NO
[2020-08-18 09:59] LABS: Basophils Percent Auto 0.8 % (0-2); Eosinophils Absolute Auto 0.3 X10*3/uL (0.0-0.4); Eosinophils Percent Auto 5.3 % (0-4); Hematocrit 29.9 % (37-47); Hemoglobin 9.9 g/dl (12.0-16.0); Imm Gran Abs Auto 0.01 X10*3/uL (0.00-0.03); Imm Gran Pct Auto 0.2 % (0.0-0.4); Immature Retic Fraction 9.8 % (3.0-15.9); Lymphocytes Absolute Auto 1.1 X10*3/uL (1.2-4.9); Lymphocytes Percent Auto 21.5 % (20-40); Mean Corpuscular HGB Conc 33.1 g/dl (31.0-35.0); Mean Corpuscular Hemoglobin 33.6 pg (27.0-33.0); Mean Corpuscular Volume 101.4 fL (80-98); Mean Platelet Volume 10.2 fL (9.4-12.3); Monocytes Percent Auto 19.4 % (2-11); Neutrophils Absolute Auto 2.6 X10*3/uL (2.0-8.3); Neutrophils Percent Auto 52.8 % (45-73); Platelet Count 84 X10*3/uL (160-400); Red Blood Count 2.95 X10*6/uL (4.20-5.50); Red Cell Distribution Width 16.5 % (11.0-16.0); Retic HGB Equivalent 36.7 pg (30.0-35.0); Reticulocyte Percent 2.5 % (0.5-1.8); Reticulocytes Absolute 0.072 X10*6/uL (0.026-0.095); White Blood Count 4.9 X10*3/uL (4.8-10.8)
[2020-08-18 10:25] LABS: Ammonia 27 umol/L (13-55)
[2020-08-18 10:35] LABS: Alanine Aminotransferase 26 U/L (0-31); Albumin Level 2.6 g/dL (3.5-5.0); Alkaline Phosphatase 102 U/L (39-117); Anion Gap 10 (12-20); Aspartate Amino Transferase 66 U/L (5-31); Bilirubin Total 2.4 mg/dL (0.0-1.0); Blood Urea Nitrogen 10 mg/dL (9-16); Calcium 7.9 mg/dL (8.4-10.2); Carbon Dioxide 23 mmol/L (22-29); Chloride 104 mmol/L (96-108); Estimated Glomerular Filt Rate > 60; Glucose Random 98 mg/dL (60-115); Iron 173 mcg/dL (30-160); Magnesium 1.6 mg/dL (1.6-2.6); Percent Iron Saturation 87 % (15-50); Potassium 3.9 mmol/L (3.3-5.1); Sodium 133 mmol/L (135-145); Total Iron Binding Capacity 200 mcg/dL (228-428); Unsaturated Iron Binding 27 ug/dL
[2020-08-18 10:55] LABS: Ferritin 344 ng/mL (10-250)
[2020-08-18 11:11] LABS: Folate 18.8 ng/mL (> or = 4.0); Vitamin B12 1229 pg/mL (200-900)
== END 2020-08-18 09:31 | disposition home or self-care (01) ==
LOC: HO.LAB 09:30
PROVIDERS: PCP Internal Medicine; Visit Provider Internal Medicine
DX: M54.5 Low back pain (principal); D64.89 Other specified anemias; E87.6 Hypokalemia; D64.9 Anemia, unspecified
CPT/HCPCS: 36415; 72100; 80053; 82140; 82607; 82728; 82746; 83540; 83735; 85025; 85045

== ENCOUNTER 2020-08-21 10:58 | Outpatient (REF) | payer OTHER, SELFPAY ==
--- NOTE | ~2020-08-21 | MM_ITS ---
EXAMINATION: MM SCREENING DIGITAL BREAST TOMOSYNTHESIS, BILATERAL CLINICAL INFORMATION: Screening. Asymptomatic. The lifetime risk of breast cancer based on the Tyrer-Cuzick Model is 5%. COMPARISON: Mammography: 05/31/2019, 04/18/2018, 04/11/2016, 04/03/2015 TECHNIQUE: Digital breast tomosynthesis is performed in both the craniocaudal and mediolateral oblique views along with computer-aided detection (CAD). Synthesized 2D images are generated from the tomosynthesis. Additional left CC view is provided. FINDINGS: There are scattered areas of fibroglandular density (ACR BI-RADS breast composition Category b). There are no significant masses, abnormal calcifications, or other abnormalities. Intramammary node again noted 9:00 position right breast. There are bilateral vascular and some punctate calcifications again seen. No significant changes from prior studies. MM/MM tomosynthesis screening BI IMPRESSION: No mammographic evidence of malignancy. ASSESSMENT: BI-RADS 2: Benign RECOMMENDATION: Routine annual mammography screening. This patient's information was entered into a reminder system with a target due date for their next mammogram.
== END 2020-08-21 10:59 | disposition home or self-care (01) ==
LOC: HO.MAMMO 10:58
PROVIDERS: PCP Internal Medicine; Visit Provider Internal Medicine
DX: Z12.31 Encounter for screening mammogram for malignant neoplasm of breast (principal)
CPT/HCPCS: 77063; 77067

== ENCOUNTER 2020-10-06 09:10 | Emergency (ER) | payer OTHER, SELFPAY ==
[2020-10-06 09:35] VITALS: BP 121/68; PULSE 89; RESP 14; TEMP 36.7; O2SAT 100; BMI 19.3
--- NOTE | 2020-10-06 10:09 | ED.GENADULT ---
HPI - General Adult General Chief complaint: General Medical <ARIA Stewart - Last Filed: 10/06/20 10:25> Stated complaint: JOINT PAIN <ARIA Stewart Last Filed: 10/06/20 10:25> Time Seen by Provider: 10/06/20 10:09 <ARIA Stewart - Last Filed: 10/06/20 10:25> History of Present Illness HPI narrative: Patient complains of widespread muscle aches and joint pains for many many months, her doctor has prescribed her tramadol Naprosyn and Flexeril, but she finds it hard to sleep as the muscle pains are worst at night and these medications are not working She has a follow-up to be scheduled with the agricultural technical officer and does not describe any acute change to her ongoing condition <ARIA Stewart Last Filed: 10/06/20 10:25> Related Data Home medications: Home Medications Medication Instructions Recorded Confirmed omeprazole 20 mg PO DAILY@0630 10/25/20 10/25/20 thiamine HCl (vitamin B1) [Vitamin 100 mg PO DAILY 10/25/20 10/25/20 B-1] tramadol 50 mg PO Q8H PRN 10/25/20 10/25/20 Previous Rx's Medication Instructions Recorded spironolactone 25 mg PO DAILY #60 tab 07/20/20 folic acid 1 mg tablet 1 mg PO DAILY #30 tab 08/23/20 cyclobenzaprine 5 mg tablet 5 mg PO BEDTIME PRN 30 Days #30 tab 09/24/20 levofloxacin 250 mg tablet 250 mg PO Q24H #60 tab 09/24/20 rifaximin 550 mg tablet 550 mg PO BID #60 tab 10/01/20 potassium chloride 20 mEq 20 meq PO BID #60 tab 10/06/20 tablet,extended release(part/cryst) lactulose 20 g PO TID #600 ml 10/28/20 <ARIA Stewart Last Filed: 10/06/20 10:25> Allergies/adverse reactions: Allergies Allergy/AdvReac Type Severity Reaction Status Date / Time Penicillins Allergy Unknown yeast Verified 09/24/20 15:18 infection <ARIA Stewart Last Filed: 10/06/20 10:25> Review of Systems Review of Systems: Positive for muscle and joint aches Negatives are no fever no chills no dizziness no weakness no joint swelling no headaches no chest pain no neck pain no back pain no shortness of breath no abdominal pain no vomiting no numbness or weakness no rash <ARIA Stewart - Last Filed: 10/06/20 10:25> Yes all other systems are reviewed and are negative <ARIA Stewart - Last Filed: 10/06/20 10:25> [facility] Past Medical History Source: nursing notes reviewed <ARIA Stewart - Last Filed: 10/06/20 10:25> Medical History: Medical History Alcohol abuse Alcoholic cirrhosis of liver with ascites Anterior epistaxis Ascites Decompensation of cirrhosis of liver Hypercholesterolemia Hypoglycemia Hypoglycemia Leukopenia Liver disease Thrombocytopenia <ARIA Stewart - Last Filed: 10/06/20 10:25> Surgical History: Surgical History History of colonoscopy S/P dilation and curettage <ARIA Stewart - Last Filed: 10/06/20 10:25> Family History Family History: Family History Father Throat cancer Mother Lung cancer Son In good health Daughter In good health <ARIA Stewart - Last Filed: 10/06/20 10:25> Social History Social History: Social History Household Members: Children Housing: House Do you presently have visiting nurse or other home services: No Alcohol intake: former Advance Directives Date on File: 06/15/20 service: No Current occupational status: unemployed and disabled <ARIA Stewart - Last Filed: 10/06/20 10:25> Physical Exam Vital Signs: Vital Signs: Last Vital Signs Temp 98.0 F 10/06/20 09:35 Pulse 89 10/06/20 09:35 Resp 14 10/06/20 09:35 BP 121/68 10/06/20 09:35 Pulse Ox 100 10/06/20 09:35 Body Mass Index 19.3 <ARIA Stewart Last Filed: 10/06/20 10:25> Vital Signs: Last Vital Signs Temp 98.0 F 10/06/20 09:35 Pulse 89 10/06/20 09:35 Resp 14 10/06/20 09:35 BP 121/68 10/06/20 09:35 Pulse Ox 100 10/06/20 09:35 Body Mass Index 19.3 <Kai Henry MD - Last Filed: 10/29/20 13:56> General appearance is no acute distress, calm comfortable relaxed and cooperative, a and O x3 Head is normocephalic atraumatic The neck is supple Chest is clear to auscultation bilateral full symmetrical breath sounds Heart no murmur Abdomen soft nontender Extremities is full range of motion x4, there is no redness or swelling of the joints Gait and balance are normal Skin no rash Neuro no motor or sensory deficit <ARIA Stewart - Last Filed: 10/06/20 10:25> Course Course Course Narrative: This patient has been seeing her primary doctor for the same problem and is being referred to a agricultural technical officer Today's visit there is no acute change, the medications are not working at night so she finds it is hard to sleep and feels like her muscles are more painful at the end of the day <ARIA Stewart - Last Filed: 10/06/20 10:25> I have reviewed the chart <Kai Henry MD - Last Filed: 10/29/20 13:56> Discharge Plan Discharge Clinical Impression: Generalized muscle ache <ARIA Stewart - Last Filed: 10/06/20 10:25> Patient Disposition: Home, Self-Care <ARIA Stewart - Last Filed: 10/06/20 10:25> Additional Instructions: As cyclobenzaprine is not helping, you can try the Valium which is stronger and helps relax muscles as well as help with sleep so use it only as night 1 or 2 tablets, 5 or 10 mg as needed Do not take cyclobenzaprine and Valium together, use 1 or the other Follow with your doctor and agricultural technical officer Return any time any worse condition or any concerns <ARIA Stewart - Last Filed: 10/06/20 10:25> Prescriptions: No Action folic acid 1 mg tablet 1 mg PO DAILY Qty: 30 RF: 11 Xifaxan 550 mg tablet 550 mg PO BID Qty: 60 RF: 1 potassium chloride [Klor-Con M20] 20 mEq tablet,ER particles/crystals 20 meq PO BID Qty: 60 RF: 2 thiamine HCl (vitamin B1) [Vitamin B-1] 100 mg Tablet 100 mg PO DAILY RF: 0 omeprazole 20 mg Capsule,Delayed Release(Dr/Ec) 20 mg PO DAILY@0630 RF: 0 tramadol 50 mg tablet 50 mg PO Q8H PRN (Reason: Pain (Scale Score 4-6)) RF: 0 lactulose 20 gram/30 mL Solution 20 g PO TID Qty: 600 RF: 0 spironolactone 25 mg tablet 25 mg PO DAILY Qty: 60 RF: 1 cyclobenzaprine 5 mg tablet 5 mg PO BEDTIME PRN (Reason: muscle spasm) 30 Days Qty: 30 RF: 0 levofloxacin 250 mg tablet 250 mg PO Q24H Qty: 60 RF: 0 <ARIA Stewart - Last Filed: 10/06/20 10:25> Interventions: ED Discharge Assessment Last Done: 10/06/20 10:25 <ARIA Stewart - Last Filed: 10/06/20 10:25> Discharge Date/Time: 10/06/20 10:26 <ARIA Stewart - Last Filed: 10/06/20 10:25>
== END 2020-10-06 10:26 | disposition home or self-care (01) ==
PROVIDERS: Emergency Provider Emergency Medicine; PCP Internal Medicine
DX: M79.10 Myalgia, unspecified site (principal); Z79.899 Other long term (current) drug therapy
CPT/HCPCS: 99283; 99284

== ENCOUNTER 2020-10-25 11:28 | Inpatient (IN) | payer OTHER, SELFPAY ==
--- NOTE | ~2020-10-25 | CT_ITS ---
EXAMINATION: CT HEAD AND CHEST X-RAY. CLINICAL INFORMATION: AMS. COMPARISON: None TECHNIQUE: 5 mm thin axial and reformatted 2 mm thin sagittal and coronal images of brain were obtained without contrast. DLP 679 FINDINGS: There is no acute intra-axial, extra-axial bleed, masses or midline shift. There is no acute infarct in evolution. The lateral ventricles are symmetrical in size and configuration without enlargement. The [place] to white matter differentiation is maintained normal. Bone windows reveal no calvarial abnormality. Visualized bilateral paranasal sinuses and mastoid air cells are well-aerated. CT/CT head/brain wo con IMPRESSION: No acute intracranial process seen.
--- NOTE | ~2020-10-25 | XR_ITS ---
EXAMINATION: CT HEAD AND CHEST X-RAY. CLINICAL INFORMATION: AMS. COMPARISON: None TECHNIQUE: 5 mm thin axial and reformatted 2 mm thin sagittal and coronal images of brain were obtained without contrast. DLP 679 FINDINGS: There is no acute intra-axial, extra-axial bleed, masses or midline shift. There is no acute infarct in evolution. The lateral ventricles are symmetrical in size and configuration without enlargement. The [place] to white matter differentiation is maintained normal. Bone windows reveal no calvarial abnormality. Visualized bilateral paranasal sinuses and mastoid air cells are well-aerated. XR/XR chest 1V IMPRESSION: No acute intracranial process seen.
[2020-10-25 11:44] VITALS: BP 125/69; PULSE 82; RESP 18; TEMP 36.8; O2SAT 100; BMI 19.3
--- NOTE | 2020-10-25 12:59 | ED_ITS ---
HPI - Altered Mental Status General Chief Complaint: Altered Mental Status Stated Complaint: AMS PER DAUGHTER Time Seen by Provider: 10/25/20 11:57 Source: patient, family and EMS Mode of arrival: EMS History of Present Illness HPI narrative: 54 y/o female with history of alcoholic cirrhosis with ascites, history of SBP in Jun on ppx antibiotics, hepatic encephalopathy, gallstones, HLD, malnutrtion and depression who presents with altered mental status reported from family and VNA that patient more confused over the past week. Patient reports diffuse myalgias which she has been seen in our ED for/UC and has rheumatology follow-up, otherwise offers no complaints. I spoke to daughter whom patient lives with, admits her baseline is A&O x3, sharp, but reportedly today was not answering questions appropriately, & questioning cer tain things, no reported fall/trauma, no fever, chills. Patient denies headache, CP/SOB, abdominal pain, nausea/vomiting, dysuria/hematuria MD complaint: altered mental status Related Data Home Medications Medication Instructions Recorded Confirmed lactulose 10 gram/15 mL oral 30 ml PO BID 08/05/20 09/24/20 solution Previous Rx's Medication Instructions Recorded spironolactone 25 mg PO DAILY #60 tab 07/20/20 omeprazole 40 mg PO DAILY 84 Days #84 cap 08/11/20 tramadol 50 mg tablet 50 mg PO Q8H 90 Days #180 tab 08/18/20 folic acid 1 mg tablet 1 mg PO DAILY #30 tab 08/23/20 thiamine HCl (vitamin B1) 100 mg 100 mg PO DAILY #90 tab 08/23/20 tablet cyclobenzaprine 5 mg tablet 5 mg PO BEDTIME PRN 30 Days #30 tab 09/24/20 levofloxacin 250 mg tablet 250 mg PO Q24H #60 tab 09/24/20 rifaximin 550 mg tablet 550 mg PO BID #60 tab 10/01/20 diazepam [Valium] 5 mg PO BEDTIME PRN #10 tab 10/06/20 potassium chloride 20 mEq 20 meq PO BID #60 tab 10/06/20 tablet,extended release(part/cryst) Allergies Allergy/AdvReac Type Severity Reaction Status Date / Time Penicillins Allergy Unknown yeast Verified 09/24/20 15:18 infection Review of Systems Review of Systems: Constitutional: No Fever, No Chills, No Fatigue, No Malaise Cardiovascular: No Chest Pain, No SOB, No Edema Respiratory: No Cough, No Sputum, No Dyspnea Gastrointestinal: No Nausea, No Vomiting, No Diarrhea, No Constipation, No Abdominal pain Genitourinary: No Dysuria, No Urinary Frequency, No Hematuria Musculoskeletal: No joint pain, + Myalgias, No Joint Swelling Skin: No Skin Lesions, No rash Neuro: +AMS, No Weakness, No Numbness, No Paresthesias, No Loss of Consciousness, No Dizziness, No Headache Yes all other systems are reviewed and are negative [facility] Past Medical History Attestation statement: The following information was validated with the patient. Medical History Alcohol abuse Alcoholic cirrhosis of liver with ascites Anterior epistaxis Ascites Decompensation of cirrhosis of liver Hypercholesterolemia Hypoglycemia Hypoglycemia Leukopenia Liver disease Thrombocytopenia Surgical History History of colonoscopy S/P dilation and curettage Family History Family History Father Throat cancer Mother Lung cancer Son In good health Daughter In good health Social History Social History Household Members: Children Housing: Apartment Do you presently have visiting nurse or other home services: Yes Alcohol intake: former Smoking Status: Never smoker Advance Directives: Yes Advance Directives on File: Yes Advance Directives Date on File: 06/15/20 Patient : No service: No Current occupational status: unemployed and disabled Physical Exam Vital Signs: Vital Signs: Last Vital Signs Temp 98.2 F 10/25/20 11:44 Pulse 82 10/25/20 11:44 Resp 18 10/25/20 11:44 BP 125/69 10/25/20 11:44 Pulse Ox 100 10/25/20 11:44 Body Mass Index 19.3 Const: General: cooperative, healthy appearing and no acute distress Orientation/consciousness: patient oriented x3 Limitations: no limitations HENMT: Head: Yes normal to inspection Ears: hearing grossly normal bilaterally General nose exam: Normal external nose present Face and sinus: Yes normal facial exam Eyes: General: appearance normal, both eyes and all related structures Pupils: Equal, round and reactive pupils present EOM: EOMs intact bilaterally Neck: Neck: Yes normal visual inspection and Yes no meningeal signs Resp: Effort & Inspection: normal respiratory effort Auscultation: clear to auscultation bilaterally, no rales, no rhonchi and no wheezes Cardio: Rate: regular rate Heart sounds: S1 normal heart sound present and S2 normal heart sound present GI: Inspection: Yes normal to inspection Palpation (GI): Soft to palpation, nontender, no guarding and not rigid Skin: Rashes: no rashes Wounds: no wounds Neuro: Other: Slow to respond General: patient oriented x3, tone normal, moves all extremities, no meningeal signs, no focal motor deficits and CN's II- XI intact bilaterally Cranial nerves: Yes Equal, round and reactive pupils present Gait exam (Neuro): Normal gait present Motor exam (neuro): 5/5 motor strength present throughout, Pronator motor function not present and no tremor noted Coordination: [id number] test normal Romberg Test: Negative Extrem: General: Yes normal to inspection and Yes no pedal edema Course Course Course Narrative: -1402-- chronic leukopenia, H&H at baseline, bilirubin/AST/ALT chronically elevated -ammonia 65 > plan to admit for further management XR chest 1V IMPRESSION: No acute intracranial process seen CT head/brain wo con IMPRESSION: No acute intracranial process seen -1425--patient admitted to hospitalist MDM - Altered Mental Status MDM Narrative Medical decision making narrative: 54 y/o female with history of alcoholic cirrhosis with ascites, history of SBP in Jun on ppx antibiotics, hepatic encephalopathy, gallstones, HLD, malnutrtion and depression who presents with altered mental status reported from family and VNA that patient more confused over the past week. Patient reports diffuse myalgias which she has been seen in our ED for/UC and has rheumatology follow-up, otherwise offers no complaints. On exam VSS, NAD/well-appearing, A&O x3 however slow to respond, no focal neuro deficits. Concern for hepatic encephalopathy vs metabolic or infectious etiology. Rule out CVA. Plan: EKG, labs, UA, CXR, head CT, reassess Medical Records Attestation: I reviewed the patient's medical records. Lab Data Attestation: I reviewed the patient's lab results. Result diagrams: 10/25/20 13:04 10/25/20 12:57 Labs: Lab Results 10/25/20 10/25/20 10/25/20 Range/Units 12:44 12:57 12:57 WBC (4.8-10.8) X10*3/uL RBC (4.20-5.50) X10*6/uL Hgb (12.0-16.0) g/dl Hct (37-47) % MCV (80-98) fL MCH (27.0-33.0) pg MCHC (31.0-35.0) g/dl RDW (11.0-16.0) % Plt Count (160-400) X10*3/uL MPV (9.4-12.3) fL Immature Gran % (Auto) (0.0-0.4) % Neut % (Auto) (45-73) % Lymph % (Auto) (20-40) % [place] % (Auto) (2-11) % Eos % (Auto) (0-4) % Baso % (Auto) (0-2) % Lymph # (Auto) (1.2-4.9) X10*3/uL [place] # (Auto) (0.1-1.2) X10*3/uL Eos # (Auto) (0.0-0.4) X10*3/uL Baso # (Auto) (0.0-0.2) X10*3/uL Abs Immat Gran (auto) (0.00-0.03) X10*3/uL Absolute Neuts (auto) (2.0-8.3) X10*3/uL Absolute Nucleated RBC (0.0-0.012) X10*3/uL Nucleated RBC % (auto) (0.0-0.2) /100WBC Smear Tech's Comments PT (10.8-13.0) SEC INR (0.9-1.1) APTT (24.1-38.0) SEC Sodium 138 (135-145) mmol/L Potassium 4.3 (3.3-5.1) mmol/L Chloride 108 (96-108) mmol/L Carbon Dioxide 25 (22-29) mmol/L Anion Gap 9 L (12-20) BUN 13 (9-16) mg/dL Creatinine 0.71 (0.5-1.4) mg/dL Estim Creat Clear Calc 75.1 Estimated GFR > 60 Random Glucose 111 (60-115) mg/dL Calcium 9.6 D (8.4-10.2) mg/dL Magnesium 1.6 (1.6-2.6) mg/dL Total Bilirubin 1.6 H (0.0-1.0) mg/dL Direct Bilirubin 1.0 H (0.0-0.5) mg/dL AST 63 H (5-31) U/L ALT 36 H (0-31) U/L Alkaline Phosphatase 112 (39-117) U/L Ammonia 65 H (13-55) umol/L Total Creatine Kinase 56 (26-140) U/L Troponin I High Sens (<3.5-17.0) ng/L C-Reactive Protein (< or = 0.50) mg/dL B-Natriuretic Peptide (<100) pg/mL Total Protein 6.7 (6.5-8.0) g/dL Albumin 2.8 L (3.5-5.0) g/dL Lipase (8-78) U/L Urine Color Urine Appearance Urine pH (5.0-8.0) Ur Specific [place] (1.005-1.025) Urine Protein (NEG-TRACE) MG/DL Urine Glucose (UA) (NEG) MG/DL Urine Ketones (NEG) MG/DL Urine Blood (NEG) Urine Nitrite (NEG) Ur Leukocyte Esterase (NEG) Coronavirus (PCR) NEGATIVE (Negative) Influenza Type A (PCR) NEGATIVE (Negative) Influenza Type B (PCR) NEGATIVE (Negative) RSV RNA Qual (PCR) NEGATIVE (Negative) 10/25/20 10/25/20 10/25/20 Range/Units 12:57 12:57 12:57 WBC (4.8-10.8) X10*3/uL RBC (4.20-5.50) X10*6/uL Hgb (12.0-16.0) g/dl Hct (37-47) % MCV (80-98) fL MCH (27.0-33.0) pg MCHC (31.0-35.0) g/dl RDW (11.0-16.0) % Plt Count (160-400) X10*3/uL MPV (9.4-12.3) fL Immature Gran % (Auto) (0.0-0.4) % Neut % (Auto) (45-73) % Lymph % (Auto) (20-40) % [place] % (Auto) (2-11) % Eos % (Auto) (0-4) % Baso % (Auto) (0-2) % Lymph # (Auto) (1.2-4.9) X10*3/uL [place] # (Auto) (0.1-1.2) X10*3/uL Eos # (Auto) (0.0-0.4) X10*3/uL Baso # (Auto) (0.0-0.2) X10*3/uL Abs Immat Gran (auto) (0.00-0.03) X10*3/uL Absolute Neuts (auto) (2.0-8.3) X10*3/uL Absolute Nucleated RBC (0.0-0.012) X10*3/uL Nucleated RBC % (auto) (0.0-0.2) /100WBC Smear Tech's Comments PT 18.3 H (10.8-13.0) SEC INR 1.5 H (0.9-1.1) APTT 38.7 H (24.1-38.0) SEC Sodium (135-145) mmol/L Potassium (3.3-5.1) mmol/L Chloride (96-108) mmol/L Carbon Dioxide (22-29) mmol/L Anion Gap (12-20) BUN (9-16) mg/dL Creatinine (0.5-1.4) mg/dL Estim Creat Clear Calc Estimated GFR Random Glucose (60-115) mg/dL Calcium (8.4-10.2) mg/dL Magnesium (1.6-2.6) mg/dL Total Bilirubin (0.0-1.0) mg/dL Direct Bilirubin (0.0-0.5) mg/dL AST (5-31) U/L ALT (0-31) U/L Alkaline Phosphatase (39-117) U/L Ammonia (13-55) umol/L Total Creatine Kinase (26-140) U/L Troponin I High Sens < 3.5 (<3.5-17.0) ng/L C-Reactive Protein (< or = 0.50) mg/dL B-Natriuretic Peptide 187 H (<100) pg/mL Total Protein (6.5-8.0) g/dL Albumin (3.5-5.0) g/dL Lipase (8-78) U/L Urine Color Urine Appearance Urine pH (5.0-8.0) Ur Specific [place] (1.005-1.025) Urine Protein (NEG-TRACE) MG/DL Urine Glucose (UA) (NEG) MG/DL Urine Ketones (NEG) MG/DL Urine Blood (NEG) Urine Nitrite (NEG) Ur Leukocyte Esterase (NEG) Coronavirus (PCR) (Negative) Influenza Type A (PCR) (Negative) Influenza Type B (PCR) (Negative) RSV RNA Qual (PCR) (Negative) 10/25/20 10/25/20 10/25/20 Range/Units 12:57 12:57 13:04 WBC 4.7 L (4.8-10.8) X10*3/uL RBC 2.62 L (4.20-5.50) X10*6/uL Hgb 9.0 L (12.0-16.0) g/dl Hct 26.5 L (37-47) % MCV 101.1 H (80-98) fL MCH 34.4 H (27.0-33.0) pg MCHC 34.0 (31.0-35.0) g/dl RDW 14.3 (11.0-16.0) % Plt Count 87 L (160-400) X10*3/uL MPV 10.6 (9.4-12.3) fL Immature Gran % (Auto) 0.2 (0.0-0.4) % Neut % (Auto) 39.7 L (45-73) % Lymph % (Auto) 32.2 (20-40) % [place] % (Auto) 21.8 H (2-11) % Eos % (Auto) 5.7 H (0-4) % Baso % (Auto) 0.4 (0-2) % Lymph # (Auto) 1.5 (1.2-4.9) X10*3/uL [place] # (Auto) 1.0 (0.1-1.2) X10*3/uL Eos # (Auto) 0.3 (0.0-0.4) X10*3/uL Baso # (Auto) 0.0 (0.0-0.2) X10*3/uL Abs Immat Gran (auto) 0.01 (0.00-0.03) X10*3/uL Absolute Neuts (auto) 1.9 L (2.0-8.3) X10*3/uL Absolute Nucleated RBC 0.000 (0.0-0.012) X10*3/uL Nucleated RBC % (auto) 0.0 (0.0-0.2) /100WBC Smear Tech's Comments VERIFIED PT (10.8-13.0) SEC INR (0.9-1.1) APTT (24.1-38.0) SEC Sodium (135-145) mmol/L Potassium (3.3-5.1) mmol/L Chloride (96-108) mmol/L Carbon Dioxide (22-29) mmol/L Anion Gap (12-20) BUN (9-16) mg/dL Creatinine (0.5-1.4) mg/dL Estim Creat Clear Calc Estimated GFR Random Glucose (60-115) mg/dL Calcium (8.4-10.2) mg/dL Magnesium (1.6-2.6) mg/dL Total Bilirubin (0.0-1.0) mg/dL Direct Bilirubin (0.0-0.5) mg/dL AST (5-31) U/L ALT (0-31) U/L Alkaline Phosphatase (39-117) U/L Ammonia (13-55) umol/L Total Creatine Kinase (26-140) U/L Troponin I High Sens (<3.5-17.0) ng/L C-Reactive Protein 0.68 H (< or = 0.50) mg/dL B-Natriuretic Peptide (<100) pg/mL Total Protein (6.5-8.0) g/dL Albumin (3.5-5.0) g/dL Lipase 41 (8-78) U/L Urine Color Urine Appearance Urine pH (5.0-8.0) Ur Specific [place] (1.005-1.025) Urine Protein (NEG-TRACE) MG/DL Urine Glucose (UA) (NEG) MG/DL Urine Ketones (NEG) MG/DL Urine Blood (NEG) Urine Nitrite (NEG) Ur Leukocyte Esterase (NEG) Coronavirus (PCR) (Negative) Influenza Type A (PCR) (Negative) Influenza Type B (PCR) (Negative) RSV RNA Qual (PCR) (Negative) 10/25/20 Range/Units 14:04 WBC (4.8-10.8) X10*3/uL RBC (4.20-5.50) X10*6/uL Hgb (12.0-16.0) g/dl Hct (37-47) % MCV (80-98) fL MCH (27.0-33.0) pg MCHC (31.0-35.0) g/dl RDW (11.0-16.0) % Plt Count (160-400) X10*3/uL MPV (9.4-12.3) fL Immature Gran % (Auto) (0.0-0.4) % Neut % (Auto) (45-73) % Lymph % (Auto) (20-40) % [place] % (Auto) (2-11) % Eos % (Auto) (0-4) % Baso % (Auto) (0-2) % Lymph # (Auto) (1.2-4.9) X10*3/uL [place] # (Auto) (0.1-1.2) X10*3/uL Eos # (Auto) (0.0-0.4) X10*3/uL Baso # (Auto) (0.0-0.2) X10*3/uL Abs Immat Gran (auto) (0.00-0.03) X10*3/uL Absolute Neuts (auto) (2.0-8.3) X10*3/uL Absolute Nucleated RBC (0.0-0.012) X10*3/uL Nucleated RBC % (auto) (0.0-0.2) /100WBC Smear Tech's Comments PT (10.8-13.0) SEC INR (0.9-1.1) APTT (24.1-38.0) SEC Sodium (135-145) mmol/L Potassium (3.3-5.1) mmol/L Chloride (96-108) mmol/L Carbon Dioxide (22-29) mmol/L Anion Gap (12-20) BUN (9-16) mg/dL Creatinine (0.5-1.4) mg/dL Estim Creat Clear Calc Estimated GFR Random Glucose (60-115) mg/dL Calcium (8.4-10.2) mg/dL Magnesium (1.6-2.6) mg/dL Total Bilirubin (0.0-1.0) mg/dL Direct Bilirubin (0.0-0.5) mg/dL AST (5-31) U/L ALT (0-31) U/L Alkaline Phosphatase (39-117) U/L Ammonia (13-55) umol/L Total Creatine Kinase (26-140) U/L Troponin I High Sens (<3.5-17.0) ng/L C-Reactive Protein (< or = 0.50) mg/dL B-Natriuretic Peptide (<100) pg/mL Total Protein (6.5-8.0) g/dL Albumin (3.5-5.0) g/dL Lipase (8-78) U/L Urine Color YELLOW Urine Appearance HAZY Urine pH 6.0 (5.0-8.0) Ur Specific [place] 1.025 (1.005-1.025) Urine Protein NEG (NEG-TRACE) MG/DL Urine Glucose (UA) NEG (NEG) MG/DL Urine Ketones NEG (NEG) MG/DL Urine Blood NEG (NEG) Urine Nitrite NEG (NEG) Ur Leukocyte Esterase NEG (NEG) Coronavirus (PCR) (Negative) Influenza Type A (PCR) (Negative) Influenza Type B (PCR) (Negative) RSV RNA Qual (PCR) (Negative) Discharge Plan Discharge Clinical Impression: Acute hepatic encephalopathy Patient Disposition: Admitted As Inpatient Prescriptions: No Action folic acid 1 mg tablet 1 mg PO DAILY Qty: 30 RF: 11 thiamine HCl (vitamin B1) 100 mg tablet 100 mg PO DAILY Qty: 90 RF: 3 Xifaxan 550 mg tablet 550 mg PO BID Qty: 60 RF: 1 potassium chloride [Klor-Con M20] 20 mEq tablet,ER particles/crystals 20 meq PO BID Qty: 60 RF: 2 omeprazole 40 mg capsule,delayed release(DR/EC) 40 mg PO DAILY 84 Days Qty: 84 RF: 0 spironolactone 25 mg tablet 25 mg PO DAILY Qty: 60 RF: 1 diazepam [Valium] 5 mg tablet 5 mg PO BEDTIME PRN (Reason: sleep) Qty: 10 RF: 0 lactulose 10 gram/15 mL solution 30 ml PO BID RF: 0 cyclobenzaprine 5 mg tablet 5 mg PO BEDTIME PRN (Reason: muscle spasm) 30 Days Qty: 30 RF: 0 levofloxacin 250 mg tablet 250 mg PO Q24H Qty: 60 RF: 0 tramadol 50 mg tablet 50 mg PO Q8H 90 Days Qty: 180 RF: 0
[2020-10-25 13:12] LABS: Basophils Percent Auto 0.4 % (0-2); Eosinophils Absolute Auto 0.3 X10*3/uL (0.0-0.4); Eosinophils Percent Auto 5.7 % (0-4); Hematocrit 26.5 % (37-47); Imm Gran Abs Auto 0.01 X10*3/uL (0.00-0.03); Imm Gran Pct Auto 0.2 % (0.0-0.4); Lymphocytes Absolute Auto 1.5 X10*3/uL (1.2-4.9); Lymphocytes Percent Auto 32.2 % (20-40); MANUAL DIFF FLAG SCAN; Mean Corpuscular Hemoglobin 34.4 pg (27.0-33.0); Mean Corpuscular Volume 101.1 fL (80-98); Mean Platelet Volume 10.6 fL (9.4-12.3); Monocytes Percent Auto 21.8 % (2-11); Neutrophils Absolute Auto 1.9 X10*3/uL (2.0-8.3); Neutrophils Percent Auto 39.7 % (45-73); Red Blood Count 2.62 X10*6/uL (4.20-5.50); Red Cell Distribution Width 14.3 % (11.0-16.0); SCAN SMEAR FLAG 1; White Blood Count 4.7 X10*3/uL (4.8-10.8)
[2020-10-25 13:15] LABS: INTERNATIONAL NORM RATIO 1.5 (0.9-1.1); Prothrombin Time 18.3 SEC (10.8-13.0)
[2020-10-25 13:15] LABS: Platelet Count 87 X10*3/uL (160-400)
[2020-10-25 13:19] LABS: Partial Thromboplastin Time 38.7 SEC (24.1-38.0)
[2020-10-25 13:26] LABS: Ammonia 65 umol/L (13-55)
[2020-10-25 13:28] LABS: Influenza A PCR NEGATIVE (Negative); Influenza B PCR NEGATIVE (Negative); Resp Syncy Virus RNA Qual PCR NEGATIVE (Negative); SARS COV2 PCR INHOUSE NEGATIVE (Negative)
[2020-10-25 13:34] LABS: C Reactive Protein 0.68 mg/dL (< or = 0.50)
[2020-10-25 13:34] LABS: SLIDE REVIEW VERIFIED
[2020-10-25 13:37] LABS: Lipase 41 U/L (8-78)
[2020-10-25 13:38] LABS: Alanine Aminotransferase 36 U/L (0-31); Albumin Level 2.8 g/dL (3.5-5.0); Alkaline Phosphatase 112 U/L (39-117); Anion Gap 9 (12-20); Aspartate Amino Transferase 63 U/L (5-31); Bilirubin Total 1.6 mg/dL (0.0-1.0); Blood Urea Nitrogen 13 mg/dL (9-16); Calcium 9.6 mg/dL (8.4-10.2); Carbon Dioxide 25 mmol/L (22-29); Chloride 108 mmol/L (96-108); Creatinine Clr Calc Pharmacy 75.1; Estimated Glomerular Filt Rate > 60; Glucose Random 111 mg/dL (60-115); Magnesium 1.6 mg/dL (1.6-2.6); Potassium 4.3 mmol/L (3.3-5.1); Sodium 138 mmol/L (135-145); Total Protein 6.7 g/dL (6.5-8.0)
[2020-10-25 13:40] LABS: B Type Natriuretic Peptide 187 pg/mL (<100); Troponin-I High Sensitivity < 3.5 ng/L (<3.5-17.0)
[2020-10-25] MEDS: 0.9 % Sodium Chloride 1,000 ML 999 ML IVCONT (14:10)
[2020-10-25 14:16] LABS: Glucose Urine UA NEG (NEG); Leukocyte Esterase Urine NEG (NEG); Nitrite Urine NEG (NEG); Specific Gravity - Urine 1.025 (1.005-1.025); Urine Blood NEG (NEG); Urine Ketones NEG (NEG); Urine Protein NEG (NEG-TRACE)
[2020-10-25 14:19] LABS: Appearance Urine HAZY; Color Urine YELLOW
[2020-10-25 14:52] LABS: Amphetamine Screen Urine Not Detected (Not Detect); Barbiturates, Urine Not Detected (Not Detect); Benzodiazepines Screen Urine POSITIVE (Not Detect); Cannabinoid Screen Urine POSITIVE (Not Detect); Cocaine Screen Urine Not Detected (Not Detect); Opiate Screen Urine Not Detected (Not Detect); Phencyclidine Screen Urine Not Detected (Not Detect)
--- NOTE | 2020-10-25 14:55 | P.HPHOSP_ITS ---
History of Present Illness Date of Service: 10/25/20 Chief Complaint: ams 55-year-old female with a past medical history of decompensated alcohol cirrhosis with history SBP in June 2020, currently on suppressive therapy, history of hepatic encephalopathy, presented with altered mental status. Patient had visiting nurse that reported that patient seemed more confused over the last week, this was confirmed by the patient's family. Patient herself states that she does not know what they are talking about and that she feels the same. She reports being compliant with her lactulose, although she does say she decreased it to once a day about a month prior to presentation. She reports sobriety since June 2020. In ED noted to have elevated ammonia of 64, higher than baseline. Review of Systems Review of Systems: Constitutional: Denies fever, denies Chills Eyes: denies blurry vision ENT: denies sore throat CVS: denies chest pain Respiratory: Denies dyspnea GI: no abdominal pain : denies dysuria MSK: denies neck pain Skin: denies rash Neuro: denies specific motor weakness Psych: denies suicidal ideation Endocrine: denies heat/cold intoleratnce Hematologic: denies easy bleeding Allergy: denies hives [facility] Medical History Alcohol abuse Alcoholic cirrhosis of liver with ascites Anterior epistaxis Ascites Decompensation of cirrhosis of liver Hypercholesterolemia Hypoglycemia Hypoglycemia Leukopenia Liver disease Thrombocytopenia Family History Father Throat cancer Mother Lung cancer Son In good health Daughter In good health Family history: reviewed and not pertinent Surgical History History of colonoscopy S/P dilation and curettage Social History Household Members: Children Housing: Apartment Do you presently have visiting nurse or other home services: Yes Alcohol intake: former Smoking Status: Never smoker Advance Directives: Yes Advance Directives on File: Yes Advance Directives Date on File: 06/15/20 Patient : No service: No Current occupational status: unemployed and disabled Meds Allergies Allergy/AdvReac Type Severity Reaction Status Date / Time Penicillins Allergy Unknown yeast Verified 09/24/20 15:18 infection Active Medications: Current Medications Generic Name Dose Route Start Last Admin Trade Name Luis PRN Reason Stop Dose Admin Pharmacy Consult 1 each 10/25/20 14:19 Consult Rx Perform Med Rec MISCELLANE ONCE PRN Consult order Home Medications Medication Instructions Recorded Confirmed Last Taken Type lactulose 10 gram/15 mL oral 30 ml PO BID 08/05/20 09/24/20 08/08/20 History solution omeprazole 20 mg PO DAILY@0630 10/25/20 10/25/20 Unknown History thiamine HCl (vitamin B1) [Vitamin 100 mg PO DAILY 10/25/20 10/25/20 Unknown History B-1] tramadol 50 mg PO Q8H PRN 10/25/20 10/25/20 Unknown History Physical Exam Vital Signs and Narrative: Vital Signs: Last Vital Signs Temp 98.2 F 10/25/20 11:44 Pulse 82 10/25/20 11:44 Resp 18 10/25/20 11:44 BP 125/69 10/25/20 11:44 Pulse Ox 100 10/25/20 11:44 Body Mass Index 19.3 General: no acute distress HEENT: atraumatic Neck: normal to visual inspection CVS: S1, S2, RRR Resp: CTA bilateral Chest: non tender GI: soft, non tender, non distended : no CVA tenderness Skin: no rashes Extremities: no edema Neuro: alert, poor recall, oriented times 3, confused with more complicated questions Psych: cooperative Results Labs CBC and Chem 7: 10/25/20 13:04 10/25/20 12:57 Labs: Laboratory Results - last 24 hr 10/25/20 10/25/20 10/25/20 12:44 12:57 12:57 MCV MCH MCHC RDW Plt Count MPV Immature Gran % (Auto) Neut % (Auto) Lymph % (Auto) [place] % (Auto) Eos % (Auto) Baso % (Auto) Lymph # (Auto) [place] # (Auto) Eos # (Auto) Baso # (Auto) Abs Immat Gran (auto) Absolute Neuts (auto) Absolute Nucleated RBC Nucleated RBC % (auto) Smear Tech's Comments PT INR APTT Anion Gap 9 L Estim Creat Clear Calc 75.1 Estimated GFR > 60 Random Glucose 111 Calcium 9.6 D Magnesium 1.6 Total Bilirubin 1.6 H Direct Bilirubin 1.0 H AST 63 H ALT 36 H Alkaline Phosphatase 112 Ammonia 65 H Total Creatine Kinase 56 Troponin I High Sens C-Reactive Protein B-Natriuretic Peptide Total Protein 6.7 Albumin 2.8 L Lipase Urine Color Urine Appearance Urine pH Ur Specific Stebbins Urine Protein Urine Glucose (UA) Urine Ketones Urine Blood Urine Nitrite Ur Leukocyte Esterase Urine Opiates Screen Ur Barbiturates Screen Ur Phencyclidine Scrn Ur Amphetamines Screen U Benzodiazepines Scrn Urine Cocaine Screen U Marijuana (THC) Screen Coronavirus (PCR) NEGATIVE Influenza Type A (PCR) NEGATIVE Influenza Type B (PCR) NEGATIVE RSV RNA Qual (PCR) NEGATIVE 10/25/20 10/25/20 10/25/20 12:57 12:57 12:57 MCV MCH MCHC RDW Plt Count MPV Immature Gran % (Auto) Neut % (Auto) Lymph % (Auto) [place] % (Auto) Eos % (Auto) Baso % (Auto) Lymph # (Auto) [place] # (Auto) Eos # (Auto) Baso # (Auto) Abs Immat Gran (auto) Absolute Neuts (auto) Absolute Nucleated RBC Nucleated RBC % (auto) Smear Tech's Comments PT 18.3 H INR 1.5 H APTT 38.7 H Anion Gap Estim Creat Clear Calc Estimated GFR Random Glucose Calcium Magnesium Total Bilirubin Direct Bilirubin AST ALT Alkaline Phosphatase Ammonia Total Creatine Kinase Troponin I High Sens < 3.5 C-Reactive Protein B-Natriuretic Peptide 187 H Total Protein Albumin Lipase Urine Color Urine Appearance Urine pH Ur Specific Stebbins Urine Protein Urine Glucose (UA) Urine Ketones Urine Blood Urine Nitrite Ur Leukocyte Esterase Urine Opiates Screen Ur Barbiturates Screen Ur Phencyclidine Scrn Ur Amphetamines Screen U Benzodiazepines Scrn Urine Cocaine Screen U Marijuana (THC) Screen Coronavirus (PCR) Influenza Type A (PCR) Influenza Type B (PCR) RSV RNA Qual (PCR) 10/25/20 10/25/20 10/25/20 12:57 12:57 13:04 MCV 101.1 H MCH 34.4 H MCHC 34.0 RDW 14.3 Plt Count 87 L MPV 10.6 Immature Gran % (Auto) 0.2 Neut % (Auto) 39.7 L Lymph % (Auto) 32.2 [place] % (Auto) 21.8 H Eos % (Auto) 5.7 H Baso % (Auto) 0.4 Lymph # (Auto) 1.5 [place] # (Auto) 1.0 Eos # (Auto) 0.3 Baso # (Auto) 0.0 Abs Immat Gran (auto) 0.01 Absolute Neuts (auto) 1.9 L Absolute Nucleated RBC 0.000 Nucleated RBC % (auto) 0.0 Smear Tech's Comments VERIFIED PT INR APTT Anion Gap Estim Creat Clear Calc Estimated GFR Random Glucose Calcium Magnesium Total Bilirubin Direct Bilirubin AST ALT Alkaline Phosphatase Ammonia Total Creatine Kinase Troponin I High Sens C-Reactive Protein 0.68 H B-Natriuretic Peptide Total Protein Albumin Lipase 41 Urine Color Urine Appearance Urine pH Ur Specific Stebbins Urine Protein Urine Glucose (UA) Urine Ketones Urine Blood Urine Nitrite Ur Leukocyte Esterase Urine Opiates Screen Ur Barbiturates Screen Ur Phencyclidine Scrn Ur Amphetamines Screen U Benzodiazepines Scrn Urine Cocaine Screen U Marijuana (THC) Screen Coronavirus (PCR) Influenza Type A (PCR) Influenza Type B (PCR) RSV RNA Qual (PCR) 10/25/20 10/25/20 14:04 14:04 MCV MCH MCHC RDW Plt Count MPV Immature Gran % (Auto) Neut % (Auto) Lymph % (Auto) [place] % (Auto) Eos % (Auto) Baso % (Auto) Lymph # (Auto) [place] # (Auto) Eos # (Auto) Baso # (Auto) Abs Immat Gran (auto) Absolute Neuts (auto) Absolute Nucleated RBC Nucleated RBC % (auto) Smear Tech's Comments PT INR APTT Anion Gap Estim Creat Clear Calc Estimated GFR Random Glucose Calcium Magnesium Total Bilirubin Direct Bilirubin AST ALT Alkaline Phosphatase Ammonia Total Creatine Kinase Troponin I High Sens C-Reactive Protein B-Natriuretic Peptide Total Protein Albumin Lipase Urine Color YELLOW Urine Appearance HAZY Urine pH 6.0 Ur Specific [place]bbins 1.025 Urine Protein NEG Urine Glucose (UA) NEG Urine Ketones NEG Urine Blood NEG Urine Nitrite NEG Ur Leukocyte Esterase NEG Urine Opiates Screen Not Detected Ur Barbiturates Screen Not Detected Ur Phencyclidine Scrn Not Detected Ur Amphetamines Screen Not Detected U Benzodiazepines Scrn POSITIVE H Urine Cocaine Screen Not Detected U Marijuana (THC) Screen POSITIVE H Coronavirus (PCR) Influenza Type A (PCR) Influenza Type B (PCR) RSV RNA Qual (PCR) Imaging Radiologist's Impressions: Impressions Head CT 10/25/20 12:14 IMPRESSION: No acute intracranial process seen. Chest X-Ray 10/25/20 12:15 IMPRESSION: No acute intracranial process seen. Assessment and Plan (1) Acute hepatic encephalopathy: Status: Acute 55F presented with AMS Hepatic encephalopathy In setting of decompensated alcoholic cirrhosis Possibly due to noncompliance Continue lactulose for 2-4 BMs per day, Xifaxan No ascites Continue Levaquin for SBP prophylaxis Patient noted to have significantly elevated iron saturations and ferritins in June and October 2020, has also been complaining of arthralgias Denies any personal or family history of hemochromatosis, but should be ruled out, will check genetic studies vte prophylaxis - lovenox full code
--- NOTE | 2020-10-25 14:57 | HE.PHANOTE ---
med rec is complete, no issues
[2020-10-25 16:12] LABS: Erythrocyte Sedimentation Rate 53 MM/HR (0-20)
[2020-10-25] MEDS: Lactulose 20 GM/30 ML SOLUTION PO ×2 (16:37→20:30)
[2020-10-25 17:13] VITALS: BP 170/86; PULSE 87; RESP 17; TEMP 36.4; O2SAT 100
[2020-10-25] MEDS: levoFLOXacin 250 MG TABLET PO (17:13)
[2020-10-25 19:45] VITALS: BP 155/72; PULSE 97; RESP 20; TEMP 36.6; O2SAT 100
[2020-10-25] MEDS: rifAXIMin 550 MG TABLET PO (20:30)
[2020-10-26] VITALS (7 sets, daily range): BP systolic 119–149; BP diastolic 59–71; PULSE 86–93; RESP 15–20; TEMP 36.2–37.3; O2SAT 98–100
[2020-10-26] MEDS: Omeprazole 20 MG CAPSULE.DR PO (05:56)
[2020-10-26] MEDS: rifAXIMin 550 MG TABLET PO ×2 (09:27→22:35)
[2020-10-26] MEDS: Folic Acid 1 MG TABLET PO (09:27)
[2020-10-26] MEDS: Thiamine HCL 100 MG TABLET PO (09:27)
[2020-10-26] MEDS: Lactulose 20 GM/30 ML SOLUTION PO ×3 (09:27→22:35)
--- NOTE | 2020-10-26 14:11 | MHC.CM.PN ---
met with pt who explins that she is active with [facility] she will have her own transportaion home when she is dcd pt has a hcp ..
--- NOTE | 2020-10-26 17:14 | HO.PM.IMPN ---
Subjective Subjective Date of Service: 10/27/20 Interval History: ams Review of Systems Mental status evangelista seems to be improving denies any chest pain shortness of breath or abdominal pain or fever chills. Physical Exam Vital Signs: Vital Signs: Last Vital Signs Temp 98.5 F 10/26/20 15:57 Pulse 88 10/26/20 15:57 Resp 20 10/26/20 15:57 BP 124/59 L 10/26/20 15:57 Pulse Ox 100 10/26/20 15:57 Body Mass Index 19.3 Physical exam: costitution: not acute distress Resp: CTA bilateral Chest: non tender GI: soft, non tender, non distended : no CVA tenderness Skin: no rashes Extremities: no edema Neuro: aox3 , nofocal Psych: cooperative Objective Data Current Medications Generic Name Dose Route Start Last Admin Trade Name Freq PRN Reason Stop Dose Admin Folic Acid 1 mg 10/26/20 09:00 10/26/20 09:27 Folic Acid 1 Mg Tablet PO 1 mg DAILY RANDOLPH Administration Lactulose 20 gm 10/25/20 17:00 10/26/20 15:03 Lactulose 20 Gm/30 Ml Solution PO 20 gm TID RANDOLPH Administration Levofloxacin 250 mg 10/25/20 18:00 10/25/20 17:13 Levofloxacin 250 Mg Tablet PO 250 mg Q24H RANDOLPH Administration Omeprazole 20 mg 10/26/20 06:30 10/26/20 05:56 Omeprazole 20 Mg Capsule. PO 20 mg DAILY@0630 RANDOLPH Administration Pharmacy Consult 1 each 10/25/20 14:19 Consult Rx Perform Med Rec MISCELLANE ONCE PRN Consult order Rifaximin 550 mg 10/25/20 21:00 10/26/20 09:27 Rifaximin 550 Mg Tablet PO 550 mg BID RANDOLPH Administration Thiamine HCl 100 mg 10/26/20 09:00 10/26/20 09:27 Thiamine Hcl 100 Mg Tablet PO 100 mg DAILY RANDOLPH Administration Labs CBC & Chem 7: 10/25/20 13:04 10/27/20 08:33 Assessment and Plan (1) Acute hepatic encephalopathy: Status: Acute Assessment and Plan: 55F presented with AMS Hepatic encephalopathy In setting of decompensated alcoholic cirrhosis Possibly due to noncompliance Continue lactulose for 2-4 BMs per day, Xifaxan No ascites Continue Levaquin for SBP prophylaxis Patient noted to have significantly elevated iron saturations and ferritins in June and October 2020, has also been complaining of arthralgias Denies any personal or family history of hemochromatosis, but should be ruled out, will check genetic studies vte prophylaxis - lovenox
[2020-10-26] MEDS: levoFLOXacin 250 MG TABLET PO (19:00)
[2020-10-27 04:00] VITALS: BP 136/58; PULSE 78; RESP 18; TEMP 36.4; O2SAT 98
[2020-10-27] MEDS: Omeprazole 20 MG CAPSULE.DR PO (06:11)
[2020-10-27 07:44] VITALS: BP 131/66; PULSE 97; RESP 16; TEMP 36.9; O2SAT 100
[2020-10-27] MEDS: Lactulose 20 GM/30 ML SOLUTION PO ×3 (08:21→20:24)
[2020-10-27] MEDS: Thiamine HCL 100 MG TABLET PO (08:21)
[2020-10-27] MEDS: Folic Acid 1 MG TABLET PO (08:21)
[2020-10-27] MEDS: rifAXIMin 550 MG TABLET PO ×2 (08:21→20:24)
[2020-10-27 09:47] LABS: Alanine Aminotransferase 30 U/L (0-31); Albumin Level 2.8 g/dL (3.5-5.0); Alkaline Phosphatase 116 U/L (39-117); Anion Gap 13 (12-20); Aspartate Amino Transferase 58 U/L (5-31); Bilirubin Direct 1.3 mg/dL (0.0-0.5); Bilirubin Total 2.4 mg/dL (0.0-1.0); Blood Urea Nitrogen 10 mg/dL (9-16); Calcium 9.5 mg/dL (8.4-10.2); Carbon Dioxide 20 mmol/L (22-29); Chloride 109 mmol/L (96-108); Creatinine Clr Calc Pharmacy 71.1; Estimated Glomerular Filt Rate > 60; Glucose Random 194 mg/dL (60-115); Potassium 3.7 mmol/L (3.3-5.1); Sodium 138 mmol/L (135-145)
[2020-10-27 11:07] VITALS: BP 134/66; PULSE 90; RESP 18; TEMP 37.1; O2SAT 100
--- NOTE | 2020-10-27 13:17 | P.PNIM_ITS ---
Subjective Subjective Date of Service: 10/28/20 Interval History: Hepatic encephalopathy Review of Systems Mental status was patient is improving. Denies chest chest pain or shortness of breath or abdominal pain or fever or chills Physical Exam Vital Signs: Vital Signs: Last Vital Signs Temp 98.8 F 10/27/20 11:07 Pulse 90 10/27/20 11:07 Resp 18 10/27/20 11:07 BP 134/66 10/27/20 11:07 Pulse Ox 100 10/27/20 11:07 Body Mass Index 19.3 General: no acute distress Resp: CTA bilateral CVS: S1,S2,RRR GI: +BS, NT, no distention Skin: No rash Neuro: motor grossly intact Psych: AO X 3,appropriate affect Objective Data Current Medications Generic Name Dose Route Start Last Admin Trade Name Freq PRN Reason Stop Dose Admin Folic Acid 1 mg 10/26/20 09:00 10/27/20 08:21 Folic Acid 1 Mg Tablet PO 1 mg DAILY RANDOLPH Administration Lactulose 20 gm 10/25/20 17:00 10/27/20 08:21 Lactulose 20 Gm/30 Ml Solution PO 20 gm TID RANDOLPH Administration Levofloxacin 250 mg 10/25/20 18:00 10/26/20 19:00 Levofloxacin 250 Mg Tablet PO 250 mg Q24H RANDOLPH Administration Omeprazole 20 mg 10/26/20 06:30 10/27/20 06:11 Omeprazole 20 Mg Capsule.Dr PO 20 mg DAILY@0630 [facility] Administration Pharmacy Consult 1 each 10/25/20 14:19 Consult Rx Perform Med Rec MISCELLANE ONCE PRN Consult order Rifaximin 550 mg 10/25/20 21:00 10/27/20 08:21 Rifaximin 550 Mg Tablet PO 550 mg BID RANDOLPH Administration Thiamine HCl 100 mg 10/26/20 09:00 10/27/20 08:21 Thiamine Hcl 100 Mg Tablet PO 100 mg DAILY RANDOLPH Administration Labs CBC & Chem 7: 10/25/20 13:04 10/27/20 13:27 Assessment and Plan (1) Acute hepatic encephalopathy: Status: Acute Assessment and Plan: 55F presented with AMS Hepatic encephalopathy In setting of decompensated alcoholic cirrhosis Possibly due to noncompliance Continue lactulose for 2-4 BMs per day, Xifaxan No ascites Continue Levaquin for SBP prophylaxis Patient noted to have significantly elevated iron saturations and ferritins in June and October 2020, has also been complaining of arthralgias Denies any personal or family history of hemochromatosis, but should be ruled out, will check genetic studies Gi eval.= bmp an d lft's pending vte prophylaxis - lovenox
[2020-10-27 14:13] LABS: Alanine Aminotransferase 27 U/L (0-31); Albumin Level 2.7 g/dL (3.5-5.0); Alkaline Phosphatase 114 U/L (39-117); Anion Gap 13 (12-20); Aspartate Amino Transferase 53 U/L (5-31); Bilirubin Direct 1.2 mg/dL (0.0-0.5); Bilirubin Total 2.1 mg/dL (0.0-1.0); Blood Urea Nitrogen 12 mg/dL (9-16); Carbon Dioxide 20 mmol/L (22-29); Chloride 109 mmol/L (96-108); Estimated Glomerular Filt Rate > 60; Glucose Random 133 mg/dL (60-115); Potassium 3.8 mmol/L (3.3-5.1); Sodium 138 mmol/L (135-145); Total Protein 6.8 g/dL (6.5-8.0)
[2020-10-27 15:05] VITALS: BP 141/76; PULSE 98; RESP 17; TEMP 37.1; O2SAT 99
--- NOTE | 2020-10-27 16:39 | MHC.CM.PN ---
[id number] DX Hepatic encephalopathy DP return home with [facility] and family support. Family will provide transportation. CM will follow.
--- NOTE | 2020-10-27 17:37 | MHC.CARE ---
CARE Team met with patient in room 486, she was alert and oriented though at times misunderstood what was said to her?she reported having hearing loss and it was difficult to communicate through a mask. Patient cried while she described the sudden loss of her last year and trying to manage her health problems. Stated that she worries that she will not get better because her symptoms keep returning, said that days like today she feels frustrated and depressed. Denied suicidal ideation past or present. Patient has abstained from alcohol since June, said it was easier than expected and will maintain sobriety, does not want support in that area. In terms of available supports, patient lives with her daughter and her son lives nearby. Is close with her 's family and has some good friends to rely on. Patient has a therapist that she speaks with weekly by phone and stated that is very helpful. CARE Team available as needed, call if patient needs additional support. Communicated with and RN
[2020-10-27] MEDS: levoFLOXacin 250 MG TABLET PO (17:42)
[2020-10-27 19:10] VITALS: BP 151/76; PULSE 82; RESP 16; TEMP 36.9; O2SAT 100
--- NOTE | 2020-10-27 19:11 | CONS_ITS ---
DATE OF SERVICE: 10/27/2020 REFERRING PHYSICIAN: Jame Menendez MD REASON FOR CONSULTATION: Hepatic encephalopathy. HISTORY OF PRESENT ILLNESS: The patient is a pleasant 55-year-old woman with a history of alcoholic cirrhosis with ascites, who was admitted to the hospital on October 25 with altered mental status and confusion occurring over the week prior to admission. This was noted by the visiting nurse and the patient's family, although the patient states she felt fine. She has been on lactulose at home, but decreased this to once daily prior to this admission. She remains abstinent from alcohol since June. She was noted to have an elevated ammonia level on admission and was admitted to the hospital. She has been treated with lactulose and Xifaxan with improvement in her mental status. She has no complaints of vomiting or abdominal pain. She did undergo evaluation with abdomen and pelvis CAT scanning back in August, which showed chronic liver disease and a large amount of intraperitoneal fluid. She has not required paracentesis recently. Upper endoscopy in August of this year showed no varices, mild portal hypertensive gastropathy, and some distal esophagitis. PAST MEDICAL HISTORY: 1. Alcohol abuse with cirrhosis, ascites, SBP, and encephalopathy, currently on SBP prophylaxis. 2. Elevated cholesterol. 3. Hypoglycemia. 4. Leukopenia/thrombocytopenia. 5. Colonoscopy, 02/17 normal, 10-year followup. CURRENT MEDICATIONS: Her current medication list is reviewed in the chart. ALLERGIES: PENICILLIN. FAMILY HISTORY: This is reviewed with the patient and is noncontributory. SOCIAL HISTORY: There is no current substance abuse. REVIEW OF SYSTEMS: SKIN: No pruritus. HEENT: Negative. CARDIOPULMONARY: She denies shortness of breath or chest pain. GASTROINTESTINAL: As above. GENITOURINARY: Negative. NEUROPSYCHIATRIC: Negative. PHYSICAL EXAMINATION: GENERAL: Reveals a pleasant female, in no acute distress. VITAL SIGNS: Stable. SKIN: Anicteric. HEENT: Shows no scleral icterus. NECK: Without lymphadenopathy or thyromegaly. LUNGS: Clear. HEART: Regular rate and rhythm. S1, S2. No murmur. ABDOMEN: Soft without focal masses or tenderness. There is no guarding or rebound. EXTREMITIES: Without edema. There is no asterixis. LABORATORY DATA: Shows a white blood cell count of 4.7, hematocrit 26.5, platelet count 87. INR 1.5. Total bilirubin 2.1. IMPRESSION: Hepatic encephalopathy. She does seem improved clinically with no asterixis on examination today and appears to be mentating appropriately. I would recommend continuing Xifaxan and lactulose. I discussed with her referral for eventual transplant evaluation. Thanks for asking me to see her. I will follow her in the hospital with you. MD ZAIN Montoya/GEOVANNA / [id number]
[2020-10-27 23:46] VITALS: BP 134/74; PULSE 95; RESP 18; TEMP 37.1; O2SAT 100
[2020-10-28 03:56] VITALS: BP 149/77; PULSE 89; RESP 18; TEMP 36.7; O2SAT 98
[2020-10-28] MEDS: Omeprazole 20 MG CAPSULE.DR PO (06:28)
[2020-10-28] MEDS: Folic Acid 1 MG TABLET PO (07:38)
[2020-10-28] MEDS: rifAXIMin 550 MG TABLET PO (07:38)
[2020-10-28] MEDS: Thiamine HCL 100 MG TABLET PO (07:38)
[2020-10-28] MEDS: Lactulose 20 GM/30 ML SOLUTION PO (07:38)
[2020-10-28 07:39] VITALS: BP 124/69; PULSE 81; RESP 20; TEMP 36.9; O2SAT 100
--- NOTE | 2020-10-28 10:26 | P.DS_ITS ---
DS: Providers Provider Date of Service: 11/25/20 Date of admission: 10/25/20 14:53 Primary care physician: Saloni Rose MD Consults: 10/27/20 07:35 Consult to Gastroenterology Routine Consulting Provider: Valentín Lemons Reason for consultation: Hepatic encephalopathy-? alcoholic/hemochrmatosis? Has provider been notified: No 10/27/20 10:48 Consult to Care Team Routine Comment: Reason for consultation: sad/depressed DS: Diagnosis Discharge Diagnosis (1) Acute hepatic encephalopathy: Status: Acute DS: Medications Discharge Medications Home Medications: Home Medications Medication Instructions Recorded Confirmed lactulose 10 gram/15 mL oral 45 ml PO DAILY 08/05/20 10/25/20 solution omeprazole 20 mg PO DAILY@0630 10/25/20 10/25/20 thiamine HCl (vitamin B1) [Vitamin 100 mg PO DAILY 10/25/20 10/25/20 B-1] tramadol 50 mg PO Q8H PRN 10/25/20 10/25/20 Previous Rx's Medication Instructions Recorded spironolactone 25 mg PO DAILY #60 tab 07/20/20 folic acid 1 mg tablet 1 mg PO DAILY #30 tab 08/23/20 cyclobenzaprine 5 mg tablet 5 mg PO BEDTIME PRN 30 Days #30 tab 09/24/20 levofloxacin 250 mg tablet 250 mg PO Q24H #60 tab 09/24/20 rifaximin 550 mg tablet 550 mg PO BID #60 tab 10/01/20 potassium chloride 20 mEq 20 meq PO BID #60 tab 10/06/20 tablet,extended release(part/cryst) DS: Summary Hospital Course Hospital Course: 55-year-old female with a past medical history of decompensated alcohol cirrho sis with history SBP in June 2020, currently on suppressive therapy, history of hepatic encephalopathy, presented with altered mental status. Patient had visiting nurse that reported that patient seemed more confused over the last week, this was confirmed by the patient's family. Patient herself states that she does not know what they are talking about and that she feels the same. She reports being compliant with her lactulose, although she does say she decreased it to once a day about a month prior to presentation. She reports sobriety since June 2020. In ED noted to have elevated ammonia of 64, higher than baseline. Hospital Course problem section: Hepatic encephalopathy-decompensated alcoholic cirrhosis Possibly due to noncompliance Patient came with hepatic encephalopathy-subsequently her lactulose/rifaximine was adjusted and producing bowel movements and hepatic encephalopathy seems to be improving. Patient noted to have significantly elevated iron saturations and ferritins in June and October 2020, has also been complaining of arthralgias Denies any personal or family history of hemochromatosis, but should be ruled out, will check genetic studies. In addition her ferritin level was high so hemochromatosis -Genetic studies added: Which needs to be followed outpatient with GI and PCP. Continue Levaquin for SBP prophylaxis Patient also has in joint pains and she already has outpatient appointment with Rheumatology as per daughter. She also has a therapist for mental health out [place] which she follows. Patient was advised to be compliant with her lactulose and she agrees to it. Patient is going home with VNA. Above management discussed with the patient in detail length she/her daughter- both understand and in agreement with the above plan, time spent 50 minutes and 50% time spent on counseling. Significant findings: As above. Procedures performed: None. Treatment and response: As above. Complications: None. Time Spent with Patient Time attestation: Total time spent providing and/or coordinating discharge services: Discharge coordination time: Greater than 30 minutes Quality: Stroke Does the patient have a stroke diagnosis?: No Physical Exam Vital Signs: Vital Signs: Last Vital Signs Temp 98.4 F 10/28/20 07:39 Pulse 81 10/28/20 07:39 Resp 20 10/28/20 07:39 BP 124/69 10/28/20 07:39 Pulse Ox 100 10/28/20 07:39 Body Mass Index 19.3 Physical exam: Constitutional: Not in acute distress. Cvs: rrr, [id number] , no murmur res: clear to auscultation ,no rhonchii or wheezing abd: no rebound or guarding ,nt, bs present. ext pulses present , no cyanosis neuro: axo3 , nonfocal. DS: Data Data Completed and Pending Completed studies during hospitalization [Text1]: Procedures Drainage of Peritoneal Cavity, Percutaneous Approach (08/08/20) Inspection of Upper Intestinal Tract, Via Natural or Artificial Opening Endoscopic (08/08/20) Transfusion of Nonautologous Red Blood Cells into Peripheral Vein, Percutaneous Approach (08/08/20) Labs on day of discharge: Laboratory Results - last 24 hr 10/27/20 13:27 Sodium 138 Potassium 3.8 Chloride 109 H Carbon Dioxide 20 L Anion Gap 13 BUN 12 Creatinine 0.72 Estim Creat Clear Calc 74.0 Estimated GFR > 60 Random Glucose 133 H Calcium 9.0 Total Bilirubin 2.1 H Direct Bilirubin 1.2 H AST 53 H ALT 27 Alkaline Phosphatase 114 Total Protein 6.8 Albumin 2.7 L Discharge Plan Discharge Patient Disposition: Home Health Service Discharge Diagnosis: hepatic encephalopathy Referrals: Darius FROST [Outside] - 1 Week Po,Saloni Jackson MD [Primary Care Provider] - 1 Week Valentín Lemons [Physician] - 1 Week (follow up 2 weeks) Discharge Medications: Continued folic acid 1 mg tablet 1 mg PO DAILY Qty: 30 RF: 11 Xifaxan 550 mg tablet 550 mg PO BID Qty: 60 RF: 1 potassium chloride [Klor-Con M20] 20 mEq tablet,ER particles/crystals 20 meq PO BID Qty: 60 RF: 2 thiamine HCl (vitamin B1) [Vitamin B-1] 100 mg Tablet 100 mg PO DAILY RF: 0 omeprazole 20 mg Capsule,Delayed Release(Dr/Ec) 20 mg PO DAILY@0630 RF: 0 spironolactone 25 mg tablet 25 mg PO DAILY Qty: 60 RF: 1 cyclobenzaprine 5 mg tablet 5 mg PO BEDTIME PRN (Reason: muscle spasm) 30 Days Qty: 30 RF: 0 Discontinued lactulose 10 gram/15 mL solution 45 ml PO DAILY RF: 0 No Action tramadol 50 mg tablet 50 mg PO Q8H PRN (Reason: Pain (Scale Score 4-6)) Qty: 90 RF: 0 diclofenac sodium [Voltaren] 1 % gel 4 g topical QID Qty: 3 RF: 3 lactulose 20 gram/30 mL solution 20 g PO TID Qty: 2880 RF: 3 Discharge Orders: Discharge Order (Routine); Ordered 10/28/20 Ordered By: Calin Nathan Diet: advance to usual diet Activity on Discharge: As tolerated Stand Alone Forms: Patient Portal Discharge page Care Plan Goals: Patient came with hepatic encephalopathy-subsequently her lactulose was adjusted and producing bowel movements and hepatic encephalopathy seems to be improving. In addition her ferritin level was high so hemochromatosis -Genetic studies added: Which needs to be followed outpatient with GI and PCP. Please follow-up renal function and electrolytes , liver functions as well as ammonia levels with PCP in 1 week time. Patient also has in joint pains and she already has outpatient appointment with Rheumatology as per daughter. She also has a therapist for mental health out [place] which she follows. Patient was advised to be compliant with her lactulose and she agrees to it. Patient is going home with VNA. Health Concerns: As above. Plan of Treatment: As above. Assessment: As above. Discharge Date/Time: 10/28/20 12:10
--- NOTE | 2020-10-28 11:22 | MHC.CM.PN ---
Female 55 DX Hepatic encephalopathy is dicharged today. [facility] will resume services. Family will provide transportation. Family and [facility] notified of discharge today.
== END 2020-10-28 12:10 | disposition home health service (06) | DRG 279 ==
LOC: HO.ED 14:25 → HO.EDOVER 14:59 → HO.IMC 15:46
PROVIDERS: Physician Assistant; Admitting Provider Internal Medicine; Emergency Provider Emergency Medicine; PCP Internal Medicine; Visit Provider Internal Medicine
DX: K72.00 Acute and subacute hepatic failure without coma (principal); Z20.822 Contact with and (suspected) exposure to COVID-19; Z91.14 Patient's other noncompliance with medication regimen; Z79.891 Long term (current) use of opiate analgesic; Z79.899 Other long term (current) drug therapy
CPT/HCPCS: 0241U; 36415; 70450; 71045; 80048; 80076; 80307; 81003; 81256; 82140; 82550; 83690; 83735; 83880; 84484; 85025; 85610; 85652; 85730; 86140; 99285

== ENCOUNTER 2020-11-02 15:07 | Outpatient (REF) | payer OTHER, SELFPAY ==
[2020-11-02 15:36] LABS: MANUAL DIFF FLAG NO
[2020-11-02 15:44] LABS: Basophils Percent Auto 0.4 % (0-2); Eosinophils Absolute Auto 0.3 X10*3/uL (0.0-0.4); Eosinophils Percent Auto 5.6 % (0-4); Hematocrit 28.1 % (37-47); Hemoglobin 9.5 g/dl (12.0-16.0); Imm Gran Abs Auto 0.01 X10*3/uL (0.00-0.03); Imm Gran Pct Auto 0.2 % (0.0-0.4); Immature Retic Fraction 9.6 % (3.0-15.9); Lymphocytes Absolute Auto 1.5 X10*3/uL (1.2-4.9); Lymphocytes Percent Auto 31.4 % (20-40); Mean Corpuscular HGB Conc 33.8 g/dl (31.0-35.0); Mean Corpuscular Hemoglobin 34.1 pg (27.0-33.0); Mean Corpuscular Volume 100.7 fL (80-98); Mean Platelet Volume 10.5 fL (9.4-12.3); Monocytes Absolute Auto 0.8 X10*3/uL (0.1-1.2); Monocytes Percent Auto 17.7 % (2-11); Neutrophils Absolute Auto 2.1 X10*3/uL (2.0-8.3); Neutrophils Percent Auto 44.7 % (45-73); Red Blood Count 2.79 X10*6/uL (4.20-5.50); Retic HGB Equivalent 36.5 pg (30.0-35.0); Reticulocyte Percent 4.2 % (0.5-1.8); Reticulocytes Absolute 0.118 X10*6/uL (0.026-0.095); White Blood Count 4.6 X10*3/uL (4.8-10.8)
[2020-11-02 15:47] LABS: Platelet Count 91 X10*3/uL (160-400)
[2020-11-02 16:03] LABS: Ammonia 38 umol/L (13-55)
[2020-11-02 16:11] LABS: Iron 119 mcg/dL (30-160); Percent Iron Saturation 47 % (15-50); Total Iron Binding Capacity 255 mcg/dL (228-428); Unsaturated Iron Binding 136 ug/dL
[2020-11-02 16:31] LABS: Ferritin 268 ng/mL (10-250)
[2020-11-02 16:46] LABS: Folate > 20.0 ng/mL (> or = 4.0); Vitamin B12 1287 pg/mL (200-900)
== END 2020-11-02 15:08 | disposition home or self-care (01) ==
LOC: HO.LAB 15:07
PROVIDERS: PCP Internal Medicine; Visit Provider Internal Medicine
DX: K70.31 Alcoholic cirrhosis of liver with ascites (principal); D64.89 Other specified anemias
CPT/HCPCS: 36415; 82140; 82607; 82728; 82746; 83540; 85025; 85045

== ENCOUNTER 2021-01-27 08:32 | Outpatient (REF) | payer OTHER, SELFPAY ==
--- NOTE | ~2021-01-27 | XR_ITS ---
EXAMINATION: BILATERAL HANDS CLINICAL INFORMATION: Pain COMPARISON: None TECHNIQUE: 3 views of each hand FINDINGS: Right: No acute fracture or dislocation is evident. There is severe degenerative change seen involving the 1st and 2nd carpal metacarpal joints with loss of joint space and marginal sclerosis and spurring. There is mild radial subluxation base of the 1st metacarpal. Other joint spaces appear maintained. Left: There is no evidence of acute fracture or dislocation of the left hand. There is some mild spurring seen about the 3rd proximal interphalangeal joint. There is joint space narrowing with marginal sclerosis and spurring seen involving the 1st and 2nd carpal metacarpal joints. No evidence of erosive arthritides. XR/XR hand RT min 3V IMPRESSION: Bilateral degenerative change right greater than left of the 1st and 2nd carpal metacarpal joints. No evidence of erosive arthritides.
--- NOTE | ~2021-01-27 | XR_ITS ---
EXAMINATION: BILATERAL HANDS CLINICAL INFORMATION: Pain COMPARISON: None TECHNIQUE: 3 views of each hand FINDINGS: Right: No acute fracture or dislocation is evident. There is severe degenerative change seen involving the 1st and 2nd carpal metacarpal joints with loss of joint space and marginal sclerosis and spurring. There is mild radial subluxation base of the 1st metacarpal. Other joint spaces appear maintained. Left: There is no evidence of acute fracture or dislocation of the left hand. There is some mild spurring seen about the 3rd proximal interphalangeal joint. There is joint space narrowing with marginal sclerosis and spurring seen involving the 1st and 2nd carpal metacarpal joints. No evidence of erosive arthritides. XR/XR hand LT min 3V IMPRESSION: Bilateral degenerative change right greater than left of the 1st and 2nd carpal metacarpal joints. No evidence of erosive arthritides.
[2021-01-27 09:49] LABS: Rheumatoid Factor < 15.0 IU/mL (<15.0)
[2021-01-29 05:55] LABS: Lyme Abs Screen <0.90 index
[2021-01-31 14:51] LABS: Cyclic Citrullinated Peptide <16 UNITS
== END 2021-01-27 08:33 | disposition home or self-care (01) ==
LOC: HO.LAB 08:32
PROVIDERS: PCP Internal Medicine; Visit Provider Student in an Organized Health Care Education/Training Program
DX: M54.5 Low back pain (principal); M79.671 Pain in right foot; M79.672 Pain in left foot; M25.50 Pain in unspecified joint
CPT/HCPCS: 36415; 73130; 86200; 86431; 86617; 86618; 99202

== ENCOUNTER → 2021-02-11 09:20 | Outpatient (BNVA) | payer OTHER, SELFPAY | PROVIDERS: PCP Internal Medicine; Visit Provider Student in an Organized Health Care Education/Training Program ==

== ENCOUNTER 2021-03-18 10:03 | Outpatient (REF) | payer SELFPAY | END 2021-03-18 10:04 | disposition home or self-care (01) | LOC: HO.HAP 10:03 | PROVIDERS: Visit Provider Internal Medicine | DX: Z13.89 Encounter for screening for other disorder (principal) ==

== ENCOUNTER 2021-03-18 10:26 | Outpatient (REF) | payer OTHER, SELFPAY ==
[2021-03-18 10:46] LABS: MANUAL DIFF FLAG NO
[2021-03-18 10:54] LABS: Ammonia 33 umol/L (13-55)
[2021-03-18 11:07] LABS: Basophils Percent Auto 0.4 % (0-2); Eosinophils Percent Auto 0.8 % (0-4); Hematocrit 32.1 % (37-47); Imm Gran Abs Auto 0.01 X10*3/uL (0.00-0.03); Imm Gran Pct Auto 0.2 % (0.0-0.4); Immature Retic Fraction 14.3 % (3.0-15.9); Lymphocytes Percent Auto 19.6 % (20-40); Mean Corpuscular HGB Conc 34.3 g/dl (31.0-35.0); Mean Corpuscular Hemoglobin 32.9 pg (27.0-33.0); Mean Corpuscular Volume 96.1 fL (80-98); Mean Platelet Volume 10.8 fL (9.4-12.3); Monocytes Absolute Auto 0.6 X10*3/uL (0.1-1.2); Monocytes Percent Auto 13.1 % (2-11); Neutrophils Absolute Auto 3.2 X10*3/uL (2.0-8.3); Neutrophils Percent Auto 65.9 % (45-73); Red Blood Count 3.34 X10*6/uL (4.20-5.50); Red Cell Distribution Width 15.6 % (11.0-16.0); Retic HGB Equivalent 37.9 pg (30.0-35.0); Reticulocytes Absolute 0.093 X10*6/uL (0.026-0.095); White Blood Count 4.9 X10*3/uL (4.8-10.8)
[2021-03-18 11:15] LABS: Platelet Count 88 X10*3/uL (160-400)
[2021-03-18 11:21] LABS: Reticulocyte Percent 2.8 % (0.5-1.8)
[2021-03-18 11:35] LABS: Alanine Aminotransferase 27 U/L (0-31); Albumin Level 3.2 g/dL (3.5-5.0); Alkaline Phosphatase 179 U/L (39-117); Anion Gap 10 (12-20); Aspartate Amino Transferase 61 U/L (5-31); Bilirubin Total 2.6 mg/dL (0.0-1.0); Blood Urea Nitrogen 9 mg/dL (9-16); Calcium 8.8 mg/dL (8.4-10.2); Carbon Dioxide 22 mmol/L (22-29); Chloride 108 mmol/L (96-108); Cholesterol 121 mg/dL; Estimated Glomerular Filt Rate > 60; Glucose Random 103 mg/dL (60-115); HDL Cholesterol 28 mg/dL; Iron 216 mcg/dL (30-160); LDL Cholesterol Calculated 76 mg/dl; Percent Iron Saturation 90 % (15-50); Potassium 4.7 mmol/L (3.3-5.1); Sodium 135 mmol/L (135-145); Total Iron Binding Capacity 240 mcg/dL (228-428); Total Protein 7.3 g/dL (6.5-8.0); Triglycerides 86 mg/dL; Unsaturated Iron Binding 24 ug/dL
[2021-03-18 11:57] LABS: Ferritin 201 ng/mL (10-250); Free T4 (Free Thyroxine) 0.72 ng/dL (0.71-1.85); Thyroid Stimulating Hormone 1.75 uIU/mL (0.32-4.0)
[2021-03-18 12:04] LABS: Folate > 20.0 ng/mL (> or = 4.0); Vitamin B12 1301 pg/mL (200-900)
== END 2021-03-18 10:27 | disposition home or self-care (01) ==
LOC: HO.LAB 10:26
PROVIDERS: PCP Internal Medicine; Visit Provider Internal Medicine
DX: D64.89 Other specified anemias (principal); E78.00 Pure hypercholesterolemia, unspecified; K70.31 Alcoholic cirrhosis of liver with ascites
CPT/HCPCS: 36415; 80053; 80061; 82140; 82607; 82728; 82746; 83540; 84439; 84443; 85025; 85045

== ENCOUNTER 2021-03-30 10:36 | Outpatient (REF) | payer OTHER, SELFPAY | END 2021-03-30 10:37 | disposition home or self-care (01) | LOC: HO.HAP 10:36 | PROVIDERS: Visit Provider Internal Medicine | DX: Z46.1 Encounter for fitting and adjustment of hearing aid (principal); H90.3 Sensorineural hearing loss, bilateral | CPT/HCPCS: V5011; V5266 ==

== ENCOUNTER 2021-04-07 10:38 | Outpatient (REF) | payer OTHER, SELFPAY | END 2021-04-07 10:39 | disposition home or self-care (01) | LOC: HO.HAP 10:38 | PROVIDERS: Visit Provider Internal Medicine | DX: Z13.89 Encounter for screening for other disorder (principal) ==

== ENCOUNTER 2021-04-08 12:55 | Outpatient (REF) | payer OTHER, SELFPAY ==
--- NOTE | ~2021-04-08 | XR_ITS ---
EXAMINATION: XR SHOULDER-BILATERAL CLINICAL INFORMATION: Shoulder pain. COMPARISON: None TECHNIQUE: 4 views each of both shoulders were obtained. FINDINGS: Right shoulder: The acromioclavicular joint space measures 0.7 cm, upper limit of normal. The lateral end of the clavicle appears irregular with mild sclerosis, likely represent either posttraumatic or degenerative changes. Mild soft tissue swelling is noted as well. However, note is made of satisfactory alignment of the inferior margin of both the clavicle as well as the acromion process. The coracoclavicular distance measures approximately 1.1 cm, within normal limits. The glenohumeral alignment is intact. Soft tissues are unremarkable. Left shoulder: The acromioclavicular joint measures less than a millimeter. Mild osteoarthrosis is present. The glenohumeral alignment is intact. The soft tissues are unremarkable. Specific note is made of a few sub-5 mm radiolucencies within the proximal left humerus, indeterminate etiology. XR/XR shoulder LT min 2V IMPRESSION: 1. The right shoulder shows features suspicious for grade 1-grade 2 injury of the acromioclavicular joint. 2. Mild osteoarthrosis of the left acromioclavicular joint. 3. Note is made of a few sub-5 mm radiolucency within the proximal left humerus, indeterminate etiology.
--- NOTE | ~2021-04-08 | XR_ITS ---
EXAMINATION: XR SHOULDER-BILATERAL CLINICAL INFORMATION: Shoulder pain. COMPARISON: None TECHNIQUE: 4 views each of both shoulders were obtained. FINDINGS: Right shoulder: The acromioclavicular joint space measures 0.7 cm, upper limit of normal. The lateral end of the clavicle appears irregular with mild sclerosis, likely represent either posttraumatic or degenerative changes. Mild soft tissue swelling is noted as well. However, note is made of satisfactory alignment of the inferior margin of both the clavicle as well as the acromion process. The coracoclavicular distance measures approximately 1.1 cm, within normal limits. The glenohumeral alignment is intact. Soft tissues are unremarkable. Left shoulder: The acromioclavicular joint measures less than a millimeter. Mild osteoarthrosis is present. The glenohumeral alignment is intact. The soft tissues are unremarkable. Specific note is made of a few sub-5 mm radiolucencies within the proximal left humerus, indeterminate etiology. XR/XR shoulder RT min 2V IMPRESSION: 1. The right shoulder shows features suspicious for grade 1-grade 2 injury of the acromioclavicular joint. 2. Mild osteoarthrosis of the left acromioclavicular joint. 3. Note is made of a few sub-5 mm radiolucency within the proximal left humerus, indeterminate etiology.
== END 2021-04-08 12:56 | disposition home or self-care (01) ==
LOC: HO.XRAY 12:55
PROVIDERS: PCP Internal Medicine; Visit Provider Nurse Practitioner Family
DX: M25.512 Pain in left shoulder (principal); M25.511 Pain in right shoulder; G62.9 Polyneuropathy, unspecified; M79.641 Pain in right hand; M79.642 Pain in left hand; M62.838 Other muscle spasm; M79.604 Pain in right leg; M79.605 Pain in left leg
CPT/HCPCS: 73030; 99202

== ENCOUNTER 2021-04-13 11:00 | Outpatient (RCR) | payer OTHER, SELFPAY ==
--- NOTE | 2021-02-23 13:48 | MHC.PT.EP ---
[facility] [place] Office [place] Office [place] Office [address] Thai Bowser [address] [phone] F: [phone] F: [phone] F: [phone] F: [phone] Physical Therapy Plan of Care Date of Evaluation: Date of Surgery: N/A Diagnosis: LBP/B shoulder/B hip pain (B LE pain) Assessment: Annia is a 55 year old female who reports to therapy with a referral for LBP/bilat shoulders/bilat hip pain. Upon examination, it was determined that her LE are limiting her more significantly than her back and UE. Self reported limitations include standing up from sitting, difficulty with stairs, and trouble sleeping on her side. Impairments include significant hip/glute/quad/core weakness, potential elevated L hip and quad/hamstring tightness. Pt should benefit from skilled PT for 2x/week for 4 weeks to address those impairments and will be reassessed in 4 weeks to see if further treatment is necessary. Potential barriers to therapy are multi joint pain and the fact that the patient has RA and other co-morbidities. She reports significant issues with her hands and was educated about going to OT. Frequency and Duration: The patient will be seen 2x/4 weeks Short Term Goals: 1. Pt will be I in HEP in 2 weeks in order to facilitate self management of symptoms. 2. Pt will increase hamstring to WFL in 2 weeks in order to increase flexibility. Shelter Goals: 1. Pt will increase all hip MMT by 1 grade in 4 weeks in order to increase ability to ascend/descend stairs. 2. Pt will be able to perform sit to stand transfer I with pain <3/10 in 4 weeks in order to ease pain with transfers. Treatment Plan: Modalities to reduce pain, spasms and effusion. Manual therapy to restore motion and function. Therapeutic exercise to improve strength and flexibility. Neuromuscular re-education for posture and balance. Therapeutic activities to return to functional activities of daily living. Electronically signed by: Please sign and return to therapist. Thank you for your referral.
--- NOTE | 2021-05-04 11:40 | MHC.PT.DC ---
[facility] [place] Office [place] Office [place] Office [address] Thai Bowser [address] [phone] F: [phone] F: [phone] F: [phone] F: [phone] Physical Therapy Discharge Report Diagnosis: LBP/B shoulder/B hip pain (B LE pain) Date of Surgery: N/A Date of Evaluation: 02/23/21 Date of Discharge: 04/14/21 Treatments to Date: 11 Cancellations to Date: 1 No Shows to Date: 0 Discharge Status: Achieved Goals Improved Function Independent with HEP Discharge Summary: Pt independent w/HEP. Pt able to perform transfer sit-stand w/o UE Support and amb on 8 x 10 B step w/proper form. She presents with ability to self manage symptoms and is DC ed at this time Electronically signed by: Robyn Helton PT, DPT Please sign and return to therapist. Thank you for your referral.
== END 2021-05-04 11:41 | disposition home or self-care (01) ==
LOC: HO.PT 11:00
PROVIDERS: PCP Internal Medicine; Visit Provider Student in an Organized Health Care Education/Training Program
DX: M54.5 Low back pain (principal); M25.50 Pain in unspecified joint
CPT/HCPCS: 97110; 97162; 97163; 97530; 97535

== ENCOUNTER → 2021-05-13 14:28 | Outpatient (BNVA) | payer OTHER, SELFPAY | PROVIDERS: PCP Internal Medicine; Visit Provider Nurse Practitioner Family | DX: M25.511 Pain in right shoulder (principal); M25.512 Pain in left shoulder; M79.641 Pain in right hand; M79.642 Pain in left hand; M62.838 Other muscle spasm; M79.604 Pain in right leg; M79.605 Pain in left leg; G62.9 Polyneuropathy, unspecified | CPT/HCPCS: 99212 ==

== ENCOUNTER 2021-06-24 09:54 | Outpatient (REF) | payer OTHER, SELFPAY ==
[2021-06-30 05:51] LABS: HPV mRNA E6/E7 rflx Not Detected (Not Detected)
== END 2021-06-24 09:55 | disposition home or self-care (01) ==
LOC: HO.LAB 09:54
PROVIDERS: PCP Internal Medicine; Visit Provider Advanced Practice Midwife
DX: Z01.419 Encounter for gynecological examination (general) (routine) without abnormal findings (principal); Z11.51 Encounter for screening for human papillomavirus (HPV)
CPT/HCPCS: 87624; 88142

== ENCOUNTER 2021-06-24 11:00 | Outpatient (RCR) | payer OTHER, SELFPAY ==
--- NOTE | 2021-04-20 10:05 | MHC.OT.OEV ---
[address] [phone] F: [phone] Occupational Therapy Evaluation Diagnosis: B/L hand pain Date of Onset: 08/02/20 Date of Surgery: Attending Provider: Dr Rose Prescribed Treatment: Harlan and Evelio CASTANEDA Follow Up Appointment: History of Current Condition: Pt reports onset of general joint pain since this past spring, no specific trauma, but worsened over time. She was initially seen in physical therapy for management of LE and back pain, now discharged from PT services and referred to OT for UB therapy due to hand, elbow and shoulder. Significant Medical History: Cirrhosis Precautions/Contraindications: None Patient Goals: Pain free Hand Dominance: Left Observations: QuickDASH Score: 55 Prior Level of Function and Occupation Self Care, Employment, Leisure: Pt has been out of work since onset of Covid, job closed down and she has not started again due to pain and weakness (has applied for disability) Enjoys walking, does housework, watches tv and sleeps for extended periods of time (naps frequently) Living Situation, Family and/or Social Support: Lives w/ daughter and [id number], 9 year old grandson (all out of house during the day) Sister in law and friends supportive and live nearby Boyfriend last year and pt has had some mental health struggles over the past year Current Level of Function and Occupation Self Care, Employment, Leisure: Daughter assists w/ cooking, heavier cleaning Difficulty opening jars, water bottles, containers, opening gas cap and turning ignition Sleep: Sleeps in intervals, naps often, no difficulty w/ sleep due to pain Driving: No difficulties with driving, but needs two hands to shift into park, open gas cap Vision: Balance: Pain Assessment Pain Score: 8 Pain Scale Used: Numeric (0 - 10) Pain Location and Description: B/L shoulders and hands, minimal pain in elbows 1/10 constant low ache in base of thumbs, higher w/ forceful use 3/10 pain in shoulders, worse w/ overhead movements Aggravating Factors: Forceful use of hands, overhead movements Alleviating Factors: Tramadol 2x/day Enjoys heat and warm water Skin and Soft Tissue Assessment Skin and Soft Tissue: Atrophy Comments: Nerve assessment Ulnar Nerve: Median Nerve: Radial Nerve: Comments: Sensory Assessment Temperature: WFL Light Touch: WFL Proprioception: WFL Vibration: Comments: Edema Assessment Upper Extremity: WNL Lower Extremity: Comments: Dexterity Assessment Dexterity: B/L Impaired Comments: Difficulty w/ buttons Special Tests Comments: (+) Grind test B/L'ly AROM(PROM) Strength Cervical Cervical Flexion: Cervical Extension: Cervical Lateral Flexion: Cervical Rotation: Comments: Grossly WFL Shoulder Flexion: R 130 L 100 Extension: Abduction: Internal Rotation: External Rotation: Comments: *Pt w/ PNA vaccine yesterday to left arm, difficultly w/ range and tender to palpate Flexion: Extension: Abduction: Internal Rotation: External Rotation: Comments: Elbow Flexion: Extension: Pronation: Supination: Comments: WFL Flexion: Extension: Pronation: Supination: Comments: Wrist Flexion: Extension: Ulnar Deviation: Radial Deviation: Comments: WFL Flexion: Extension: Ulnar Deviation: Radial Deviation: Comments: Thumb Thumb CMC Flexion: Thumb MCP Flexion: Thumb IP Flexion: Radial Abduction: Palmar Abduction: [place] (Kapandji 0-10): Comments: B/L thumbs positioning in adduction Digits Index MCP: PIP: DIP: Long MCP: PIP: DIP: Ring MCP: PIP: DIP: Small MCP: PIP: DIP: Comments: Intrinsic tightness B/L'ly Gross Grasp: R 5 L 5 Lateral Pinch: R 2 L 2 Two-Point Pinch: R 1 L 1 Three-Jaw Nathan: R 1 L 1 Comments: Patient Education Primary Language: [place] Tender Required: No Current Knowledge: Understands information with skills for self-management Teaching Method: Demonstration Handouts Verbal Education Needs Identified on Evaluation: ADL's Disease Information Equipment Use Exercise Pain Safety How did patient/family demonstrate learning? Patient demonstrates Patient verbalizes Barriers to Learning: None Readiness for Learning: Accepting Who was educated? Patient Comments: Plan of Care Assessment: 55 yo right hand dominant female presents to OT w/ complaint of worsening hand and shoulder pain since this past spring. B/L hand x-ray shows 1st and 2nd CMC arthritis and B/L shoulder x-rays show AC joint OA. On assessment, both hands are postured w/ thumb adduction and she has (+) grind test B/L'ly, right worse than left. 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 She has decreased shoulder ROM and pain w/ overhead movements. She will benefit from cont;d OT for management of pain, range, strength and overall functional use of both hands and arms to increase participation in daily activities. STG Duration: 2 weeks Short Term Goals: Ind w/ HEP Pt to report good use of warm modalities as needed in home for pain relief Pt to report decresae pain w/ use of CMC orthosis to both hands LTG Duration: 6 weeks Front Elevator Operator Goals: B/L shoulder flex to 150 Pt to report pain free rest of both hands Good follow through w/ protection of both CMC joints Quickdash score <35 pts Gross grasp >25lb B/L'ly Frequency and Duration: The patient will be seen 2x/wk for 6 weeks Treatment Plan: Therapeutic Exercise Therapeutic Activity Home Exercise Program Splinting Patient Education ADL Training Ultrasound Paraffin Fluidotherapy MHP Cold Packs Joint Mobilization Soft Tissue Mobilization Kinesiotaping Electronically Signed By: Alla Palafox OTR/L Reviewed/agree with student documentation: N/A Therapist: Please sign and return to therapist, Thank you for your referral.
--- NOTE | 2021-06-24 11:52 | MHC.OT.DC ---
[address] [phone] F: [phone] Occupational Therapy Discharge Note Provider: Dr. Rose Diagnosis: B/L hand pain Date of Evaluation: 04/20/21 Date of Discharge: 06/24/21 Treatments to Date: 11 Discharge Status: Improved Function Independent with HEP Discharge Summary: Annia was seen in OT for B/L hand pain due to OA. Overall w/ lower pain, but still present at all times in hands and has low car seat coverer and UE strength. She reports improved pain in shoulders and now has good active shoulder range, but fatigues easily w/ overhead activity. We have discussed use of adaptive equipment and activity modification at length, but she continues to have decreased carry over for education and implementation of recommendations. She will benefit from cont'd participation in therex program at home and use of adaptive equipment. She may also benefit from consult w/ hand surgeon if pain persists. Electronically Signed By: Brittany Frey OT/S Reviewed/agree with student documentation: Yes Therapist: Alla Palafox OTR/L CHT Please Sign and return to therapist, thank you for your referral.
== END 2021-06-24 11:55 | disposition home or self-care (01) ==
LOC: HO.OT 11:00
PROVIDERS: PCP Internal Medicine; Visit Provider Internal Medicine
DX: M79.641 Pain in right hand (principal); M79.642 Pain in left hand
CPT/HCPCS: 29130; 97110; 97140; 97166; 97760

== ENCOUNTER 2021-06-27 08:03 | Outpatient (REF) | payer OTHER, SELFPAY ==
--- NOTE | ~2021-06-27 | CT_ITS ---
EXAMINATION: CT CHEST WITH CONTRAST CLINICAL INFORMATION: Pulmonary nodule. Smoking history. COMPARISON: Previous chest CTs, most recent June 2020 chest x-ray October 2020. TECHNIQUE: Multidetector volumetric CT imaging of the chest was obtained after the administration of 65 mL of Omnipaque 350 intravenous contrast without immediate adverse reactions. Axial MIP volume rendering provided. Sagittal and coronal reformatted images were obtained. This CT examination was performed using dose optimization techniques as appropriate, variously including the following: *Automated exposure control *Adjustment of mA and/or kV according to patient size (this includes techniques or standardized protocols for targeted exams where dose is matched to indication/reason for exam; i.e. extremities or head) *Use of iterative reconstruction technique DLP: 80 mGy-cm FINDINGS: MANAGER DRILLING: Unremarkable. LUNGS: There is mild biapical pleural-parenchymal scarring that is stable. There is a 2 x 4 mm right lower lobe nodule axial image 116 series 7 that is stable. No new pulmonary nodule is seen. MEDIASTINUM: There are small mediastinal lymph nodes. No enlarged lymph nodes are seen. The heart does not appear enlarged. There is coronary artery calcified. There is no pericardial effusion. The thoracic aorta is normal in caliber. PLEURA: There is no pleural effusion. No pleural mass or thickening. AXILLA: There is shotty bilateral axillary lymphadenopathy. No enlarged axillary lymph nodes are seen. No chest wall mass. UPPER ABDOMEN: The liver appears cirrhotic. The spleen is enlarged. There are upper abdominal varices. OSSEOUS STRUCTURES: Unremarkable. CT/CT chest w con IMPRESSION: Stable small right lower lobe nodule. Stable mild biapical pleural-parenchymal scarring. Fleischner guidelines were followed.
[2021-06-27] MEDS: iohexoL 350 MG/ML 100 ML INFUS..BTL IV (08:56)
== END 2021-06-27 08:04 | disposition home or self-care (01) ==
LOC: HO.CT 08:03
PROVIDERS: Visit Provider Nurse Practitioner
DX: R91.1 Solitary pulmonary nodule (principal); Z80.1 Family history of malignant neoplasm of trachea, bronchus and lung; Z87.891 Personal history of nicotine dependence
CPT/HCPCS: 71260; Q9967

== ENCOUNTER 2021-06-30 10:38 | Outpatient (REF) | payer OTHER, SELFPAY ==
--- NOTE | ~2021-06-30 | US_ITS ---
EXAMINATION: US PELVIS, LIMITED/FOLLOW UP CLINICAL INFORMATION: Growing lump right groin/right lower quadrant COMPARISON: Previous CT of the abdomen and pelvis August 2020 TECHNIQUE: Grayscale and color imaging of the right lower quadrant in the area of palpable abnormality. Exam was performed with the patient supine and standing FINDINGS: There is a defect seen in the anterior right lower quadrant abdominal wall suggestive of a hernia. When the patient stands there is peristalsing bowel seen extending through the fascial defect. This may be higher than seen with an inguinal or femoral hernia. Review of CT August 2020 demonstrates questionable small hernia defect along the right lateral lower rectus muscle for example axial image 83 series 3. There are 2 small normal-appearing right inguinal lymph nodes. US/US pelvic limited IMPRESSION: Right lower quadrant hernia containing bowel.
== END 2021-06-30 10:39 | disposition home or self-care (01) ==
LOC: HO.HMGCX 10:38
PROVIDERS: Visit Provider Nurse Practitioner Family
DX: R22.9 Localized swelling, mass and lump, unspecified (principal); R19.09 Other intra-abdominal and pelvic swelling, mass and lump
CPT/HCPCS: 76857; 99202

== ENCOUNTER 2021-07-18 08:01 | Outpatient (REF) | payer OTHER, SELFPAY ==
--- NOTE | ~2021-07-18 | CT_ITS ---
EXAMINATION: CT ABDOMEN AND PELVIS WITHOUT CONTRAST CLINICAL INFORMATION: Intra-abdominal and pelvic swelling, mass or lump COMPARISON: Previous pelvic ultrasound June [address] of the abdomen and pelvis August 2020 TECHNIQUE: Multidetector volumetric imaging was performed from the superior aspect of the liver through the pubic symphysis. Sagittal and coronal reformatted images were obtained on the technologist's workstation. This CT examination was performed using dose optimization techniques as appropriate, variously including the following: *Automated exposure control *Adjustment of mA and/or kV according to patient size (this includes techniques or standardized protocols for targeted exams where dose is matched to indication/reason for exam; i.e. extremities or head) *Use of iterative reconstruction technique DLP: 328 mGy-cm FINDINGS: LUNG BASES: The visualized lung bases are unremarkable. LIVER, GALLBLADDER, AND BILIARY TREE: The liver is cirrhotic appearing. No focal liver lesion is seen. The gallbladder is contracted. The gallbladder wall appears thickened or edematous. This may be related to the patient's liver disease. There is high attenuation in the gallbladder questionable for small gallstone. PANCREAS: Unremarkable. SPLEEN: Upper normal in size measuring 13 cm in length. ADRENAL GLANDS: Unremarkable. KIDNEYS AND URETERS: The kidneys are normal in size, shape, and attenuation. No hydronephrosis, hydroureter, or calculi seen. No perinephric stranding. BLADDER: Unremarkable. GASTROINTESTINAL TRACT: There is stool throughout the colon suggestive of mild constipation. There is mild wall thickening of the cecum and proximal right colon. A few related to low albumin or patient's liver disease. Mild colitis cannot be excluded. Small and large bowel is otherwise unremarkable. The appendix is unremarkable. ABDOMINAL WALL: No significant hernia is appreciated. There is right lateral lower abdominal wall bulge for example image [id number] series 3. LYMPH NODES: There are small, small bowel mesentery lymph nodes and stranding of the fat in the small bowel mesentery. VASCULAR: There are varices including extensive pelvic varices.. PELVIC VISCERA: There is a small right ovarian cyst measuring 1.3 cm with small 3 x 4 mm calcification. There may be a small 1 cm left ovarian cyst. The uterus is unremarkable. OSSEOUS STRUCTURES: There are degenerative changes of the spine. CT/CT abdomen pelvis wo con IMPRESSION: Cirrhotic-appearing liver. Upper normal-size spleen. Varices. No ascites. Contracted gallbladder with question of gallbladder wall thickening or edema. This may be related to patient's liver disease. Probable small gallstone. Stool throughout the colon suggestive of mild constipation. Mild wall thickening of the proximal right colon. Differential would include wall thickening related to liver disease or low albumin and mild colitis. Clinical correlation recommended. Right lower quadrant abdominal wall bulge. Fleischner guidelines were followed.
== END 2021-07-18 08:02 | disposition home or self-care (01) ==
LOC: HO.CT 08:01
PROVIDERS: Visit Provider Surgery
DX: R19.09 Other intra-abdominal and pelvic swelling, mass and lump (principal)
CPT/HCPCS: 74176

== ENCOUNTER → 2021-08-04 09:05 | Outpatient (BNVA) | payer OTHER, SELFPAY | PROVIDERS: PCP Internal Medicine; Referring Provider Internal Medicine; Visit Provider Surgery | DX: R19.09 Other intra-abdominal and pelvic swelling, mass and lump (principal) | CPT/HCPCS: 99212 ==

== ENCOUNTER 2021-08-12 15:02 | Inpatient (IN) | payer OTHER, SELFPAY ==
--- NOTE | ~2021-08-12 | CT_ITS ---
EXAMINATION: CT ABDOMEN AND PELVIS WITHOUT CONTRAST CLINICAL INFORMATION: Acute renal failure COMPARISON: CT abdomen pelvis 07/18/2021 TECHNIQUE: Multidetector volumetric imaging was performed from the superior aspect of the liver through the pubic symphysis. Sagittal and coronal reformatted images were obtained on the technologist's workstation. This CT examination was performed using dose optimization techniques as appropriate, variously including the following: *Automated exposure control *Adjustment of mA and/or kV according to patient size (this includes techniques or standardized protocols for targeted exams where dose is matched to indication/reason for exam; i.e. extremities or head) *Use of iterative reconstruction technique DLP: 346 mGy-cm FINDINGS: LUNG BASES: 4 mm solid right lower lobe pulmonary nodule, 4:45. ABDOMINAL AND PELVIC WALL: Unremarkable. LIVER AND BILIARY TREE: Nodularity of the hepatic contour which could be seen in the setting of cirrhosis. GALLBLADDER: Gallbladder is under distended limiting evaluation however cholelithiasis is suspected. Gallbladder wall thickening, which may be related to sequelae of underlying liver disease. PANCREAS: Unremarkable. SPLEEN: Spleen is enlarged measuring 13.4 cm in span. ADRENAL GLANDS: Unremarkable. KIDNEYS AND URETERS: Dense right renal medullary pyramids which can be seen in the setting of medullary nephrocalcinosis. GASTROINTESTINAL TRACT: Large and small bowel are unremarkable. Normal appendix. VASCULAR: Probable perigastric varices, which could be better delineated on the postcontrast exam. LYMPH NODES/PERITONEUM: No lymphadenopathy. FREE FLUID: None. BLADDER: Unremarkable. PELVIC VISCERA: Unremarkable. OSSEOUS STRUCTURES: Unremarkable. CT/CT abdomen pelvis wo con IMPRESSION: Cirrhosis with sequelae of portal hypertension including splenomegaly and varices. Dense right renal medullary pyramids which can be seen in the setting of medullary nephrocalcinosis. Gallbladder is under distended limiting evaluation however cholelithiasis is suspected. Gallbladder wall thickening, which may be related to sequelae of underlying liver disease. 4 mm solid right lower lobe pulmonary nodule. Assuming patient has no history of malignancy, recommend follow-up per Fleischner Society recommendations. According to the UPDATED 2017 Fleischner Society recommendations, the advised followup imaging for solid nodules < 6 mm is: LOW RISK PATIENT: No routine follow up. HIGH RISK PATIENT: Optional CT at 12 months. .
[2021-08-12 15:22] VITALS: BP 132/71; PULSE 73; RESP 16; TEMP 36.5; O2SAT 99; BMI 18.3
[2021-08-12 15:41] LABS: MANUAL DIFF FLAG NO
[2021-08-12 15:43] LABS: Basophils Percent Auto 0.2 % (0-2); Eosinophils Absolute Auto 0.1 X10*3/uL (0.0-0.4); Hematocrit 32.3 % (37.0-47.0); Hemoglobin 11.1 g/dl (12.0-16.0); Imm Gran Abs Auto 0.03 X10*3/uL (0.00-0.03); Imm Gran Pct Auto 0.5 % (0.0-0.4); Lymphocytes Absolute Auto 2.3 X10*3/uL (1.2-4.9); Lymphocytes Percent Auto 35.2 % (20-40); Mean Corpuscular HGB Conc 34.4 g/dl (31.0-35.0); Mean Corpuscular Hemoglobin 33.9 pg (27.0-33.0); Mean Corpuscular Volume 98.8 fL (80.0-98.0); Mean Platelet Volume 11.1 fL (9.4-12.3); Monocytes Absolute Auto 1.1 X10*3/uL (0.1-1.2); Monocytes Percent Auto 16.7 % (2-11); Neutrophils Absolute Auto 2.9 x10*3/uL (2.0-8.3); Neutrophils Percent Auto 45.4 % (45-73); Red Blood Count 3.27 X10*6/uL (4.20-5.50); White Blood Count 6.4 X10*3/uL (4.8-10.8)
[2021-08-12 16:03] LABS: Alanine Aminotransferase 39 U/L (0-31); Albumin Level 3.2 g/dL (3.5-5.0); Alkaline Phosphatase 110 U/L (39-117); Anion Gap 12 (12-20); Aspartate Amino Transferase 76 U/L (5-31); Bilirubin Total 1.1 mg/dL (0.0-1.0); Blood Urea Nitrogen 54 mg/dL (9-16); Calcium 8.3 mg/dL (8.4-10.2); Carbon Dioxide 15 mmol/L (22-29); Chloride 110 mmol/L (96-108); Creatinine Clr Calc Pharmacy 21.1; Estimated Glomerular Filt Rate 21; Glucose Random 118 mg/dL (60-115); Sodium 132 mmol/L (135-145); Total Protein 6.9 g/dL (6.5-8.0)
[2021-08-12 16:04] LABS: Platelet Count 80 X10*3/uL (160-400)
--- NOTE | 2021-08-12 17:55 | ED_ITS ---
HPI - Recheck/Abnormal Lab/Rx General Chief Complaint: Recheck/Abnormal Lab/Rx <ARIA Patel - Last Filed: 08/12/21 19:23> Stated Complaint: referred by Dr concerning kidney creatinine lvls? <ARIA Patel - Last Filed: 08/12/21 19:23> Time Seen by Provider: 08/12/21 16:51 <ARIA Patel - Last Filed: 08/12/21 19:23> Source: patient <ARIA Patel - Last Filed: 08/12/21 19:23> Mode of arrival: ambulatory <ARIA Patel - Last Filed: 08/12/21 19:23> Limitations: no limitations <ARIA Patel - Last Filed: 08/12/21 19:23> History of Present Illness HPI narrative: This is a 55-year-old female past medical history significant for alcohol use disorder, cirrhosis currently on the transplant list followed by . Patient comes to the emergency department with concerns of abnormal labs, she tells me that her liver transplant doctor told her to come in because they told her that her kidneys were failing. She had lab work done yesterday which showed elevated BUN and creatinine. This is routine lab work done. She denies any medical complaints at this time. She denies chest pain, shortness of breath, abdominal pain, nausea, vomiting, changes in urination, changes in bowel habits. She denies new medications. <ARIA Patel - Last Filed: 08/12/21 19:23> MD complaint: abnormal lab (BUN/CR) <ARIA Patel - Last Filed: 08/12/21 19:23> Symptoms since prior visit: no new symptoms <ARIA Patel Last Filed: 08/12/21 19:23> Associated symptoms: none <ARIA Patel Last Filed: 08/12/21 19:23> Related Data Home Medications: Home Medications Medication Instructions Recorded Confirmed ergocalciferol (vitamin D2) 1,250 1,250 mcg PO MO 03/17/21 08/12/21 mcg (50,000 unit) capsule lactulose 20 gram/30 mL oral 20 g PO BID 08/12/21 08/12/21 solution levofloxacin 250 mg tablet 1 tab PO DAILY 08/12/21 08/12/21 tramadol 50 mg tablet 50 mg PO TID PRN 08/12/21 08/12/21 Previous Rx's Medication Instructions Recorded potassium chloride 20 mEq 20 meq PO BID 90 Days #180 tab 12/21/20 tablet,extended release(part/cryst) (Klor-Con M) spironolactone 25 mg tablet 25 mg PO DAILY #90 tab 03/24/21 omeprazole 20 mg capsule,delayed 20 mg PO DAILY@0630 #90 cap 06/07/21 release rifaximin 550 mg tablet (Xifaxan) 550 mg PO BID #60 tab 06/29/21 folic acid 1 mg tablet 1 mg PO DAILY #90 tab 08/01/21 thiamine HCl (vitamin B1) 100 mg 100 mg PO DAILY #90 tab 08/01/21 tablet (Vitamin B-1) <ARIA Patel Last Filed: 08/12/21 19:23> Allergies/Adverse Reactions: Allergies Allergy/AdvReac Type Severity Reaction Status Date / Time No Known Allergies Allergy Verified 08/12/21 15:22 <ARIA Patel Last Filed: 08/12/21 19:23> Review of Systems Review of Systems: Constitutional : No Weight loss, No Fever, No Chills, No Fatigue, No Malaise ENT/Mouth : No sore throat, No Rhinorrhea Eyes: No Eye Pain, No Swelling, No Redness Cardiovascular : No Chest Pain, No SOB, No Dyspnea on Exertion, No Orthopnea, No Edema, No Palpitations Respiratory : No Cough, No Sputum, No Wheezing Gastrointestinal : No Nausea, No Vomiting, No Diarrhea, No Constipation, No abdominal Pain, No Hematochezia, No Melena Genitourinary : No Dysuria, No Urinary Frequency, No Hematuria, Musculoskeletal : No joint pain, No Myalgias, No Joint Swelling Skin : No Skin Lesions, No rash Neuro : No Weakness, No Numbness, No Dizziness, No Headache Psych : No Anxiety/Panic, No Depression All other systems reviewed and are negative <ARIA Patel Last Filed: 08/12/21 19:23> Yes all other systems are reviewed and are negative <ARIA Patel - Last Filed: 08/12/21 19:23> [facility] Past Medical History Attestation statement: The following information was validated with the patient. <ARIA Patel - Last Filed: 08/12/21 19:23> Source: old records reviewed and nursing notes reviewed <ARIA Patel - Last Filed: 08/12/21 19:23> Medical History: Medical History Alcohol abuse Alcoholic cirrhosis of liver with ascites Anterior epistaxis Ascites Decompensation of cirrhosis of liver Hypercholesterolemia Hypoglycemia Hypoglycemia Leukopenia Liver disease Right groin mass Thrombocytopenia <ARIA Patel - Last Filed: 08/12/21 19:23> Surgical History: Surgical History History of colonoscopy S/P dilation and curettage <ARIA Patel - Last Filed: 08/12/21 19:23> Family History Family History: Family History Father Throat cancer Mother Lung cancer Son In good health Daughter In good health <ARIA Patel - Last Filed: 08/12/21 19:23> Social History Social History: Social History Household Members: Children Housing: House Do you presently have visiting nurse or other home services: No Alcohol intake: former Patient Tobacco Use Status: Former Tobacco user Tobacco use type: Cigarette e-Cigarette/Vaping Use: Never Used Second Hand Smoke Exposure: No Use of substances other than those prescribed or required for medical reasons: No Advance Directives: Yes Advance Directives on File: Yes Advance Directives Date on File: 06/15/20 service: No Current occupational status: unemployed and disabled <ARIA Patel - Last Filed: 08/12/21 19:23> Physical Exam Vital Signs: Vital Signs: Last Vital Signs Temp 97.7 F 08/12/21 18:42 Pulse 70 08/12/21 18:42 Resp 12 08/12/21 18:42 BP 143/67 H 08/12/21 18:42 Pulse Ox 100 08/12/21 18:42 BMI result Body Mass Index 18.3 Vital signs stable <ARIA Patel - Last Filed: 08/12/21 19:23> Appearance: Alert.? Oriented X3.? No acute distress.? Head: Normocephalic, atraumatic, no step-offs or deformities Eyes: Pupils equal, round and reactive to light.? ENT: Pharynx normal.? Neck: Normal inspection.? Neck supple.? CVS: Normal heart rate and rhythm.? Pulses normal.? Respiratory: No respiratory distress.? Breath sounds normal.? Abdomen: Soft and nontender.? Skin: Skin warm and dry.? Normal skin color.? Normal skin turgor.? Extremities: No lower extremity edema.? No calf ttp. 5/5 strength to bilateral upper and lower extremities Back: No midline tenderness, no C-spine tenderness, full range of motion, no CVA tenderness bilaterally Neuro: Oriented X 3.? No motor deficit.? No sensory deficit. CN 2-12 intact <ARIA Patel - Last Filed: 08/12/21 19:23> Course Reevaluation(s) Reevaluation #1: CBC appears to be at patient's baseline within normocytic anemia. Patient's sodium slightly on the lower side will get hydrated. BUN and creatinine markedly elevated from last time. Acute kidney injury noted. Will hydrate. Patient also has an elevated bilirubin which appears to be patient's baseline and increased transaminases. Again patient's baseline. CT of the abdomen pelvis with cirrhosis, splenomegaly and varices. There is dense right renal medullary pyramids, could represent medullary nephrocalcinosis which would make sense given the on a acute kidney injury. Colilithiasis is suspected. There is gallbladder wall thickening. There is also a right 4 mm solid lower lobe pulmonary nodule noted. <ARIA Patel - Last Filed: 08/12/21 19:23> Time: 17:57 <ARIA Patel - Last Filed: 08/12/21 19:23> Reevaluation #2: Patient will be admitted to the hospitalist team as she will require further evaluation by case packer. <ARIA Patel - Last Filed: 08/12/21 19:23> Time: 19:23 <ARIA Patel - Last Filed: 08/12/21 19:23> MDM - Recheck/Abnormal Lab/Rx MDM Narrative Medical decision making narrative: [age] yo f pmhx cirrhosis, hypercholesterolemia, major depression, anemia presenting to the emergency department with abnormal labs sent here by her liver transplant doctor. Physical exam benign Plan at this time is to obtain basic labs, imaging. <ARIA Patel - Last Filed: 08/12/21 19:23> Medical Records Attestation: I reviewed the patient's medical records. <ARIA Patel - Last Filed: 08/12/21 19:23> Lab Data Attestation: I reviewed the patient's lab results. <ARIA Patel - Last Filed: 08/12/21 19:23> Result diagrams: : 08/12/21 15:33 08/12/21 15:33 <ARIA Patel - Last Filed: 08/12/21 19:23> Labs: Lab Results 08/12/21 08/12/21 Range/Units 15:33 15:33 WBC 6.4 (4.8-10.8) X10*3/uL RBC 3.27 L (4.20-5.50) X10*6/uL Hgb 11.1 L (12.0-16.0) g/dl Hct 32.3 L (37.0-47.0) % MCV 98.8 H (80.0-98.0) fL MCH 33.9 H (27.0-33.0) pg MCHC 34.4 (31.0-35.0) g/dl RDW 15.0 (11.0-16.0) % Plt Count 80 L (160-400) X10*3/uL MPV 11.1 (9.4-12.3) fL Immature Gran % (Auto) 0.5 H (0.0-0.4) % Neut % (Auto) 45.4 (45-73) % Lymph % (Auto) 35.2 (20-40) % [place] % (Auto) 16.7 H (2-11) % Eos % (Auto) 2.0 (0-4) % Baso % (Auto) 0.2 (0-2) % Lymph # (Auto) 2.3 (1.2-4.9) X10*3/uL [place] # (Auto) 1.1 (0.1-1.2) X10*3/uL Eos # (Auto) 0.1 (0.0-0.4) X10*3/uL Baso # (Auto) 0.0 (0.0-0.2) X10*3/uL Abs Immat Gran (auto) 0.03 (0.00-0.03) X10*3/uL Absolute Neuts (auto) 2.9 (2.0-8.3) x10*3/uL Absolute Nucleated RBC 0.000 (0.0-0.012) X10*3/uL Nucleated RBC % (auto) 0.0 (0.0-0.2) /100WBC Sodium 132 L (135-145) mmol/L Potassium 5.0 (3.3-5.1) mmol/L Chloride 110 H (96-108) mmol/L Carbon Dioxide 15 L (22-29) mmol/L Anion Gap 12 (12-20) BUN 54 H (9-16) mg/dL Creatinine 2.40 H (0.5-1.4) mg/dL Estim Creat Clear Calc 21.1 Estimated GFR 21 Random Glucose 118 H (60-115) mg/dL Calcium 8.3 L (8.4-10.2) mg/dL Total Bilirubin 1.1 H (0.0-1.0) mg/dL AST 76 H (5-31) U/L ALT 39 H (0-31) U/L Alkaline Phosphatase 110 D (39-117) U/L Total Protein 6.9 (6.5-8.0) g/dL Albumin 3.2 L (3.5-5.0) g/dL <ARIA Patel - Last Filed: 08/12/21 19:23> Critical Care Time Critical Care Time Critical Care Time: No <ARIA Patel - Last Filed: 08/12/21 19:23> Discharge Plan Discharge Clinical Impression: AUGUSTINA (acute kidney injury), Nephrocalcinosis <ARIA Patel - Last Filed: 08/12/21 19:23> Patient Disposition: Admitted As Inpatient <ARIA Patel - Last Filed: 08/12/21 19:23>
[2021-08-12 18:42] VITALS: BP 143/67; PULSE 70; RESP 12; TEMP 36.5; O2SAT 100
[2021-08-12] MEDS: 0.9 % Sodium Chloride 1,000 ML 999 ML IV ×2 (18:55→21:24)
--- NOTE | 2021-08-12 19:01 | PC.NURSE ---
Patient is alert and oriented x3, pleasant and cooperative. Pt denies any pain at this timer. VSS. Lungs are clear. Breathing is non-labored. RR 12. Pt ambulates independently, gait is steady.
--- NOTE | 2021-08-12 19:25 | PM.IMHP ---
History of Present Illness Date of Service: 08/12/21 Chief Complaint: Abnormal labs this is a 55-year-old female with past medical history of liver cirrhosis secondary to alcohol abuse presents to the hospital with labs. Patient reports that she had routine labs done on which showed abnormal kidney function and therefore her PCP asked her to come to the hospital for further evaluation. Patient reports that she was well but had some sort of infection that caused her fever and fatigue for few days prior to her having the test done. When asked more about it she said that she was febrile from Sunday to Sunday and had increased watery diarrhea. She is on lactulose at baseline. She reports that she had no chest pain, no shortness of breath, no cough, had no urinary symptoms. Her diarrhea has now improved and she is now afebrile. She denies having any flank pain, no abdominal pain, no nausea or vomiting, and no lower extremity edema. pt reports that she has been eating and drinking well. On arrival to the ED patient hemodynamically stable with no significant abnormal vitals Labs are significant for WBC count of 6.4, hemoglobin of 11.1, sodium 132, chloride of 110, BUN of 54, creatinine of 2.4 ( baseline of 0.7), AST of 76, ALT of 39, abdominal pelvic CT shows cirrhosis with sequelae of portal hypertension including splenomegaly and varices, dense right renal medullary pyramids which can be seen in the setting of medullary nephrocalcinosis. There is also a 4 mm solid right lower lobe pulmonary nodule. patient will be admitted for further management Review of Systems Review of Systems: Yes all other systems are reviewed and are negative [facility] Medical History Alcohol abuse Alcoholic cirrhosis of liver with ascites Anterior epistaxis Ascites Decompensation of cirrhosis of liver Hypercholesterolemia Hypoglycemia Hypoglycemia Leukopenia Liver disease Right groin mass Thrombocytopenia Family History Father Throat cancer Mother Lung cancer Son In good health Daughter In good health Surgical History History of colonoscopy S/P dilation and curettage Social History Household Members: Children Housing: House Do you presently have visiting nurse or other home services: No Alcohol intake: former Patient Tobacco Use Status: Former Tobacco user Tobacco use type: Cigarette e-Cigarette/Vaping Use: Never Used Second Hand Smoke Exposure: No Use of substances other than those prescribed or required for medical reasons: No Advance Directives: Yes Advance Directives on File: Yes Advance Directives Date on File: 06/15/20 service: No Current occupational status: unemployed and disabled Meds Allergies Allergy/AdvReac Type Severity Reaction Status Date / Time No Known Allergies Allergy Verified 08/12/21 15:22 Active Medications: Current Medications Pharmacy Consult (Consult Rx Perform Med Rec) 1 each MISCELLANE ONCE PRN PRN Reason: Consult order Home Medications Medication Instructions Recorded Confirmed Last Taken Type ergocalciferol (vitamin D2) 1,250 1,250 mcg PO MO 03/17/21 08/12/21 08/08/21 History mcg (50,000 unit) capsule lactulose 20 gram/30 mL oral 20 g PO BID 08/12/21 08/12/21 08/12/21 History solution levofloxacin 250 mg tablet 1 tab PO DAILY 08/12/21 08/12/21 08/12/21 History tramadol 50 mg tablet 50 mg PO TID PRN 08/12/21 08/12/21 08/12/21 History Physical Exam Vital Signs and Narrative: Vital Signs: Last Vital Signs Temp 97.7 F 08/12/21 18:42 Pulse 70 08/12/21 18:42 Resp 12 08/12/21 18:42 BP 143/67 H 08/12/21 18:42 Pulse Ox 100 08/12/21 18:42 BMI result Body Mass Index 18.3 Const: General: cooperative and no acute distress Orientation/consciousness: patient oriented x3 Eyes: General: appearance normal, both eyes and all related structures Pupils: Equal, round and reactive pupils present Resp: Effort & Inspection: normal respiratory effort Auscultation: clear to auscultation bilaterally Cardio: Rate: regular rate Rhythm: regular rhythm GI: Palpation (GI): Soft to palpation Auscultation: normal bowel sounds Skin: General skin exam: no rashes or lesions noted Neuro: General: patient oriented x3 Cranial nerves: Yes Equal, round and reactive pupils present Cognition (Neuro): normal cognition Extrem: General: Yes normal to inspection and Yes no pedal edema Results Labs CBC and Chem 7: 08/12/21 15:33 08/12/21 15:33 Labs: Laboratory Results - last 24 hr 08/12/21 08/12/21 15:33 15:33 MCV 98.8 H MCH 33.9 H MCHC 34.4 RDW 15.0 Plt Count 80 L MPV 11.1 Immature Gran % (Auto) 0.5 H Neut % (Auto) 45.4 Lymph % (Auto) 35.2 [place] % (Auto) 16.7 H Eos % (Auto) 2.0 Baso % (Auto) 0.2 Lymph # (Auto) 2.3 [place] # (Auto) 1.1 Eos # (Auto) 0.1 Baso # (Auto) 0.0 Abs Immat Gran (auto) 0.03 Absolute Neuts (auto) 2.9 Absolute Nucleated RBC 0.000 Nucleated RBC % (auto) 0.0 Anion Gap 12 Creatinine 2.40 H Estim Creat Clear Calc 21.1 Estimated GFR 21 Random Glucose 118 H Calcium 8.3 L Total Bilirubin 1.1 H AST 76 H ALT 39 H Alkaline Phosphatase 110 D Total Protein 6.9 Albumin 3.2 L Imaging Radiologist's Impressions: Impressions Abdomen/Pelvis CT 08/12/21 17:13 IMPRESSION: Cirrhosis with sequelae of portal hypertension including splenomegaly and varices. Dense right renal medullary pyramids which can be seen in the setting of medullary nephrocalcinosis. Gallbladder is under distended limiting evaluation however cholelithiasis is suspected. Gallbladder wall thickening, which may be related to sequelae of underlying liver disease. 4 mm solid right lower lobe pulmonary nodule. Assuming patient has no history of malignancy, recommend follow-up per Fleischner Society recommendations. According to the UPDATED 2017 Fleischner Society recommendations, the advised followup imaging for solid nodules < 6 mm is: LOW RISK PATIENT: No routine follow up. HIGH RISK PATIENT: Optional CT at 12 months. . Assessment and Plan (1) AUGUSTINA (acute kidney injury): Status: Acute (2) Nephrocalcinosis: Status: Acute Plan This is a 55 yo F with pmhx of alcoholic liver cirrhosis, MDD, HLD presents to the hospital with abnormal labs found to have AUGUSTINA # AUGUSTINA - possibly 2/2 recent viral infection and dehydration - reports recent hx of fever and increase diarrhea - will tx with IV fluids - will follow bmp - consult nephrology - hold nephrotoxic meds - pt also on levofloxacin- states for months for prophylaxis- will hold # history of alcoholic liver cirrhosis - on transfer list - continue lactulose and ppx rifaximin # Hx of chronic pain - cont tramdol DVT ppx: lovenox Quality Stroke Does the patient have a stroke diagnosis?: No VTE Prior VTE?: No VTE Risk Level:: Medical - moderate - high VTE Device Contraindication: Treatment Not Indicated VTE Drug Contraindication: N/A - Med Ordered
--- NOTE | 2021-08-12 19:40 | PHA.MEDREC ---
Pharmacy Consult ? Medication Reconciliation Pharmacy has completed the medication reconciliation.
[2021-08-12] MEDS: Lactulose 20 GM/30 ML SOLUTION PO (21:26)
[2021-08-12] MEDS: rifAXIMin 550 MG TABLET PO (21:26)
[2021-08-12] MEDS: Potassium Chloride ER 20 MEQ TAB.ER.PRT PO (21:26)
--- NOTE | 2021-08-12 21:28 | MHC.CM.PN ---
CM met with patient. A&Ox3. Very pleasant woman. Lives with her daughter and [id number]. Uses no services or DME. Pt is on liver transplant list at [facility]. Pt at [facility] Fully vaccinated against Covid 19 and boosted with Pfizer. No IMM necessary. HCP on file. HCP/daughter, Marlene Arnold ([phone]). D/C plan is home without services. Pt drove herself to the hospital and plans to drive home. CM to follow for d/c needs.
[2021-08-12] MEDS: traMADoL HCL 50 MG TABLET PO (21:30)
[2021-08-12] MEDS: Lactated Ringers 1,000 ML 100 ML IVCONT (21:32)
[2021-08-12 21:35] VITALS: BP 145/82; PULSE 86; RESP 18; TEMP 36.6; O2SAT 100
[2021-08-12 21:48] LABS: Appearance Urine CLEAR; Color Urine YELLOW; Glucose Urine UA NEG (NEG); Leukocyte Esterase Urine NEG (NEG); Nitrite Urine NEG (NEG); PH 5.5 (5.0-8.0); Specific Gravity - Urine 1.025 (1.005-1.025); Urine Blood NEG (NEG); Urine Ketones 5 MG/DL (NEG); Urine Protein NEG (NEG-TRACE)
--- NOTE | 2021-08-12 21:48 | PC.NURSE ---
Pt resting quietly. Has been in and out of bathroom w./o I/O. Declines lovenox b/c she aniticipates moving around enough. No complaints except for chronic leg pain.
[2021-08-12 22:16] LABS: COVID-19 Test Negative (Negative); IDNOW Serial# 55D5AD1C
--- NOTE | 2021-08-12 23:25 | PC.NURSE ---
RN to Rn with Edilson on Med Surg.
[2021-08-13] VITALS (7 sets, daily range): BP systolic 128–165; BP diastolic 60–72; PULSE 73–85; RESP 16–18; TEMP 36.2–38.3; O2SAT 95–100
[2021-08-13 05:54] LABS: MANUAL DIFF FLAG NO
[2021-08-13 06:04] LABS: Eosinophils Absolute Auto 0.1 X10*3/uL (0.0-0.4); Eosinophils Percent Auto 2.4 % (0-4); Hematocrit 31.3 % (37.0-47.0); Hemoglobin 10.5 g/dl (12.0-16.0); Imm Gran Abs Auto 0.02 X10*3/uL (0.00-0.03); Imm Gran Pct Auto 0.4 % (0.0-0.4); Lymphocytes Absolute Auto 1.8 X10*3/uL (1.2-4.9); Lymphocytes Percent Auto 33.7 % (20-40); Mean Corpuscular HGB Conc 33.5 g/dl (31.0-35.0); Mean Corpuscular Hemoglobin 33.2 pg (27.0-33.0); Mean Corpuscular Volume 99.1 fL (80.0-98.0); Mean Platelet Volume 11.7 fL (9.4-12.3); Monocytes Percent Auto 17.7 % (2-11); Neutrophils Absolute Auto 2.5 x10*3/uL (2.0-8.3); Neutrophils Percent Auto 45.8 % (45-73); Red Blood Count 3.16 X10*6/uL (4.20-5.50); Red Cell Distribution Width 14.9 % (11.0-16.0); White Blood Count 5.4 X10*3/uL (4.8-10.8)
[2021-08-13 06:08] LABS: Platelet Count 76 X10*3/uL (160-400)
[2021-08-13] MEDS: Lactated Ringers 1,000 ML 100 ML IVCONT (06:13)
[2021-08-13] MEDS: Omeprazole 20 MG CAPSULE.DR PO (06:14)
[2021-08-13 06:29] LABS: Anion Gap 10 (12-20); Blood Urea Nitrogen 41 mg/dL (9-16); Carbon Dioxide 14 mmol/L (22-29); Chloride 117 mmol/L (96-108); Creatinine Clr Calc Pharmacy 24.2; Estimated Glomerular Filt Rate 24; Glucose Random 88 mg/dL (60-115); Potassium 5.2 mmol/L (3.3-5.1); Sodium 136 mmol/L (135-145)
[2021-08-13] MEDS: Folic Acid 1 MG TABLET PO (08:59)
[2021-08-13] MEDS: 0.9 % Sodium Chloride Flush 3 ML SYRINGE IVFLUSH ×2 (08:59→20:21)
[2021-08-13] MEDS: Thiamine HCL 100 MG TABLET PO (08:59)
[2021-08-13] MEDS: Lactulose 20 GM/30 ML SOLUTION PO ×2 (08:59→20:21)
[2021-08-13] MEDS: rifAXIMin 550 MG TABLET PO ×2 (08:59→20:21)
[2021-08-13] MEDS: traMADoL HCL 50 MG TABLET PO (09:06)
[2021-08-13] MEDS: Albumin Human 25 % 50 ML 100 ML IV (10:50)
[2021-08-13] MEDS: Sodium Bicarbonate 650 MG TABLET PO ×3 (12:32→20:21)
[2021-08-13 14:22] LABS: Creatinine Urine 92.44 mg/dL
[2021-08-13 14:24] LABS: Total Protein Urine Random < 7 mg/dL (<12)
--- NOTE | 2021-08-13 14:45 | HO.PM.IMPN ---
Subjective Subjective Date of Service: 08/13/21 Interval History: No acute issues overnight. Feels well Review of Systems Denies chest pain Denies shortness of breath Denies nausea vomiting diarrhea Physical Exam Vital Signs: Vital Signs: Last Vital Signs Temp 98.0 F 08/13/21 12:00 Pulse 76 08/13/21 12:00 Resp 18 08/13/21 12:00 BP 156/69 H 08/13/21 12:00 Pulse Ox 100 08/13/21 07:21 BMI result Body Mass Index 18.3 Const: Other: Awake alert oriented x3 no acute distress Resp: Other: Clear to auscultation bilaterally no rales rhonchi or wheezes Cardio: Other: No S4; positive S1-S2; no S3 murmurs rubs or gallops GI: Other: Soft nontender nondistended normoactive bowel sounds. No appreciable fluid wave Neuro: Other: Cranial nerves 2-12 grossly intact as tested. Motor 5/5 all extremities. Sensation intact. Cognition appropriate Extrem: Other: The no edema bilaterally Objective Data Active Medications Docusate Sodium (Docusate Sodium 100 Mg Capsule) 100 mg PO DAILY PRN PRN Reason: Constipation Enoxaparin Sodium (Enoxaparin Sodium 30 Mg/0.3 Ml Syringe) 30 mg SUBCUT Q24H [facility] Last Admin: 08/12/21 21:25 Dose: Not Given Documented by: HENOK Non-Admin Reason: Patient Refused Folic Acid (Folic Acid 1 Mg Tablet) 1 mg PO DAILY [facility] Last Admin: 08/13/21 08:59 Dose: 1 mg Documented by: YOHAN Lactated Ringer's (Lr) 1,000 mls @ 100 mls/hr IVCONT .Q10H [facility] Last Admin: 08/13/21 06:13 Dose: 100 mls/hr Documented by: MIREYA Lactulose (Lactulose 20 Gm/30 Ml Solution) 20 gm PO BID [facility] Last Admin: 08/13/21 08:59 Dose: 20 gm Documented by: YOHAN Omeprazole (Omeprazole 20 Mg Capsule.) 20 mg PO DAILY@0630 [facility] Last Admin: 08/13/21 06:14 Dose: 20 mg Documented by: MIREYA Ondansetron HCl (Ondansetron Hcl 4 Mg/2 Ml Vial) 4 mg IVPUSH Q8H PRN PRN Reason: Nausea and Vomiting Pharmacy Consult (Consult Rx Perform Med Rec) 1 each MISCELLANE ONCE PRN PRN Reason: Consult order Rifaximin (Rifaximin 550 Mg Tablet) 550 mg PO BID [facility] Last Admin: 08/13/21 08:59 Dose: 550 mg Documented by: YOHAN Sodium Bicarbonate (Sodium Bicarbonate 650 Mg Tablet) 650 mg PO QID [facility] Last Admin: 08/13/21 12:32 Dose: 650 mg Documented by: YOHAN Sodium Chloride (0.9 % Sodium Chloride Flush 3 Ml Syringe) 3 ml IVFLUSH QSHIFT [facility] Last Admin: 08/13/21 08:59 Dose: 3 ml Documented by: YOHAN Thiamine HCl (Thiamine Hcl 100 Mg Tablet) 100 mg PO DAILY [facility] Last Admin: 08/13/21 08:59 Dose: 100 mg Documented by: YOHAN Tramadol HCl (Tramadol Hcl 50 Mg Tablet) 50 mg PO TID PRN PRN Reason: Pain (Scale Score 4-6) Last Admin: 08/13/21 09:06 Dose: 50 mg Documented by: YOHAN Labs CBC & Chem 7: 08/13/21 05:06 08/13/21 05:06 Labs: Laboratory Results - last 24 hr 08/12/21 08/12/21 08/12/21 15:33 15:33 21:42 MCV 98.8 H MCH 33.9 H MCHC 34.4 RDW 15.0 Plt Count 80 L MPV 11.1 Immature Gran % (Auto) 0.5 H Neut % (Auto) 45.4 Lymph % (Auto) 35.2 [place] % (Auto) 16.7 H Eos % (Auto) 2.0 Baso % (Auto) 0.2 Lymph # (Auto) 2.3 [place] # (Auto) 1.1 Eos # (Auto) 0.1 Baso # (Auto) 0.0 Abs Immat Gran (auto) 0.03 Absolute Neuts (auto) 2.9 Absolute Nucleated RBC 0.000 Nucleated RBC % (auto) 0.0 Anion Gap 12 Estim Creat Clear Calc 21.1 Estimated GFR 21 Random Glucose 118 H Calcium 8.3 L Total Bilirubin 1.1 H AST 76 H ALT 39 H Alkaline Phosphatase 110 D Total Protein 6.9 Albumin 3.2 L Urine Color Urine Appearance Urine pH Ur Specific [place] Urine Protein Urine Glucose (UA) Urine Ketones Urine Blood Urine Nitrite Ur Leukocyte Esterase U Random Total Protein Ur Random Sodium Urine Creatinine COVID-19 (CLAUDY) Negative COVID-19 [employer] [facility] See Note 08/12/21 08/13/21 08/13/21 21:42 05:06 05:06 MCV 99.1 H MCH 33.2 H MCHC 33.5 RDW 14.9 Plt Count 76 L MPV 11.7 Immature Gran % (Auto) 0.4 Neut % (Auto) 45.8 Lymph % (Auto) 33.7 [place] % (Auto) 17.7 H Eos % (Auto) 2.4 Baso % (Auto) 0.0 Lymph # (Auto) 1.8 [place] # (Auto) 1.0 Eos # (Auto) 0.1 Baso # (Auto) 0.0 Abs Immat Gran (auto) 0.02 Absolute Neuts (auto) 2.5 Absolute Nucleated RBC 0.000 Nucleated RBC % (auto) 0.0 Anion Gap 10 L Estim Creat Clear Calc 24.2 Estimated GFR 24 Random Glucose 88 Calcium 8.0 L Total Bilirubin AST ALT Alkaline Phosphatase Total Protein Albumin Urine Color YELLOW Urine Appearance CLEAR Urine pH 5.5 Ur Specific [place] 1.025 Urine Protein NEG Urine Glucose (UA) NEG Urine Ketones 5 Urine Blood NEG Urine Nitrite NEG Ur Leukocyte Esterase NEG U Random Total Protein Ur Random Sodium Urine Creatinine COVID-19 (CLAUDY) COVID-19 [facility] 08/13/21 08/13/21 13:55 13:55 MCV MCH MCHC RDW Plt Count MPV Immature Gran % (Auto) Neut % (Auto) Lymph % (Auto) [place] % (Auto) Eos % (Auto) Baso % (Auto) Lymph # (Auto) [place] # (Auto) Eos # (Auto) Baso # (Auto) Abs Immat Gran (auto) Absolute Neuts (auto) Absolute Nucleated RBC Nucleated RBC % (auto) Anion Gap Estim Creat Clear Calc Estimated GFR Random Glucose Calcium Total Bilirubin AST ALT Alkaline Phosphatase Total Protein Albumin Urine Color Urine Appearance Urine pH Ur Specific [place] Urine Protein Urine Glucose (UA) Urine Ketones Urine Blood Urine Nitrite Ur Leukocyte Esterase U Random Total Protein < 7 Ur Random Sodium 84.0 Urine Creatinine 92.44 COVID-19 (CLAUDY) COVID-19 [employer] [facility] Assessment and Plan (1) AUGUSTINA (acute kidney injury): Status: Acute (2) Cirrhosis: Status: Acute Plan This is a 55 yo F with pmhx of alcoholic liver cirrhosis, MDD, HLD presents to the hospital with abnormal labs found to have AUGUSTINA 1.AUGUSTINA -some improvement overnight with IVF -continue same -await renal input - follow renals/divalents 2.Alcoholic liver cirrhosis - on transfer list - continue lactulose and ppx rifaximin 3.Chronic pain - cont tramdol DVT ppx: lovenox Requires inpatient management secondary to acute renal failure and need for IV fluids Quality Stroke Does the patient have a stroke diagnosis?: No VTE Prior VTE?: No VTE Risk Level:: Medical - moderate - high VTE Device Contraindication: Treatment Not Indicated VTE Drug Contraindication: N/A - Med Ordered
[2021-08-14 04:00] VITALS: BP 132/65; PULSE 78; RESP 14; TEMP 37.3; O2SAT 98
[2021-08-14] MEDS: Lactated Ringers 1,000 ML 100 ML IVCONT ×2 (04:46→17:10)
[2021-08-14 06:00] LABS: MANUAL DIFF FLAG NO
[2021-08-14 06:04] LABS: Basophils Percent Auto 0.2 % (0-2); Eosinophils Absolute Auto 0.1 X10*3/uL (0.0-0.4); Eosinophils Percent Auto 2.8 % (0-4); Hematocrit 26.4 % (37.0-47.0); Imm Gran Abs Auto 0.05 X10*3/uL (0.00-0.03); Lymphocytes Absolute Auto 1.7 X10*3/uL (1.2-4.9); Lymphocytes Percent Auto 34.6 % (20-40); Mean Corpuscular HGB Conc 34.1 g/dl (31.0-35.0); Mean Corpuscular Hemoglobin 33.7 pg (27.0-33.0); Mean Corpuscular Volume 98.9 fL (80.0-98.0); Mean Platelet Volume 11.6 fL (9.4-12.3); Monocytes Absolute Auto 1.1 X10*3/uL (0.1-1.2); Monocytes Percent Auto 22.7 % (2-11); Neutrophils Absolute Auto 1.9 x10*3/uL (2.0-8.3); Neutrophils Percent Auto 38.7 % (45-73); Red Blood Count 2.67 X10*6/uL (4.20-5.50); Red Cell Distribution Width 14.8 % (11.0-16.0); SCAN SMEAR FLAG 1; White Blood Count 4.9 X10*3/uL (4.8-10.8)
[2021-08-14 06:14] LABS: Platelet Count 62 X10*3/uL (160-400)
[2021-08-14 06:20] LABS: Alanine Aminotransferase 30 U/L (0-31); Albumin Level 2.5 g/dL (3.5-5.0); Alkaline Phosphatase 89 U/L (39-117); Anion Gap 9 (12-20); Aspartate Amino Transferase 58 U/L (5-31); Bilirubin Total 0.8 mg/dL (0.0-1.0); Blood Urea Nitrogen 36 mg/dL (9-16); Calcium 7.6 mg/dL (8.4-10.2); Carbon Dioxide 15 mmol/L (22-29); Chloride 117 mmol/L (96-108); Creatinine Clr Calc Pharmacy 27.6; Estimated Glomerular Filt Rate 28; Glucose Fasting 101 mg/dL (60-99); Potassium 4.4 mmol/L (3.3-5.1); Sodium 137 mmol/L (135-145); Total Protein 5.2 g/dL (6.5-8.0)
[2021-08-14] MEDS: Omeprazole 20 MG CAPSULE.DR PO (06:23)
[2021-08-14 07:41] VITALS: BP 140/66; PULSE 70; RESP 16; TEMP 36.4; O2SAT 100
[2021-08-14] MEDS: Lactulose 20 GM/30 ML SOLUTION PO ×2 (08:59→20:36)
[2021-08-14] MEDS: traMADoL HCL 50 MG TABLET PO ×2 (08:59→22:32)
[2021-08-14] MEDS: rifAXIMin 550 MG TABLET PO ×2 (08:59→20:36)
[2021-08-14] MEDS: Folic Acid 1 MG TABLET PO (08:59)
[2021-08-14] MEDS: 0.9 % Sodium Chloride Flush 3 ML SYRINGE IVFLUSH ×2 (08:59→17:06)
[2021-08-14] MEDS: Sodium Bicarbonate 650 MG TABLET PO ×4 (08:59→20:36)
[2021-08-14] MEDS: Thiamine HCL 100 MG TABLET PO (08:59)
--- NOTE | 2021-08-14 11:06 | P.PNIM_ITS ---
Subjective Subjective Date of Service: 08/14/21 Interval History: No acute issues overnight. Feels well Review of Systems Denies chest pain Denies shortness of breath Denies nausea vomiting diarrhea Physical Exam Vital Signs: Vital Signs: Last Vital Signs Temp 97.6 F 08/14/21 07:41 Pulse 70 08/14/21 07:41 Resp 16 08/14/21 07:41 BP 140/66 H 08/14/21 07:41 Pulse Ox 100 08/14/21 07:41 BMI result Body Mass Index 18.3 Const: Other: Awake alert oriented x3 no acute distress Resp: Other: Clear to auscultation bilaterally no rales rhonchi or wheezes Cardio: Other: No S4; positive S1-S2; no S3 murmurs rubs or gallops GI: Other: Soft nontender nondistended normoactive bowel sounds. No appreciable fluid wave Neuro: Other: Cranial nerves 2-12 grossly intact as tested. Motor 5/5 all extremities. Sensation intact. Cognition appropriate Extrem: Other: The no edema bilaterally Objective Data Active Medications Docusate Sodium (Docusate Sodium 100 Mg Capsule) 100 mg PO DAILY PRN PRN Reason: Constipation Enoxaparin Sodium (Enoxaparin Sodium 30 Mg/0.3 Ml Syringe) 30 mg SUBCUT Q24H [facility] Last Admin: 08/13/21 20:18 Dose: Not Given Documented by: MIREYA Non-Admin Reason: Patient Refused Folic Acid (Folic Acid 1 Mg Tablet) 1 mg PO DAILY [facility] Last Admin: 08/14/21 08:59 Dose: 1 mg Documented by: YOHAN Lactated Ringer's (Lr) 1,000 mls @ 100 mls/hr IVCONT .Q10H [facility] Last Admin: 08/14/21 04:46 Dose: 100 mls/hr Documented by: MIREYA Albumin Human (Kedbumin 25 %) 100 mls @ 100 mls/hr IV Q1H [facility] Stop: 08/14/21 13:14 Lactulose (Lactulose 20 Gm/30 Ml Solution) 20 gm PO BID [facility] Last Admin: 08/14/21 08:59 Dose: 20 gm Documented by: YOHAN Omeprazole (Omeprazole 20 Mg Capsule.Dr) 20 mg PO DAILY@0630 [facility] Last Admin: 08/14/21 06:23 Dose: 20 mg Documented by: MIREYA Ondansetron HCl (Ondansetron Hcl 4 Mg/2 Ml Vial) 4 mg IVPUSH Q8H PRN PRN Reason: Nausea and Vomiting Pharmacy Consult (Consult Rx Perform Med Rec) 1 each MISCELLANE ONCE PRN PRN Reason: Consult order Rifaximin (Rifaximin 550 Mg Tablet) 550 mg PO BID [facility] Last Admin: 08/14/21 08:59 Dose: 550 mg Documented by: YOHAN Sodium Bicarbonate (Sodium Bicarbonate 650 Mg Tablet) 650 mg PO QID [facility] Last Admin: 08/14/21 08:59 Dose: 650 mg Documented by: YHOAN Sodium Chloride (0.9 % Sodium Chloride Flush 3 Ml Syringe) 3 ml IVFLUSH QSHIFT [facility] Last Admin: 08/14/21 08:59 Dose: 3 ml Documented by: YOHAN Thiamine HCl (Thiamine Hcl 100 Mg Tablet) 100 mg PO DAILY [facility] Last Admin: 08/14/21 08:59 Dose: 100 mg Documented by: YOHAN Tramadol HCl (Tramadol Hcl 50 Mg Tablet) 50 mg PO TID PRN PRN Reason: Pain (Scale Score 4-6) Last Admin: 08/14/21 08:59 Dose: 50 mg Documented by: YOHAN Labs CBC & Chem 7: 08/14/21 05:28 08/14/21 05:28 Labs: Laboratory Results - last 24 hr 08/13/21 08/13/21 08/14/21 13:55 13:55 05:28 MCV 98.9 H MCH 33.7 H MCHC 34.1 RDW 14.8 Plt Count 62 L MPV 11.6 Immature Gran % (Auto) 1.0 H Neut % (Auto) 38.7 L Lymph % (Auto) 34.6 [place] % (Auto) 22.7 H Eos % (Auto) 2.8 Baso % (Auto) 0.2 Lymph # (Auto) 1.7 [place] # (Auto) 1.1 Eos # (Auto) 0.1 Baso # (Auto) 0.0 Abs Immat Gran (auto) 0.05 H Absolute Neuts (auto) 1.9 L Absolute Nucleated RBC 0.000 Nucleated RBC % (auto) 0.0 Anion Gap Estim Creat Clear Calc Estimated GFR Fasting Glucose Calcium Total Bilirubin AST ALT Alkaline Phosphatase Total Protein Albumin U Random Total Protein < 7 Ur Random Sodium 84.0 Urine Creatinine 92.44 08/14/21 05:28 MCV MCH MCHC RDW Plt Count MPV Immature Gran % (Auto) Neut % (Auto) Lymph % (Auto) [place] % (Auto) Eos % (Auto) Baso % (Auto) Lymph # (Auto) [place] # (Auto) Eos # (Auto) Baso # (Auto) Abs Immat Gran (auto) Absolute Neuts (auto) Absolute Nucleated RBC Nucleated RBC % (auto) Anion Gap 9 L Estim Creat Clear Calc 27.6 Estimated GFR 28 Fasting Glucose 101 H Calcium 7.6 L Total Bilirubin 0.8 AST 58 H ALT 30 Alkaline Phosphatase 89 Total Protein 5.2 L D Albumin 2.5 L D U Random Total Protein Ur Random Sodium Urine Creatinine Assessment and Plan (1) AUGUSTINA (acute kidney injury): Status: Acute (2) Alcoholic cirrhosis of liver with ascites: Status: Acute Plan This is a 55 yo F with pmhx of alcoholic liver cirrhosis, MDD, HLD presents to the hospital with abnormal labs found to have AUGUSTINA 1.AUGUSTINA -some improvement overnight with IVF -2 doses albumin tody - follow renals/divalents 2.Alcoholic liver cirrhosis - on transfer list - continue lactulose and ppx rifaximin 3.Chronic pain - cont tramdol DVT ppx: lovenox Requires inpatient management secondary to acute renal failure and need for IV fluids/albumin Quality Stroke Does the patient have a stroke diagnosis?: No VTE Prior VTE?: No VTE Risk Level:: Medical - moderate - high VTE Device Contraindication: Treatment Not Indicated VTE Drug Contraindication: N/A - Med Ordered
[2021-08-14 12:00] VITALS: BP 140/60; PULSE 80; RESP 16; TEMP 36.6; O2SAT 97
[2021-08-14] MEDS: Albumin Human 25 % 100 ML IV ×2 (12:10→13:44)
[2021-08-14 15:58] VITALS: BP 135/63; PULSE 83; RESP 18; TEMP 36.7; O2SAT 97
--- NOTE | 2021-08-14 17:00 | P.PNNP_ITS ---
Subjective Subjective Date of Service: 08/14/21 Interval history: Seen and examined, events noted Physical Exam Vital Signs: Vital Signs: Last Vital Signs Temp 98.0 F 08/14/21 15:58 Pulse 83 08/14/21 15:58 Resp 18 08/14/21 15:58 BP 135/63 08/14/21 15:58 Pulse Ox 97 08/14/21 15:58 BMI result Body Mass Index 18.3 Const: Other: Awake alert oriented x3 no acute distress General: cooperative and no acute distress Orientation/consciousness: patient oriented x3 Eyes: General: appearance normal, both eyes and all related structures Pupils: Equal, round and reactive pupils present Resp: Other: Clear to auscultation bilaterally no rales rhonchi or wheezes Effort & Inspection: normal respiratory effort Auscultation: clear to auscultation bilaterally Cardio: Other: No S4; positive S1-S2; no S3 murmurs rubs or gallops Rate: regular rate Rhythm: regular rhythm GI: Other: Soft nontender nondistended normoactive bowel sounds. No appreciable fluid wave Palpation (GI): Soft to palpation Auscultation: normal bowel sounds Skin: General skin exam: no rashes or lesions noted Neuro: Other: Cranial nerves 2-12 grossly intact as tested. Motor 5/5 all extremities. Sensation intact. Cognition appropriate General: patient oriented x3 Cranial nerves: Yes Equal, round and reactive pupils present Cognition (Neuro): normal cognition Extrem: Other: The no edema bilaterally General: Yes normal to inspection and Yes no pedal edema Objective Data Labs CBC & Chem 7: 08/14/21 05:28 08/14/21 05:28 Labs: Laboratory Results - last 24 hr 08/14/21 08/14/21 05:28 05:28 WBC 4.9 RBC 2.67 L Hgb 9.0 L Hct 26.4 L MCV 98.9 H MCH 33.7 H MCHC 34.1 RDW 14.8 Plt Count 62 L MPV 11.6 Immature Gran % (Auto) 1.0 H Neut % (Auto) 38.7 L Lymph % (Auto) 34.6 [place] % (Auto) 22.7 H Eos % (Auto) 2.8 Baso % (Auto) 0.2 Lymph # (Auto) 1.7 [place] # (Auto) 1.1 Eos # (Auto) 0.1 Baso # (Auto) 0.0 Abs Immat Gran (auto) 0.05 H Absolute Neuts (auto) 1.9 L Absolute Nucleated RBC 0.000 Nucleated RBC % (auto) 0.0 Sodium 137 Potassium 4.4 Chloride 117 H Carbon Dioxide 15 L Anion Gap 9 L BUN 36 H Creatinine 1.83 H Estim Creat Clear Calc 27.6 Estimated GFR 28 Fasting Glucose 101 H Calcium 7.6 L Total Bilirubin 0.8 AST 58 H ALT 30 Alkaline Phosphatase 89 Total Protein 5.2 L D Albumin 2.5 L D Procedures Date of Service Date of Service: 08/14/21 Assessment & Plan Assessment and plan (1) AUGUSTINA (acute kidney injury): Status: Acute (2) Alcoholic cirrhosis of liver with ascites: Status: Acute Plan This is a 55 yo F with pmhx of alcoholic liver cirrhosis, MDD, HLD presents to the hospital with abnormal labs found to have AUGUSTINA 1.AUGUSTINA:contgrad decr SCr with IVF; UA bland; surprising that FENa > 1% as clinically presented with what appeared to be pre-renal BSL SCr 0.8 2.Alcoholic liver cirrhosis: close f/u with [facility] --per PT on list ( Dr Rooney) 3.Chronic pain: reosolving 4. Diarrjea:reoslved 5.NAGMA:NaHCO3 started REC: cont IVF and po NaHCO3; track UOP/renal fnc;IV albumin x2 today and reassess tomorrow - cont tramdol Time Spent With Patient Time: Total time spent is greater than 50% in coordination of care (as documented) at patient's floor/unit and/or counseling patient: Progress Note: Quality Stroke Does the patient have a stroke diagnosis?: No
[2021-08-14 19:22] VITALS: BP 155/72; PULSE 82; RESP 18; TEMP 36.9; O2SAT 100
[2021-08-14] MEDS: Enoxaparin Sodium 30 MG/0.3 ML SYRINGE SUBCUT (20:36)
[2021-08-14 23:33] VITALS: BP 142/62; PULSE 81; RESP 16; TEMP 37.4; O2SAT 98
[2021-08-15 04:00] VITALS: BP 141/69; PULSE 72; RESP 16; TEMP 36.3; O2SAT 98
[2021-08-15 04:44] LABS: MANUAL DIFF FLAG NO
[2021-08-15 04:49] LABS: Basophils Percent Auto 0.3 % (0-2); Eosinophils Absolute Auto 0.2 X10*3/uL (0.0-0.4); Hematocrit 27.1 % (37.0-47.0); Hemoglobin 9.2 g/dl (12.0-16.0); Imm Gran Abs Auto 0.08 X10*3/uL (0.00-0.03); Imm Gran Pct Auto 1.4 % (0.0-0.4); Lymphocytes Absolute Auto 1.8 X10*3/uL (1.2-4.9); Lymphocytes Percent Auto 29.9 % (20-40); Mean Corpuscular HGB Conc 33.9 g/dl (31.0-35.0); Mean Corpuscular Hemoglobin 33.3 pg (27.0-33.0); Mean Corpuscular Volume 98.2 fL (80.0-98.0); Mean Platelet Volume 10.8 fL (9.4-12.3); Monocytes Percent Auto 16.8 % (2-11); Neutrophils Absolute Auto 2.9 x10*3/uL (2.0-8.3); Neutrophils Percent Auto 48.6 % (45-73); Red Blood Count 2.76 X10*6/uL (4.20-5.50); Red Cell Distribution Width 14.6 % (11.0-16.0); White Blood Count 5.9 X10*3/uL (4.8-10.8)
[2021-08-15 04:53] LABS: Platelet Count 69 X10*3/uL (160-400)
[2021-08-15] MEDS: Omeprazole 20 MG CAPSULE.DR PO (04:59)
[2021-08-15] MEDS: Lactated Ringers 1,000 ML 100 ML IVCONT (04:59)
[2021-08-15] MEDS: ondansetron HCL 4 MG/2 ML VIAL IVPUSH (05:02)
[2021-08-15 05:03] LABS: Alanine Aminotransferase 34 U/L (0-31); Alkaline Phosphatase 82 U/L (39-117); Anion Gap 12 (12-20); Aspartate Amino Transferase 64 U/L (5-31); Bilirubin Total 1.2 mg/dL (0.0-1.0); Blood Urea Nitrogen 31 mg/dL (9-16); Calcium 7.9 mg/dL (8.4-10.2); Carbon Dioxide 16 mmol/L (22-29); Chloride 114 mmol/L (96-108); Creatinine Clr Calc Pharmacy 32.6; Estimated Glomerular Filt Rate 34; Glucose Fasting 100 mg/dL (60-99); Potassium 4.5 mmol/L (3.3-5.1); Sodium 137 mmol/L (135-145); Total Protein 5.6 g/dL (6.5-8.0)
[2021-08-15 07:12] VITALS: BP 141/63; PULSE 80; RESP 15; TEMP 37.3; O2SAT 98
[2021-08-15] MEDS: Sodium Bicarbonate 650 MG TABLET PO ×2 (08:39→13:07)
[2021-08-15] MEDS: rifAXIMin 550 MG TABLET PO (08:39)
[2021-08-15] MEDS: Lactulose 20 GM/30 ML SOLUTION PO (08:39)
[2021-08-15] MEDS: Thiamine HCL 100 MG TABLET PO (08:39)
[2021-08-15] MEDS: traMADoL HCL 50 MG TABLET PO (08:39)
[2021-08-15] MEDS: Folic Acid 1 MG TABLET PO (08:39)
[2021-08-15] MEDS: 0.9 % Sodium Chloride Flush 3 ML SYRINGE IVFLUSH (08:40)
--- NOTE | 2021-08-15 10:15 | CONS_ITS ---
DATE OF SERVICE: 08/13/2021 REASON FOR CONSULTATION: I was asked to see patient to assist in evaluation and management of patient's acute kidney injury as reflected by BUN and creatinine of 54 and 2.4 yesterday, whereas her baseline creatinine was 0.7 back in March 2021, and she tells me that when she went to the liver [facility] with Dr. Doan that her creatinine had been 0.6 about a month ago or so. Actually, patient was seen by the liver transplant folks within the past couple of days. They did blood work and noted the creatinine to be elevated and told her to go to the hospital as she was not feeling out of sorts at all. She does admit to diarrhea intermittently that she says is from her lactulose, is a bit worse recently. Her creatinine is down today 2.09 from 2.4 yesterday with some IV fluids, which is somewhat reassuring and hopefully this will continue to improve with IV fluids. In summary, the patient is a 55-year-old patient with liver cirrhosis secondary to alcohol abuse, being closely monitored by Dr. Doan at [facility]. She is hopeful to get a liver transplant in the future. As mentioned, patient was having some diarrhea that she attributes to the lactulose, perhaps more than usual. Otherwise, she has been feeling okay. She denies taking any NSAIDs or any other change in her medications. She denies fevers, sweats, or chills. PAST MEDICAL HISTORY: Known for liver cirrhosis, history of alcohol abuse in the past, ascites, hyperlipidemia and there is mention made of thrombocytopenia. MEDICATIONS ON ADMISSION: Include vitamin D, lactulose, Levaquin, and tramadol. Her current medications are noted in the MAR. ALLERGIES: SHE HAS NO KNOWN DRUG ALLERGIES. SOCIAL HISTORY: She is a nonsmoker, nondrinker. In the past, she was a drinker. REVIEW OF SYSTEMS: As noted above with the diarrhea. PHYSICAL EXAMINATION: VITAL SIGNS: Blood pressure 128/60 with a heart rate in the 70s. HEAD: Atraumatic and normocephalic. NECK: Supple. Mucous membranes are moist. LUNGS: Clear. CARDIAC: Regular rate and rhythm. ABDOMEN: Soft. EXTREMITIES: Show no edema. LABORATORY DATA: Shows sodium 136, potassium 5.2, chloride 117, bicarb 14, anion gap 10, BUN 41, creatinine 2.09. Yesterday, BUN and creatinine were 54 and 2.0. As mentioned back in March, her creatinine was 0.7. Calcium 8.0, albumin 3.2. Hemoglobin 10.5, hematocrit 31.3, white blood cell count 5.4, platelet count 76,000. She had urine studies done, which showed essentially negative urine dipstick. She had a CAT scan of the abdomen and pelvis without contrast showed a dense right renal medullary pyramid suggestive of medullary nephrocalcinosis. No hydro or masses were noted. IMPRESSION: A 55-year-old liver cirrhotic patient with acute kidney injury. 1. Acute kidney injury. Most likely this is due to dehydration from her lactulose. The fact that her renal function is gradually improved with IV hydration is supportive of this. The urinalysis being very bland would go against an acute renal parenchymal injury process. Our hope is that the renal function continues to improve with IV hydration. Other possibility would include hepatorenal syndrome type 1. This seems less likely as her renal function improving just with IV hydration. 2. Non-anion gap depressed serum bicarb. This is due most likely to her diarrhea. 3. Liver cirrhosis. 4. Thrombocytopenia, presumably due to her liver cirrhosis and this has been a chronic problem and therefore I do not think that she has a thrombotic microangiopathy as a cause of her renal failure and low platelets. SUGGESTIONS: At this time include continue on IV fluids. We will give her some p.o. sodium bicarb. We will give her a couple doses of IV albumin. We will check spot urine studies. We will follow urine output and renal function. We will follow the patient closely with the team. MD GRETCHEN Trevino/GEOVANNA / [phone]
--- NOTE | 2021-08-15 10:21 | P.CDIC_ITS ---
CDI Concurrent Query Documentation Clarification: PHYSICIAN'S DOCUMENTATION REQUEST Date of Query: 08/15/21 1022 Patient Name: Annia Arnold Admit Date: 08/12/21 Dear Doctor, A review of the medical record indicates additional documentation may be needed. Please review below and update the documentation accordingly. Clinical Indicators: Documentation in the medical record includes: Risk Factors/Clinical Indicators/Treatments BMI 18.4 5' 6 Alcohol abuse Total protein 5.2 Albumin 2.5 IV albumin x 2 today Dehydration, diarrhea, history of dx severe malnutrition. ASPEN Criteria* Acute Illness Chronic Illness Clinical Characteristic Non-Severe (2 or more criteria present) Severe (2 or more criteria present) Non-Severe (2 or more criteria present) Severe (2 or more criteria present) Energy Intake <75% for >7 days <=50% for >=5 days <75% for >=1 month <=75% for >=1 month Weight Loss 1 week 1 ? 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 * Malnutrition (specify if mild, moderate, or severe) * Protein calorie malnutrition (specify if mild, moderate, or severe) * Underweight * Hypoalbuminemia * No nutritional deficiency * Other (please specify): * Unable to determine Use of terms such as suspected, likely, concern for, or probable (associated with a specific diagnosis that is being evaluated, monitored, or treated as if it exists) are acceptable and can be coded in the inpatient setting, when documented at the time of discharge. Thank you, Saundra Slater, AREN, CDIS Extension: [phone] Please use your independent medical judgment in providing your response. THIS QUERY IS PART OF THE PERMANENT MEDICAL RECORD Provider Response: Other Other Diagnosis: Unable to determine at this time
[2021-08-15 11:44] VITALS: BP 132/76; PULSE 70; RESP 16; TEMP 36.8; O2SAT 99
--- NOTE | 2021-08-15 12:01 | PM.PNNEP ---
Subjective Subjective Date of Service: 08/15/21 Interval history: Seen and examined, events noted. Wants to go home Physical Exam Vital Signs: Vital Signs: Last Vital Signs Temp 98.2 F 08/15/21 11:44 Pulse 70 08/15/21 11:44 Resp 16 08/15/21 11:44 BP 132/76 08/15/21 11:44 Pulse Ox 99 08/15/21 11:44 BMI result Body Mass Index 18.3 Const: General: no acute distress Orientation/consciousness: patient oriented x3 Eyes: EOM: EOMs intact bilaterally Neck: Neck: Yes supple Resp: Auscultation: diminished lung sounds Cardio: Rate: regular rate GI: Palpation (GI): Soft to palpation Neuro: General: patient oriented x3 and moves all extremities Objective Data Labs CBC & Chem 7: 08/15/21 04:10 08/15/21 04:10 Labs: Laboratory Results - last 24 hr 08/15/21 08/15/21 04:10 04:10 WBC 5.9 RBC 2.76 L Hgb 9.2 L Hct 27.1 L MCV 98.2 H MCH 33.3 H MCHC 33.9 RDW 14.6 Plt Count 69 L MPV 10.8 Immature Gran % (Auto) 1.4 H Neut % (Auto) 48.6 Lymph % (Auto) 29.9 [place] % (Auto) 16.8 H Eos % (Auto) 3.0 Baso % (Auto) 0.3 Lymph # (Auto) 1.8 [place] # (Auto) 1.0 Eos # (Auto) 0.2 Baso # (Auto) 0.0 Abs Immat Gran (auto) 0.08 H Absolute Neuts (auto) 2.9 Absolute Nucleated RBC 0.000 Nucleated RBC % (auto) 0.0 Sodium 137 Potassium 4.5 Chloride 114 H Carbon Dioxide 16 L Anion Gap 12 BUN 31 H Creatinine 1.55 H Estim Creat Clear Calc 32.6 Estimated GFR 34 Fasting Glucose 100 H Calcium 7.9 L Total Bilirubin 1.2 H AST 64 H ALT 34 H Alkaline Phosphatase 82 Total Protein 5.6 L Albumin 3.0 L Procedures Date of Service Date of Service: 08/15/21 Assessment & Plan Assessment and plan (1) AUGUSTINA (acute kidney injury): Status: Acute Assessment and Plan: 55 yo F with alcoholic liver cirrhosis, MDD, [facility] found to have AUGUSTINA 1.AUGUSTINA:contgrad decr SCr with IVF; UA bland; surprising that FENa > 1% as clinically presented with what appeared to be due to tubular injury BSL SCr 0.8 2.Alcoholic liver cirrhosis: close f/u with [facility] --per PT on list ( Dr Rooney) 3.NAGMA:NaHCO3 started Continue current medications. Shall arrange office F/U if D/Nitish Time Spent With Patient Time: Total time spent is greater than 50% in coordination of care (as documented) at patient's floor/unit and/or counseling patient: Progress Note: Quality Stroke Does the patient have a stroke diagnosis?: No
--- NOTE | 2021-08-15 13:31 | PM.DS ---
DS: Providers Provider Date of Service: 08/15/21 Date of admission: 08/12/21 19:38 Date of discharge: 08/15/21 Primary care physician: Saloni Rose MD Consults: 08/12/21 19:38 Consult to Nephrology Routine Consulting Provider: [facility] Reason for consultation: AUGUSTINA Has provider been notified: No DS: Diagnosis Discharge Diagnosis (1) AUGUSTINA (acute kidney injury): Status: Acute DS: Summary Hospital Course Hospital Course: 55-year-old female with known past medical history of liver cirrhosis secondary to alcohol on transplant list presents with the hospital at the request of her transplant team. Patient states she had routine labs done that showed an increase in her kidney function. She states that she was well but approximately 1 week prior to this lab she had fever chills and fatigue consistent with a viral syndrome. She also notes that she had increased watery diarrhea during this episode in the backdrop of chronic lactulose use. She was admitted to the hospital; volume was repleted IV. Her kidney function slowly improved however did plateau. She was seen by Renal a who added sodium bicarb to the regimen. She was also given 3 doses of albumin to augment the volume repletion process. The day of discharge her creatinine has plateaued and after discussion with Renal she is medically acceptable for discharge to follow-up with Renal in the office and her transplant team as scheduled Discharge diagnosis 1. ATN -in the backdrop of viral syndrome with fluid loss secondary to diarrhea. Creatinine responded to volume repletion. At this point she will be discharged with sodium bicarb [address] Jean-Baptiste will follow up in office and call with an appointment. ATN is suspected secondary to initial AUGUSTINA with subsequent plateau in creatinine in response to volume repletion 2. End-stage alcoholic cirrhosis -patient will continue to abstain from alcohol and follow-up with primary transplant team in 2 weeks as scheduled. She is encouraged to continue ongoing abstinence from alcohol as she has continued to do for the past 2 years Time Spent with Patient Time attestation: Total time spent providing and/or coordinating discharge services: Discharge coordination time: Greater than 30 minutes Quality: Stroke Does the patient have a stroke diagnosis?: No Physical Exam Vital Signs: Vital Signs: Last Vital Signs Temp 98.2 F 08/15/21 11:44 Pulse 70 08/15/21 11:44 Resp 16 08/15/21 11:44 BP 132/76 08/15/21 11:44 Pulse Ox 99 08/15/21 11:44 BMI result Body Mass Index 18.3 Const: Other: Awake alert oriented x3 no acute distress Resp: Other: Clear to auscultation bilaterally no rales rhonchi or wheezes Cardio: Other: No S4; positive S1-S2; no S3 murmurs rubs or gallops GI: Other: Soft nontender nondistended normoactive bowel sounds. No appreciable fluid wave Neuro: Other: Cranial nerves 2-12 grossly intact as tested. Motor 5/5 all extremities. Sensation intact. Cognition appropriate Extrem: Other: The no edema bilaterally DS: Data Data Completed and Pending Completed studies during hospitalization [Text1]: Procedures Drainage of Peritoneal Cavity, Percutaneous Approach (08/08/20) Inspection of Upper Intestinal Tract, Via Natural or Artificial Opening Endoscopic (08/08/20) Transfusion of Nonautologous Red Blood Cells into Peripheral Vein, Percutaneous Approach (08/08/20) Labs on day of discharge: Laboratory Results - last 24 hr 08/15/21 08/15/21 04:10 04:10 WBC 5.9 RBC 2.76 L Hgb 9.2 L Hct 27.1 L MCV 98.2 H MCH 33.3 H MCHC 33.9 RDW 14.6 Plt Count 69 L MPV 10.8 Immature Gran % (Auto) 1.4 H Neut % (Auto) 48.6 Lymph % (Auto) 29.9 [place] % (Auto) 16.8 H Eos % (Auto) 3.0 Baso % (Auto) 0.3 Lymph # (Auto) 1.8 [place] # (Auto) 1.0 Eos # (Auto) 0.2 Baso # (Auto) 0.0 Abs Immat Gran (auto) 0.08 H Absolute Neuts (auto) 2.9 Absolute Nucleated RBC 0.000 Nucleated RBC % (auto) 0.0 Sodium 137 Potassium 4.5 Chloride 114 H Carbon Dioxide 16 L Anion Gap 12 BUN 31 H Creatinine 1.55 H Estim Creat Clear Calc 32.6 Estimated GFR 34 Fasting Glucose 100 H Calcium 7.9 L Total Bilirubin 1.2 H AST 64 H ALT 34 H Alkaline Phosphatase 82 Total Protein 5.6 L Albumin 3.0 L Discharge Plan Discharge Patient Disposition: Home, Self-Care Discharge Diagnosis: ATN Referrals: Po,Saloni Jackson MD [Primary Care Provider] - 1 Week Discharge Medications: New sodium bicarbonate 650 mg Tablet 650 mg PO QID Qty: 120 2RF Continued spironolactone 25 mg tablet 25 mg PO DAILY Qty: 90 1RF Protocol: Hold for SBP< HOLD for SBP < : 90 omeprazole 20 mg capsule,delayed release(DR/EC) 20 mg PO DAILY@0630 Qty: 90 1RF Xifaxan 550 mg tablet 550 mg PO BID Qty: 60 2RF thiamine HCl (vitamin B1) [Vitamin B-1] 100 mg tablet 100 mg PO DAILY Qty: 90 2RF folic acid 1 mg tablet 1 mg PO DAILY Qty: 90 2RF tramadol 50 mg tablet 50 mg PO TID PRN (Reason: Pain (Scale Score 4-6)) 0RF lactulose 20 gram/30 mL solution 20 g PO BID 0RF ergocalciferol (vitamin D2) 1,250 mcg (50,000 unit) capsule 1,250 mcg PO MO 0RF Discontinued potassium chloride [Klor-Con M20] 20 mEq tablet,ER particles/crystals 20 meq PO BID 90 Days Qty: 180 2RF levofloxacin 250 mg tablet 1 tab PO DAILY 0RF Discharge Orders: Discharge Order (Routine); Ordered 08/15/21 Ordered By: Jamie Londono Diet: advance to usual diet Activity on Discharge: As tolerated Stand Alone Forms: Patient Portal Discharge page Care Plan Goals: Continue all previous medicines as prior to discharge. Take sodium bicarb 1 tab 4 times a day as ordered Health Concerns: Follow-up with transplant team as scheduled; follow-up with Dr. Jean-Baptiste in the office; he will call you with an appointment Plan of Treatment: Continue to drink plenty of fluids; 8 8 oz glasses of water daily Assessment: Improved. Please see discharge summary
--- NOTE | 2021-08-15 13:36 | MHC.CM.PN ---
PATIENT IS DISCHARGED HOME - SELF CARE. RN AND UNIT AWARE OF PLAN.
== END 2021-08-15 16:05 | disposition home or self-care (01) | DRG 280 ==
LOC: HO.ED 18:27 → HO.EDOVER 19:47 → HO.S3 22:25
PROVIDERS: Internal Medicine Nephrology; Physician Assistant; Admitting Provider Internal Medicine; Emergency Provider Emergency Medicine; PCP Internal Medicine; Visit Provider Hospitalist
DX: K70.30 Alcoholic cirrhosis of liver without ascites (principal); N17.0 Acute kidney failure with tubular necrosis; I27.20 Pulmonary hypertension, unspecified; E87.2 Acidosis; E83.59 Other disorders of calcium metabolism; B34.9 Viral infection, unspecified; F10.11 Alcohol abuse, in remission; G89.29 Other chronic pain; N29 Other disorders of kidney and ureter in diseases classified elsewhere; Z20.822 Contact with and (suspected) exposure to COVID-19; Z79.891 Long term (current) use of opiate analgesic; Z87.891 Personal history of nicotine dependence; Z79.899 Other long term (current) drug therapy
CPT/HCPCS: 36415; 74176; 80048; 80053; 81003; 84156; 84300; 85025; 87635; 96360; 99285; J1650; J2405; P9047